=== PATIENT | male | born 1965 ===

== ENCOUNTER → 2021-03-19 08:19 | Outpatient (BNVA) | payer OTHER, SELFPAY | PROVIDERS: Visit Provider Internal Medicine | DX: T15.01XA Foreign body in cornea, right eye, initial encounter (principal); W22.8XXA Striking against or struck by other objects, initial encounter | CPT/HCPCS: 92002; 99202 ==

== ENCOUNTER 2023-01-02 10:20 | Outpatient (REF) | payer OTHER, SELFPAY ==
--- NOTE | ~2023-01-02 | XR_ITS ---
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 There is chronic loss of articular cartilage space with subarticular sclerosis, subchondral cystic change and osteophyte formation of the radioscaphoid joint. There is osteophyte formation of the mildly degenerated scaphotrapezium joint. There is chronic severe joint space loss with sclerosis and subchondral cystic change of the severely degenerated capitolunate joint. There appears to be a prominent lunate osteophyte or old ossific debris of the scapholunate joint. An old ossicle projects posterior to the radiocarpal joint. Mild osteoarthritis of the thumb metacarpophalangeal joint. LEFT WRIST: There is joint space narrowing and mild subarticular sclerosis of the radioscaphoid joint. Interval worsening osteoarthritis of the capitolunate joint with [id number]-[id number]-[id number] contact and subchondral sclerosis. Mild osteoarthritis of the scaphotrapezium joint and first carpometacarpal joint. An old subarticular cystic lucency of the ulna has increased in size since 09/12/2019. There are osteophytes of the degenerated thumb metacarpophalangeal and interphalangeal joints. 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 Also, osteoarthritic changes are seen at several other joints, as noted above.
--- NOTE | ~2023-01-02 | XR_ITS ---
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 There is chronic loss of articular cartilage space with subarticular sclerosis, subchondral cystic change and osteophyte formation of the radioscaphoid joint. There is osteophyte formation of the mildly degenerated scaphotrapezium joint. There is chronic severe joint space loss with sclerosis and subchondral cystic change of the severely degenerated capitolunate joint. There appears to be a prominent lunate osteophyte or old ossific debris of the scapholunate joint. An old ossicle projects posterior to the radiocarpal joint. Mild osteoarthritis of the thumb metacarpophalangeal joint. LEFT WRIST: There is joint space narrowing and mild subarticular sclerosis of the radioscaphoid joint. Interval worsening osteoarthritis of the capitolunate joint with ztvq-pt-[id number] contact and subchondral sclerosis. Mild osteoarthritis of the scaphotrapezium joint and first carpometacarpal joint. An old subarticular cystic lucency of the ulna has increased in size since 09/12/2019. There are osteophytes of the degenerated thumb metacarpophalangeal and interphalangeal joints. 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 Also, osteoarthritic changes are seen at several other joints, as noted above.
== END 2023-01-02 10:21 | disposition home or self-care (01) ==
LOC: HO.XRAY 10:20
PROVIDERS: PCP Physician Assistant; Visit Provider Physician Assistant
DX: M25.531 Pain in right wrist (principal); M25.532 Pain in left wrist
CPT/HCPCS: 73100

== ENCOUNTER 2023-01-03 09:42 | Outpatient (REF) | payer OTHER, SELFPAY ==
[2023-01-03 10:30] LABS: Hematocrit 48.4 % (42.0-52.0); Mean Corpuscular HGB Conc 33.1 g/dl (31.0-36.0); Mean Corpuscular Hemoglobin 30.7 pg (27.0-33.0); Mean Corpuscular Volume 92.7 fL (80.0-98.0); Mean Platelet Volume 10.7 fL (9.4-12.4); Platelet Count 204 X10*3/uL (160-400); Red Blood Count 5.22 X10*6/uL (4.60-5.80); Red Cell Distribution Width 12.1 % (11.0-16.0); White Blood Count 6.4 X10*3/uL (4.8-10.8)
[2023-01-03 11:25] LABS: Alanine Aminotransferase 22 U/L (0-40); Alkaline Phosphatase 96 U/L (39-117); Anion Gap 13 (12-20); Aspartate Amino Transferase 19 U/L (5-37); Bilirubin Total 0.8 mg/dL (0.0-1.0); Blood Urea Nitrogen 14 mg/dL (9-16); Calcium 9.4 mg/dL (8.4-10.2); Carbon Dioxide 26 mmol/L (22-29); Chloride 106 mmol/L (96-108); Cholesterol 192 mg/dL; Estimated Glomerular Filt Rate > 60; Glucose Fasting 90 mg/dL (60-99); HDL Cholesterol 31 mg/dL; LDL Cholesterol Calculated 105 mg/dl; Potassium 4.4 mmol/L (3.3-5.1); Sodium 141 mmol/L (135-145); Total Protein 6.3 g/dL (6.5-8.0); Triglycerides 284 mg/dL
[2023-01-03 11:44] LABS: Prostate Specific Antigen Scr 0.83 ng/mL (<0.05-4.0)
[2023-01-05 17:44] LABS: Transglutaminase Ab IgG <1.0 U/mL; Transglutaminase IgA <1.0 U/mL
== END 2023-01-03 09:43 | disposition home or self-care (01) ==
LOC: HO.LAB 09:42
PROVIDERS: PCP Physician Assistant; Visit Provider Physician Assistant
DX: I25.10 Atherosclerotic heart disease of native coronary artery without angina pectoris (principal); R14.0 Abdominal distension (gaseous); K52.9 Noninfective gastroenteritis and colitis, unspecified; Z13.1 Encounter for screening for diabetes mellitus; Z12.5 Encounter for screening for malignant neoplasm of prostate
CPT/HCPCS: 36415; 80053; 80061; 84153; 85027; 86364

== ENCOUNTER → 2023-01-16 10:18 | Outpatient (REF) | payer OTHER, SELFPAY ==
--- NOTE | 2023-01-16 10:22 | CA_ITS ---
Acquisition Time: 2023-01-16 10:42:09 Total Exercise Time: 00:09:19 Test Indications: CP Medications: SEE CHART Protocol: DAMIAN Max HR: 142 BPM 86% of Pred: 164 BPM Max BP: 158/058 mmHG Max Work Load: 10.5 METS Exercise stress test exercise 9 min 19 sec of Damian protocol achieving 85% MPHR, without anginal symptoms, with feeling of twinge in chest that correlated with PVCs, with isolated PVCs, with normotensive response to exercise, without EKG changes. Test reviewed with Dr. Chairez. Referred By: Chapito Jara Overread By: ELIZABETH HAQUE
== END ==
LOC: HO.CARD 10:18
PROVIDERS: PCP Physician Assistant; Visit Provider Physician Assistant
DX: I25.118 Atherosclerotic heart disease of native coronary artery with other forms of angina pectoris (principal)
CPT/HCPCS: 93017

== ENCOUNTER 2023-02-13 14:37 | Outpatient (REF) | payer OTHER, SELFPAY ==
--- NOTE | ~2023-02-13 | CT_ITS ---
EXAMINATION: CT CHEST SCREENING CLINICAL INFORMATION: Current smoker. 43 pack-year history. COMPARISON: None available. TECHNIQUE: Multidetector volumetric CT imaging of the chest is performed without contrast using low dose technique. Additional 2D coronal and sagittal reformatted images and axial 3D maximum intensity projection (MIP) images are generated on the CT workstation. This CT examination was performed using dose optimization techniques as appropriate, variously including the following: *Automated exposure control *Adjustment of mA and/or kV according to patient size (this includes techniques or standardized protocols for targeted exams where dose is matched to indication/reason for exam; i.e. extremities or head) *Use of iterative reconstruction technique DLP: 59 mGy-cm FINDINGS: LUNGS: Mild paraseptal emphysema. 8 mm mixed cystic and reticular nodule right upper lobe axial image 88 series 5.. 2 mm right upper lobe nodule axial image 118 series 5. Heterogeneous 5 mm right upper lobe nodule axial image 118 series 5. 2 mm peripheral or subpleural calcified left upper lobe nodule axial image 118 series 5. 2 mm calcified right upper lobe nodule axial image 179 series 5. 2 mm calcified right upper lobe nodule axial image 249 series 5. 2 mm peripheral or subpleural left lower lobe nodule adjacent to the fissure axial image 298 series 5. No endobronchial or endotracheal lesion. MEDIASTINUM: The mediastinum is normal. CORONARY ARTERY CALCIFICATION: Mild PLEURA: There is no pleural effusion. No pleural mass or thickening. AXILLA: No lymphadenopathy. UPPER ABDOMEN: The gallbladder is contracted. There may be a small gallstone. OSSEOUS STRUCTURES: Mild degenerative changes of the spine and left shoulder CT/CT lung screening IMPRESSION: Emphysema. Small pulmonary nodules. ASSESSMENT: Lung-RADS category 2: Benign RECOMMENDATION: Annual low-dose chest follow-up recommended.
== END 2023-02-13 14:38 | disposition home or self-care (01) ==
LOC: HO.CT 14:37
PROVIDERS: PCP Physician Assistant; Visit Provider Physician Assistant Medical
DX: Z12.2 Encounter for screening for malignant neoplasm of respiratory organs (principal); F17.210 Nicotine dependence, cigarettes, uncomplicated
CPT/HCPCS: 71271; G0296

== ENCOUNTER 2023-02-26 11:31 | Outpatient (REF) | payer OTHER, SELFPAY ==
--- NOTE | 2023-02-26 08:00 | EMG_ITS ---
Bilateral median and ulnar motor and sensory studies were performed. Bilateral radial sensory studies were performed and paraspinal muscles were tested with a needle. IMPRESSION: 1. Cjul-oy-xdxhwmrw bilateral median neuropathy across carpal tunnel. 2. Fbri-uf-ebngqikt bilateral ulnar neuropathy across cubital tunnel. MD YURI Tello/CHANTALE / [id number]
== END 2023-02-26 11:32 | disposition home or self-care (01) ==
LOC: HO.NEURO 11:31
PROVIDERS: PCP Physician Assistant; Visit Provider Physician Assistant
DX: R20.0 Anesthesia of skin (principal)
CPT/HCPCS: 95886; 95911

== ENCOUNTER 2023-03-04 15:00 | Outpatient (RCR) | payer OTHER, SELFPAY ==
--- NOTE | 2023-01-23 14:51 | MHC.OT.EP ---
[address] [phone] Occupational Therapy Plan of Care Patient Name: Blaine Benitez Date of Evaluation: 01/23/23 Diagnosis: PAIN IN B/L WRISTS Pain Location: B/L WRISTS: VOLAR, DORSAL, RADIAL WRISTS 3/10 AT REST 8/10 BUMPING Pain Score: 3-8/10 Pain Scale Used: Numeric (0 - 10) Aggravating Factors: BUMPING IT, VIBRATION, HOLDING PHONE, GRIPPING ... STATIC POSITIONS Alleviating Factors: HAS NOT TRIED ICE/HEAT, MARIJUANA HAS TRIED GLOVES TO DECREASE VIBRATION IN HANDS HAS B/L PRE-CADEN WRIST SPLINTS, DOES NOT WEAR Assessment: 57 Y/O M WITH FOUR YEAR HISTORY OF B/L WRIST PAIN. STATES HE DELAYED SEEKING MEDICAL ATTENTION DUE TO LACK OF INSURANCE. RECENT XRAY REVEALS STAGE 3 SLAC DEFORMITY IN B/L WRISTS. ADDITIONALLY, HE HAS NUMBNESS AND TINGLING IN B/L WRISTS. EMG PENDING FOR 02/26/23. OWNS PREFAB WRIST SPLINTS, BUT DOES NOT WEAR. HE ALSO STATES THAT HE HAS WORK GLOVES TO DECREASE VIBRATION, YET DIFFICULT TO WEAR DUE TO INCREASED EDEMA IN B/L WRISTS. 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 A 41% LIMITATION IS REPORTED PER THE QUICK DASH ASSESSMENT. ONGOING SKILLED OT IS WARRANTED TO ADDRESS ROM, STRENGTH, PARASTHESIA, JT PROTECTION, ACTIVITY MODIFICATION, PAIN, SAFETY, ADLs AND IADLs. Frequency and Duration: The patient will be seen 2X/WEEK FOR 5 WEEKS Short Term Goals: IND HEP IND JT PROTECTION AND ACTIVITY MODIFICATIONS IND USE OF NIGHT SPLINTS, ORTHOSIS' INCREASE R WRIST 35/25 INCREASE L WRIST 50/50 IND EDEMA MANAGEMENT STRATEGIES Intermediate Goals: REPORT <5/10 PAIN WITH IADLs REPORT MILD NUMBNESS AND TINGLING IN B/L HANDS QUICK DASH <25% IND SELF TAPING OR COMPRESSION GARMENTS Treatment Plan: Therapeutic Exercise Therapeutic Activity Home Exercise Program Splinting Neuro Re-ed Patient Education Desensitization/Sensory Re-ed Edema Control ADL Training Ultrasound NMES Iontophoresis Paraffin Fluidotherapy MHP Cold Packs Joint Mobilization Soft Tissue Mobilization Kinesiotaping Other (see comments) Electronically Signed By: BRAD KARLENE, OTR/L Please Sign and return to therapist. Thank you once again for your referral.
--- NOTE | 2023-03-04 15:50 | MHC.OT.OP ---
[address] [phone] F: [phone] Occupational Therapy Progress Note Patient Name: Blaine Benitez Diagnosis: PAIN IN B/L WRISTS Date of Surgery: Date of Evaluation: 01/23/23 Treatments to Date: 8 Cancellations to Date: 2 No Shows to Date: 0 Subjective: I WAS OFF FOR FIVE DAYS AND THEY WERE FEELING GREAT Pain Score: 4 Pain Location: B/L DORSAL WRISTS Objective Measures: CIRCUMFERENCE OF WRISTS, DISTAL TO US: R 19.0 CM, L 18.5 CM B/L GROSS GRASP 40 POUNDS Status: Not Progressing Assessment: MR DUVALL HAS REPORTED SOME PAIN RELIEF AFTER HIS OT TREATMENT SESSIONS. HE STATES THAT HIS PAIN SHARPLY INCREASES WHEN HE RETURNS TO WORK. 4/10 AT REST. 8-9/10 AT WORK. GRINDING, LIFTING 70-75 POUNDS DURING HIS WORK DAY. HE HAS BEEN PROVIDED WITH CUSTOM B/L HAND BASED ORTHOSIS' FOR USE WITH IADLs. Pt EDUCATION HAS BEEN PROVIDED ON SLEEPING POSITIONS AND ACTIVITY MODIFICATIONS. EDEMA REMAINS PRESENT AT HIS R > L DORSAL RADIAL WRISTS. HE IS IND WITH HIS HEP. Pt TO BE PLACED ON HOLD UNTIL AFTER HIS ORTHO APPOINTMENT ON 03/13/23. Short Term Goals: IND HEP IND JT PROTECTION AND ACTIVITY MODIFICATIONS IND USE OF NIGHT SPLINTS, ORTHOSIS' INCREASE R WRIST 35/25 INCREASE L WRIST 50/50 IND EDEMA MANAGEMENT STRATEGIES Gem Expert Goals: REPORT <5/10 PAIN WITH IADLs REPORT MILD NUMBNESS AND TINGLING IN B/L HANDS QUICK DASH <25% IND SELF TAPING OR COMPRESSION GARMENTS Treatment Plan: Therapeutic Exercise Therapeutic Activity Home Exercise Program Splinting Neuro Re-ed Patient Education Desensitization/Sensory Re-ed Edema Control ADL Training Ultrasound NMES Iontophoresis Paraffin Fluidotherapy MHP Cold Packs Joint Mobilization Soft Tissue Mobilization Kinesiotaping Other (see comments) TO BE ASSESSED AFTER ORTHO MD APPOINTMENT 03/13/23 Electronically Signed By: MAZIN SHELL/Fabienne Reviewed/agree with student documentation: N/A Therapist:
--- NOTE | 2023-04-03 15:07 | MHC.OT.DC ---
[address] [phone] F: [phone] Occupational Therapy Discharge Note Patient Name: Blaine Benitez Provider: Chapito Jara Diagnosis: PAIN IN B/L WRISTS Date of Evaluation: 01/23/23 Date of Discharge: 04/03/23 Treatments to Date: 8 Cancellations to Date: 2 No Shows to Date: 0 Discharge Status: Patient Elected to Stop Recommend MD Follow-up Discharge Summary: MR ROA WAS MOTIVATED AND PLEASANT DURING HIS OT RX SESSIONS. HE WAS IND WITH HIS HEP, YET CONTINUED TO EXPERIENCE PAIN AFTER WORK RELATED TASKS. HE STATED RELIEF FELT ON WEEKENDS WHEN ABLE TO REST B/L HANDS. B/L ORTHOSIS' FABRICATED FOR USE WITH IADLs WITH MILD RELIEF. MET WITH ORTHO PA, DISCUSSED POSSIBLE SURGICAL INTERVENTION. AWAITING MEETING WITH ORTHO ON 04/21/23. Pt WISHING TO DISCONTINUE OT SERVICES AT THIS TIME. Electronically Signed By: BRAD SOLER OTR/L Reviewed/agree with student documentation: N/A Therapist: Please Sign and return to therapist, thank you for your referral.
== END 2023-04-03 15:05 | disposition home or self-care (01) ==
LOC: HO.OT 15:00
PROVIDERS: PCP Physician Assistant; Visit Provider Physician Assistant
DX: M25.531 Pain in right wrist (principal); M25.532 Pain in left wrist
CPT/HCPCS: 29130; 97035; 97110; 97140; 97167; 97760

== ENCOUNTER → 2023-03-11 07:59 | Outpatient (BNVA) | payer OTHER, SELFPAY | PROVIDERS: PCP Physician Assistant; Visit Provider Physician Assistant ==

== ENCOUNTER → 2023-03-12 14:52 | Outpatient (BNVA) | payer OTHER, SELFPAY | PROVIDERS: PCP Physician Assistant; Referring Provider Physician Assistant; Visit Provider Internal Medicine | DX: I25.118 Atherosclerotic heart disease of native coronary artery with other forms of angina pectoris (principal); Z95.5 Presence of coronary angioplasty implant and graft | CPT/HCPCS: 93005 ==

== ENCOUNTER → 2023-03-13 10:52 | Outpatient (BNVA) | payer OTHER, SELFPAY | PROVIDERS: PCP Physician Assistant; Visit Provider Physician Assistant ==

== ENCOUNTER 2023-04-08 11:53 | Emergency (ER) | payer OTHER, SELFPAY ==
[2023-04-08 11:56] VITALS: BP 148/80; PULSE 86; RESP 20; TEMP 36.8; O2SAT 96; BMI 26.4
--- NOTE | 2023-04-08 12:01 | ED_ITS ---
HPI - General Adult General Chief complaint: Head Injury Stated complaint: ? Concussion Nausea Dizziness Time Seen by Provider: 04/08/23 13:16 Source: patient Mode of arrival: ambulatory Limitations: no limitations and other (poor historian ) History of Present Illness HPI narrative: Patient is a 58 year old male with a past medical history of carpal tunnel and CAD with stent presents with a traumatic head injury that occured around 10:30- 11:00 am. Patient reports he was hit with a steel frame in the back of his head while at work. Patient reports he thinks he lost consciousness for less than one minute but is unsure because he was seeing stars and had double vision which has since resolved. Patient reports throbbing diffuse headache that radiates from the back of his head around the sides towards the front. Patient reports dizziness with movement, headache, and nausea. Patient reports taking 81mg aspirin daily. Patient denies weakness, vomiting, fever, chills, numbness, tingling, incontinence, chest pain, or shortness of breath. On aspirin daily Related Data Home Medications Medication Instructions Recorded Confirmed diclofenac sodium 50 mg 50 mg PO BID PRN pain 03/12/23 03/12/23 tablet,delayed release Previous Rx's Medication Instructions Recorded aspirin 81 mg tablet,delayed 81 mg PO DAILY #90 tabs 12/31/22 release (Adult Aspirin Regimen) simvastatin 20 mg tablet 20 mg PO DAILY 90 days #90 tabs 02/11/23 bupropion HCl 150 mg tablet,12 hr 150 mg PO BID 30 days #60 tabs 02/23/23 sustained-release (Wellbutrin SR) bisacodyl 5 mg tablet,delayed 10 mg PO ONCE colonoscopy prep 1 03/11/23 release (Dulcolax (bisacodyl)) day #2 tabs methylcellulose (laxative) 500 mg 500 mg PO BID #60 tabs 03/11/23 tablet (Citrucel) polyethylene glycol 3350 17 238 g PO ONCE PRN laxative effect 03/11/23 gram/dose oral powder (Miralax) 1 day #238 grams ondansetron 4 mg disintegrating 4 mg PO Q6H PRN nausea and 04/08/23 tablet vomiting #14 tabs Allergies Allergy/AdvReac Type Severity Reaction Status Date / Time Penicillins [PENICILLINS] Allergy Severe HIVES Verified 03/12/23 15:02 amoxicillin Allergy Difficulty Verified 03/13/23 11:03 Breathing Review of Systems Review of Systems: Constitutional : No Weight loss, No Fever, No Chills, No Night Sweats, No Fatigue, No Malaise ENT/Mouth : No Hearing loss, No Ear Pain, No Nasal Congestion, No Sinus Pain, No Hoarseness, No sore throat, No Rhinorrhea, No Swallowing Difficulty Eyes: No Eye Pain, No Swelling, No Redness, No Foreign Body, No Discharge, + Vision Changes Cardiovascular : No Chest Pain, No SOB, No Dyspnea on Exertion, No Orthopnea, No Edema, No Palpitations Respiratory : No Cough, No Sputum, No Wheezing, No Smoke Exposure, No Dyspnea Gastrointestinal : + Nausea, No Vomiting, No Diarrhea, No Constipation, No abdominal Pain, No Hematochezia, No Melena Genitourinary : no irregular bleeding, No Dysuria, No Urinary Frequency, No Hematuria, No Urinary Incontinence, No Urgency, No Flank Pain, No Urinary Flow Changes, No Hesitancy Musculoskeletal : No joint pain, No Myalgias, No Joint Swelling Skin : No Skin Lesions, No rash +swelling on head Neuro : No Weakness, No Numbness, No Paresthesias, + Loss of Consciousness, +Dizziness, + Headache Psych : No Anxiety/Panic, No Depression, No SI/HI/AH/VH, No Social Issues, Heme/Lymph: No Bruising, No Bleeding,No Lymphadenopathy Endocrine : No Polyuria, No Polydipsia, No Temperature Intolerance [facility] Past Medical History Attestation statement: The following information was validated with the patient. Source: old records reviewed and nursing notes reviewed Medical History Nicotine dependence, cigarettes, uncomplicated Surgical History History of heart artery stent (~2010) History of left knee surgery (~1989) Family History Family History Mother Heart attack, Onset Age: 28 Stroke Father Renal cancer Maternal Grandfather Pancreatic cancer Social History Social History Housing: House Alcohol intake: current Alcohol intake frequency: holidays/special occasions only Patient Tobacco Use Status: Current someday Tobacco user Years Smoked: (onset 14yo, 1/2-1ppd x 43yrs, 30+pyh - quit 01/04/23) Smoked in Last 30 Days: No e-Cigarette/Vaping Use: Never Used Second Hand Smoke Exposure: No Use of substances other than those prescribed or required for medical reasons: Yes Substance Use Type: Marijuana Advance Directives: No Advance Directives Information Provided: Yes service: No Current occupational status: employed 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 Oriented X3.? No acute distress.? Head: + small tender area on the occipital aspect of head likely hematoma measuring about 2 cm x 2 cm. No lacerations. Eyes: Pupils equal, round and reactive to light.? Extraocular movements intact, pain-free. No signs of nerve entrapment. ENT: Pharynx normal.??External ears normal, TMs normal bilaterally and EAC's normal. No pain with manipulation of external ears bilaterally. No mastoid tenderness. CVS: Normal heart rate and rhythm.? Pulses normal.? Respiratory: No respiratory distress.? Breath sounds normal.? Abdomen: Soft and nontender.? Skin: Skin warm and dry.? Normal skin color.? Normal skin turgor.? Extremities: No lower extremity edema.? No calf ttp. 5/5 strength to bilateral upper and lower extremities Back: No midline tenderness, + cervical b/l paraspinous tendernes throughout, full range of motion w slight discomfort and no midline tenderness in C,T,L,S spine.. No CVA tenderness bilaterally Neuro: Oriented X 3.? No motor deficit.? No sensory deficit. CN 2-12 intact . Ambulating with steady gait normal coordination. Normal [id number], heel- to-bernal. No saddle paresthesias. NIH Stroke Scale: 0 NIH Stroke Scale Time: 14:04 Level of Consciousness: Alert Level of Consciousness Questions: Answers both questions correctly Level of Consciousness Commands: Performs both tasks correctly Best Gaze: Normal Visual: No visual loss Facial Palsy: Normal Motor Arm (Right): No drift Motor Arm (Left): No drift Motor Leg (Right): No drift Motor Leg (Left): No drift Limb Ataxia: Absent Sensory: Normal Best Language: No aphasia Dysarthia: Normal Extinction and Inattention: No abnormality Score: 0 Course Course Course Narrative: 58-year-old male presents for evaluation after head trauma. Patient reports that in 8 ft still frame swelling down and hit him in the back of the head. He did not lose consciousness. He reports posterior headache, neck pain, dizziness and nausea. He reports that he was having some trouble walking earlier as ?I felt like I was going to pass out. ? No open wounds or lacerations. Patient's cranial nerve exam is reassuring. I did not stand the patient up I see felt lightheaded the. CT scans of brain and cervical spine ordered Reevaluation(s) Reevaluation #1: CT of head with no acute intracranial hemorrhage. No acute cervical spine fracture no traumatic spinal subluxations. Degenerative spondylosis at C4 and C5 and C5-C6. Canal pain sees not well assessed due to inherent limitations without contrast, there is no signs of compressive myelopathy. Time: 15:03 Reevaluation #2: Patient reports improvement in headache however still complaining of dizziness with movement, walking, described as room spinning. I did discuss this case with my attending who reports this is likely vertigo secondary to traumatic head injury, recommends meclizine, Zofran for nausea and vomiting. And discharge home with strict return precautions. Educated patient on diagnosis and treatment plan, answered all question, patient verbalizes understanding. At this time patient will be discharged home, advised to return with new or worsening symptoms. Educated on worrisome signs and symptoms and when to return. At this time I feel comfortable discharge home. Medications Administered Discontinued Medications Generic Name Dose Route Start Last Admin Trade Name Freq PRN Reason Stop Dose Admin Acetaminophen 975 mg 04/08/23 14:39 04/08/23 14:52 Acetaminophen 325 Mg Tablet PO 04/08/23 14:40 975 mg ONCE ONE Administration Medical Decision Making Medical Decision Making MDM Narrative: 58-year-old male presents with traumatic head injury, closed prior to arrival, on aspirin. Reports he thinks he may have lost consciousness, poor historian. Physical examination with small 2 cm a 2 cm hematoma to the occipital aspect of head. Neuro nonfocal. Cerebellar intact. Normal vision on exam. Able to read without difficulty. History and physical exam concerning for possible concussion. Low suspicion for stroke, posterior stroke, intracranial hemorrhage, skull fracture, cervical spine fracture dislocation. No signs of cord compression, compressive myelopathy. I do not suspect traumatic fractures, dislocations or traumatic subluxations. No signs of traumatic injuries to chest, abdomen or pelvis. Plan head and neck imaging. Will give Tylenol for pain. Differential Diagnosis Differential Diagnoses: The differential diagnosis associated with the presentation includes History and physical exam concerning for possible concussion. Low suspicion for stroke, posterior stroke, intracranial hemorrhage, skull fracture, cervical spine fracture dislocation. No signs of cord compression, compressive myelopathy. I do not suspect traumatic fractures, dislocations or traumatic subluxations. No signs of traumatic injuries to chest, abdomen or pelvis. Admission/Observation Consideration of admission/observation: Escalation of care including admission/observation considered Not indicated Independent Interpretation I performed an independent interpretation of an: CT Scan Radiology Impression Discussion of test interpretation with radiology: I have reviewed the radiologist's reading. Core Measures AMI core measures followed: Yes Measure exclusions: not indicated Critical Care Time Critical Care Time Critical Care Time: No Discharge Plan Discharge Clinical Impression: Closed head injury, Concussion with loss of consciousness, Nausea, Dizziness Patient Disposition: Home, Self-Care Instructions: Head Injury (ED), Acute Nausea and Vomiting (ED), Post Concussion Syndrome (ED) Additional Instructions: Take your medications as prescribed. If you were prescribed antibiotics today, it is important that you take your medication to their entirety, do not skip any doses, do not finish them early. Follow-up with your primary care provider this week. Return to the emergency department with new or worsening symptoms. Such as fevers, chills, chest pain, shortness of breath, nausea, vomiting, dizziness, headache, vision changes, lethargy In case of emergency call 911 Please look out for any signs symptoms of post concussive syndrome including but not limited to headache, vision changes, dizziness, seizure-like activity, altered mental status. Please limit screen time take Tylenol as needed for pain. Do not exceed maximum daily dose is listed on packaging. ?CT/CT head/brain wo IV con IMPRESSION: Head: No acute intracranial hemorrhage. ? Cervical spine: No acute cervical spine fracture and no posttraumatic spinal subluxation. There is degenerative spondylosis at C4-C5 and C5-C6. Canal patency is not well assessed on this examination due to inherent limitations of CT without intrathecal contrast. There is at least mild canal stenosis at C4-C5 and C5-C6. If there are clinical symptoms of compressive myelopathy then a dedicated cervical spine MRI can be obtained for better anatomic characterization of the cord and canal. Prescriptions: New ondansetron 4 mg tablet,disintegrating 4 mg PO Q6H PRN (Reason: nausea and vomiting) Qty: 14 0RF No Action bupropion HCl [Wellbutrin SR] 150 mg tablet sustained-release 12 hr 150 mg PO BID 30 Days Qty: 60 3RF aspirin [Adult Aspirin Regimen] 81 mg tablet,delayed release (DR/EC) 81 mg PO DAILY Qty: 90 2RF simvastatin 20 mg tablet 20 mg PO DAILY 90 Days Qty: 90 1RF diclofenac sodium 50 mg tablet,delayed release (DR/EC) 50 mg PO BID PRN (Reason: pain) Citrucel 500 mg tablet 500 mg PO BID Qty: 60 5RF bisacodyl [Dulcolax (bisacodyl)] 5 mg tablet,delayed release (DR/EC) 10 mg PO ONCE 1 Days Qty: 2 0RF Rx Instructions: Take 2 tablets by mouth at 12:00pm the day before your procedure. polyethylene glycol 3350 [Miralax] 17 gram/dose powder 238 g PO ONCE PRN (Reason: laxative effect) 1 Days Qty: 238 0RF Rx Instructions: Take as directed by mouth the day before your procedure. Referrals: Chapito Jara PA-C [Primary Care Provider] - 2 days Stand Alone Forms: Work/School Release
[2023-04-08 15:10] VITALS: BP 128/85; PULSE 70
[2023-04-08 15:11] VITALS: BP 126/89; PULSE 76
[2023-04-08 15:13] VITALS: BP 139/91; PULSE 78
[2023-04-08 15:16] VITALS: BP 126/89; PULSE 75; RESP 18; TEMP 36.4; O2SAT 97
== END 2023-04-08 16:08 | disposition home or self-care (01) ==
PROVIDERS: Emergency Provider Emergency Medicine Emergency Medical Services; PCP Physician Assistant
DX: S06.0X1A Concussion with loss of consciousness of 30 minutes or less, initial encounter (principal); W20.8XXA Other cause of strike by thrown, projected or falling object, initial encounter; R11.0 Nausea; R19.7 Diarrhea, unspecified; Y93.89 Activity, other specified; Y92.9 Unspecified place or not applicable; Y99.0 Civilian activity done for income or pay
CPT/HCPCS: 70450; 72125; 99284

== ENCOUNTER → 2023-04-14 15:35 | Outpatient (REF) | payer OTHER, SELFPAY ==
--- NOTE | 2023-04-14 15:37 | CA_ITS ---
Transthoracic Echocardiogram Patient (Last, First, Middle): Blaine Benitez A Gender: Male Date of : 1965 Age: 58 Procedure Date: 04/14/2023 Procedure Type: Transthoracic Echocardiogram Location: OP Height: 177.8 cm Weight: 83.46 kg BSA: 2.01 m2 Heart Rate: bpm BP: 120 / 72 mmHg Food And Nutrition Supervisor: YOSELYN Referring MD: Fred Chacon MD Color Developer: Erich Chairez MD Symptoms: I25.10 - Atherosclerotic heart disease of resighini coronary artery without... Study Quality: Adequate ECG Rhythm: Sinus Conclusions: - 1. Normal LV ejection fraction with LVEF of 55-60% with impaired relaxation filling pattern with regional wall motion abnormality suggestive of underlying coronary artery disease 2. Normal cardiac valvular Dopplers 3. Normal RV systolic pressure 4. No gross pericardial effusion Findings Left Ventricle Normal left ventricular cavity size. There is normal left ventricular wall thickness. The left ventricular systolic function is normal. The visually estimated ejection fraction is between 55-60%. There is evidence of regional wall motion abnormalities. Spectral Doppler is indicative of an impaired relaxation filling pattern. E/E prime ratio is between 8 and 15 consistent with indeterminate filling pressures. Peak GLS is -13.6%, which is moderately reduced. Wall Motion Rest Echo Findings The mid inferior and mid inferoseptal segments are hypokinetic. The basal inferior and basal inferoseptal segments are akinetic. All other scored wall segments showed normal motion. Right Ventricle Normal right ventricular cavity size and systolic function. Atria Both atria are normal in size. There is lipomatous hypertrophy of the interatrial septum. There is no evidence of interatrial shunt. Aortic Valve Normal aortic valve structure and function. There is no aortic valve stenosis. There is no aortic valve regurgitation. Mitral Valve Normal mitral valve structure and function. There is trace mitral valve regurgitation. There is no mitral valve stenosis. Pulmonic Valve The pulmonic valve is likely normal. Tricuspid Valve Normal tricuspid valve structure. There is trace tricuspid valve regurgitation. The right ventricular systolic pressure is normal. The right ventricular systolic pressure is 23 mmHg. Normal right atrial pressure. There is no evidence of pulmonary hypertension. Great Vessels All visible segments of the aorta are normal in size. The pulmonary artery was not well visualized. Venous The inferior vena cava is normal in size and collapses greater than 50% with inspiration. Pericardium/Pleural There is no evidence of pericardial effusion. Measurements 2D Linear Measurements IVSd: 0.71 0.6-0.9/0.6-1.0 cm LVIDd: 5.29 3.9-5.3/4.2-5.9 cm LVIDd Index: 2.63 2.4-3.2/2.2-3.1 cm/m2 LVIDs: 3.26 2.0-3.6 cm LVPWd: 0.82 0.7-1.1 cm LA Diam: 3.00 2.7-3.8/3.0-4.0 cm LAIDs Index: 1.49 1.5-2.3 cm/m2 LV Mass: 176.38 67-162/88-224 g LV Mass Index: 87.75 43-95/49-115 g/m2 LVOT Diam: 2.20 3.0+(-)1.3 cm 2D Systolic Function EF 4C: 52.30 >55% EF 2C: 58.40 >55% EF BiP: 55.40 >55% Mitral Valve MV Pk E: 0.79 MV PK A: 0.93 MV Decel Time: 170.00 E/A: 0.90 E'Lateral: 9.79 E'Medial: 7.29 E/E' Med: 10.80 E/E' Lat: 8.00 PHT: 50.00 MVA PHT: 4.40 Decel Luna: 4.64 Aortic Valve AoV Pk Romeo: 1.44 AoV Mn Romeo: 1.00 AoV VTI: 0.30 AoV Pk Grad: 8.00 Aov Mn Grad: 4.00 FISH Cont.VTI: 2.19 LVOT LVOT Pk Romeo: 0.91 LVOT Mn Romeo: 0.56 LVOT VTI: 0.17 LVOT Pk Grad: 3.00 LVOT Mn Grad: 2.00 LVOT Diam: 2.20 LVOT Area: 3.80 Diastolic Function MV Pk E: 0.79 MV Pk A: 0.93 E/A: 0.90 E'Medial: 7.29 E/E' Med: 10.80 E' Laterial: 9.79 E/E' Lat: 8.00 Right Ventricle TAPSE (mm): 29.50 TVS' Romeo: 14.40 Tricuspid Valve TR Pk Romeo: 2.21 TR Pk Grad: 20.00 RA Press: 3.00 RVSP: 23.00 Great Vessels Aorta Sinus of Valsalva: 3.69 2.0-3.[address] Ridge: 3.11 1.7-3.4 cm Ao Asc: 3.30 2.1-3.4 cm Updated in Other Vendor System with Status of Final Erich Chairez MD electronically signed on 04/15/2023 11:45:03 AM with status of Final
== END ==
LOC: HO.CARD 15:35
PROVIDERS: PCP Physician Assistant; Visit Provider Internal Medicine
DX: I25.10 Atherosclerotic heart disease of native coronary artery without angina pectoris (principal)
CPT/HCPCS: 93306; 93356

== ENCOUNTER → 2023-04-14 15:37 | Outpatient (BNV) | payer OTHER, SELFPAY | PROVIDERS: PCP Physician Assistant; Visit Provider Internal Medicine Cardiovascular Disease | DX: I25.10 Atherosclerotic heart disease of native coronary artery without angina pectoris (principal) | CPT/HCPCS: 93306 ==

== ENCOUNTER 2023-04-21 15:29 | Outpatient (AMB) | payer OTHER, SELFPAY ==
--- NOTE | 2023-04-21 15:34 | A.OFFVIS_ITS ---
Intake Intake Visit Reasons: OV- B/L discuss sx CTR +/- wrist fusion Intake Note: Blaine 58 yr ld male presents today for to discuss possible wrist fusion and also carpal and cubital tunnel release bilaterally. Patient last seen with Jenaro oconnor. Patiemt states he has no wrist ROM and is in constant discomfort and pain. Allergies Penicillins [PENICILLINS] Allergy (Severe, Verified 04/21/23 15:57) HIVES amoxicillin Allergy (Verified 04/21/23 15:57) Difficulty Breathing HPI OV- B/L discuss sx CTR +/- wrist fusion HPI Details Blaine is a 58 year old right hand dominant man who presents to discuss his bilateral hand numbness & wrist pain. His chief complaint is of numbness primarily in the ring & small fingers of his right hand. He does have numbness in the fingers of his left hand, but this is not as frequent or severe. His symptoms are intermittent, but daily, worse at night or with activity. This is his primary complaint today. 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 . He does have some pain in his wrist but that is not what is bothering him most of the time. He also has very limited wrist range of motion particularly on the right side. He also complains of painful locking of his fingers. He says his fingers often lock when he is driving. He would like to discuss surgery. He says he used to smoke cigarettes but has recently quit. He admits to smoking Marijuana for pain control [facility] Medical History Nicotine dependence, cigarettes, uncomplicated Surgical History History of heart artery stent (~2010) History of left knee surgery (~1989) Family History Mother Heart attack, Onset Age: 28 Stroke Father Renal cancer Maternal Grandfather Pancreatic cancer Social History Housing: House Alcohol intake: current Alcohol intake frequency: holidays/special occasions only Patient Tobacco Use Status: Current someday Tobacco user Years Smoked: (onset 14yo, 1/2-1ppd x 43yrs, 30+pyh - quit 01/04/23) e-Cigarette/Vaping Use: Never Used Second Hand Smoke Exposure: No Substance Use Type: Marijuana service: No Current occupational status: employed 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, 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 Current occupational exposures/hazards: No Cognitive needs: No Hearing needs: No Vision needs: No Review of Systems Const All systems reviewed & are unremarkable except as noted in HPI and below Physical Exam Const General: cooperative, healthy appearing and no acute distress Orientation/consciousness: patient oriented x3 HEENT Head: Yes normocephalic and Yes atraumatic Eyes EOM: EOMs intact bilaterally Resp Effort & Inspection: normal respiratory effort and able to speak in complete sentences Cardio Jugular venous distension: no JVD Skin General skin exam: turgor normal Rashes: no rashes Neuro General: patient oriented x3 Extrem Other: Evaluation of Bilateral Upper Extremity: The patient is alert, oriented, and in no acute distress Neuro: Normal sensation in the median nerve distribution bilaterally. Normal sensation in the ulnar nerve distribution of the right hand. Normal sensation in the ulnar nerve distribution of the left hand No thenar or intrinsic wasting Good APB muscle belly firing and good finger cross Good ABduction & ADduction Vascular: Cap refill brisk ROM: He can make a fist and extend all his digits I did not see any locking or catching today in clinic. He is not sure whether his fingers lock in tight flexion, he thinks they may lock in only partial flexion, which would not be consistent with a trigger finger. Limited wrist ROM: Right Flexion: ~15 degrees Extension: 0 degrees Full and symmetrical pronosupination Left Flexion: ~30 degrees Extension: ~15-20 degrees He does have some tenderness to palpation over the dorsal central aspect of the radiocarpal joint of the right wrist. Interestingly not particularly tender more radially over the radiocarpal joint. Even so, he says this is not the main thing that is bothering him, even at work. No tenderness along the radial styloid Skin: No lacerations or abrasions. General: No Ecchymosis. No Erythema or evidence of infection. Radiographs: 3 views of the right wrist from 03/13/23 were reviewed by me today in clinic. 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 The radiolunate joint looks to be well-preserved 3 views of the left wrist from 03/13/23 were reviewed by me today in clinic. They show a near complete loss of radioscaphoid joint space and complete loss of the joint space between the lunate and capitate, with good preservation of the radiolunate. EMG nerve conduction study: IMPRESSION:? 1. [id number] bilateral median neuropathy across carpal tunnel. 2. Nioq-[id number] bilateral ulnar neuropathy across cubital tunnel. ??? M Estefany Gottlieb MD 02/26/2023 Psych Appearance: grossly normal Affect: normal affect Attitude: cooperative Assessment & Plan Assessment & Plan (1) Carpal tunnel syndrome on both sides: Code(s): G56.03 - Carpal tunnel syndrome, bilateral upper limbs (2) Cubital tunnel syndrome of both upper extremities: Code(s): G56.23 - Lesion of ulnar nerve, bilateral upper limbs (3) SLAC (scapholunate advanced collapse) wrist: Comment: Bilaterally, R>L Code(s): M19.139 - Post-traumatic osteoarthritis, unspecified wrist Plan Assessment & Plan: 1. Right Cubital tunnel syndrome, mild-moderate Symptoms intermittent, but daily, worse at night or with activity 2. Right Carpal tunnel syndrome, mild-moderate Symptoms intermittent, but daily, worse at night or with activity Primary complaint is of numbness in the ulnar nerve distribution This is his chief complaint, the numbness and tingling in his right hand I educated him about these conditions I discussed treatment options The patient would like to proceed with surgery The risks and benefits of operative treatment were discussed with the patient and the patient wishes to proceed with surgery. These risks include, but are not limited to risk of damage to blood vessels, nerves, tendons, infection, recurrence, incomplete relief of preoperative symptoms, persistent pain, possible need for further surgery and the risks associated with regional blocks and anesthesia. The plan is to take the patient to the operating room sometime in the next few weeks for the following procedures: 1. Right cubital tunnel release vs transposition, under general 2. Right carpal tunnel release, under general All of the preoperative paperwork including the consent was filled out today. All the patient's questions were answered. The patient understands that they will be contacted by our museum service scheduler soon to schedule this procedure He denies Diabetes, blood thinners, lung, kidney issues He says he has asthma and CAD. He is not on any blood thinners, but he is seeing a customer service analyst for a chest CAT scan. He will need cardiac clearance prior to surgery 3. Left Carpal tunnel syndrome, mild-moderate 4. Left Cubital tunnel syndrome, mild-moderate Symptoms intermittent, but daily, worse at night or with activity Not as bothersome as his right side We can discuss treatment at a later date 5. Right wrist SLAC deformity, severe Limiting motion, not terribly painful 6. Left wrist SLAC deformity, severe Limiting motion, not terribly painful I educated him about this condition I discussed treatment options I recommend activity modification at this time I discussed activity modification, he is to limit or avoid any heavy lifting or repetitive activities which cause him pain If his symptoms persist or worsen we can discuss injections vs surgery. 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 Scribed for Rossy Laws MD by Jj Ashby, medical office receptionist assistant, on 04/21/23 at 4:10 PM, EST. Coding Level of Care Code New Pt Level 5 (04994) Diagnoses Carpal tunnel syndrome on both sides G56.03 Cubital tunnel syndrome of both upper extremities G56.23 SLAC (scapholunate advanced collapse) wrist M19.139
== END 2023-04-21 16:27 | disposition home or self-care (01) ==
PROVIDERS: PCP Physician Assistant; Visit Provider Orthopaedic Surgery
DX: G56.03 Carpal tunnel syndrome, bilateral upper limbs (principal); G56.23 Lesion of ulnar nerve, bilateral upper limbs; M19.139 Post-traumatic osteoarthritis, unspecified wrist
CPT/HCPCS: 99215

== ENCOUNTER → 2023-04-21 15:29 | Outpatient (BNVA) | payer OTHER, SELFPAY | PROVIDERS: PCP Physician Assistant; Visit Provider Orthopaedic Surgery ==

== ENCOUNTER 2023-05-14 15:34 | Outpatient (AMB) | payer OTHER, SELFPAY ==
--- NOTE | 2023-05-14 15:34 | A.OFFPC_ITS ---
Vital Signs 05/14/23 15:36 Height 5 ft 10 in Weight 183 lb 4 oz BMI 26.3 BP 130/78 Blood Pressure Location Rt brachial Position Sitting Pulse 74 Pulse Source Pulse Oximeter Pulse Oximetry (%) 98 Intake Visit Reasons: f/u CAD / Intake Note: pt is here for f/u CAD Cad Developer Required: No Accompanied by: Self / Same As Patient Allergies Penicillins [PENICILLINS] Allergy (Severe, Verified 05/14/23 15:48) HIVES amoxicillin Allergy (Verified 05/14/23 15:48) Difficulty Breathing Medication List - Last Reconciled 05/14/23 by Chapito Jara PA-C aspirin (Adult Aspirin Regimen) 81 mg PO DAILY bisacodyl (Dulcolax (bisacodyl)) 10 mg (2 x 5 mg) PO ONCE 1 day bupropion HCl (Wellbutrin SR) 150 mg PO BID 30 days diclofenac sodium 50 mg PO BID PRN methylcellulose (laxative) (Citrucel) 500 mg PO BID ondansetron 4 mg PO Q6H PRN polyethylene glycol 3350 (Miralax) 238 grams PO ONCE PRN 1 day simvastatin 20 mg PO DAILY 90 days Tobacco use date assessed: 02/11/23 Dental Screening Dental Screen Date: 05/14/23 Did you have a dental visit in the last 12 months?: Yes Did you have a dental problem in the last 6 months where you did not have access to dental care?: No Was dental information given to patient?: Patient has dentist HPI f/u CAD / HPI Details Blaine is a 57-year-old male here today for follow-up visit Patient has a past medical history significant for tobacco dependency, carpal tunnel syndrome and bands arthritis in bilateral wrists Bilateral hand pain and paresthesias:? 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 ?Patient has multiple complaints today including lately having Chest pain worse on exertion similar to his previous angina , Also report bilateral hand knumbess and wrist pain , he works as a special class welder over the last 30 years and often lifts heavy equipment continually working with his hands. He has started working with occupational therapy whom has been doing hand therapy and taping.? Does severe decrease sensation to light touch in his distal fingers. Has upcoming appointment with orthopedics to evaluate for carpal tunnel syndrome.? .. Tobacco dependency:?has mostly stopped . Has been started on Wellbutrin which has worked wonderfully to reduce his smoking.? He reports he has smoked 1 cigarette since last office visit.? He does understand the cardiovascular risk of continued smoking. .. ? Coronary artery disease:? Now followed by Cardiology. Reviewed cardiac catheterization notes from February of 2020 at [facility] and did not mention any stents placed in the coronary arteries plate Recent ECHO showing wall abnormality suggestive of Coronary artery disease He has gotten a cardiac stress test which showed normotensive response without any ischemic findings.? Did have PV[facility] Medical History Nicotine dependence, cigarettes, uncomplicated Surgical History History of heart artery stent (~2010) History of left knee surgery (~1989) Family History Mother Heart attack, Onset Age: 28 Stroke Father Renal cancer Maternal Grandfather Pancreatic cancer Social History Housing: House Alcohol intake: current Alcohol intake frequency: holidays/special occasions only Patient Tobacco Use Status: Current someday Tobacco user Years Smoked: (onset 14yo, 1/2-1ppd x 43yrs, 30+pyh - quit 01/04/23) e-Cigarette/Vaping Use: Never Used Second Hand Smoke Exposure: No Substance Use Type: Marijuana service: No Current occupational status: employed 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 Jourdan Tellez, Lorri Trammell, Ricardo Hernandez and colleagues, with an educational grazyna from [employer]. Review of Systems Const Denies headache(s) Eyes Denies loss of vision ENT Denies vertigo, Denies dizziness, Denies headache(s) and Denies sore throat Card Denies chest pain, Denies leg edema and Denies lightheadedness Resp Denies cough, Denies hemoptysis and Denies wheezing GI Denies abdominal pain, Denies melena, Denies constipation, Denies diarrhea and Denies vomiting Denies dysuria, Denies urinary frequency and Denies urinary urgency Musc Denies arthralgias, Denies joint swelling, Denies numbness and Denies tingling Neuro Denies Abnormal speech present, Denies behavioral changes, Denies vertigo, Denies dizziness, Denies headache(s), Denies loss of vision, Denies memory loss, Denies numbness and Denies tingling Psych Denies anxiety, Denies behavioral changes, Denies depression, Denies memory loss and Denies panic attacks Abhilash/Lymph Denies easy bleeding and Denies easy bruising Aller/Immun Denies wheezing Physical exam (Primary Care) Vital Signs: Last Vital Signs Pulse 74 05/14/23 15:36 BP 130/78 05/14/23 15:36 Pulse Ox 98 05/14/23 15:36 BMI result Body Mass Index 26.3 Tobacco/Smoking Status: Tobacco use Status Tobacco use date assessed 02/11/23 05/14/23 15:36 Patient Tobacco Use Status Current someday Tobacco 05/14/23 15:36 Tobacco use type 03/13/23 11:25 e-Cigarette/Vaping Use Never Used 05/14/23 15:36 Thrive Assessment: Date of Thrive Assessment Date Thrive assessed 12/31/22 05/14/23 15:36 Const General: healthy appearing, no acute distress, alert and awake Nutritional Appearance: well nourished Orientation/consciousness: oriented to person, oriented to place and oriented to time HENMT Ears: TM's normal bilaterally General nose exam: Normal nasal mucous membranes and turbinates present Eyes Conjunctivae: conjunctivae normal Sclerae: sclerae normal Pupils: Equal, round and reactive pupils present Neck Neck: Yes no lymphadenopathy and Yes no JVD Thyroid: Thyroid normal Carotids: no bruits Resp Effort & Inspection: normal respiratory effort and not tachypneic Auscultation: no crackles, no rales, no rhonchi and no wheezes Cardio Rate: regular rate Rhythm: regular rhythm Heart sounds: no murmurs and normal S1 and S2 GI Palpation (GI): Soft to palpation, nontender, no hepatomegaly and no splenomegaly Auscultation: normal bowel sounds Skin General skin exam: no rashes or lesions noted and dry skin Neuro General: oriented to person, oriented to place and oriented to time Cranial nerves: Yes Equal, round and reactive pupils present Speech: No Abnormal speech present Gait exam (Neuro): Normal gait present Motor exam (neuro): no tremor noted Extrem Right upper extremity: full ROM Left upper extremity: full ROM Right lower extremity: full ROM; no edema Left lower extremity: full ROM; no edema Psych Mental Status: mental status grossly normal Speech and movement: Normal speech and movement present Affect: normal affect Attitude: cooperative Thought process: Normal thought process present Assessment and Plan Assessment & Plan (1) HLD (hyperlipidemia): Code(s): E78.5 - Hyperlipidemia, unspecified Qualifiers: Hyperlipidemia type: mixed hyperlipidemia Qualified Code(s): E78.2 - Mixed hyperlipidemia Plan: Has been started on simvastatin 20 mg without any side effect. He has found the simvastatin as much more for double. Will recheck lipid panel with goal LDL to be below 100 (2) CAD (coronary artery disease): Code(s): I25.10 - Atherosclerotic heart disease of [place] coronary artery without angina pectoris Qualifiers: Coronary Disease-Associated Artery/Lesion type: [place] artery [place] vs. transplanted heart: [place] heart Associated angina: with stable angina Qualified Code(s): I25.118 - Atherosclerotic heart disease of [place] coronary artery with other forms of angina pectoris Plan: Reviewed cardiac catheterization done at [place] in February of 2020. There is no evidence of coronary artery disease or stent placement at that time as this has been mistaken. At this time some of his symptoms are not clear. His echocardiogram did show some regional wall abnormalities concerning for coronary artery etiology. Has been sent for CT angiogram of coronary arteries and will be done in near future. 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 (3) SLAC (scapholunate advanced collapse) wrist: Comment: Bilaterally, R>L Code(s): M19.139 - Post-traumatic osteoarthritis, unspecified wrist Qualifiers: Laterality: unspecified laterality Qualified Code(s): M19.139 - Post- traumatic osteoarthritis, unspecified wrist Plan: Patient is followed by hand surgeon and has severe arthritis in bilateral wrists. Also has carpal tunnel syndrome and is anticipating surgery on both of his wrists. 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 (4) Carpal tunnel syndrome on both sides: Code(s): G56.03 - Carpal tunnel syndrome, bilateral upper limbs Plan: As above Medications: New acetaminophen ER (Tylenol Arthritis Pain) 650 mg PO Q12H 30 days 60 tabs 3RF M19.139 - Post-traumatic osteoarthritis, unspecified wrist, M19.90 - Unspecified osteoarthritis, unspecified site Changed From diclofenac sodium 50 mg PO BID PRN pain M25.532 - Pain in left wrist To diclofenac sodium 50 mg PO BID 7 days PRN 14 tabs 0RF pain M25.532 - Pain in left wrist Coding Level of Care Code Est Pt Level 4 (11580) Diagnoses HLD (hyperlipidemia) E78.2 Hyperlipidemia type: mixed hyperlipidemia CAD (coronary artery disease) I25.118 Coronary Disease-Associated Artery/Lesion type: [place] artery [place] vs. transplanted heart: [place] heart Associated angina: with stable angina SLAC (scapholunate advanced collapse) wrist M19.139 Laterality: unspecified laterality Carpal tunnel syndrome on both sides G56.03
[2023-05-14 15:36] VITALS: BP 130/78; PULSE 74; O2SAT 98; BMI 26.3
== END 2023-05-14 16:12 | disposition home or self-care (01) ==
PROVIDERS: PCP Physician Assistant; Visit Provider Physician Assistant
DX: E78.2 Mixed hyperlipidemia (principal); I25.118 Atherosclerotic heart disease of native coronary artery with other forms of angina pectoris; M19.139 Post-traumatic osteoarthritis, unspecified wrist; G56.03 Carpal tunnel syndrome, bilateral upper limbs
CPT/HCPCS: 99214

== ENCOUNTER 2023-06-17 15:04 | Outpatient (AMB) | payer OTHER, SELFPAY ==
--- NOTE | 2023-06-17 15:28 | MHC.OFFVIS ---
Intake Vital Signs 06/17/23 15:35 Height 5 ft 10 in Weight 183 lb BMI 26.3 Intake Visit Reasons: OV RT. cub. anny. release vs. transp. and CTR Intake Note: Blaine presents today for his pre op visit for his Right cubital tunnel release vs transposition & Right carpal tunnel release, under general. 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 Allergies Penicillins [PENICILLINS] Allergy (Severe, Verified 06/17/23 15:37) HIVES amoxicillin Allergy (Verified 06/17/23 15:37) Difficulty Breathing IV dye Adverse Reaction (Mild, Uncoded 06/17/23 15:37) rash HPI OV RT. cub. anny. release vs. transp. and CTR HPI Details Blaine Benitez is a 58-year-old man who presents today to the office for a pre op visit for right cubital tunnel release vs transposition and CTR. 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 He has received his clearance from the cold mill operator. He feels the numbness in his right hand has gotten worse. He now reports that he has constant numbness in his thumb, ring, and small finger. He has more normal sensation in his index and middle fingers. [facility] Medical History Nicotine dependence, cigarettes, uncomplicated Surgical History History of heart artery stent (~2010) History of left knee surgery (~1989) Family History Mother Heart attack, Onset Age: 28 Stroke Father Renal cancer Maternal Grandfather Pancreatic cancer Social History Housing: House Alcohol intake: current Alcohol intake frequency: holidays/special occasions only Patient Tobacco Use Status: Current someday Tobacco user Years Smoked: (onset 14yo, 1/2-1ppd x 43yrs, 30+pyh - quit 01/04/23) e-Cigarette/Vaping Use: Never Used Second Hand Smoke Exposure: No Substance Use Type: Marijuana service: No Current occupational status: employed 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, 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 Current occupational exposures/hazards: No Cognitive needs: No Hearing needs: No Vision needs: No Review of Systems Const All systems reviewed & are unremarkable except as noted in HPI and below Physical Exam Vital Signs: BMI result Body Mass Index 26.3 Const General: cooperative, healthy appearing and no acute distress Orientation/consciousness: patient oriented x3 HEENT Head: Yes normocephalic and Yes atraumatic Eyes EOM: EOMs intact bilaterally Resp Effort & Inspection: normal respiratory effort and able to speak in complete sentences Cardio Jugular venous distension: no JVD Skin General skin exam: turgor normal, ecchymosis (No) and erythema (No) Rashes: no rashes Trauma: no lacerations or abrasions Neuro Other: Vascular: Cap refill brisk General: patient oriented x3 Extrem Other: The patient was alert oriented and in no acute distress. Evaluation of right Upper Extremity: He has dense numbness in his right thumb, ring, and small finger. He has normal sensation in his right index and middle fingers. No thenar or intrinsic wasting. Good APB muscle belly firing and good finger cross. He can make a fist and extend all of his digits. No locking or catching. No lacerations or abrasions. No ecchymosis, no erythema or evidence of infection. Previous Radiographs: Result was reviewed by Dr. Rossy Laws. 3 views of the right wrist from 03/13/23 were reviewed by me today in clinic. 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 The radiolunate joint looks to be well-preserved 3 views of the left wrist from 03/13/23 were reviewed by me today in clinic. They show a near complete loss of radioscaphoid joint space and complete loss of the joint space between the lunate and capitate, with good preservation of the radiolunate. EMG nerve conduction study: IMPRESSION: 1. [id number] bilateral median neuropathy across carpal tunnel. 2. Zeiy-on-jrfxkilu bilateral ulnar neuropathy across cubital tunnel. Juan Gottlieb MD 02/26/2023 Psych Appearance: grossly normal Affect: normal affect Attitude: cooperative Assessment & Plan Assessment & Plan (1) Carpal tunnel syndrome on both sides: Code(s): G56.03 - Carpal tunnel syndrome, bilateral upper limbs (2) Cubital tunnel syndrome of both upper extremities: Code(s): G56.23 - Lesion of ulnar nerve, bilateral upper limbs (3) SLAC (scapholunate advanced collapse) wrist: Comment: Bilaterally, R>L Code(s): M19.139 - Post-traumatic osteoarthritis, unspecified wrist Qualifiers: Laterality: unspecified laterality Qualified Code(s): M19.139 - Post-traumatic osteoarthritis, unspecified wrist Plan Assessment & Plan: 1. Right Cubital tunnel syndrome, mild-moderate dense numbness in the small and ring fingers 2. Right Carpal tunnel syndrome, mild-moderate He has dense numbness in the thumb, more normal sensation in the index and middle fingers. This is his chief complaint, the numbness and tingling in his thumb, ring, and small finger of right hand. I educated him about these conditions I discussed treatment options. I am recommending surgery. The patient would like to proceed with surgery The risks and benefits of operative treatment were discussed with the patient and the patient wishes to proceed with surgery. These risks include, but are not limited to risk of damage to blood vessels, nerves, tendons, infection, recurrence, incomplete relief of preoperative symptoms, persistent pain, possible need for further surgery and the risks associated with regional blocks and anesthesia. The plan is to take the patient to the operating room sometime in the next few weeks for the following procedures: 1. Right cubital tunnel release vs transposition, under general 2. Right carpal tunnel release, under general All of the preoperative paperwork including the consent was filled out today. All the patient's questions were answered. The patient understands that they will be contacted by our rehab nurse soon to schedule this procedure He denies Diabetes, blood thinners, lung, kidney issues. He has a clearance from the cold mill operator prior to surgery. 3. Left Carpal tunnel syndrome, mild-moderate 4. Left Cubital tunnel syndrome, mild-moderate Symptoms intermittent, but daily, worse at night or with activity Not as bothersome as his right side We can discuss treatment at a later date 5. Right wrist SLAC deformity, severe Limiting motion, not terribly painful 6. Left wrist SLAC deformity, severe Limiting motion, not terribly painful I recommend activity modification at this time If his symptoms persist or worsen we can discuss injections vs surgery. 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 Scribed for Dr. Rossy Laws by Miles Godoy, medical coding manager, on 06/17/2023. I, Dr. Rossy Laws, have personally reviewed and agree with the information entered by the scribe. Coding Level of Care Code Est Pt Level 4 (83551) Diagnoses Carpal tunnel syndrome on both sides G56.03 Cubital tunnel syndrome of both upper extremities G56.23 Scapholunate advanced collapse of wrist, unspecified laterality M19.139 Laterality: unspecified laterality
[2023-06-17 15:35] VITALS: BMI 26.3
== END 2023-06-17 16:13 | disposition home or self-care (01) ==
PROVIDERS: PCP Physician Assistant; Visit Provider Orthopaedic Surgery
DX: G56.03 Carpal tunnel syndrome, bilateral upper limbs (principal); G56.23 Lesion of ulnar nerve, bilateral upper limbs
CPT/HCPCS: 99214

== ENCOUNTER → 2023-06-17 15:04 | Outpatient (BNVA) | payer OTHER, SELFPAY | PROVIDERS: PCP Physician Assistant; Visit Provider Orthopaedic Surgery ==

== ENCOUNTER 2023-06-22 06:01 | Day surgery (SDC) | payer OTHER, SELFPAY ==
[2023-06-22] VITALS (12 sets, daily range): BP systolic 106–135; BP diastolic 61–87; PULSE 70–89; RESP 12–20; TEMP 36.1–36.5; O2SAT 92–97; BMI 26.4
--- NOTE | 2023-06-22 06:18 | PC.NURSE ---
no meds taken today
[2023-06-22] MEDS: Albuterol Sulfate (0.083%) 2.5 MG/3 ML VIAL.NEB INHALE (06:56)
--- NOTE | 2023-06-22 08:11 | MHC.SHP ---
Pre-Procedural Eval Section A Date of Service: 06/22/23 The patient is an INPATIENT: No Changes since office visit: No Cold of Flu in the past 2 weeks, No New Medical Problems, No Changes in Medication and No Patient answered all questions The History & Physical has been completed within 30 days and I have reviewed it.: Yes Section B Chief Complaint: Lesion of ulnar nerve, bilateral upper limbs,carpa Allergies: Allergies Allergy/AdvReac Type Severity Reaction Status Date / Time Penicillins [PENICILLINS] Allergy Severe HIVES Verified 06/17/23 15:37 amoxicillin Allergy Difficulty Verified 06/17/23 15:37 Breathing IV dye AdvReac Mild rash Uncoded 06/17/23 15:37 Plan I have reviewed the history and physical and performed a pertinent physical examination on my patient. No changes have occurred unless specified. Time Spent With Patient Time: Total time managing care of this patient today ____ minutes.
--- NOTE | 2023-06-22 08:11 | W.PM.OPN ---
Operative Note Operative Note Date of Service: 06/22/23 Narrative: Operative Note Narrative: Preop diagnosis: 1. right Cubital tunnel syndrome 2. Right carpal tunnel syndrome Postop diagnosis: Same Procedure: 1. right Cubital Tunnel Release 2. Right carpal tunnel release Surgeon: Rossy Laws MD Anesthesia: General Anesthesia Findings: Thickening and fibrosis about the ulnar nerve at the cubital tunnel Implants: none Tourniquet time: 31 minutes EBL: 5.0 ml Specimen: none Drains: None Complications: None Disposition: Brought to the recovery room in stable condition Plan: Follow-up in 10-14 days for wound check, and suture removal Indications: The patient is 58 years old with right carpal tunnel syndrome and right cubital tunnel syndrome . The risks and benefits of operative treatment, including but not limited to risk of damage to blood vessels, nerves, tendons, infection, recurrence, persistent pain or numbness, incomplete resolution of preoperative symptoms, or need for further surgery were discussed with the patient and they wished to proceed with surgery. Procedure: Once consent was obtained patient was brought back to the operating suite and placed in the operating table in a supine position. Perioperative antibiotics and anesthesia was administered by the anesthesia team. The limb was prepped and draped in a standard surgical fashion, and a sterile tourniquet applied to the proximal aspect of the right upper extremity. The limb was elevated exsanguinated with Esmarch bandage and the tourniquet inflated to 250 mm of mercury for a total tourniquet time of 31 minutes. Once assured that we had a good block, a 2.0 cm longitudinal incision was made centered over the right carpal tunnel. The incision was made through the skin to the subcutaneous tissues using a #15 blade. Dissection was made down to the level of the transverse carpal ligament with care being taken to protect the palmar cutaneous nerve. Once the transverse carpal ligament was clearly visualized, a longitudinal incision was made in the transverse carpal ligament 1st using a #15 blade, then using tenotomy scissors under direct visualization. Care was taken to look for and protect the motor branch of the median nerve when seen in this area. Once satisfied with our carpal tunnel release the wound was irrigated with normal saline. A 6 cm gently curved but longitudinally oriented incision was made centered over the cubital tunnel of the right upper extremity. Incision was made through the skin to the subcutaneous tissues using a # 15 Blade. I then dissected down to the level of the medial epicondyle and the cubital tunnel using tenotomy scissors. Care was taken to protect the lateral antebrachial cutaneous nerve. The ulnar nerve was identified just posterior to the medial intermuscular septum. The ulnar nerve was released in a proximal to distal direction using tenotomy in iris scissors while directly visualizing and protecting the ulnar nerve. Thickening and fibrosis was appreciated about the ulnar nerve as it passed through the cubital tunnel. The ulnar nerve was assessed as I passed the elbow through full flexion and extension and was found to remain stable within its groove. At this point the tourniquet was deflated and hemostasis obtained with a brief period of local pressure and bipolar electrocautery. The wound was copiously irrigated with normal saline. The subcutaneous layer was closed with 4-0 Vicryl suture, and the skin edges were reapproximated with 5-0 nylon suture. The wound was infiltrated with some 1% lidocaine with epinephrine for postop pain control and sterile dressings and a posterior splint was applied. The patient appears to have tolerated the procedure well and with no complications. All digits were well vascularized conclusion of the case.
--- NOTE | 2023-06-22 09:27 | P.CONAN_ITS ---
HPI - Anesthesia Eval Consult details Narrative: for righrcubital and carpal release PMFSH Active Problems Active Problems: All Active Problems (Updated 05/14/23 @ 16:04 by Chapito Jara PA-C) HLD (hyperlipidemia) (Acute) SLAC (scapholunate advanced collapse) wrist (Acute) Carpal tunnel syndrome on both sides (Acute) Cubital tunnel syndrome of both upper extremities (Acute) Osteoarthritis of wrists, bilateral (Acute) History of adenomatous polyp of colon (Acute) CAD (coronary artery disease) (Acute) Nicotine dependence, cigarettes, uncomplicated (Acute) Right wrist pain (Acute) Left wrist pain (Acute) Chronic diarrhea (Acute) Bilateral hand numbness (Acute) Bilateral wrist pain (Acute) Past Medical History Medical History Nicotine dependence, cigarettes, uncomplicated Family History Family History Mother Heart attack, Onset Age: 28 Stroke Father Renal cancer Maternal Grandfather Pancreatic cancer Family history of problems with anesthesia: No Surgical History Surgical History History of heart artery stent (~2010) History of left knee surgery (~1989) History of Problems with Anesthesia: No Social History Social History Housing: House Alcohol intake: current Alcohol intake frequency: a few times a month Patient Tobacco Use Status: Current everyday Tobacco user Years Smoked: (onset 14yo, 1/2-1ppd x 44yrs, 30+pyh - quit 01/04/23) e-Cigarette/Vaping Use: Never Used Second Hand Smoke Exposure: No Substance Use Type: Marijuana Advance Directives: No Advance Directives Information Provided: Yes Nutrition Risks: No Nutritional Risk service: No Current occupational status: employed 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, 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 Current occupational exposures/hazards: No Cognitive needs: No Hearing needs: No Vision needs: No Meds Allergies Allergy/AdvReac Type Severity Reaction Status Date / Time Penicillins [PENICILLINS] Allergy Severe HIVES Verified 06/17/23 15:37 amoxicillin Allergy Difficulty Verified 06/17/23 15:37 Breathing IV dye AdvReac Mild rash Uncoded 06/17/23 15:37 Active Medications: Current Medications Albuterol Sulfate (Albuterol Sulfate (0.083%) 2.5 Mg/3 Ml Vial.Neb) 2.5 mg INHALE ONCE PRN PRN Reason: Shortness of Breath/Wheezing Last Admin: 06/22/23 06:56 Dose: 2.5 mg Cefazolin Sodium/Dextrose (Ancef) 2 gm in 50 mls @ 100 mls/hr IV PREOP ONE Stop: 06/22/23 06:32 Clindamycin Phosphate (Cleocin) 600 mg in 50 mls @ 100 mls/hr IV POSTOP ONE Stop: 06/22/23 08:28 Exam Exam Date and Time: June 22, [id number] Height,Weight and Vital Signs: Height 5 ft 10 in Weight 83.461 kg Last Vital Signs Temp 97 F 06/22/23 06:13 Pulse 73 06/22/23 06:56 Resp 17 06/22/23 06:56 BP 135/87 06/22/23 06:13 Pulse Ox 97 06/22/23 06:13 O2 Del Method Nasal Cannula 06/22/23 06:13 Airway Mallampati Class: I TM Dist: >3cm Neck ROM: Full Denture: Upper and Lower Heart: rrr Lungs: cta Assessment and Plan Assessment Anesthesia Assessment: Anesthesia Plan Discussed, Smoking Cess. Discussed and Chart Reviewed Final Anesthetic Review Family History of Problems with Anesthesia: No History of Problems with Anesthesia: No ASA Class: III Final Preanesthetic Review: No Changes in Pt Med Stat, Meds/Allgs Chart Reviewed, Consent Obtained/Reviewed and Anes Risks/Benef Reviewed Patient Risk: Intermediate Procedure Risk: Low Anesthetic Plan Anesthetic Plan: GA Disposition: Standard PACU
== END 2023-06-22 12:53 | disposition home or self-care (01) ==
PROVIDERS: PCP Physician Assistant; Visit Provider Orthopaedic Surgery
PROC: (CPT 64718; principal; 2023-06-22 07:30)
PROC: (CPT 64721; 2023-06-22 07:30)
DX: G56.01 Carpal tunnel syndrome, right upper limb (principal); G56.21 Lesion of ulnar nerve, right upper limb; R20.0 Anesthesia of skin; M19.139 Post-traumatic osteoarthritis, unspecified wrist; Z95.5 Presence of coronary angioplasty implant and graft; Z79.899 Other long term (current) drug therapy; Z88.0 Allergy status to penicillin; Z88.1 Allergy status to other antibiotic agents; Z91.041 Radiographic dye allergy status; F17.210 Nicotine dependence, cigarettes, uncomplicated; F12.90 Cannabis use, unspecified, uncomplicated
CPT/HCPCS: 64721; 64718; 94640; A4649; J0690; J1100; J1885; J2405; J3010

== ENCOUNTER → 2023-06-22 06:01 | Outpatient (BNV) | payer OTHER, SELFPAY | PROVIDERS: PCP Physician Assistant; Visit Provider Orthopaedic Surgery | DX: G56.01 Carpal tunnel syndrome, right upper limb (principal); G56.21 Lesion of ulnar nerve, right upper limb | CPT/HCPCS: 64718; 64721 ==

== ENCOUNTER 2023-07-03 10:06 | Outpatient (AMB) | payer OTHER, SELFPAY ==
--- NOTE | 2023-07-03 10:38 | MHC.OFFVIS ---
Intake Intake Visit Reasons: PO-Rt CTR, Rt Cubital Tunnel Release 06/22 Intake Note: This is a 58 year old male who presents for his post op appointment for Rt CTR and Rt cubital tunnel release on 06/22/23. The patient reports a popping sensation. Allergies Penicillins [PENICILLINS] Allergy (Severe, Verified 07/03/23 10:39) HIVES amoxicillin Allergy (Verified 07/03/23 10:39) Difficulty Breathing IV dye Adverse Reaction (Mild, Uncoded 07/03/23 10:39) rash Medication List - Last Reconciled 07/03/23 by Maia Vargas RN acetaminophen ER (Tylenol Arthritis Pain) 650 mg PO Q12H 30 days aspirin (Adult Aspirin Regimen) 81 mg PO DAILY bisacodyl (Dulcolax (bisacodyl)) 10 mg (2 x 5 mg) PO ONCE 1 day bupropion HCl (Wellbutrin SR) 150 mg PO BID 30 days diclofenac sodium 50 mg PO BID PRN 7 days diphenhydramine HCl (Allergy (diphenhydramine)) 25 mg orally Take the morning and evening of the day before procedure and then the morning of procedure.; famotidine 20 mg orally Take the morning and evening of the day before procedure and then the morning of procedure.; methylcellulose (laxative) (Citrucel) 500 mg PO BID ondansetron 4 mg PO Q6H PRN oxycodone-acetaminophen 5-325 mg 1 tab PO Q6H PRN polyethylene glycol 3350 (Miralax) 238 grams PO ONCE PRN 1 day prednisone 20 mg orally Take the morning and evening of the day before procedure and then the morning of procedure. simvastatin 20 mg PO DAILY 90 days HPI PO-Rt CTR, Rt Cubital Tunnel Release 06/22 HPI Details The patient is a 58-year-old man who is status post a right carpal tunnel release and a right cubital tunnel release with fl on 06/22/2023. He says that he is doing very well and has had some improvement in the sensation in his right hand. His nighttime symptoms have also improved. He is feeling a clicking or catching in the mid palm of his hand when he flexes and extends his digits. [facility] Medical History Nicotine dependence, cigarettes, uncomplicated Surgical History History of heart artery stent (~2010) History of left knee surgery (~1989) Family History Mother Heart attack, Onset Age: 28 Stroke Father Renal cancer Maternal Grandfather Pancreatic cancer Social History Housing: House Alcohol intake: current Alcohol intake frequency: a few times a month Patient Tobacco Use Status: Current everyday Tobacco user Years Smoked: (onset 14yo, 1/2-1ppd x 44yrs, 30+pyh - quit 01/04/23) e-Cigarette/Vaping Use: Never Used Second Hand Smoke Exposure: No Substance Use Type: Marijuana service: No Current occupational status: employed 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 His incisions are all healing well with no erythema drainage or evidence of infection. Sutures removed and Steri-Strips applied. He can make a fist and extend all of his digits with ease. I did not see any locking or catching in the fingers though he pointed to the mid palm just proximal to the ring and middle fingers for where he feels the clicking sometimes. A1 pulleys were not particularly tender. Good elbow range of motion today without pain. Assessment & Plan Assessment & Plan (1) Carpal tunnel syndrome on both sides: Code(s): G56.03 - Carpal tunnel syndrome, bilateral upper limbs (2) Cubital tunnel syndrome of both upper extremities: Code(s): G56.23 - Lesion of ulnar nerve, bilateral upper limbs Plan Assessment & Plan: 1. Right Cubital tunnel syndrome status post release Date of surgery 06/22/2023 Preoperatively with dense numbness in the small and ring fingers Still with numbness today, but feels some improvement. 2. Right Carpal tunnel syndrome status post release Date of surgery 06/22/2023 Preoperatively with dense numbness in the thumb, more normal sensation in the index and middle fingers. Today with normal sensation to the thumb index and middle fingers. I educated about the postoperative course He is happy with the results of his surgery thus far. We talked about the importance of activity modification, and his was corrected in having him not grabbed the gout of milk with his right hand. He will follow-up with me in September to talk about treatment for his left carpal tunnel and cubital tunnel syndrome. Said the symptoms in his left hand are more intermittent. 3. Left Carpal tunnel syndrome, mild-moderate 4. Left Cubital tunnel syndrome, mild-moderate Symptoms intermittent, but daily, worse at night or with activity Not as bothersome as his right side We can discuss treatment at a later date 5. Right wrist SLAC deformity, severe Limiting motion, not terribly painful 6. Left wrist SLAC deformity, severe Limiting motion, not terribly painful I recommend activity modification at this time If his symptoms persist or worsen we can discuss injections vs surgery. 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 Coding Level of Care Code Global (67642) Diagnoses Carpal tunnel syndrome on both sides G56.03 Cubital tunnel syndrome of both upper extremities G56.23
== END 2023-07-03 10:58 | disposition home or self-care (01) ==
PROVIDERS: PCP Physician Assistant; Visit Provider Orthopaedic Surgery
DX: G56.03 Carpal tunnel syndrome, bilateral upper limbs (principal); G56.23 Lesion of ulnar nerve, bilateral upper limbs
CPT/HCPCS: 99024

== ENCOUNTER → 2023-07-03 10:06 | Outpatient (BNVA) | payer OTHER, SELFPAY | PROVIDERS: PCP Physician Assistant; Visit Provider Orthopaedic Surgery ==

== ENCOUNTER 2023-07-13 13:22 | Outpatient (AMB) | payer OTHER, SELFPAY ==
[2023-07-13 13:27] VITALS: BP 120/82; PULSE 94; RESP 17; O2SAT 98; BMI 26.5
--- NOTE | 2023-07-13 13:27 | MHC.PC.OV ---
Vital Signs 07/13/23 13:27 Height 5 ft 10 in Weight 185 lb BMI 26.5 BP 120/82 Blood Pressure Location Lt brachial Position Sitting Respiration 17 Pulse 94 Pulse Source Pulse Oximeter Pulse Oximetry (%) 98 Oxygen Delivery Method Room Air Intake Visit Reasons: RT Cubital Tunnel Intake Note: Pt is here for right cubital tunnel mild pain incident happen 07/05/23. Nitroglycerin Distributor Required: No Accompanied by: Self / Same As Patient Allergies Penicillins [PENICILLINS] Allergy (Severe, Verified 07/13/23 13:41) HIVES amoxicillin Allergy (Verified 07/13/23 13:41) Difficulty Breathing IV dye Adverse Reaction (Mild, Uncoded 07/13/23 13:34) rash Medication List - Last Reconciled 07/13/23 by Chapito Jara PA-C acetaminophen ER (Tylenol Arthritis Pain) 650 mg PO Q12H 30 days aspirin (Adult Aspirin Regimen) 81 mg PO DAILY bupropion HCl (Wellbutrin SR) 150 mg PO BID 30 days diclofenac sodium 50 mg PO BID PRN 7 days simvastatin 20 mg PO DAILY 90 days Tobacco use date assessed: 02/11/23 HPI RT Cubital Tunnel HPI Details Blaine is a 58-year-old male here today for follow-up visit Patient has a past medical history significant for tobacco dependency, carpal tunnel syndrome . Carpal tunnel syndrome bilaterally: REport he recently moving a piece of furnature anf felt a pop in his right forearm. He does understand he was not supposed to be lifting any heavy objects status post carpal and cubital tunnel release surgery. .. Tobacco dependency:?has mostly stopped ( has once cigarette every other day) Has been started on Wellbutrin which has worked wonderfully to reduce his smoking.?.? He does understand the cardiovascular risk of continued smoking. [facility] Medical History Nicotine dependence, cigarettes, uncomplicated Surgical History History of heart artery stent (~2010) History of left knee surgery (~1989) Family History Mother Heart attack, Onset Age: 28 Stroke Father Renal cancer Maternal Grandfather Pancreatic cancer Social History Housing: House Alcohol intake: current Alcohol intake frequency: a few times a month Patient Tobacco Use Status: Current everyday Tobacco user Years Smoked: (onset 14yo, 1/2-1ppd x 43yrs, 30+pyh - quit 01/04/23) e-Cigarette/Vaping Use: Never Used Second Hand Smoke Exposure: No Substance Use Type: Marijuana service: No Current occupational status: employed 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 Jourdan Tellez, Lorri Trammell, Ricardo Hernandez and colleagues, with an educational grazyna from [employer]. Review of Systems Const Denies headache(s) Eyes Denies loss of vision ENT Denies vertigo, Denies dizziness, Denies headache(s) and Denies sore throat Card Denies chest pain, Denies leg edema and Denies lightheadedness Resp Denies cough, Denies hemoptysis and Denies wheezing GI Denies abdominal pain, Denies melena, Denies constipation, Denies diarrhea and Denies vomiting Denies dysuria, Denies urinary frequency and Denies urinary urgency Musc Denies arthralgias, Denies joint swelling, Denies numbness and Denies tingling Neuro Denies Abnormal speech present, Denies behavioral changes, Denies vertigo, Denies dizziness, Denies headache(s), Denies loss of vision, Denies memory loss, Denies numbness and Denies tingling Psych Denies anxiety, Denies behavioral changes, Denies depression, Denies memory loss and Denies panic attacks Abhilash/Lymph Denies easy bleeding and Denies easy bruising Aller/Immun Denies wheezing Physical exam (Primary Care) Vital Signs: Last Vital Signs Pulse 94 07/13/23 13:27 Resp 17 07/13/23 13:27 BP 120/82 07/13/23 13:27 Pulse Ox 98 07/13/23 13:27 Oxygen Delivery Method Room Air 07/13/23 13:27 BMI result Body Mass Index 26.5 Tobacco/Smoking Status: Tobacco use Status Tobacco use date assessed 02/11/23 07/13/23 13:27 Patient Tobacco Use Status Current everyday Tobacco 07/13/23 13:27 Tobacco use type 03/13/23 11:25 e-Cigarette/Vaping Use Never Used 07/13/23 13:27 Are you ready to quit: No Tobacco cessation counseling provided: Yes Relapse Prevention: discussed the importance of a supportive environment, discussed negative mood or depression after quitting, weight gain after smoking is common and discussed dietary, exercise and/or lifestyle changes Number of minutes spent counselin CPT code: 21455 - 4-10 Minutes Thrive Assessment: Date of Thrive Assessment Date Thrive assessed 12/31/22 07/13/23 13:27 Const General: healthy appearing, no acute distress, alert and awake Nutritional Appearance: well nourished Orientation/consciousness: oriented to person, oriented to place and oriented to time HENMT Ears: TM's normal bilaterally General nose exam: Normal nasal mucous membranes and turbinates present Eyes Conjunctivae: conjunctivae normal Sclerae: sclerae normal Pupils: Equal, round and reactive pupils present Neck Neck: Yes no lymphadenopathy and Yes no JVD Thyroid: Thyroid normal Carotids: no bruits Resp Effort & Inspection: normal respiratory effort and not tachypneic Auscultation: no crackles, no rales, no rhonchi and no wheezes Cardio Rate: regular rate Rhythm: regular rhythm Heart sounds: no murmurs and normal S1 and S2 GI Palpation (GI): Soft to palpation, nontender, no hepatomegaly and no splenomegaly Auscultation: normal bowel sounds Skin General skin exam: no rashes or lesions noted and dry skin Neuro General: oriented to person, oriented to place and oriented to time Cranial nerves: Yes Equal, round and reactive pupils present Speech: No Abnormal speech present Gait exam (Neuro): Normal gait present Motor exam (neuro): no tremor noted Extrem Other: EQUAL LEGAL CONSULTANT STRENGTH BILATERAL HANDS. GOOD SENSATION TO LIGHT TOUCH OVER DISTAL FINGERS OF RIGHT HAND. Right upper extremity: full ROM Left upper extremity: full ROM Elbow/forearm/wrist images: 1. WELL-HEALED SURGICAL SCAR OVER VOLAR REGION RIGHT WRIST Right lower extremity: full ROM; no edema Left lower extremity: full ROM; no edema Psych Mental Status: mental status grossly normal Speech and movement: Normal speech and movement present Affect: normal affect Attitude: cooperative Thought process: Normal thought process present Assessment and Plan Assessment & Plan (1) Carpal tunnel syndrome on both sides: Code(s): G56.03 - Carpal tunnel syndrome, bilateral upper limbs Plan: As per HPI patient recently underwent right carpal and cubital tunnel release surgery. Has been doing somewhat better though unfortunately recently tried to move some furniture and felt a pop in his right forearm. He is concerned he may have tore something. Physical exam benign without any notable muscle tear, strength and sensation and hand are maintained. Again advised to not bear any weight be on 5 lb on the right upper extremity. Gave right wrist flexible splint today in office to wear at night. Will follow-up with orthopedic in the next 2 months. (2) Strain of flexor muscle, fascia and tendon of right ring finger at forearm level, sequela: Code(s): S56.115S - Strain of flexor muscle, fascia and tendon of right ring finger at forearm level, sequela Plan: As per HPI likely sprained right wrist and forearm muscle due to lifting heavy objects status post surgery. Coding Level of Care Code Est Pt Level 3 (26870) Diagnoses Carpal tunnel syndrome on both sides G56.03 Strain of flexor muscle, fascia and tendon of right ring finger at forearm level, sequela S56.115S Additional Codes Vital Signs *Quality* - CPT code: 34785 - 4-10 Minutes ([id number])
== END 2023-07-13 14:23 | disposition home or self-care (01) ==
PROVIDERS: PCP Physician Assistant; Visit Provider Physician Assistant
DX: G56.03 Carpal tunnel syndrome, bilateral upper limbs (principal); S56.11 Strain of flexor muscle, fascia and tendon of other and unspecified finger at forearm level
CPT/HCPCS: 99213

== ENCOUNTER 2023-08-19 15:48 | Outpatient (AMB) | payer OTHER, SELFPAY ==
[2023-08-19 15:55] VITALS: BP 128/80; PULSE 84; O2SAT 96; BMI 27.3
--- NOTE | 2023-08-19 15:55 | A.OFFPC_ITS ---
Vital Signs 08/19/23 15:55 Height 5 ft 10 in Weight 190 lb BMI 27.3 BP 128/80 Blood Pressure Location Lt brachial Position Sitting Pulse 84 Pulse Source Pulse Oximeter Pulse Oximetry (%) 96 Oxygen Delivery Method Room Air Intake Visit Reasons: f/u HLD/ mayers issues Crozer Required: No Accompanied by: Self / Same As Patient Allergies Penicillins [PENICILLINS] Allergy (Severe, Verified 08/19/23 16:12) HIVES amoxicillin Allergy (Verified 08/19/23 16:12) Difficulty Breathing IV dye Adverse Reaction (Mild, Uncoded 07/13/23 13:34) rash Medication List - Last Reconciled 08/19/23 by Chapito Jara PA-C acetaminophen ER (Tylenol Arthritis Pain) 650 mg PO Q12H 30 days aspirin (Adult Aspirin Regimen) 81 mg PO DAILY bupropion HCl (Wellbutrin SR) 150 mg PO BID 30 days diclofenac sodium 50 mg PO BID PRN 7 days simvastatin 20 mg PO DAILY 90 days Tobacco use date assessed: 02/11/23 Dental Screening Dental Screen Date: 08/19/23 Did you have a dental visit in the last 12 months?: No Did you have a dental problem in the last 6 months where you did not have access to dental care?: No Was dental information given to patient?: No (NO TEETH) HPI f/u HLD/ mayers issues HPI Details Blaine is a 58-year-old male here today for follow-up visit Patient has a past medical history significant for tobacco dependency, carpal tunnel syndrome . Carpal tunnel syndrome bilaterally: Continues to have bilateral hand/wrsit pain that he attributes to his arthritis. His numbness and tingling is much improved since having carpal tunnel release surgery. Has been placed on diclofenac which helps some. Has return back to work in a limited capacity and needs a note to return back to work without medical limitations. .. Tobacco dependency:?has mostly stopped ( has once cigarette every other day) Has been started on Wellbutrin which has worked wonderfully to reduce his smoking.?.? He does understand the cardiovascular risk of continued smoking. [facility] Medical History Nicotine dependence, cigarettes, uncomplicated Surgical History History of heart artery stent (~2010) History of left knee surgery (~1989) Family History Mother Heart attack, Onset Age: 28 Stroke Father Renal cancer Maternal Grandfather Pancreatic cancer Social History Housing: House Alcohol intake: current Alcohol intake frequency: a few times a month Patient Tobacco Use Status: Current everyday Tobacco user Years Smoked: (onset 14yo, 1/2-1ppd x 44yrs, 30+pyh - quit 01/04/23) e-Cigarette/Vaping Use: Never Used Second Hand Smoke Exposure: No Substance Use Type: Marijuana service: No Current occupational status: employed 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 Jourdan Tellez, Lorri Trammell, Ricardo Hernandez and colleagues, with an educational grazyna from [employer]. Review of Systems Const Denies headache(s) Eyes Denies loss of vision ENT Denies vertigo, Denies dizziness, Denies headache(s) and Denies sore throat Card Denies chest pain, Denies leg edema and Denies lightheadedness Resp Denies cough, Denies hemoptysis and Denies wheezing GI Denies abdominal pain, Denies melena, Denies constipation, Denies diarrhea and Denies vomiting Denies dysuria, Denies urinary frequency and Denies urinary urgency Musc Denies arthralgias, Denies joint swelling, Denies numbness and Denies tingling Neuro Denies Abnormal speech present, Denies behavioral changes, Denies vertigo, Denies dizziness, Denies headache(s), Denies loss of vision, Denies memory loss, Denies numbness and Denies tingling Psych Denies anxiety, Denies behavioral changes, Denies depression, Denies memory loss and Denies panic attacks Abhilash/Lymph Denies easy bleeding and Denies easy bruising Aller/Immun Denies wheezing Physical exam (Primary Care) Vital Signs: Last Vital Signs Pulse 84 08/19/23 15:55 BP 128/80 08/19/23 15:55 Pulse Ox 96 08/19/23 15:55 Oxygen Delivery Method Room Air 08/19/23 15:55 BMI result Body Mass Index 27.3 Tobacco/Smoking Status: Tobacco use Status Tobacco use date assessed 02/11/23 08/19/23 16:03 Patient Tobacco Use Status Current everyday Tobacco 08/19/23 16:03 Tobacco use type 03/13/23 11:25 e-Cigarette/Vaping Use Never Used 08/19/23 16:03 Thrive Assessment: Date of Thrive Assessment Date Thrive assessed 12/31/22 08/19/23 16:03 Const General: healthy appearing, no acute distress, alert and awake Nutritional Appearance: well nourished Orientation/consciousness: oriented to person, oriented to place and oriented to time HENMT Ears: TM's normal bilaterally General nose exam: Normal nasal mucous membranes and turbinates present Eyes Conjunctivae: conjunctivae normal Sclerae: sclerae normal Pupils: Equal, round and reactive pupils present Neck Neck: Yes no lymphadenopathy and Yes no JVD Thyroid: Thyroid normal Carotids: no bruits Resp Effort & Inspection: normal respiratory effort and not tachypneic Auscultation: no crackles, no rales, no rhonchi and no wheezes Cardio Rate: regular rate Rhythm: regular rhythm Heart sounds: no murmurs and normal S1 and S2 GI Palpation (GI): Soft to palpation, nontender, no hepatomegaly and no splenomegaly Auscultation: normal bowel sounds Skin General skin exam: no rashes or lesions noted and dry skin Neuro General: oriented to person, oriented to place and oriented to time Cranial nerves: Yes Equal, round and reactive pupils present Speech: No Abnormal speech present Gait exam (Neuro): Normal gait present Motor exam (neuro): no tremor noted Extrem Right upper extremity: full ROM Left upper extremity: full ROM Right lower extremity: full ROM; no edema Left lower extremity: full ROM; no edema Psych Mental Status: mental status grossly normal Speech and movement: Normal speech and movement present Affect: normal affect Attitude: cooperative Thought process: Normal thought process present Office Procedures Flu Questionnaire Does the patient have a severe egg allergy?: No Does the patient have severe life threatening allergies?: No Does the patient have a fever or illness today?: No Has the patient ever had Guillain-[place] Syndrome?: No Has the patient ever had any past reaction to a flu shot?: No Immunizations flu vacc [id number] 6mos up(PF) 60 mcg(15 mcgx4)/0.5 mL IM syringe Performing Provider: Chapito Jara PA-C Per[facility] Administered by: KATERYNA Em on 08/19/23 16:45 Dose Route Admin Location Dispensed Lot Number Expiration Date [place] [employer] Equipment Operator 0.5 mL IM Right Deltoid 0.5 mL [id number] 04/03/24 82733-852-68 [employer] VIS Given Date VIS Provided VIS Publication Date 08/19/23 Single Vaccine 21 Eligibility Eligibility Date Funding Source Not VFC Eligible 08/19/23 Private pneumoc 20-bryce conj-dip cr(PF) 0.5 mL IM syringe Performing Provider: Chapito Jara PA-C Per[facility] Administered by: KATERYNA Em on 08/19/23 16:45 Dose Route Admin Location Dispensed Lot Number Expiration Date ND [employer] Pump Equipment Operator 0.5 mL IM Left Deltoid 0.5 mL [id number] 07/04/24 0691-4108-04 [facility] VIS Given Date VIS Provided VIS Publication Date 08/19/23 Single Vaccine 21 Eligibility Eligibility Date Funding Source Not VF Eligible 08/19/23 Private Assessment and Plan Assessment & Plan (1) HLD (hyperlipidemia): Code(s): E78.5 - Hyperlipidemia, unspecified Qualifiers: Hyperlipidemia type: mixed hyperlipidemia Qualified Code(s): E78.2 - Mixed hyperlipidemia Plan: Patient continues on statin therapy without side effect. Will continue to follow fasting lipids with goal LDL to remain below 130. (2) Nicotine dependence, cigarettes, uncomplicated: Comment: (onset 14yo, 1/2-1ppd x 44yrs, 30+PYH - quit 01/04/23) Code(s): F17.210 - Nicotine dependence, cigarettes, uncomplicated Plan: Patient continues to struggle with complete upstaging from cigarette smoking. He is willing to restart Chantix to help him completely quit smoking. (3) Osteoarthritis, hand: Code(s): M19.049 - Primary osteoarthritis, unspecified hand Qualifiers: Laterality: bilateral Osteoarthritis type: primary Qualified Code(s): M19.041 - Primary osteoarthritis, right hand; M19.042 - Primary osteoarthritis, left hand Plan: Will continue on diclofenac and Tylenol arthritis for his bilateral hand and wrist pain. He has done occupational therapy prior to his carpal tunnel release surgery. Orders: Orders Influenza [id number] Immunization 08/19/23 Z23 - Encounter for immunization Pneumococcal 20 Immunization 08/19/23 Z23 - Encounter for immunization Medications: New varenicline 1 mg PO BID 28 days 56 tabs 3RF F17.200 - Nicotine dependence, unspecified, uncomplicated, F17.210 - Nicotine dependence, cigarettes, uncomplicated varenicline 0.5 mg PO; Take 0.5 mg qd x 3 days, then 0.5 mg b.i.d. x4 days 7 days 11 tabs 0RF F17.200 - Nicotine dependence, unspecified, uncomplicated, F17.210 - Nicotine dependence, cigarettes, uncomplicated Changed From diclofenac sodium 50 mg PO BID 7 days PRN 14 tabs 0RF pain M25.532 - Pain in left wrist To diclofenac sodium 50 mg PO BID 30 days 60 tabs 1RF pain M25.532 - Pain in left wrist Refilled diclofenac sodium 50 mg PO BID 7 days PRN 14 tabs 0RF pain M25.532 - Pain in left wrist Coding Level of Care Code Est Pt Level 4 (68614) Diagnoses Mixed hyperlipidemia E78.2 Hyperlipidemia type: mixed hyperlipidemia Nicotine dependence, cigarettes, uncomplicated F17.210 Primary osteoarthritis of both hands M19.041; M19.042 Laterality: bilateral Osteoarthritis type: primary
== END 2023-08-19 16:45 | disposition home or self-care (01) ==
PROVIDERS: PCP Physician Assistant; Visit Provider Physician Assistant
DX: Z23 Encounter for immunization (principal)
CPT/HCPCS: 90471; 90472; 90677; 90686; 99214

== ENCOUNTER 2023-09-16 14:50 | Outpatient (AMB) | payer OTHER, SELFPAY ==
--- NOTE | 2023-09-16 15:07 | MHC.OFFVIS ---
Intake Vital Signs 09/16/23 15:08 Height 5 ft 10 in Weight 188 lb 11.451 oz BMI 27.1 BP 108/64 Blood Pressure Location Lt brachial Position Sitting Pulse 104 H Pulse Source Pulse Oximeter Intake Visit Reasons: 6mth f/up Intake Note: 6 month follow up Shooting Gallery Operator Required: No Accompanied by: Self / Same As Patient Allergies Penicillins [PENICILLINS] Allergy (Severe, Verified 09/16/23 15:08) HIVES amoxicillin Allergy (Verified 09/16/23 15:08) Difficulty Breathing IV dye Adverse Reaction (Mild, Uncoded 09/16/23 15:08) rash Medication List - Last Reconciled 09/16/23 by Fred Chacon MD acetaminophen ER (Tylenol Arthritis Pain) 650 mg PO Q12H 30 days aspirin (Adult Aspirin Regimen) 81 mg PO DAILY diclofenac sodium 50 mg PO BID 30 days simvastatin 20 mg PO DAILY 90 days varenicline 1 mg PO BID 28 days varenicline 0.5 mg PO; Take 0.5 mg qd x 3 days, then 0.5 mg b.i.d. x4 days 7 days HPI HPI Comments History of Present Illness Details Blaine returns for follow-up. There is a vague history of possible coronary disease in the past but nothing definitive. He underwent cardiac catheterization X years ago or so. Otherwise, he gets some random chest pains but nonexertional. Chronic smoker and still smoking. No other major cardiac concerns otherwise. He underwent recent echocardiogram as well as coronary CT. [facility] Medical History Nicotine dependence, cigarettes, uncomplicated Surgical History History of heart artery stent (~2010) History of left knee surgery (~1989) Family History Mother Heart attack, Onset Age: 28 Stroke Father Renal cancer Maternal Grandfather Pancreatic cancer Social History Housing: House Alcohol intake: current Alcohol intake frequency: a few times a month Patient Tobacco Use Status: Current everyday Tobacco user Years Smoked: (onset 14yo, 1/2-1ppd x 43yrs, 30+pyh - quit 01/04/23) e-Cigarette/Vaping Use: Never Used Second Hand Smoke Exposure: No Substance Use Type: Marijuana service: No Current occupational status: employed 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, 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 Current occupational exposures/hazards: No Cognitive needs: No Hearing needs: No Vision needs: No Review of Systems Const Denies weakness ENT Denies dizziness Card Reports chest pain, Denies chest pain with activity, Denies syncope, Denies rapid heart rate, Denies pedal edema, Denies edema, Denies leg edema, Denies lightheadedness, Denies palpitations, Denies dyspnea, Denies dyspnea on exertion and Denies orthopnea Resp Denies cough, Denies dyspnea and Denies dyspnea on exertion GI Denies hematochezia and Denies change in stool character Musc Denies abnormal gait, Denies muscle cramps, Denies muscle weakness, Denies numbness, Denies radiating pain into limb and Denies tingling Neuro Denies abnormal gait, Denies dizziness, Denies syncope, Denies numbness, Denies tingling and Denies weakness Endo Denies palpitations Physical Exam Vital Signs: Last Vital Signs Pulse 104 H 09/16/23 15:08 BP 108/64 09/16/23 15:08 BMI result Body Mass Index 27.1 Const General: comfortable and no acute distress Orientation/consciousness: patient oriented x3 HEENT Other: Unremarkable Head: Yes normal to inspection Neck Neck: Yes normal visual inspection Chest Chest palpation & inspection: normal inspection of the chest Resp Auscultation: clear to auscultation bilaterally Cardio Palpation: normal PMI Heart sounds: S1 normal heart sound present, S2 normal heart sound present, no gallops, no murmurs and no rubs GI Palpation (GI): Soft to palpation Back/Spine/Pelvis Other: unremarkable Skin General skin exam: no rashes or lesions noted Neuro General: patient oriented x3 Extrem General: Yes normal to inspection Psych Mental Status: mental status grossly normal Assessment & Plan Assessment & Plan (1) CAD (coronary artery disease): Code(s): I25.10 - Atherosclerotic heart disease of [place] coronary artery without angina pectoris Qualifiers: Associated angina: with stable angina Coronary Disease-Associated Artery/Lesion type: [place] artery [place] vs. transplanted heart: [place] heart Qualified Code(s): I25.118 - Atherosclerotic heart disease of [place] coronary artery with other forms of angina pectoris Plan Cardiac studies reviewed. Cardiac catheterization from 2009 shows normal coronary arteries and no obstructive lesions. Normal LV systolic function/normal filling pressures. Thought to be false positive stress test. In the recent exercise stress test, he was able to exercise for 9 minutes and 19 seconds on Sandeep protocol; reached 10.5 Mets; 85% of max predicted heart rate; no angina; normal blood pressure response; no EKG evidence of ischemia. Overall appears that he did quite well. In the echocardiogram, LVEF 55-60%. Wall motion abnormalities described including basal inferior/inferoseptal akinesis. Mid inferior/inferoseptal hypokinesis. Peak global longitudinal strain was reduced at 13.6%. I did review the images as well. The basal inferolateral wall does have some hypokinetic appearance. Mid inferior wall possibly hypokinetic. Could also be just from the way it is visualized. However, in the coronary CTA, there is no overt CAD. Proximal LAD with minimal stenosis at less than 15% and otherwise unremarkable. Overall, chest pains or highly unlikely cardiac in nature. Could be just from smoking. Hence suggest to stop that. He also has wheezing on lung magdaleno. With regard to the echocardiogram findings, no specific management. We can repeat an echo next year to ensure there is no interval changes. Otherwise, no need for aspirin from cardiac standpoint. Due to chronic smoking history, consider getting a carotid ultrasound as well as ultrasound abdomen for AAA. Orders: Orders US carotid duplex BI Today I65.23 - Occlusion and stenosis of bilateral carotid arteries US abdominal aortic aneurysm Today I71.40 - Abdominal aortic aneurysm, without rupture, unspecified Medications: Discontinued aspirin (Adult Aspirin Regimen) Discontinued Reason: Doctor's Order 81 mg PO DAILY 90 tabs 2RF I25.118 - Atherosclerotic heart disease of [place] coronary artery with other forms of angina pectoris Coding Level of Care Code Est Pt Level 4 (41285) Diagnoses Coronary artery disease of [place] artery of [place] heart with stable angina pectoris I25.118 Associated angina: with stable angina Coronary Disease-Associated Artery/Lesion type: [place] artery [place] vs. transplanted heart: [place] heart
[2023-09-16 15:08] VITALS: BP 108/64; PULSE 104; BMI 27.1
== END 2023-09-16 15:32 | disposition home or self-care (01) ==
PROVIDERS: PCP Physician Assistant; Visit Provider Internal Medicine
DX: I25.118 Atherosclerotic heart disease of native coronary artery with other forms of angina pectoris (principal)
CPT/HCPCS: 99214

== ENCOUNTER → 2023-09-16 14:50 | Outpatient (BNVA) | payer OTHER, SELFPAY | PROVIDERS: PCP Physician Assistant; Visit Provider Internal Medicine ==

== ENCOUNTER 2023-10-29 09:29 | Outpatient (REF) | payer OTHER, SELFPAY ==
--- NOTE | ~2023-10-29 | US_ITS ---
EXAMINATION: US RETROPERITONEAL LIMITED (AORTA) CLINICAL INFORMATION: Abdominal aortic aneurysm without rupture, unspecified. COMPARISON: None available. TECHNIQUE: Hernandez-scale, color Doppler and spectral Doppler evaluation of the abdominal aorta. FINDINGS: Mild atherosclerosis. The measurements of the aorta in maximum AP and transverse dimensions respectively are as follows: Proximal: 2.8 x 2.4 cm. Mid: 2.3 x 2.4 cm. Distal: 2.6 x 2.3 cm. PSV: 45 cm/s. The measurements of the common iliac arteries in maximum AP and TRV dimensions are as follows: Right Common Iliac Artery: 1.3 x 1.4 cm. Left Common Iliac Artery: 1.4 x 1.6 cm. US/US abdominal aortic aneurysm IMPRESSION: Negative abdominal aortic aneurysm.
--- NOTE | ~2023-10-29 | US_ITS ---
EXAMINATION: US EXTRACRANIAL CAROTID DUPLEX, BILATERAL CLINICAL INFORMATION: Carotid stenosis. History of coronary artery disease, hyperlipidemia, smoking. COMPARISON: None available. TECHNIQUE: Real-time ultrasound and Doppler techniques (integrating B-mode 2-D vascular images, Doppler spectral analysis and color-flow Doppler imaging) were utilized to interrogate the extracranial carotid arteries, the vertebral arteries and proximal subclavian arteries bilaterally. The degree of stenosis is determined by criteria similar to NASCET. FINDINGS: Right Side: 1. There is mild atherosclerotic plaque seen in the bifurcation/proximal ICA region. 2. The common carotid artery PSV proximally is 130 cm/s and distally 100 cm/s. 3. The proximal internal carotid artery velocities are 68 cm/s systolic and 18 cm/s diastolic. 4. The proximal external carotid artery PSV is 111 cm/s. 5. The vertebral artery shows antegrade flow. 6. The subclavian artery waveforms are normal. Left Side: 1. There is mild atherosclerotic plaque seen in the bifurcation/proximal ICA region. 2. The common carotid artery PSV proximally is 149 cm/s and distally 93 cm/s. 3. The proximal internal carotid artery velocities are 53 cm/s systolic and 21 cm/s diastolic. 4. The proximal external carotid artery PSV is 80 cm/s. 5. The vertebral artery shows antegrade flow. 6. The subclavian artery waveforms are normal. US/US carotid duplex BI IMPRESSION: 1. RIGHT: Minimal, non-hemodynamically significant stenosis of the proximal right internal carotid artery corresponding to a 0-49% stenosis by velocity criteria. 2. LEFT: Minimal, non-hemodynamically significant stenosis of the proximal left internal carotid artery corresponding to a 0-49% stenosis by velocity criteria.
== END 2023-10-29 09:30 | disposition home or self-care (01) ==
LOC: HO.US 09:29
PROVIDERS: PCP Physician Assistant; Visit Provider Internal Medicine
DX: I65.23 Occlusion and stenosis of bilateral carotid arteries (principal); I71.40 Abdominal aortic aneurysm, without rupture, unspecified
CPT/HCPCS: 76706; 93880

== ENCOUNTER 2023-11-04 13:12 | Outpatient (AMB) | payer OTHER, SELFPAY ==
[2023-11-04 13:35] VITALS: BMI 27.0
--- NOTE | 2023-11-04 13:35 | A.OFFVIS_ITS ---
Intake Vital Signs 11/04/23 13:35 Height 5 ft 10 in Weight 188 lb BMI 27.0 Intake Visit Reasons: OV-LT CTR & cubital tunnel Intake Note: Blaine 58 yr old male presents today to discuss surgical intervention for his left hand CTR & cubital tunnel. Hx Right CTR and Rt cubital tunnel release on 06/22/23, states he is still having numbness and tingling in his right hand. Allergies Penicillins [PENICILLINS] Allergy (Severe, Verified 11/04/23 13:37) HIVES amoxicillin Allergy (Verified 11/04/23 13:37) Difficulty Breathing IV dye Adverse Reaction (Mild, Uncoded 11/04/23 13:37) rash HPI OV-LT CTR & cubital tunnel HPI Details Blaine is a 58 year old right hand dominant man who returns to discuss his left carpal & cubital tunnel syndrome. He complains of numbness in all fingers of his left hand, symptoms intermittent, but daily and worse at night or with activity. He also notices persistent numbness in the middle ring and small fingers, and would like to discuss surge ry. He has a hx of right carpal & cubital tunnel release on 06/22/23. He says his numbness has improved but is still not normal He complains of pain in his wrists, and finds some relief from using a heating bad on his wrists for short periods of time. He has known bilateral SLAC wrist deformities & OA. [facility] Medical History Nicotine dependence, cigarettes, uncomplicated Surgical History History of heart artery stent (~2010) History of left knee surgery (~1989) Family History Mother Heart attack, Onset Age: 28 Stroke Father Renal cancer Maternal Grandfather Pancreatic cancer Social History Housing: House Alcohol intake: current Alcohol intake frequency: a few times a month Patient Tobacco Use Status: Current everyday Tobacco user Years Smoked: (onset 14yo, 1/2-1ppd x 43yrs, 30+pyh - quit 01/04/23) e-Cigarette/Vaping Use: Never Used Second Hand Smoke Exposure: No Substance Use Type: Marijuana service: No Current occupational status: employed 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, 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 Current occupational exposures/hazards: No Cognitive needs: No Hearing needs: No Vision needs: No Review of Systems Const All systems reviewed & are unremarkable except as noted in HPI and below Physical Exam Vital Signs: BMI result Body Mass Index 27.0 Const General: no acute distress and alert Orientation/consciousness: patient oriented x3 Neuro General: patient oriented x3 Extrem Other: Evaluation of Left Upper Extremity: The patient is alert, oriented, and in no acute distress Neuro: Numbness in the middle & ring fingers, not normal sensation to the small finger, and more normal sensation to the thumb & index fingers No thenar or intrinsic wasting Good APB muscle belly firing and good finger cross In regards to the right hand, his sensation has improved but is still not normal to the tips of all digits Vascular: Cap refill brisk ROM: He can make a fist and extend all his digits No locking or catching Nerve Conduction Study: IMPRESSION: 1. [id number] bilateral median neuropathy across carpal tunnel. 2. [id number] bilateral ulnar neuropathy across cubital tunnel. Juan Gottlieb MD 02/26/2023 Psych Appearance: grossly normal Affect: normal affect Attitude: cooperative Assessment & Plan Assessment & Plan (1) Carpal tunnel syndrome on both sides: Code(s): G56.03 - Carpal tunnel syndrome, bilateral upper limbs (2) Cubital tunnel syndrome of both upper extremities: Code(s): G56.23 - Lesion of ulnar nerve, bilateral upper limbs Plan Assessment & Plan: 1. Left Carpal tunnel syndrome, mild-moderate He has some dense numbness in the middle and ring fingers. 2. Left Cubital tunnel syndrome, mild-moderate He has decreased sensation in the ulnar nerve distribution I educated him about this condition I discussed operative and non-operative treatment options The patient would like to proceed with surgery The risks and benefits of operative treatment were discussed with the patient and the patient wishes to proceed with surgery. These risks include, but are not limited to risk of damage to blood vessels, nerves, tendons, infection, recurrence, incomplete relief of preoperative symptoms, persistent pain, possible need for further surgery and the risks associated with regional blocks and anesthesia. The plan is to take the patient to the operating room sometime in the next few weeks for the following procedures: 1. Left carpal tunnel release, under general 2. Left cubital tunnel release vs transposition, under general All of the preoperative paperwork including the consent was reviewed today. All the patient's questions were answered. The patient understands that they will be contacted by our fish hatchery inspector soon to schedule this procedure He denies Diabetes, blood thinners, asthma, heart, lung, kidney issues 3. Right Cubital tunnel syndrome status post release Date of surgery 06/22/2023 Preoperatively with dense numbness in the small and ring fingers Now with improved but still not normal sensation 4. Right Carpal tunnel syndrome status post release Date of surgery 06/22/2023 Preoperatively with dense numbness in the thumb, more normal sensation in the in dex and middle fingers. Now with improved but still not normal sensation 5. Right wrist SLAC deformity, severe Limiting motion, not terribly painful 6. Left wrist SLAC deformity, severe Limiting motion, not terribly painful I recommend activity modification at this time If his symptoms persist or worsen we can discuss injections vs surgery. I would need to order a CT scan of his wrists prior to considering surgery, especially as he may have an autoarthrodesis of his lunocapitate joint, as see on radiographs I explained he needs to stop smoking for several months before we can consider s urgery. He finds some temporary relief from using a heating pad on his wrists for short periods of time Scribed for Rossy Laws MD by Jj Ashby, medical records field technician, on 11/04/23 at 2:15 PM, EST. Coding Level of Care Code Est Pt Level 4 (33967) Diagnoses Carpal tunnel syndrome on both sides G56.03 Cubital tunnel syndrome of both upper extremities G56.23
== END 2023-11-04 14:25 | disposition home or self-care (01) ==
PROVIDERS: PCP Physician Assistant; Visit Provider Orthopaedic Surgery
DX: G56.03 Carpal tunnel syndrome, bilateral upper limbs (principal); G56.23 Lesion of ulnar nerve, bilateral upper limbs
CPT/HCPCS: 99214

== ENCOUNTER → 2023-11-04 13:12 | Outpatient (BNVA) | payer OTHER, SELFPAY | PROVIDERS: PCP Physician Assistant; Visit Provider Orthopaedic Surgery ==

== ENCOUNTER 2023-11-19 15:17 | Outpatient (AMB) | payer OTHER, SELFPAY ==
[2023-11-19 15:23] VITALS: BP 120/72; PULSE 106; O2SAT 95; BMI 28.0
--- NOTE | 2023-11-19 15:23 | MHC.PC.OV ---
Vital Signs 11/19/23 15:23 Height 5 ft 10 in Weight 195 lb BMI 28.0 BP 120/72 Blood Pressure Location Lt brachial Position Sitting Pulse 106 H Pulse Source Pulse Oximeter Pulse Oximetry (%) 95 Oxygen Delivery Method Room Air Intake Visit Reasons: f/u HLD/ smoking cessation Environmental Health Physician Required: No Allergies Penicillins [PENICILLINS] Allergy (Severe, Verified 11/19/23 15:41) HIVES amoxicillin Allergy (Verified 11/19/23 15:41) Difficulty Breathing IV dye Adverse Reaction (Mild, Uncoded 11/19/23 15:27) rash Medication List - Last Reconciled 11/19/23 by Chapito Jara PA-C acetaminophen ER (Tylenol Arthritis Pain) 650 mg PO Q12H 30 days diclofenac sodium 50 mg PO BID 30 days simvastatin 20 mg PO DAILY 90 days Tobacco use date assessed: 11/19/23 Dental Screening Dental Screen Date: 11/19/23 HPI f/u HLD/ smoking cessation HPI Details Blaine is a 58-year-old male here today for follow-up visit Patient has a past medical history significant for tobacco dependency, carpal tunnel syndrome . Has followed up with his orthopedic physical therapist and reports he does need surgery his left wrist. Continues to advanced age arthritis and neuropathy in his left hand and wrist. 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 .. Chest pain: Still gets chest pain though relates this to his stress and anxiety. Did follow-up with cardiology whom did CT coronary angiogram and patient did not have any coronary artery disease. He will try to quit smoking. .. Tobacco dependency:?has mostly stopped ( has once cigarette every other day) previously was using Wellbutrin.? He does understand the cardiovascular risk of continued smoking. Has followed up with dry cure worker whom reviewed his CT angiogram which did not show any coronary artery disease. Ultrasound carotid arteries [facility] Medical History Nicotine dependence, cigarettes, uncomplicated Surgical History History of heart artery stent (~2010) History of left knee surgery (~1989) Family History Mother Heart attack, Onset Age: 28 Stroke Father Renal cancer Maternal Grandfather Pancreatic cancer Social History Housing: House Alcohol intake: current Alcohol intake frequency: a few times a month Patient Tobacco Use Status: Current everyday Tobacco user Years Smoked: (onset 14yo, 1/2-1ppd x 43yrs, 30+pyh - quit 01/04/23) e-Cigarette/Vaping Use: Never Used Second Hand Smoke Exposure: No Substance Use Type: Marijuana service: No Current occupational status: employed 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, 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 Current occupational exposures/hazards: No Cognitive needs: No Hearing needs: No Vision needs: No Questionnaire Thrive Questionnaire Date Thrive assessed: 11/19/23 I am a: Patient What is your living situation today?: I have a steady place to live Within the past 12 months, did the food you bought not last and you didn't have the money to get more?: Never true Within the past 12 months, did you worry whether your food would run out before you got money to buy more?: Never true Do you have trouble paying for medicines?: No Do you have trouble getting transportation to medical appointments?: No Do you have trouble paying your heating and electricity bill?: No Do you have trouble taking care of your child, family member or friend?: No Do you have trouble with day-to-day activities such as bathing, preparing meals, shopping, managing finances, etc.?: No Are you currently unemployed and looking for a job?: No Are you interested in more education?: No Please select the resources that you would like help with: None THRIVE Score: 0 AUDIT C Alcohol Use Questionnaire (AUDIT-C) 1. How often do you have a drink containing alcohol?: Monthly or less 2. How many drinks containing alcohol do you have on a typical day when you are drinking?: 1 or 2 3. How often do you have six or more drinks on one occasion?: Never Total Score: 1 KRISTIN-7 AMB Questionnaire KRISTIN-7 Date KRISTIN - 7 assessed: 11/19/23 Source: Developed by Drs. Jourdan Tellez, Lorri Trammell, Ricardo Hernandez and colleagues, with an educational grazyna from [employer]. ACT Questionnaire In the past 4 weeks, how much of the time did your asthma keep you from getting as much done at work, school or at home?: None of the time During the past 4 weeks, how often have you had shortness of breath?: 3-6 times a week During the past 4 weeks, how often did your asthma symptoms wake you up at night or earlier than usual in the morning?: Not at all During the past 4 weeks, how often have you had to use your rescue inhaler or nebulizer medication?: Not at all How would you rate your asthma control during the past 4 weeks?: Well controlled ACT Interpretation: Negative Score: 22 Review of Systems Const Denies headache(s) Eyes Denies loss of vision ENT Denies vertigo, Denies dizziness, Denies headache(s) and Denies sore throat Card Denies chest pain, Denies leg edema and Denies lightheadedness Resp Denies cough, Denies hemoptysis and Denies wheezing GI Denies abdominal pain, Denies melena, Denies constipation, Denies diarrhea and Denies vomiting Denies dysuria, Denies urinary frequency and Denies urinary urgency Musc Denies arthralgias, Denies joint swelling, Denies numbness and Denies tingling Neuro Denies Abnormal speech present, Denies behavioral changes, Denies vertigo, Denies dizziness, Denies headache(s), Denies loss of vision, Denies memory loss, Denies numbness and Denies tingling Psych Denies anxiety, Denies behavioral changes, Denies depression, Denies memory loss and Denies panic attacks Abhilash/Lymph Denies easy bleeding and Denies easy bruising Aller/Immun Denies wheezing Physical exam (Primary Care) Vital Signs: Last Vital Signs Pulse 106 H 11/19/23 15:23 BP 120/72 11/19/23 15:23 Pulse Ox 95 11/19/23 15:23 Oxygen Delivery Method Room Air 11/19/23 15:23 BMI result Body Mass Index 28.0 Tobacco/Smoking Status: Tobacco use Status Tobacco use date assessed 11/19/23 11/19/23 15:28 Patient Tobacco Use Status Current everyday Tobacco 11/19/23 15:23 Tobacco use type 03/13/23 11:25 e-Cigarette/Vaping Use Never Used 11/19/23 15:23 Are you ready to quit: Yes Tobacco cessation counseling provided: Yes Items discussed: Nicotine replacement and QuitWorks Relapse Prevention: discussed the importance of a supportive environment, discussed negative mood or depression after quitting, weight gain after smoking is common and discussed dietary, exercise and/or lifestyle changes Number of minutes spent counselin CPT code: 67699 - 4-10 Minutes Thrive Assessment: Date of Thrive Assessment Date Thrive assessed 11/19/23 11/19/23 15:28 Const General: healthy appearing, no acute distress, alert and awake Nutritional Appearance: well nourished Orientation/consciousness: oriented to person, oriented to place and oriented to time HENMT Ears: TM's normal bilaterally General nose exam: Normal nasal mucous membranes and turbinates present Eyes Conjunctivae: conjunctivae normal Sclerae: sclerae normal Pupils: Equal, round and reactive pupils present Neck Neck: Yes no lymphadenopathy and Yes no JVD Thyroid: Thyroid normal Carotids: no bruits Resp Effort & Inspection: normal respiratory effort and not tachypneic Auscultation: no crackles, no rales, no rhonchi and no wheezes Cardio Rate: regular rate Rhythm: regular rhythm Heart sounds: no murmurs and normal S1 and S2 GI Palpation (GI): Soft to palpation, nontender, no hepatomegaly and no splenomegaly Auscultation: normal bowel sounds Skin General skin exam: no rashes or lesions noted and dry skin Neuro General: oriented to person, oriented to place and oriented to time Cranial nerves: Yes Equal, round and reactive pupils present Speech: No Abnormal speech present Gait exam (Neuro): Normal gait present Motor exam (neuro): no tremor noted Extrem Right upper extremity: full ROM Left upper extremity: full ROM Right lower extremity: full ROM; no edema Left lower extremity: full ROM; no edema Psych Mental Status: mental status grossly normal Speech and movement: Normal speech and movement present Affect: normal affect Attitude: cooperative Thought process: Normal thought process present Assessment and Plan Assessment & Plan (1) Nicotine dependence, cigarettes, uncomplicated: Comment: (onset 14yo, 1/2-1ppd x 43yrs, 30+PYH - quit 01/04/23) Code(s): F17.210 - Nicotine dependence, cigarettes, uncomplicated Plan: Patient does understand he needs to quit smoking. He seems very motivated to quit. He reports only smoking a few cigarettes per day. He was using Wellbutrin which was effective though not anymore. (2) HLD (hyperlipidemia): Code(s): E78.5 - Hyperlipidemia, unspecified Qualifiers: Hyperlipidemia type: mixed hyperlipidemia Qualified Code(s): E78.2 - Mixed hyperlipidemia Plan: Patient continues low-dose statin therapy which has been helpful to reduce his total cholesterol and LDL. Goal LDL to be below 130. (3) Strain of flexor muscle, fascia and tendon of right ring finger at forearm level, sequela: Code(s): S56.115S - Strain of flexor muscle, fascia and tendon of right ring finger at forearm level, sequela Plan: He is due for another surgery on his left hand as he continues to hand weakness, swelling, pain and numbness tingling in the distal fingers. (4) Asthma: Code(s): J45.909 - Unspecified asthma, uncomplicated Qualifiers: Asthma complication type: uncomplicated Asthma persistence: intermittent Asthma severity: mild Qualified Code(s): J45.20 - Mild intermittent asthma, uncomplicated Plan: Does report having some shortness of breath on exertion and junky on a daily basis likely related to his smoking. Does have a bit of a wheeze on physical exam today. Will supply him with an albuterol inhaler to use on a p.r.n. basis for coughing fits and wheeze.. Again He is going to try very hard to quit smoking (5) Skin lesion of face: Code(s): L98.9 - Disorder of the skin and subcutaneous tissue, unspecified Plan: Has noted a skin lesion on his left facial cheek. He would like to see a sleep lab technician for removal Orders: Referrals Dermatology Referral L98.9 - Disorder of the skin and subcutaneous tissue, unspecified Medications: New albuterol sulfate 90 mcg/actuation (Ventolin HFA) 1 inh inhalation QID 30 days 8.5 grams 1RF J45.20 - Mild intermittent asthma, uncomplicated Coding Level of Care Code Est Pt Level 4 (58549) Diagnoses Nicotine dependence, cigarettes, uncomplicated F17.210 Mixed hyperlipidemia E78.2 Hyperlipidemia type: mixed hyperlipidemia Strain of flexor muscle, fascia and tendon of right ring finger at forearm level, sequela S56.115S Mild intermittent asthma without complication J45.20 Asthma complication type: uncomplicated Asthma persistence: intermittent Asthma severity: mild Skin lesion of face L98.9 Additional Codes Vital Signs *Quality* - CPT code: 38772 - 4-10 Minutes ([id number])
== END 2023-11-19 16:01 | disposition home or self-care (01) ==
PROVIDERS: PCP Physician Assistant; Visit Provider Physician Assistant
DX: E78.2 Mixed hyperlipidemia (principal); F17.210 Nicotine dependence, cigarettes, uncomplicated; S56.11 Strain of flexor muscle, fascia and tendon of other and unspecified finger at forearm level; J45.20 Mild intermittent asthma, uncomplicated; L98.9 Disorder of the skin and subcutaneous tissue, unspecified
CPT/HCPCS: 99214; 99406

== ENCOUNTER 2023-11-30 05:44 | Day surgery (SDC) | payer OTHER, SELFPAY ==
--- NOTE | 2023-11-27 09:03 | P.CONAN_ITS ---
HPI - Anesthesia Eval Consult details Narrative: 58yo M for Left Cubital Tunnel Release verses transposition, Left Carpal Tunnel Release s/p right side 06/2023 with GA-LMA 4 Follows [facility] [place] cardiology. Last office visit 09/2023. Pt reports intermi CP, but unlikely cardiac in nature based on testing (see results below). Could be r/t smoking and advised to quit. [facility] Active Problems Active Problems: All Active Problems (Updated 11/19/23 @ 15:51 by Chapito Jara PA-C) Skin lesion of face (Acute) Asthma (Acute) Osteoarthritis, hand (Acute) Strain of flexor muscle, fascia and tendon of right ring finger at forearm level, sequela (Acute) HLD (hyperlipidemia) (Acute) SLAC (scapholunate advanced collapse) wrist (Acute) Carpal tunnel syndrome on both sides (Acute) Cubital tunnel syndrome of both upper extremities (Acute) Osteoarthritis of wrists, bilateral (Acute) History of adenomatous polyp of colon (Acute) Nicotine dependence, cigarettes, uncomplicated (Acute) Right wrist pain (Acute) Left wrist pain (Acute) Chronic diarrhea (Acute) Bilateral hand numbness (Acute) Bilateral wrist pain (Acute) Past Medical History Medical History Nicotine dependence, cigarettes, uncomplicated Family History Family History Mother Heart attack, Onset Age: 28 Stroke Father Renal cancer Maternal Grandfather Pancreatic cancer Family history of problems with anesthesia: No Surgical History Surgical History History of heart artery stent (~2010) History of left knee surgery (~1989) History of Problems with Anesthesia: No Social History Social History Housing: House Alcohol intake: current Alcohol intake frequency: holidays/special occasions only Patient Tobacco Use Status: Current everyday Tobacco user Tobacco use type: Cigarette Cigarette Packs Per Day: 1 Cigarettes Per Day: 20.0 Years Smoked: (onset 14yo, 1/2-1ppd x 44yrs, 30+pyh - quit 01/04/23) e-Cigarette/Vaping Use: Never Used Second Hand Smoke Exposure: No Substance Use Type: Marijuana service: No Current occupational status: employed 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 Normal LV systolic function/normal filling pressures. Thought to be false positive stress test. In the recent exercise stress test, he was able to exercise for 9 minutes and 19 seconds on Sandeep protocol; reached 10.5 Mets; 85% of max predicted heart rate; no angina; normal blood pressure response; no EKG evidence of ischemia. Overall appears that he did quite well. In the echocardiogram, LVEF 55-60%. Wall motion abnormalities described inclu ding basal inferior/inferoseptal akinesis. Mid inferior/inferoseptal hypokinesis. Peak global longitudinal strain was reduced at 13.6%. I did review the images as well. The basal inferolateral wall does have some hypokinetic appearance. Mid inferior wall possibly hypokinetic. Could also be just from the way it is visualized. However, in the coronary CTA, there is no overt CAD. Proximal LAD with minimal stenosis at less than 15% and otherwise unremarkable. Assessment and Plan Assessment Anesthesia Assessment: Chart Reviewed Final Anesthetic Review Family History of Problems with Anesthesia: No History of Problems with Anesthesia: No
[2023-11-30] VITALS (10 sets, daily range): BP systolic 114–137; BP diastolic 70–93; PULSE 84–101; RESP 16–18; TEMP 36.2–36.7; O2SAT 92–97; BMI 27.0
[2023-11-30] MEDS: Lactated Ringers 1,000 ML 100 ML IVCONT (06:24)
--- NOTE | 2023-11-30 07:33 | HO.ANESPROP2 ---
[facility] Active Problems Active Problems: All Active Problems (Updated 11/19/23 @ 15:51 by Chapito Jara PA-C) Skin lesion of face (Acute) Asthma (Acute) Osteoarthritis, hand (Acute) Strain of flexor muscle, fascia and tendon of right ring finger at forearm level, sequela (Acute) HLD (hyperlipidemia) (Acute) SLAC (scapholunate advanced collapse) wrist (Acute) Carpal tunnel syndrome on both sides (Acute) Cubital tunnel syndrome of both upper extremities (Acute) Osteoarthritis of wrists, bilateral (Acute) History of adenomatous polyp of colon (Acute) Nicotine dependence, cigarettes, uncomplicated (Acute) Right wrist pain (Acute) Left wrist pain (Acute) Chronic diarrhea (Acute) Bilateral hand numbness (Acute) Bilateral wrist pain (Acute) Past Medical History Medical History Nicotine dependence, cigarettes, uncomplicated Family History Family History Mother Heart attack, Onset Age: 28 Stroke Father Renal cancer Maternal Grandfather Pancreatic cancer Family history of problems with anesthesia: No Surgical History Surgical History History of heart artery stent (~2010) History of left knee surgery (~1989) History of Problems with Anesthesia: No Social History Social History Housing: House Alcohol intake: current Alcohol intake frequency: holidays/special occasions only Patient Tobacco Use Status: Current everyday Tobacco user Tobacco use type: Cigarette Cigarette Packs Per Day: 1 Cigarettes Per Day: 20.0 Years Smoked: (onset 14yo, 1/2-1ppd x 44yrs, 30+pyh - quit 01/04/23) e-Cigarette/Vaping Use: Never Used Second Hand Smoke Exposure: No Use of substances other than those prescribed or required for medical reasons: Yes Substance Use Type: Marijuana Are you DNR?: No Advance Directives: No Advance Directives Information Provided: Yes Advance Directives on File: No service: No Current occupational status: employed 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, 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 Current occupational exposures/hazards: No Cognitive needs: No Hearing needs: No Vision needs: No Meds Allergies Allergy/AdvReac Type Severity Reaction Status Date / Time Penicillins [PENICILLINS] Allergy Severe HIVES Verified 11/19/23 15:41 amoxicillin Allergy Difficulty Verified 11/19/23 15:41 Breathing IV dye AdvReac Mild rash Uncoded 11/19/23 15:27 Active Medications: Current Medications Albuterol Sulfate (Albuterol Sulfate (0.083%) 2.5 Mg/3 Ml Vial.Neb) 2.5 mg INHALE ONCE PRN PRN Reason: Shortness of Breath/Wheezing Lactated Ringer's (Lr) 1,000 mls @ 100 mls/hr IVCONT .Q10H SARAH Last Admin: 11/30/23 06:24 Dose: 100 mls/hr Exam Height,Weight and Vital Signs: Height 5 ft 10 in Weight 85.275 kg Last Vital Signs Temp 98.1 F 11/30/23 06:22 Pulse 85 11/30/23 06:22 Resp 16 11/30/23 06:22 BP 128/83 11/30/23 06:22 Pulse Ox 97 11/30/23 06:22 O2 Del Method Room Air 11/30/23 06:22 Airway Mallampati Class: III TM Dist: >3cm Neck ROM: Full Partial: Upper and Lower Heart: RRR Lungs: CTA Assessment and Plan Assessment Anesthesia Assessment: Anesthesia Plan Discussed and Smoking Cess. Discussed Final Anesthetic Review Family History of Problems with Anesthesia: No History of Problems with Anesthesia: No NPO: Yes ASA Class: III Patient Risk: Intermediate Procedure Risk: Low Anesthetic Plan Anesthetic Plan: GA Disposition: Standard PACU
--- NOTE | 2023-11-30 07:43 | MHC.SHP ---
Pre-Procedural Eval Section A - 24 Hr Update-Section A only Date of Service: 11/30/23 The patient is an INPATIENT: No Changes since office visit: No Cold of Flu in the past 2 weeks, No New Medical Problems, No Changes in Medication and No Patient answered all questions The patient has been examined within 24 hours of the surgical procedure. The History & Physical has been completed within 30 days and I have reviewed it.: Yes Section B - Complete if H&P > 30 days Chief Complaint: Carpal tunnel syndrome, left upper limb Allergies: Allergies Allergy/AdvReac Type Severity Reaction Status Date / Time Penicillins [PENICILLINS] Allergy Severe HIVES Verified 11/19/23 15:41 amoxicillin Allergy Difficulty Verified 11/19/23 15:41 Breathing IV dye AdvReac Mild rash Uncoded 11/19/23 15:27 Plan I have reviewed the history and physical and performed a pertinent physical examination on my patient. No changes have occurred unless specified. Time Spent With Patient Time: Total time managing care of this patient today ____ minutes.
--- NOTE | 2023-11-30 07:44 | W.PM.OPN ---
Operative Note Operative Note Date of Service: 11/30/23 Narrative: Operative Note Narrative: Preop diagnosis: 1. Left Cubital tunnel syndrome 2. Left carpal tunnel syndrome Postop diagnosis: Same Procedure: 1. Left Cubital Tunnel Release 2. Left carpal tunnel release Surgeon: Rossy Laws MD Anesthesia: General Anesthesia Findings: Thickening and fibrosis about the ulnar nerve at the cubital tunnel Implants: none Tourniquet time: 40 minutes EBL: 5.0 ml Specimen: none Drains: None Complications: None Disposition: Brought to the recovery room in stable condition Plan: Follow-up in 10-14 days for wound check, and suture removal Indications: The patient is 58 years old with left cubital tunnel syndrome and left carpal tunnel syndrome with dense numbness . The risks and benefits of operative treatment, including but not limited to risk of damage to blood vessels, nerves, tendons, infection, recurrence, persistent pain or numbness, incomplete resolution of preoperative symptoms, or need for further surgery were discussed with the patient and they wished to proceed with surgery. Procedure: Once consent was obtained patient was brought back to the operating suite and placed in the operating table in a supine position. Perioperative antibiotics and anesthesia was administered by the anesthesia team. The limb was prepped and draped in a standard surgical fashion, and a sterile tourniquet applied to the proximal aspect of the left upper extremity. The limb was elevated exsanguinated with Esmarch bandage and the tourniquet inflated to 250 mm of mercury for a total tourniquet time of 40 minutes. Once assured that we had a good block, a 2.0 cm longitudinal incision was made centered over the left carpal tunnel. The incision was made through the skin to the subcutaneous tissues using a #15 blade. Dissection was made down to the level of the transverse carpal ligament with care being taken to protect the palmar cutaneous nerve. Once the transverse carpal ligament was clearly visualized, a longitudinal incision was made in the transverse carpal ligament 1st using a #15 blade, then using tenotomy scissors under direct visualization. Care was taken to look for and protect the motor branch of the median nerve when seen in this area. Once satisfied with our carpal tunnel release the wound was irrigated with normal saline. A 6 cm gently curved but longitudinally oriented incision was made centered over the cubital tunnel of the left upper extremity. Incision was made through the skin to the subcutaneous tissues using a # 15 Blade. I then dissected down to the level of the medial epicondyle and the cubital tunnel using tenotomy scissors. Care was taken to protect the medial antebrachial cutaneous nerve which was found crossing just superficial to the medial epicondyle. The ulnar nerve was identified just posterior to the medial intermuscular septum. The ulnar nerve was released in a proximal to distal direction using tenotomy in iris scissors while directly visualizing and protecting the ulnar nerve. Thickening and fibrosis was appreciated about the ulnar nerve as it passed through the cubital tunnel. The ulnar nerve was assessed as I passed the elbow through full flexion and extension and was found to remain stable within its groove. At this point the tourniquet was deflated and hemostasis obtained with a brief period of local pressure and bipolar electrocautery. The wound was copiously irrigated with normal saline. The subcutaneous layer was closed with 4-0 Vicryl suture, and the skin edges were reapproximated with a running 4-0 Monocryl subcuticular closure. Steri-Strips and Mastisol were applied.. The wounds were infiltrated with some 1% lidocaine with epinephrine for postop pain control and sterile dressings were applied. The patient appears to have tolerated the procedure well and with no complications. All digits were well vascularized conclusion of the case.
--- NOTE | 2023-11-30 10:12 | HO.POSTANES ---
Post Anesthesia Evaluation Post Anesthesia Evaluation Date of Service: 11/30/23 Vital Signs: Vital Signs Temp Pulse Resp BP Pulse Ox O2 Del Method O2 Flow Rate 11/30/23 09:51 94 16 125/93 H 96 Nasal Cannula 2 11/30/23 09:46 101 H 16 127/88 96 Nasal Cannula 2 11/30/23 09:41 95 16 125/77 96 Nasal Cannula 2 11/30/23 09:36 97.3 F 98 16 137/81 92 Room Air 11/30/23 06:22 98.1 F 85 16 128/83 97 Room Air Anesthesia: General Endotracheal-GETA Mental Status: Awake Pain Control: Satisfactory Nausea/Vomiting: None Hydration: Adequate Anesthesia-Related Issues: No Anes. Related Issues
[2023-11-30] MEDS: ondansetron HCL 4 MG/2 ML VIAL IVPUSH (10:19)
== END 2023-11-30 11:45 | disposition home or self-care (01) ==
PROVIDERS: PCP Physician Assistant; Visit Provider Orthopaedic Surgery
PROC: (CPT 64718; principal; 2023-11-30 07:30)
PROC: (CPT 64721; 2023-11-30 07:30)
DX: G56.02 Carpal tunnel syndrome, left upper limb (principal); G56.22 Lesion of ulnar nerve, left upper limb; R20.0 Anesthesia of skin; M19.032 Primary osteoarthritis, left wrist; M19.031 Primary osteoarthritis, right wrist; Z88.0 Allergy status to penicillin; Z88.1 Allergy status to other antibiotic agents; Z91.041 Radiographic dye allergy status; Z98.890 Other specified postprocedural states; F17.210 Nicotine dependence, cigarettes, uncomplicated
CPT/HCPCS: 64721; 64718; J0736; J1100; J1596; J2250; J2405; J2704; J2795; J3010

== ENCOUNTER → 2023-11-30 05:44 | Outpatient (BNV) | payer OTHER, SELFPAY | PROVIDERS: PCP Physician Assistant; Visit Provider Orthopaedic Surgery | DX: G56.02 Carpal tunnel syndrome, left upper limb (principal); G56.22 Lesion of ulnar nerve, left upper limb | CPT/HCPCS: 64718; 64721 ==

== ENCOUNTER 2023-12-09 13:38 | Outpatient (AMB) | payer OTHER, SELFPAY ==
--- NOTE | 2023-12-09 13:49 | A.OFFVIS_ITS ---
Intake Intake Visit Reasons: PO LT CTR cubital anny vs trans 11/30/23 AR Intake Note: Blaine 58 yr old male presents today for his P/O visit for his left CTR and cubital release from11/30/[address] Laws. States his numbness has improved. Sutures removed and sterile srips applied. Allergies Penicillins [PENICILLINS] Allergy (Severe, Verified 12/09/23 13:56) HIVES amoxicillin Allergy (Verified 12/09/23 13:56) Difficulty Breathing IV dye Adverse Reaction (Mild, Uncoded 12/09/23 13:56) rash HPI PO LT CTR cubital anny vs trans 11/30/23 AR HPI0 Details Blaine is a 58 year old right hand dominant man who returns S/P left carpal & cubital tunnel release, DOS: 11/30/23. He says he is doing well and his sensation has improved, though he still has numbness in his small finger. He says his nighttime symptoms have improved, which he is happy about. 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 He has a hx of right carpal & cubital tunnel release on 06/22/23. He is pleased and says his numbness has improved but is still not normal He notes that he has less pain in his wrist since he has been off work.. He has known bilateral SLAC wrist deformities & OA. [facility] Medical History Nicotine dependence, cigarettes, uncomplicated Surgical History History of heart artery stent (~2010) History of left knee surgery (~1989) Family History Mother Heart attack, Onset Age: 28 Stroke Father Renal cancer Maternal Grandfather Pancreatic cancer Social History Housing: House Alcohol intake: current Alcohol intake frequency: holidays/special occasions only Patient Tobacco Use Status: Current everyday Tobacco user Tobacco use type: Cigarette Cigarette Packs Per Day: 1 Cigarettes Per Day: 20.0 Years Smoked: (onset 14yo, 1/2-1ppd x 43yrs, 30+pyh - quit 01/04/23) e-Cigarette/Vaping Use: Never Used Second Hand Smoke Exposure: No Substance Use Type: Marijuana service: No Current occupational status: employed 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 Sutures removed and Steri-Strips applied He can make a fist and extend all his digits No locking or catching Sensation is improved but not yet normal to the tips of all digits. Cap refill is brisk Nerve Conduction Study: IMPRESSION: 1. [id number] bilateral median neuropathy across carpal tunnel. 2. [id number]-[id number] bilateral ulnar neuropathy across cubital tunnel. Juan Gottlieb MD 02/26/2023 Psych Appearance: grossly normal Affect: normal affect Attitude: cooperative Assessment & Plan Assessment & Plan (1) Carpal tunnel syndrome on both sides: Code(s): G56.03 - Carpal tunnel syndrome, bilateral upper limbs (2) Cubital tunnel syndrome of both upper extremities: Code(s): G56.23 - Lesion of ulnar nerve, bilateral upper limbs Plan Assessment & Plan: 1. Left Carpal tunnel syndrome, S/P release DOS: 11/30/23 Pre-operatively with dense numbness in the middle and ring fingers. Now with improving sensation and good relief of his nighttime symptoms 2. 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 He was given a note to return to work on light duty, with a 2lb weight limit on 12/14/23. He can return to full duty on effective 01/11/24. He can follow up prn 3. Right Cubital tunnel syndrome status post release Date of surgery 06/22/23 Preoperatively with dense numbness in the small and ring fingers Now with improved but still not normal sensation 4. Right Carpal tunnel syndrome status post release Date of surgery 06/22/23 Preoperatively with dense numbness in the thumb, more normal sensation in the index and middle fingers. Now with improved but still not normal sensation 5. Right wrist SLAC deformity, severe Limiting motion, not terribly painful 6. Left wrist SLAC deformity, severe Limiting motion, not terribly painful I recommend activity modification at this time If his symptoms persist or worsen we can discuss injections vs surgery. 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 He finds some temporary relief from using a heating pad on his wrists for short periods of time Scribed for Rossy Laws MD by Jj Ashby, medical secretary receptionist, on 12/09/23 at 2:15 PM, EST. Coding Level of Care Code Global (08149) Diagnoses Carpal tunnel syndrome on both sides G56.03 Cubital tunnel syndrome of both upper extremities G56.23
== END 2023-12-09 14:17 | disposition home or self-care (01) ==
PROVIDERS: PCP Physician Assistant; Visit Provider Orthopaedic Surgery
DX: G56.03 Carpal tunnel syndrome, bilateral upper limbs (principal); G56.23 Lesion of ulnar nerve, bilateral upper limbs
CPT/HCPCS: 99024

== ENCOUNTER → 2023-12-09 13:38 | Outpatient (BNVA) | payer OTHER, SELFPAY | PROVIDERS: PCP Physician Assistant; Visit Provider Orthopaedic Surgery ==

== ENCOUNTER 2024-01-05 14:41 | Outpatient (AMB) | payer OTHER, SELFPAY ==
[2024-01-05 14:42] VITALS: BP 120/78; PULSE 89; O2SAT 98; BMI 27.5
--- NOTE | 2024-01-05 14:42 | A.OFFPC_ITS ---
Vital Signs 01/05/24 14:42 Height 5 ft 10 in Weight 191 lb 8 oz BMI 27.5 BP 120/78 Blood Pressure Location Lt brachial Position Sitting Pulse 89 Pulse Source Pulse Oximeter Pulse Oximetry (%) 98 Oxygen Delivery Method Room Air Intake Visit Reasons: Annual Exam Intake Note: Patient is here today for a physical. Proposition Player Required: No Accompanied by: Self / Same As Patient Allergies Penicillins [PENICILLINS] Allergy (Severe, Verified 01/05/24 14:53) HIVES amoxicillin Allergy (Verified 01/05/24 14:53) Difficulty Breathing IV dye Adverse Reaction (Mild, Uncoded 01/05/24 14:48) rash Medication List - Last Reconciled 01/05/24 by Chapito Jara PA-C acetaminophen ER (Tylenol Arthritis Pain) 650 mg PO Q12H 30 days albuterol sulfate 90 mcg/actuation (Ventolin HFA) 1 inh inhalation QID 30 days diclofenac sodium 50 mg PO BID 30 days simvastatin 20 mg PO DAILY 90 days Tobacco use date assessed: 11/19/23 Dental Screening Dental Screen Date: 11/19/23 HPI Annual Exam HPI Details Blaine is a 58-year-old male here today for routine annual physical Patient has a past medical history significant for tobacco dependency, bilateral wrist and hand arthritis, carpal tunnel syndrome. .. Concern--> reports he has been dealing with more stress and depression and anxiety as of late. He has not interested in mental health therapy or med ication. Does use marijuana from time to time which is helpful in reducing his anxiety. Also reports having issues with hearing and comprehension also having tinnitus. 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 Recently underwent carpal and cubital tunnel decompression surgery which has helpful. He plans on returning back to work in the next few weeks. .. Hyperlipidemia: Patient continues on low-dose statin therapy with good effect on reducing total cholesterol and LDL. . .. Tobacco dependency: He unfortunately started smoking again. Has used W ellbutrin and nicotine replacement in the past though has not been to effective. He reports he will try to wean cigarette smoking on his own.? He does understand the cardiovascular risk of continued smoking. Colon cancer screening: did have a colonoscopy 11 years. interested in new screening- does have family history of GI malignancy Vaccines: Declines covid, UTD with tdap , Declines COVID and Shingles vaccine Laboratory Tests 01/03/23 09:49 RBC 5.22 Triglycerides 284 Cholesterol 192 LDL Cholesterol, C alc 105 PSA Screen 0.83 [facility] Medical History Nicotine dependence, cigarettes, uncomplicated Surgical History History of heart artery stent (~2010) History of left knee surgery (~1989) Family History Mother Heart attack, Onset Age: 28 Stroke Father Renal cancer Maternal Grandfather Pancreatic cancer Social History Housing: House Alcohol intake: current Alcohol intake frequency: holidays/special occasions only Patient Tobacco Use Status: Current everyday Tobacco user Tobacco use type: Cigarette Cigarette Packs Per Day: 1 Cigarettes Per Day: 20.0 Years Smoked: (onset 14yo, 1/2-1ppd x 44yrs, 30+pyh - quit 01/04/23) e-Cigarette/Vaping Use: Never Used Second Hand Smoke Exposure: No Substance Use Type: Marijuana service: No Current occupational status: employed 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 1. Little interest or pleasure in doing things: nearly every day 2. Feeling down, depressed, or hopeless: several days 3. Trouble falling or staying asleep, or sleeping too much: several days 4. Feeling tired or having little energy: more than half the days 5. Poor appetite or overeating: not at all 6. Feeling bad about yourself - or that you are a failure or have let yourself or your family down: more than half the days 7. Trouble concentrating on things, such as reading the newspaper or watching television: nearly every day 8. Moving or speaking so slowly that other people could have noticed. Or the opposite - being so fidgety or restless that you have been moving around a lot more than usual: more than half the days 9. Thoughts that you would be better off or of hurting yourself in some way: more than half the days Total score: 16 Depression Screening Interpretation: Positive Depression Screening Follow-up: Existing condition Depression Screening Done: Yes 61341 - PHQ-9 Billing: Yes Source: Developed by Drs. Jourdan Tellez, Lorri Trammell, Ricardo Hernandez and colleagues, with an educational grazyna from [employer] Thrive Questionnaire Date Thrive assessed: 11/19/23 KRISTIN-7 AMB Questionnaire KRISTIN-7 Date KRISTIN - 7 assessed: 11/19/23 Source: Developed by Drs. Jourdan Tellez, Lorri Trammell, Ricardo Hernandez and colleagues, with an educational grazyna from [employer] ACT Questionnaire In the past 4 weeks, how much of the time did your asthma keep you from getting as much done at work, school or at home?: None of the time During the past 4 weeks, how often have you had shortness of breath?: 1-2 times a week During the past 4 weeks, how often did your asthma symptoms wake you up at night or earlier than usual in the morning?: Not at all During the past 4 weeks, how often have you had to use your rescue inhaler or nebulizer medication?: Once a week or less How would you rate your asthma control during the past 4 weeks?: Well controlled ACT Interpretation: Negative Score: 22 Review of Systems Const Denies body aches, Denies chills, Denies excessive sweating, Denies fatigue, Denies fever(s) and Denies headache(s) Eyes Denies blurry vision ENT Denies dysphagia, Denies vertigo, Denies dizziness, Denies headache(s), Denies hearing loss and Denies tinnitus Card Denies chest pain, Denies chest pain with activity, Denies syncope, Denies irregular heart rhythm and Denies dyspnea Resp Denies chest congestion, Denies cough, Denies hemoptysis, Denies dyspnea and Denies wheezing GI Denies abdominal pain, Denies melena, Denies hematochezia, Denies coffee ground emesis, Denies dysphagia, Denies diarrhea, Denies nausea and Denies vomiting Denies difficulty urinating, Denies dysuria, Denies urinary frequency, Denies urinary hesitancy and Denies urinary urgency Musc Denies arthralgias, Denies limited range of motion, Denies muscle cramps and Denies muscle weakness Skin/Breast Denies rash and Denies skin ulcer Neuro Denies Abnormal speech present, Denies confusion, Denies vertigo, Denies dizziness, Denies syncope, Denies headache(s), Denies memory loss and Denies seizure-like activity Psych Denies anxiety, Denies confusion, Denies depression, Denies memory loss, Denies panic attacks and Denies paranoia Endo Denies excessive sweating, Denies fatigue, Denies flushing, Denies polydipsia and Denies polyuria Aller/Immun Denies wheezing Physical exam (Primary Care) Vital Signs: Last Vital Signs Pulse 89 01/05/24 14:42 BP 120/78 01/05/24 14:42 Pulse Ox 98 01/05/24 14:42 Oxygen Delivery Method Room Air 01/05/24 14:42 BMI result Body Mass Index 27.5 Tobacco/Smoking Status: Tobacco use Status Tobacco use date assessed 11/19/23 01/05/24 14:42 Patient Tobacco Use Status Current everyday Tobacco 01/05/24 14:42 Tobacco use type Cigarette 01/05/24 14:42 e-Cigarette/Vaping Use Never Used 01/05/24 14:42 Are you ready to quit: Yes Tobacco cessation counseling provided: Yes Items discussed: Nicotine replacement and QuitWorks Relapse Prevention: discussed the importance of a supportive environment, discussed negative mood or depression after quitting, weight gain after smoking is common and discussed dietary, exercise and/or lifestyle changes Number of minutes spent counselin CPT code: 76794 - 4-10 Minutes PHQ-9: PHQ-9 Score PHQ-9: Total score 16 01/05/24 15:00 Depression Screening Interpretation: Positive Depression Screening Follow-up: Existing condition Thrive Assessment: Date of Thrive Assessment Date Thrive assessed 11/19/23 01/05/24 14:42 Const General: cooperative, comfortable, no acute distress, alert and awake; No confusion Orientation/consciousness: oriented to person, oriented to place, patient oriented x3 and No confusion HENMT Head: Yes normocephalic Ears: external ears normal and TM's normal bilaterally Face and sinus: No sinus tenderness Mouth: Normal oral and palatal mucosa present and tongue normal Teeth and gingiva: dentition normal and gingiva normal Throat: Yes posterior oropharynx normal, Yes tonsils normal and Yes uvula midline Eyes Conjunctivae: conjunctivae normal Sclerae: sclerae normal Pupils: Equal, round and reactive pupils present EOM: EOMs intact bilaterally Direct Ophthalmoscopy: No no photophobia Neck Neck: Yes no lymphadenopathy, No tender and Yes no JVD Thyroid: Thyroid normal Carotids: no bruits Chest Chest palpation & inspection: no tenderness Resp Effort & Inspection: normal respiratory effort, no audible wheezes, not labored and no stridor Auscultation: no crackles, no rales, no rhonchi and no wheezes Cardio Jugular venous distension: no JVD Rate: regular rate, not bradycardic and not tachycardic Rhythm: regular rhythm Bruits: no carotid bruits Peripheral pulses: Peripheral pulses 2+ throughout GI Inspection: Yes normal to inspection, No abdominal wall ecchymosis and No visible herniation Palpation (GI): Soft to palpation, nontender, no guarding, not rigid and No hepatosplenomegaly present Auscultation: normoactive bowel sounds General: Yes no CVA tenderness Back/Spine/Pelvis Back: no CVA tenderness and No back tenderness Cervical Spine: cervical ROM normal Thoracic/Lumbar Spine: thoracic and lumbar spine normal to inspection, straight leg raise negative bilaterally, No thoraco-lumbar ROM limited and No lumbar spinal tenderness Skin Lesions: no lesions Rashes: no rashes Wounds: no wounds Neuro General: oriented to person, oriented to place, patient oriented x3, CN's II-XI intact bilaterally and No confusion Cranial nerves: Yes Equal, round and reactive pupils present and Yes Normal accommodation reflex present Cognition (Neuro): normal cognition Speech: No Abnormal speech present Gait exam (Neuro): Normal gait present Motor exam (neuro): 5/5 motor strength present throughout Extrem Right upper extremity: full ROM; no cyanosis Left upper extremity: full ROM; no cyanosis Right lower extremity: no edema Left lower extremity: no edema Psych Appearance: grossly normal Mental Status: mental status grossly normal Affect: normal affect Attitude: cooperative Thought process: Normal thought process present Assessment and Plan Assessment & Plan (1) Annual physical exam: Code(s): Z00.00 - Encounter for general adult medical examination without abnormal findings (2) Nicotine dependence, cigarettes, uncomplicated: Comment: (onset 14yo, 1/2-1ppd x 44yrs, 30+PYH - quit 01/04/23) Code(s): F17.210 - Nicotine dependence, cigarettes, uncomplicated Plan: Patient does understand he needs to quit smoking. He seems very motivated to quit. He reports only smoking a few cigarettes per day. He was using Wellbutrin which was effective though not anymore. He will try to wean his cigarette smoking on his own (3) HLD (hyperlipidemia): Code(s): E78.5 - Hyperlipidemia, unspecified Qualifiers: Hyperlipidemia type: mixed hyperlipidemia Qualified Code(s): E78.2 - Mixed hyperlipidemia Plan: Patient continues low-dose statin therapy which has been helpful to reduce his total cholesterol and LDL. Goal LDL to be below 130. (4) Asthma: Code(s): J45.909 - Unspecified asthma, uncomplicated Qualifiers: Asthma complication type: uncomplicated Asthma persistence: intermittent Asthma severity: mild Qualified Code(s): J45.20 - Mild intermittent asthma, uncomplicated Plan: Does report having some shortness of breath on exertion and junky on a daily basis likely related to his smoking. Does have a bit of a wheeze on physical e xam today. He does use an albuterol inhaler which is helpful for him. Again He is going to try very hard to quit smoking (5) MDD (major depressive disorder), recurrent episode, moderate: Code(s): F33.1 - Major depressive disorder, recurrent, moderate Plan: PHQ9 score positive (6) Basal cell carcinoma, face: Code(s): C44.310 - Basal cell carcinoma of skin of unspecified parts of face Plan: Recently got biopsy of his skin lesion on left facial cheek. Reports it was basal cell , will be seeing a plastic surgeon for further excision. (7) SNHL (sensorineural hearing loss): Code(s): H90.5 - Unspecified sensorineural hearing loss Qualifiers: Laterality: bilateral Qualified Code(s): H90.3 - Sensorineural hearing loss, bilateral Plan: Patient reports he has been having decreased hearing and tinnitus. 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 Will send for hearing exam to evaluate for sensorineural hearing loss per Orders: Orders Lipid Panel 01/05/24 E78.2 - Mixed hyperlipidemia Complete Blood Count no Diff 01/05/24 E78.2 - Mixed hyperlipidemia Comprehensive [place]. Panel Fast 04/02/24 E78.2 - Mixed hyperlipidemia Prostate Specific Antigen Scr 01/05/24 E78.2 - Mixed hyperlipidemia, Z12.5 - Encounter for screening for malignant neoplasm of prostate Referrals Speech and Hearing Referral H90.5 - Unspecified sensorineural hearing loss Coding Level of Care Code Est Pt Prev Care 40-64y(80147) Diagnoses Annual physical exam Z00.00 Nicotine dependence, cigarettes, uncomplicated F17.210 Mixed hyperlipidemia E78.2 Hyperlipidemia type: mixed hyperlipidemia Mild intermittent asthma without complication J45.20 Asthma complication type: uncomplicated Asthma persistence: intermittent Asthma severity: mild MDD (major depressive disorder), recurrent episode, moderate F33.1 Basal cell carcinoma, face C44.310 Sensorineural hearing loss (SNHL) of both ears H90.3 Laterality: bilateral Additional Codes Vital Signs *Quality* - CPT code: 71084 - 4-10 Minutes ([id number])
== END 2024-01-05 15:49 | disposition home or self-care (01) ==
PROVIDERS: PCP Physician Assistant; Visit Provider Physician Assistant
DX: Z00.00 Encounter for general adult medical examination without abnormal findings (principal); F33.1 Major depressive disorder, recurrent, moderate; F17.210 Nicotine dependence, cigarettes, uncomplicated; E78.2 Mixed hyperlipidemia; J45.20 Mild intermittent asthma, uncomplicated; C44.310 Basal cell carcinoma of skin of unspecified parts of face; H90.3 Sensorineural hearing loss, bilateral
CPT/HCPCS: 99396; 99406

== ENCOUNTER 2024-03-18 12:17 | Outpatient (REF) | payer OTHER, SELFPAY | END 2024-03-18 12:18 | disposition home or self-care (01) | LOC: HO.SH 12:17 | PROVIDERS: Visit Provider Physician Assistant | DX: Z01.118 Encounter for examination of ears and hearing with other abnormal findings (principal); H90.3 Sensorineural hearing loss, bilateral | CPT/HCPCS: 92557; 92567 ==

== ENCOUNTER 2024-07-12 15:36 | Outpatient (AMB) | payer OTHER, SELFPAY ==
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
[2024-07-12 15:56] VITALS: BP 132/82; PULSE 86; O2SAT 95; BMI 25.7
== END 2024-07-12 16:25 | disposition home or self-care (01) ==
PROVIDERS: PCP Physician Assistant; Visit Provider Physician Assistant
DX: E78.2 Mixed hyperlipidemia (principal); B35.1 Tinea unguium; F17.210 Nicotine dependence, cigarettes, uncomplicated; J45.20 Mild intermittent asthma, uncomplicated

== ENCOUNTER → 2024-07-12 15:36 | Outpatient (BNVA) | payer OTHER, SELFPAY | PROVIDERS: PCP Physician Assistant; Visit Provider Physician Assistant | DX: E78.2 Mixed hyperlipidemia (principal); B35.1 Tinea unguium; J45.20 Mild intermittent asthma, uncomplicated; F17.210 Nicotine dependence, cigarettes, uncomplicated | CPT/HCPCS: 96160 ==

== ENCOUNTER 2024-08-12 14:04 | Outpatient (REF) | payer OTHER, SELFPAY | END 2024-08-12 14:05 | disposition home or self-care (01) | LOC: HO.CT 14:04 | PROVIDERS: PCP Physician Assistant; Visit Provider Physician Assistant Medical | DX: Z12.2 Encounter for screening for malignant neoplasm of respiratory organs (principal); F17.210 Nicotine dependence, cigarettes, uncomplicated | CPT/HCPCS: 71271 ==

== ENCOUNTER → 2024-09-09 14:46 | Outpatient (REF) | payer OTHER, SELFPAY ==
--- NOTE | 2024-09-09 14:49 | CA_ITS ---
Transthoracic Echocardiogram Patient (Last, First, Middle): Blaine Benitez A Gender: Male Date of : 1965 Age: 59 Procedure Date: 09/09/2024 Procedure Type: Transthoracic Echocardiogram Location: OP Height: 177.8 cm Weight: 81.11 kg BSA: 1.99 m2 Heart Rate: 82 bpm BP: 130 / 75 mmHg Farrowing Worker: MARITZA Referring MD: Fred Chacon MD Symptoms: R93.1 - Abnormal findings on diagnostic imaging of heart and coronary ci... Study Quality: Adequate ECG Rhythm: Sinus Conclusions: - Normal left ventricular size, thickness, and systolic function. The visually estimated ejection fraction is between 55-60%. There is no evidence of regional wall motion abnormalities. - Normal right ventricular cavity size and systolic function. - There is moderate thickening of the aortic valve. - There is no aortic valve stenosis. Findings Left Ventricle Normal left ventricular size, thickness, and systolic function. The visually estimated ejection fraction is between 55-60%. There is no evidence of regional wall motion abnormalities. Abnormal diastolic function is noted. Spectral Doppler is indicative of an impaired relaxation filling pattern. E/E prime ratio is between 8 and 15 consistent with indeterminate filling pressures. Right Ventricle Normal right ventricular cavity size and systolic function. Atria The left atrium is normal in size. The right atrium is normal in size. Aortic Valve There is a normal trileaflet aortic valve. There is mild calcification of the aortic valve. There is moderate thickening of the aortic valve. There is no aortic valve stenosis. There is no aortic valve regurgitation. Mitral Valve The mitral valve appears normal. There is no mitral valve regurgitation. There is no mitral valve stenosis. Pulmonic Valve The pulmonic valve is likely normal. Tricuspid Valve Normal tricuspid valve structure. There is no tricuspid valve regurgitation. Tricuspid regurgitation envelope is inadequate for calculation of right ventricular systolic pressure. Normal right atrial pressure. Great Vessels The visualized portions of the pulmonary artery and branches are normal. Venous The inferior vena cava is normal in size and collapses greater than 50% with inspiration. Pericardium/Pleural There is no evidence of pericardial effusion. Prior Study Comparison Changes noted compared to prior study dated: 04/14/2023. No RWMA noted. Measurements 2D Linear Measurements IVSd: 0.88 0.6-0.9/0.6-1.0 cm LVIDd: 4.81 3.9-5.3/4.2-5.9 cm LVIDd Index: 2.42 2.4-3.2/2.2-3.1 cm/m2 LVIDs: 3.27 2.0-3.6 cm LVPWd: 0.92 0.7-1.1 cm LA Diam: 3.40 2.7-3.8/3.0-4.0 cm LAIDs Index: 1.71 1.5-2.3 cm/m2 LV Mass: 184.89 67-162/88-224 g LV Mass Index: 92.91 43-95/49-115 g/m2 LVOT Diam: 2.40 3.0+(-)1.3 cm 2D Systolic Function EF 4C: 59.10 >55% EF 2C: 63.30 >55% EF BiP: 61.50 >55% Mitral Valve MV Pk E: 0.73 MV PK A: 0.89 MV Decel Time: 227.00 E/A: 0.80 E'Lateral: 8.16 E'Medial: 7.94 E/E' Med: 9.20 E/E' Lat: 8.90 PHT: 67.00 MVA PHT: 3.28 Decel [place]: 3.21 Aortic Valve AoV Pk Romeo: 1.33 AoV Mn Romeo: 0.96 AoV VTI: 0.25 AoV Pk Grad: 7.00 Aov Mn Grad: 4.00 FISH Cont.VTI: 3.35 LVOT LVOT Pk Romeo: 1.01 LVOT Mn Romeo: 0.65 LVOT VTI: 0.18 LVOT Pk Grad: 4.00 LVOT Mn Grad: 2.00 LVOT Diam: 2.40 LVOT Area: 4.52 Diastolic Function MV Pk E: 0.73 MV Pk A: 0.89 E/A: 0.80 E'Medial: 7.94 E/E' Med: 9.20 E' Laterial: 8.16 E/E' Lat: 8.90 Right Ventricle TAPSE (mm): 25.20 TVS' Romeo: 15.10 Tricuspid Valve RA Press: 3.00 Great Vessels Aorta Sinus of Valsalva: 3.90 2.0-3.5 cm Ao Asc: 3.30 2.1-3.4 cm Ao Arch: 3.00 Pulmonary Valve PV Pk Romeo: 0.92 Peak PV Grad: 3.00 Updated in Other Vendor System with Status of Final Sam Julien MD electronically signed on 09/11/2024 5:47:06 PM with status of Final
== END ==
LOC: HO.CARD 14:46
PROVIDERS: PCP Physician Assistant; Visit Provider Internal Medicine
DX: R93.1 Abnormal findings on diagnostic imaging of heart and coronary circulation (principal)
CPT/HCPCS: 93306

== ENCOUNTER → 2024-09-09 14:49 | Outpatient (BNV) | payer OTHER, SELFPAY | PROVIDERS: PCP Physician Assistant; Visit Provider Internal Medicine Cardiovascular Disease | DX: I35.8 Other nonrheumatic aortic valve disorders (principal); R93.1 Abnormal findings on diagnostic imaging of heart and coronary circulation | CPT/HCPCS: 93306 ==

== ENCOUNTER 2024-09-29 15:08 | Outpatient (AMB) | payer OTHER, SELFPAY ==
[2024-09-29 15:09] VITALS: BP 110/62; PULSE 83; BMI 26.6
--- NOTE | 2024-09-29 15:09 | A.OFFVIS_ITS ---
Vital Signs 09/29/24 15:09 Height 5 ft 10 in Weight 185 lb 3.013 oz BMI 26.6 BP 110/62 Blood Pressure Location Lt brachial Position Sitting Pulse 83 Pulse Source Monitor Intake Visit Reasons: 1 yr s/p echo Charge Attendant Required: No Accompanied by: Self / Same As Patient Allergies Penicillins [PENICILLINS] Allergy (Severe, Verified 07/12/24 16:05) HIVES amoxicillin Allergy (Verified 07/12/24 16:05) Difficulty Breathing IV dye Adverse Reaction (Mild, Uncoded 07/12/24 16:05) rash Medication List - Last Reconciled 09/29/24 by Fred Chacon MD No Known Home Meds HPI Comments Details: Blaine returns for follow-up. He has had chest pains at different times. However, nonexertional and not thought to be angina. He underwent a comprehensive workup including echocardiogram, coronary CTA. Overall, he states he feels good. He is not on any medications at this time. Previously, was taking aspirin/statins. With regard to smoking, he states last time he smoked was about 2 weeks ago. PENDING SALE TO [facility] Medical History (Updated 07/13/24 @ 07:35 by Chapito Jara PA-C) History of adenomatous polyp of colon SLAC (scapholunate advanced collapse) wrist Nicotine dependence, cigarettes, uncomplicated Surgical History History of heart artery stent (~2010) History of left knee surgery (~1989) Family History Mother Heart attack, Onset Age: 28 Stroke Father Renal cancer Maternal Grandfather Pancreatic cancer Social History Housing: House Alcohol intake: current Alcohol intake frequency: holidays/special occasions only Patient Tobacco Use Status: Current everyday Tobacco user Tobacco use type: Cigarette Cigarette Packs Per Day: 1 Cigarettes Per Day: 20.0 Years Smoked: (onset 14yo, 1/2-1ppd x 44yrs, 30+pyh - quit 01/04/23) e-Cigarette/Vaping Use: Never Used Second Hand Smoke Exposure: No Substance Use Type: Marijuana service: No Current occupational status: employed 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, 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 Current occupational exposures/hazards: No Cognitive needs: No Hearing needs: No Vision needs: No Review of Systems Const Denies chills, Denies fatigue, Denies fever(s), Denies frequent falls, Denies weakness, Denies weight gain and Denies weight loss ENT Denies dizziness Card Denies chest pain, Denies leg edema, Denies lightheadedness, Denies palpitations, Denies dyspnea and Denies dyspnea on exertion Resp Denies cough, Denies dyspnea and Denies dyspnea on exertion GI Denies hematochezia Musc Denies abnormal gait, Denies muscle weakness, Denies numbness, Denies radiating pain into limb and Denies tingling Neuro Denies abnormal gait, Denies dizziness, Denies frequent falls, Denies numbness, Denies tingling and Denies weakness Endo Denies fatigue and Denies palpitations Physical Exam Vital Signs: Last Vital Signs Pulse 83 09/29/24 15:09 BP 110/62 09/29/24 15:09 BMI result Body Mass Index 26.6 Const General: comfortable and no acute distress Orientation/consciousness: patient oriented x3 HEENT Other: Unremarkable Head: Yes normal to inspection Neck Neck: Yes normal visual inspection Chest Chest palpation & inspection: normal inspection of the chest Resp Auscultation: rhonchi and wheezes Cardio Palpation: normal PMI Heart sounds: S1 normal heart sound present, S2 normal heart sound present, no gallops, no murmurs and no rubs GI Palpation (GI): Soft to palpation Back/Spine/Pelvis Other: unremarkable Skin General skin exam: no rashes or lesions noted Neuro General: patient oriented x3 Extrem General: Yes normal to inspection Psych Mental Status: mental status grossly normal Office Procedures EKG Details: EKG with underlying sinus rhythm at 83/Min; cannot exclude old septal infarct but could be from body habitus; [place] [id number], Complete Assessment & Plan Assessment & Plan (1) CAD (coronary artery disease): Code(s): I25.10 - Atherosclerotic heart disease of [place] coronary artery without angina pectoris Category: Medical Qualifiers: Associated angina: with stable angina Coronary Disease-Associated Artery/Lesion type: [place] artery [place] vs. transplanted heart: [place] heart Qualified Code(s): I25.118 - Atherosclerotic heart disease of [place] coronary artery with other forms of angina pectoris Plan Cardiac studies reviewed. Cardiac catheterization from 2009 shows normal coronary arteries and no obstructive lesions. Normal LV systolic function/normal filling pressures. Thought to be false positive stress test. In the exercise stress test from 2022, he was able to exercise for 9 minutes and 19 seconds on Sandeep protocol; reached 10.5 Mets; 85% of max predicted heart rate; no angina; normal blood pressure response; no EKG evidence of ischemia. Overall appears that he did quite well. In the recent echocardiogram, LVEF 55-60% without any wall motion abnormalities. In the previous study, there were some wall motion abnormalities described but could be possibly artifactual. However, in the coronary CTA, there is no overt CAD. Proximal LAD with minimal stenosis at less than 15% and otherwise unremarkable. In the carotid Dopplers, minimal stenosis bilateral. Abdominal ultrasound negative for aortic aneurysm. Overall, minimal coronary disease, noncardiac chest pains that could be related to smoking. Main recommendation is to stop smoking completely. With regard to medications, he used to be on statins and can consider going back on it but not sure if he will. Discussed. No clear need for aspirin. Coding Level of Care Code Est Pt Level 3 (64768) Diagnoses Coronary artery disease of [place] artery of [place] heart with stable angina pectoris I25.118 Associated angina: with stable angina Coronary Disease-Associated Artery/Lesion type: [place] artery [place] vs. transplanted heart: [place] heart CPT Codes EKG - CPT: 57622-[id number], Complete ([id number])
== END 2024-09-29 15:43 | disposition home or self-care (01) ==
PROVIDERS: PCP Physician Assistant; Visit Provider Internal Medicine
DX: I25.118 Atherosclerotic heart disease of native coronary artery with other forms of angina pectoris (principal)
CPT/HCPCS: 93010; 99213

== ENCOUNTER → 2024-09-29 15:08 | Outpatient (BNVA) | payer OTHER, SELFPAY | PROVIDERS: PCP Physician Assistant; Visit Provider Internal Medicine | DX: I25.118 Atherosclerotic heart disease of native coronary artery with other forms of angina pectoris (principal) | CPT/HCPCS: 93005 ==

== ENCOUNTER 2024-10-11 12:53 | Outpatient (AMB) | payer OTHER, SELFPAY ==
--- NOTE | 2024-10-11 12:57 | A.OFFVIS_ITS ---
Vital Signs 10/11/24 13:12 Height 5 ft 10 in Weight 185 lb BMI 26.5 BP 136/85 Blood Pressure Location Rt brachial Position Sitting Pulse 94 Intake Visit Reasons: solitary pulmonary nodule Intake Note: Patient referred by Christa Uribe PA-C for solitary pulmonology nodule on right upper lung. Patient c/o: difficulty breathing, SOB, headaches. Lung CT: 08-12-2024 Clay Burner Required: No Accompanied by: Self / Same As Patient Allergies Penicillins [PENICILLINS] Allergy (Severe, Verified 10/11/24 13:01) HIVES amoxicillin Allergy (Verified 10/11/24 13:01) Difficulty Breathing IV dye Adverse Reaction (Mild, Uncoded 10/11/24 13:01) rash HPI Comments Details: Patient was referred here from multidisciplinary thoracic conference. He has been in lung cancer screening program. Recent CT scan demonstrates enlarging of the right upper lobe lung lesion and findings very suspicious. Patient has a very longstanding smoking history. He started at age 14 and at 1 point was smoking 2 packs per day. The last few years he has been smoking 26 cigars every 2 days. Aside from a smoker's cough he denies any chronic cough, chest pain, hemoptysis, or wheezing. His weight, energy, and appetite are stable. 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 Family history noteworthy for several family members who have from a variety of cancers including several from lung cancer. Chart was reviewed and patient evaluate [facility] Medical History History of adenomatous polyp of colon SLAC (scapholunate advanced collapse) wrist Nicotine dependence, cigarettes, uncomplicated Surgical History History of heart artery stent (~2010) History of left knee surgery (~1989) Family History Mother Heart attack, Onset Age: 28 Stroke Father Renal cancer Maternal Grandfather Pancreatic cancer Social History Housing: House Alcohol intake: current Alcohol intake frequency: holidays/special occasions only Patient Tobacco Use Status: Current everyday Tobacco user Tobacco use type: Cigarette Cigarette Packs Per Day: 1 Cigarettes Per Day: 20.0 Years Smoked: (onset 14yo, 1/2-1ppd x 44yrs, 30+pyh - quit 01/04/23) e-Cigarette/Vaping Use: Never Used Second Hand Smoke Exposure: No Substance Use Type: Marijuana service: No Current occupational status: employed 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 Chest Other: Chest breath sounds bilaterally consistent with moderate COPD. GI Other: Abdomen moderately corpulent, soft, benign Extrem Other: Grossly within normal limits. No obvious clubbing. Assessment & Plan Assessment & Plan (1) Right upper lobe pulmonary nodule: Comment: (RUL ggo with increasing solid component now 7mm - 08/2024) Code(s): R91.1 - Solitary pulmonary nodule Category: Surgical Plan: I reviewed CT scan findings with the patient. He has 1 right upper lung zone lesion which has increased in size and become more suspicious. Radiologic recommendation is for IR biopsy. Patient understands this and arrangements were made with the procedure. He will see me after this to review the results indirect further therapy and interventions. All questions answered. Orders: Orders CT biopsy lung RT Today R91.1 - Solitary pulmonary nodule Coding Level of Care Code New Pt Level 4 (40095) Diagnoses Right upper lobe pulmonary nodule R91.1
[2024-10-11 13:12] VITALS: BP 136/85; PULSE 94; BMI 26.5
== END 2024-10-11 13:13 | disposition home or self-care (01) ==
PROVIDERS: PCP Physician Assistant; Visit Provider Surgery
DX: R91.1 Solitary pulmonary nodule (principal)
CPT/HCPCS: 99204

== ENCOUNTER → 2024-11-14 11:32 | Outpatient (BNV) | payer OTHER, SELFPAY | PROVIDERS: PCP Physician Assistant; Visit Provider Radiology Diagnostic Radiology | DX: R91.1 Solitary pulmonary nodule (principal); Z46.82 Encounter for fitting and adjustment of non-vascular catheter | CPT/HCPCS: 32408; 32551; 71045 ==

== ENCOUNTER 2024-11-14 15:50 | Inpatient (IN) | payer OTHER, SELFPAY ==
[2024-11-14] VITALS (38 sets, daily range): BP systolic 108–163; BP diastolic 64–108; PULSE 67–80; RESP 12–22; TEMP 36.1–37; O2SAT 93–97; BMI 26.5; BMI 26.1
--- NOTE | ~2024-11-14 | XR_ITS ---
EXAMINATION: XR CHEST 1 VIEW HISTORY: s/p RUL lung nodule biopsy COMPARISON: Correlation is made with the CT biopsy images from earlier in the day. FINDINGS: Two AP portable views of the chest performed at 10:31 AM are submitted. No pneumothorax is seen. The right lung nodule biopsy under CT guidance is not well visualized. The heart is normal in size. The bones are intact. XR/XR chest 1V IMPRESSION: No pneumothorax. Electronically signed by: Jourdan Curran MD 11/14/2024 01:41 PM [facility]
--- NOTE | ~2024-11-14 | US_ITS ---
CLINICAL HISTORY: ?acute cholecystitis US GALLBLADDER Comparison: None Findings: The common bile duct measures 2.2 mm. No gallbladder stones or sludge. Gallbladder wall measures 3.1 mm. No pericholecystic fluid. There is a positive sonographic Bain sign. IMPRESSION: 1. Positive sonographic Bain sign with borderline thickened gallbladder wall. No evidence for cholelithiasis. The possibility of acalculous cholecystitis is included in the differential. 2. No common bile ductal dilatation. This document has been electronically signed by: Justine Hernández DO on 11/15/2024 18:17:36
--- NOTE | ~2024-11-14 | CT_ITS ---
59-year-old man with significant smoking history and a right upper lobe lung nodule. Thoracic surgery requests biopsy of the nodule. PROCEDURES: 1. Limited preprocedure CT of the chest. Permanent images saved in PACS. 2. CT-guided biopsy of the right lung nodule. 3. Limited postprocedure CT of the chest. Permanent images saved in PACS. 4. CT-guided placement of a right chest tube. CLINICIANS: Stone Miranda PA-C MEDICATIONS: -Versed 1.5 mg, Fentanyl 75 mcg, and lidocaine 1% 10 mL SQ -Antibiotics: None -For additional details, please see nursing flowsheet. COMPLICATIONS: None ESTIMATED BLOOD LOSS: < 5 ml CONTRAST: None SPECIMENS: 3 x 20 g cores were sent for pathology. 22-gauge fine needle aspiration was sent for cytology. MODERATE SEDATION TIME: 30 min PROCEDURE NOTE: The procedure, risks, benefits, and alternatives were carefully explained to the patient and written informed consent was obtained. The patient was placed in the left lateral decubitus position on the CT table. A timeout was performed. A limited CT of the chest was performed to localize the right lung nodule and choose appropriate needle entry and trajectory. The patient was prepped and draped in usual sterile fashion. The skin and deeper soft tissues were anesthetized with lidocaine. Under CT guidance, a 19-gauge trocar needle was advanced to the right lung nodule. A 20 gauge biopsy device was inserted through the trocar needle and advanced into the nodule. A total of 3 cores were performed. The specimens were placed in formalin and sent to pathology. Next, a 22-gauge Chiba needle was inserted through the trocar needle and advanced into the lesion. An aspiration was performed and sent for cytology. The specimens were placed in formalin and sent to pathology. A total of 10 mL of nonclotted blood was obtained from the patient's IV by the nursing staff. A blood patch was then administered through the trocar needle. The needle was removed. A dry dressing was applied and secured with Tegaderm. A limited postprocedure CT of the chest was performed, which did not demonstrate any pneumothorax or hemothorax. There were no immediate complications. The patient was stable after the procedure and was transferred to the post anesthesia care unit. The procedure was done under moderate sedation with a dedicated nurse for monitoring of vital signs. A post two-hour chest x-ray demonstrated a small but increasing right pneumothorax. It was decided to place a chest tube. The patient was placed in the left lateral decubitus position on the CT table. A timeout was performed. A limited CT of the chest was performed to localize the right basilar pneumothorax and choose appropriate needle entry and trajectory. The patient was prepped and draped in usual sterile fashion. The skin and subcutaneous tissues were anesthetized with lidocaine. Under CT guidance, a trocar was advanced into the right pleural space. Air was immediately aspirated. A 0.0035 J wire was inserted through the the trocar needle and coiled in the right pleural space. The trocar needle was then removed over the wire. The tract was then serially dilated. Over the wire, a 10 fr all-purpose drainage catheter was advanced and coiled into the right pleural space under CT guidance. The wire was then removed. The catheter was secured to the skin with a 3-0 nylon suture. The catheter was then attached to a closed drainage system. A limited postprocedure CT was then obtained, which demonstrated near resolution of the pneumothorax. The patient was stable after the procedure and was transferred to the post anesthesia care unit. CT/CT chest tube placement Impression: 1) CT-guided right lung nodule biopsy and fine-needle aspiration. 2. CT-guided right chest tube placement for post procedure pneumothorax. This procedure was performed by Stone Miranda PA-C and supervised by Dr. Earl. Electronically signed by: Roman Earl MD 11/15/2024 04:51 PM [facility] [place]
--- NOTE | ~2024-11-14 | XR_ITS ---
EXAMINATION: XR CHEST 1 VIEW HISTORY: R chest tube removal COMPARISON: Comparison is made with the prior examination dated 11/15/2024. FINDINGS: A single AP portable view of the chest performed at 11:43 AM is submitted. The previously seen right-sided chest tube is been removed. There is linear subsegmental atelectasis at the left lung base. The right lung is clear. There is no pleural effusion, pneumothorax, or pulmonary vascular congestion. The heart is normal in size. There is degenerative disc disease of the spine. XR/XR chest 1V IMPRESSION: 1.Interval removal of the right chest tube. No pneumothorax. 2. Left basilar subsegmental atelectasis. Electronically signed by: Jourdan Curran MD 11/17/2024 01:21 PM [facility]
--- NOTE | ~2024-11-14 | XR_ITS ---
EXAMINATION: XR CHEST CLINICAL INFORMATION: s/p right lung biopsy 2h COMPARISON: November 14, 2024 at 10:30 AM.] TECHNIQUE: Frontal view of the chest was obtained. FINDINGS: Questionable small tiny right apical pneumothorax. No other change. XR/XR chest 1V IMPRESSION: Questionable small tiny right apical pneumothorax. Recommend deep inspiration/ expiration x-ray. Electronically signed by: Aristides Cronin MD 11/14/2024 12:25 PM [facility]
--- NOTE | ~2024-11-14 | XR_ITS ---
CLINICAL HISTORY: f u right pneumothorax, water seal 1 view chest x-ray Comparison: CR - XR CHEST 1V - 11/15/24 07:04 EST Findings: Developing mild left lower lobe atelectasis. Similar position of the right basilar thoracotomy tube. No obvious pneumothorax identified. No significant pleural effusion. Prominent cardiac silhouette. No acute fracture. IMPRESSION: Developing mild left lower lobe atelectasis. No obvious pneumothorax identified. This document has been electronically signed by: Jimmy Morris MD on 11/16/2024 04:11:16
--- NOTE | ~2024-11-14 | XR_ITS ---
CLINICAL HISTORY: pneumothorax 1 view chest x-ray Comparison: CR/KY/SR - XR CHEST 1V - 11/14/24 12:25 EST Findings: Interval placement of a pigtail catheter along the right costophrenic angle. Right apical pneumothorax seen on prior study is decreased in size now measuring 6 mm in size from the chest wall. No pleural effusion. Minor atelectasis within the lung bases. Cardiac silhouette is within normal limits. IMPRESSION: Interval decrease in size of right apical pneumothorax after chest tube placement. This document has been electronically signed by: Wes Wheatley MD on 11/15/2024 07:41:51
--- NOTE | ~2024-11-14 | NM_ITS ---
EXAMINATION: NM BILIARY TRACT CLINICAL INFORMATION: Right upper quadrant pain. COMPARISON: Ultrasound abdomen limited to 08/24/2025 TECHNIQUE: Following intravenous administration of 5 mCi of technetium 99m mebrofenin, imaging over the right upper quadrant was obtained up to 60 minutes. At 60 minutes 1.6 mcg of CCK was injected and further imaging was obtained for another 30 minutes. FINDINGS: There is normal hepatic uptake without focal defect. Gallbladder is visualized by 7-8 minutes. CBD is visualized also at 78 minutes. Small bowel is visualized by 41 minutes. Post-CCK the gallbladder ejection fraction, At 10 minutes is 49%, At 20 minutes is 70% and At 30 minutes is 83%. NM/NM hepatobiliary w pharm IMPRESSION: Normal gallbladder ejection fraction of 83% at 30 minutes . Patent CBD and patent cystic duct. Normal hepatic uptake. Electronically signed by: Randy Medina MD 11/16/2024 02:27 PM [facility]
--- NOTE | ~2024-11-14 | XR_ITS ---
EXAMINATION: XR CHEST CLINICAL INFORMATION: s/p right lung biopsy, evaluate tiny right pneumot COMPARISON: Earlier same day at 11:25 AM. TECHNIQUE: Frontal view of the chest was obtained. FINDINGS: There is an enlarging right apical pneumothorax, now measuring approximately 16 mm pleural separation (previously 5 mm). Nodular opacity right upper lung. Lungs otherwise clear. No effusions or left pneumothorax. XR/XR chest 1V IMPRESSION: Mildly enlarging small right apical pneumothorax. Electronically signed by: Rubin Slaughter MD 11/14/2024 01:58 PM EST
[2024-11-14 08:16] LABS: MANUAL DIFF FLAG NO
--- NOTE | 2024-11-14 08:18 | MHC.SHP ---
Pre-Procedural Eval Section A - 24 Hr Update-Section A only Date of Service: 11/14/24 Section B - Complete if H&P > 30 days Chief Complaint: RIGHT UPPER LOBE PULMONARY NODULE Details of Present Illness: 59 y/o man with a RUL 8mm lung nodule and significant smoking history. Thoracic surgery requests a biopsy. Relevant Family History (Specify if Yes): Yes Relevant Social History: Tobacco Use Present Medications: see Short Stay Collaborative assessment Medical History: Significant History History of Previous Operations: Relevant previous surgery/procedure and date(s) Allergies: Allergies Allergy/AdvReac Type Severity Reaction Status Date / Time Penicillins [PENICILLINS] Allergy Severe HIVES Verified 10/11/24 13:01 amoxicillin Allergy Difficulty Verified 10/11/24 13:01 Breathing IV dye AdvReac Mild rash Uncoded 10/11/24 13:01 Review of Systems Sugical H&P ROS: Negative: Constitution, Cardiovascular and Respiratory Exam Surgical H&P Exam: Normal: Heart, Normal: Lungs, Normal: Skin and Normal: Neurological Plan 59 y/o man with RUL 8mm nodule -Discussed risks of procedure. He wishes to proceed with biopsy rather than continued surveillance. Time Spent With Patient Time: Total time managing care of this patient today ____ minutes.
[2024-11-14 08:19] LABS: Basophils Absolute Auto 0.1 X10*3/uL (0.0-0.2); Basophils Percent Auto 1.1 % (0-2); Eosinophils Absolute Auto 0.2 X10*3/uL (0.0-0.4); Hemoglobin 15.1 g/dl (14.0-18.0); Imm Gran Abs Auto 0.02 X10*3/uL (0.00-0.03); Imm Gran Pct Auto 0.4 % (0.0-0.4); Lymphocytes Absolute Auto 1.2 X10*3/uL (1.2-4.9); Lymphocytes Percent Auto 21.9 % (20-40); Mean Corpuscular HGB Conc 33.6 g/dl (31.0-36.0); Mean Corpuscular Hemoglobin 30.3 pg (27.0-33.0); Mean Corpuscular Volume 90.2 fL (80.0-98.0); Monocytes Absolute Auto 0.4 X10*3/uL (0.1-1.2); Monocytes Percent Auto 7.9 % (2-11); Neutrophils Absolute Auto 3.6 x10*3/uL (2.0-8.3); Neutrophils Percent Auto 64.7 % (45-73); Platelet Count 184 X10*3/uL (160-400); Red Blood Count 4.99 X10*6/uL (4.60-5.80); Red Cell Distribution Width 12.4 % (11.0-16.0); White Blood Count 5.6 X10*3/uL (4.8-10.8)
[2024-11-14 08:27] LABS: INTERNATIONAL NORM RATIO 0.9 (0.9-1.1); Prothrombin Time 10.6 SEC (10.9-12.4)
[2024-11-14 08:29] LABS: Partial Thromboplastin Time 30.3 SEC (26.0-36.8)
[2024-11-14] MEDS: Midazolam HCl 5 MG/ML VIAL 1 MG IVPUSH (08:55)
[2024-11-14] MEDS: fentaNYL citrate/PF 100 MCG/2 ML VIAL 50 MCG IVPUSH ×2 (08:56→13:24)
--- NOTE | 2024-11-14 13:51 | PM.PROC ---
Brief Operative Note Date of procedure: 11/14/24 Pre-op diagnosis: Right pneumothorax after lung biopsy Post-op diagnosis: same Procedure: CXR demonstrates small but increasing right pneumothorax. A 10 fr drain was placed under CT guidance. Post imaging demonstrated resolution of the pneumothorax. Will discussed admission with hospitalist service.
[2024-11-14] MEDS: HYDROmorphone HCl 0.5 MG/0.5 ML SYRINGE IVPUSH ×3 (14:12→21:33)
--- NOTE | 2024-11-14 15:53 | P.HPHOSP_ITS ---
History of Present Illness Date of Service: 11/14/24 Attending physician on admission: Maggy Lovett Chief Complaint: pneumothorax after lung biopsy HPI : 59 y/o with asthma mild intermittent , hlp , He has been in lung cancer screening program. Recent CT scan demonstrates enlarging of the right upper lobe lung lesion and findings very suspicious.Patient has a very longstanding smoking history. He started at age 14 and at 1 point was smoking 2 packs per day ,also uses marijuana qd. patient went for lung biopsy today-subsequently developed a pneumothorax and status post catheter: Denies any shortness of breath or palpitations or new complaints. Has some soreness /pain ,otherwise vitals stable Family history noteworthy for several family members who have from a variety of cancers including several from lung cancer. Review of Systems 2 Review of Systems: as above. Yes all other systems are reviewed and are negative [facility] Medical History History of adenomatous polyp of colon SLAC (scapholunate advanced collapse) wrist Nicotine dependence, cigarettes, uncomplicated Family History Mother Heart attack, Onset Age: 28 Stroke Father Renal cancer Maternal Grandfather Pancreatic cancer Surgical History History of heart artery stent (~2010) History of left knee surgery (~1989) Social History Household Members: Spouse Housing: House Do you presently have visiting nurse or other home services: No Alcohol intake: current Alcohol intake frequency: does not drink Patient Tobacco Use Status: Former Tobacco user Tobacco use type: Cigarette Cigarette Packs Per Day: 1 Cigarettes Per Day: 20.0 Years Smoked: (onset 14yo, 1/2-1ppd x 43yrs, 30+pyh - quit 01/04/23) e-Cigarette/Vaping Use: Never Used Second Hand Smoke Exposure: No Use of substances other than those prescribed or required for medical reasons: Yes Substance Use Type: Marijuana Substance Use Frequency: Daily Last Used Substance: Just Prior to Admission Currently Displaying Signs/Symptoms of Drug Intoxication Withdrawal: No Any prior treatment program specific to substance use: No Have you been hit, kicked, punched, or otherwise hurt by someone within the past year? If so, by whom?: No Do you feel safe in your current relationship?: Yes Is there a partner from a previous relationship who is making you feel unsafe now?: No Are you made to feel afraid or neglected: No Are you DNR?: No Advance Directives: No Advance Directives Information Provided: Yes Advance Directives on File: No Do you have a plan to hurt others: No Plan Recently lost weight without trying: Yes How much weight loss: 2-13 pounds Eating poorly because of decreased appetite: Yes Nutrition screen score: 4 Nutrition Risks: No Nutritional Risk Poor oral hygiene: No service: No Current occupational status: employed 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, 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 Current occupational exposures/hazards: No Cognitive needs: No Hearing needs: No Vision needs: No Meds Allergies Allergy/AdvReac Type Severity Reaction Status Date / Time Penicillins [PENICILLINS] Allergy Severe HIVES Verified 10/11/24 13:01 amoxicillin Allergy Difficulty Verified 10/11/24 13:01 Breathing IV dye AdvReac Mild rash Uncoded 10/11/24 13:01 Active Medications: Current Medications Acetaminophen (Acetaminophen 325 Mg Tablet) 650 mg PO Q6H PRN PRN Reason: Pain, Mild 1-3,fever,headache Calcium Carbonate (Calcium Carbonate 750 Mg Tab.Chew) 750 mg PO Q4H PRN PRN Reason: Heartburn Dextrose/Sodium Chloride (D5ns) 1,000 mls @ 80 mls/hr IVCONT .[id number] SARAH Magnesium Hydroxide (Milk Of Magnesia 30 Ml Oral.Susp) 30 ml PO DAILY PRN PRN Reason: Constipation Melatonin (Melatonin 3 Mg Tablet) 6 mg PO BEDTIME PRN PRN Reason: Insomnia Sodium Chloride (0.9 % Sodium Chloride Flush 3 Ml Syringe) 3 ml IVFLUSH QSHIFT SARAH Home Medications ?Medication ?Instructions ?Recorded ?Confirmed ?Last Taken ?Type No Known Home Meds 09/29/24 11/14/24 Unknown History Physical Exam 2 Vital Signs and Narrative: Vital Signs: Last Vital Signs Temp 97.9 F 11/14/24 14:00 Pulse 73 11/14/24 15:30 Resp 20 11/14/24 15:30 BP 146/98 H 11/14/24 15:30 Pulse Ox 96 11/14/24 15:30 O2 Del Method Room Air 11/14/24 15:30 O2 Flow Rate 2 11/14/24 09:20 FiO2 38 11/14/24 08:38 BMI result Body Mass Index 26.5 Appearance: Alert.? Oriented X3.? Eyes: Pupils equal, round and reactive to light.? Sclera nonicteric.? ENT: Pharynx normal.? Moist mucous membranes. cvs: rrr, [id number]. res: air entry minimum dimnshed at right side ,few rhonchii abd: no rebound or guarding ,nt, bs present. ext pulses present , no cyanosis . neuro: axo3 , nonfocal. Results Labs 11/14/24 08:11 Labs: Laboratory Results - last 24 hr 11/14/24 11/14/24 08:11 08:12 MCV 90.2 MCH 30.3 MCHC 33.6 RDW 12.4 Plt Count 184 MPV 10.0 Immature Gran % (Auto) 0.4 Neut % (Auto) 64.7 Lymph % (Auto) 21.9 [place] % (Auto) 7.9 Eos % (Auto) 4.0 Baso % (Auto) 1.1 Lymph # (Auto) 1.2 [place] # (Auto) 0.4 Eos # (Auto) 0.2 Baso # (Auto) 0.1 Abs Immat Gran (auto) 0.02 Absolute Neuts (auto) 3.6 Absolute Nucleated RBC 0.000 Nucleated RBC % (auto) 0.0 PT 10.6 L INR 0.9 APTT 30.3 Imaging Radiologist's Impressions: Impressions Chest X-Ray 11/14/24 10:30 IMPRESSION: No pneumothorax. Electronically signed by: Jourdan Curran MD 11/14/2024 01:41 PM EST RP Chest X-Ray 11/14/24 11:32 IMPRESSION: Questionable small tiny right apical pneumothorax. Recommend deep inspiration/ expiration x-ray. Electronically signed by: Aristides Cronin MD 11/14/2024 12:25 PM EST RP Chest X-Ray 11/14/24 12:30 IMPRESSION: Mildly enlarging small right apical pneumothorax. Electronically signed by: Rubin Slaughter MD 11/14/2024 01:58 PM EST RP Assessment and Plan (1) Right upper lobe pulmonary nodule: Status: Acute 59 y/o with asthma mild intermittent , hlp , He has been in lung cancer screening program Plan 59 y/o with asthma mild intermittent , hlp , came for lung nodule biopsy- developed enlarging pneumothorax now has -CXR demonstrates small but increasing right pneumothorax. A 10 fr drain was placed under CT guidance. Right-sided pneumothorax-status postdrain was placed under CT guidance Continue telemetry, pulse oximetry, Monitor for symptom-worsening shortness of breaths or hypoxia Currently patient is not having any shortness of breath or hypoxia. Plan: Continue drain, IV Dilaudid for pain, monitor pulse oximetry and telemetry. Consult for CT surgery added If any new symptoms repeat chest x-ray Mild intermittent asthma: Stable P.r.n. nebs Smoking current: Nicotine patch DVT prophylaxis: SCD Above management discussed with the patient in detail length he understand and in agreement with the above plan, time spent 70 minute. Considering pneumothorax status post lung nodule biopsy: May need 2 midnight stay considering Needs to monitor for respiratory status, pulse oximetry and telemetry, and CT surgery evaluation in morning for further management. Patient is full code. Quality Stroke Does the patient have a stroke diagnosis?: No VTE Prior VTE?: No VTE Risk Level:: Medical - moderate - high VTE Device Contraindication: N/A - Device Ordered VTE Drug Contraindication: N/A - Med Ordered
[2024-11-14] MEDS: 0.9 % Sodium Chloride Flush 3 ML SYRINGE IVFLUSH ×2 (17:33→23:23)
--- NOTE | 2024-11-14 17:43 | PHA.MEDREC ---
Pharmacy Consult ? Medication Reconciliation RN has completed the medication reconciliation, pharmacy reviewed.
[2024-11-14 18:16] LABS: Anion Gap 10 (12-20); Blood Urea Nitrogen 10 mg/dL (9-16); Calcium 9.2 mg/dL (8.4-10.2); Carbon Dioxide 25 mmol/L (22-29); Chloride 106 mmol/L (96-108); Creatinine Clr Calc Pharmacy 102.6; Estimated Glomerular Filt Rate > 60; Glucose Random 97 mg/dL (60-115); Potassium 4.2 mmol/L (3.3-5.1); Sodium 137 mmol/L (135-145)
[2024-11-15] MEDS: HYDROmorphone HCl 0.5 MG/0.5 ML SYRINGE IVPUSH (01:49)
[2024-11-15 03:22] VITALS: BP 123/77; PULSE 75; RESP 17; TEMP 36.1; O2SAT 93
[2024-11-15 07:51] VITALS: BP 133/85; PULSE 73; RESP 17; TEMP 37.1; O2SAT 92
[2024-11-15] MEDS: Lidocaine 4 % Patch ADH..PATCH 1 PATCH TRANSDERMA (08:22)
[2024-11-15] MEDS: guaiFENesin 200 MG/10 ML 10 ML LIQUID PO (08:22)
[2024-11-15] MEDS: 0.9 % Sodium Chloride Flush 3 ML SYRINGE IVFLUSH ×3 (08:25→19:16)
--- NOTE | 2024-11-15 09:19 | MHC.CM.PN ---
Patient lives in a home w/ , daughters and granddaughters. Functionally independent. Denies use of DME or services. PCP Chapito MENON Reports he has an HCP naming his , Annelise, as HCA. Copy requested. DP: Home w/ family, would be open to VNA services if recommended, no agency preference. Referral to [facility] contracted agency sent via [employer]. to transport. CM will continue to follow.
--- NOTE | 2024-11-15 10:49 | P.PNIM_ITS ---
Subjective Subjective Date of Service: 11/15/24 Interval History: pneumothorax post lung biopsy Review of Systems denies any sob has some soarness sats seems fine has some dry cough Physical Exam 2 Vital Signs: Vital Signs: Last Vital Signs Temp 98.8 F 11/15/24 07:51 Pulse 73 11/15/24 07:51 Resp 17 11/15/24 07:51 BP 133/85 11/15/24 07:51 Pulse Ox 92 11/15/24 07:51 O2 Del Method Room Air 11/15/24 07:51 O2 Flow Rate 2 11/14/24 09:20 FiO2 38 11/14/24 08:38 BMI result Body Mass Index 26.1 Appearance: Alert.? Oriented X3.? cvs: rrr, [id number]. res: air entry minimum dimnshed at right side . abd: no rebound or guarding ,nt, bs present. ext pulses present , no cyanosis . neuro: axo3 , nonfocal. Objective Data Active Medications Acetaminophen (Acetaminophen 325 Mg Tablet) 650 mg PO Q6H PRN PRN Reason: Pain, Mild 1-3,fever,headache Calcium Carbonate (Calcium Carbonate 750 Mg Tab.Chew) 750 mg PO Q4H PRN PRN Reason: Heartburn Docusate Sodium (Docusate Sodium 100 Mg Capsule) 100 mg PO BID [facility] Last Admin: 11/15/24 08:15 Dose: Not Given Documented By: JAMES Non-Admin Reason: Patient Refused Guaifenesin (Guaifenesin 200 Mg/10 Ml 10 Ml Liquid) 10 ml PO Q4H PRN PRN Reason: Cough Last Admin: 11/15/24 08:22 Dose: 10 ml Documented By: JAMES Hydromorphone HCl (Hydromorphone Hcl 0.5 Mg/0.5 Ml Syringe) 0.5 mg IVPUSH Q4H PRN; Protocol PRN Reason: Pain, Severe (Pain Scale 7-10) Last Admin: 11/15/24 01:49 Dose: 0.5 mg Documented By: FLASH Lidocaine (Lidocaine 4 % Patch Adh..Patch) 1 patch TRANSDERMA DAILY [facility]; Protocol Last Admin: 11/15/24 08:22 Dose: 1 patch Documented By: JAMES Magnesium Hydroxide (Milk Of Magnesia 30 Ml Oral.Susp) 30 ml PO DAILY PRN PRN Reason: Constipation Melatonin (Melatonin 3 Mg Tablet) 6 mg PO BEDTIME PRN PRN Reason: Insomnia Oxycodone HCl (Oxycodone Hcl Immed Release 5 Mg Tablet) 5 mg PO Q4H PRN PRN Reason: Pain, Moderate(Pain Scale 4-6) Sodium Chloride (0.9 % Sodium Chloride Flush 3 Ml Syringe) 3 ml IVFLUSH QSHIFT SARAH Last Admin: 11/15/24 08:25 Dose: 3 ml Documented By: JAMES Labs 11/14/24 08:11 11/14/24 17:55 Labs: Laboratory Results - last 24 hr 11/14/24 17:55 Anion Gap 10 L Estim Creat Clear Calc 102.6 Estimated GFR > 60 Random Glucose 97 Calcium 9.2 Assessment and Plan (1) Right upper lobe pulmonary nodule: Status: Acute (2) Pneumothorax: Status: Acute Assessment and Plan: 59 y/o with asthma mild intermittent , hlp , came for lung nodule biopsy- developed enlarging pneumothorax now has -CXR demonstrates small but increasing right pneumothorax. A 10 fr drain was placed under CT guidance. Right-sided pneumothorax-status postdrain was placed under CT guidance Continue telemetry, pulse oximetry, Currently patient is not having any shortness of breath or hypoxia. cxr this morning-Interval decrease in size of right apical pneumothorax after chest tube placement has some right upper pain Plan: added cmp , added us Continue drain, IV Dilaudid for pain, monitor pulse oximetry and telemetry. Consult for CT surgery added If any new symptoms repeat chest x-ray Mild intermittent asthma: Stable P.r.n. nebs Smoking current: Nicotine patch DVT prophylaxis: SCD ongoing need to stay :Right-sided pneumothorax-status postdrain was placed under CT guidance, ruq pain Quality Stroke Does the patient have a stroke diagnosis?: No VTE Prior VTE?: No VTE Risk Level:: Medical - moderate - high VTE Device Contraindication: N/A - Device Ordered VTE Drug Contraindication: N/A - Med Ordered
[2024-11-15] MEDS: Acetaminophen 325 MG TABLET 650 MG PO ×3 (12:02→22:02)
--- NOTE | 2024-11-15 13:04 | HO.THORCONS ---
Documented by User: Muriel Quintana PA-C 11/15/24 13:13 History of Present Illness Consult details Consult date: 11/15/24 Requesting physician: Maggy Lovett Narrative: 59 year old male with asthma mild intermittent , hyperlipidemia with suspicious recent CT scan demonstrating enlarging of the right upper lobe lung lesion. He has a very longstanding smoking history. He started at age 14 and was smoking 2 packs per day. He underwent right lung biopsy yesterday and subsequently developed a pneumothorax and chest tube was placed by IR. Thoracic surgery was consulted for management of the chest tube. This morning he denies shortness of breath or chest pain. He does endorse RUQ abd pain. He denies previous similar episodes of this. This has been present for the past few days. Denies fever, chills, nausea or vomiting. Review of Systems Review of Systems: Yes all other systems are reviewed and are negative PMFSH Past Medical History Medical History History of adenomatous polyp of colon SLAC (scapholunate advanced collapse) wrist Nicotine dependence, cigarettes, uncomplicated Family History Family History Mother Heart attack, Onset Age: 28 Stroke Father Renal cancer Maternal Grandfather Pancreatic cancer Surgical History Surgical History History of heart artery stent (~2010) History of left knee surgery (~1989) Social History Social History Household Members: Spouse Housing: House Do you presently have visiting nurse or other home services: No Alcohol intake: current Alcohol intake frequency: does not drink Patient Tobacco Use Status: Former Tobacco user Tobacco use type: Cigarette Cigarette Packs Per Day: 1 Cigarettes Per Day: 20.0 Years Smoked: (onset 14yo, 1/2-1ppd x 43yrs, 30+pyh - quit 01/04/23) e-Cigarette/Vaping Use: Never Used Second Hand Smoke Exposure: No Use of substances other than those prescribed or required for medical reasons: Yes Substance Use Type: Marijuana Substance Use Frequency: Daily Last Used Substance: Just Prior to Admission Currently Displaying Signs/Symptoms of Drug Intoxication Withdrawal: No Any prior treatment program specific to substance use: No Have you been hit, kicked, punched, or otherwise hurt by someone within the past year? If so, by whom?: No Do you feel safe in your current relationship?: Yes Is there a partner from a previous relationship who is making you feel unsafe now?: No Are you made to feel afraid or neglected: No Are you DNR?: No Advance Directives: No Advance Directives Information Provided: Yes Advance Directives on File: No Do you have a plan to hurt others: No Plan Recently lost weight without trying: Yes How much weight loss: 2-13 pounds Eating poorly because of decreased appetite: Yes Nutrition screen score: 4 Nutrition Risks: No Nutritional Risk Poor oral hygiene: No service: No Current occupational status: employed 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, 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 Current occupational exposures/hazards: No Cognitive needs: No Hearing needs: No Vision needs: No Meds Allergies Allergy/AdvReac Type Severity Reaction Status Date / Time Penicillins [PENICILLINS] Allergy Severe HIVES Verified 10/11/24 13:01 amoxicillin Allergy Difficulty Verified 10/11/24 13:01 Breathing IV dye AdvReac Mild rash Uncoded 10/11/24 13:01 Active Medications: Current Medications Acetaminophen (Acetaminophen 325 Mg Tablet) 650 mg PO Q6H PRN PRN Reason: Pain, Mild 1-3,fever,headache Last Admin: 11/15/24 12:02 Dose: 650 mg Calcium Carbonate (Calcium Carbonate 750 Mg Tab.Chew) 750 mg PO Q4H PRN PRN Reason: Heartburn Docusate Sodium (Docusate Sodium 100 Mg Capsule) 100 mg PO BID [facility] Last Admin: 11/15/24 08:15 Dose: Not Given Guaifenesin (Guaifenesin 200 Mg/10 Ml 10 Ml Liquid) 10 ml PO Q4H PRN PRN Reason: Cough Last Admin: 11/15/24 08:22 Dose: 10 ml Hydromorphone HCl (Hydromorphone Hcl 0.5 Mg/0.5 Ml Syringe) 0.5 mg IVPUSH Q4H PRN; Protocol PRN Reason: Pain, Severe (Pain Scale 7-10) Last Admin: 11/15/24 01:49 Dose: 0.5 mg Lidocaine (Lidocaine 4 % Patch Adh..Patch) 1 patch TRANSDERMA DAILY [facility]; Protocol Last Admin: 11/15/24 08:22 Dose: 1 patch Magnesium Hydroxide (Milk Of Magnesia 30 Ml Oral.Susp) 30 ml PO DAILY PRN PRN Reason: Constipation Melatonin (Melatonin 3 Mg Tablet) 6 mg PO BEDTIME PRN PRN Reason: Insomnia Oxycodone HCl (Oxycodone Hcl Immed Release 5 Mg Tablet) 5 mg PO Q4H PRN PRN Reason: Pain, Moderate(Pain Scale 4-6) Sodium Chloride (0.9 % Sodium Chloride Flush 3 Ml Syringe) 3 ml IVFLUSH QSHIFT [facility] Last Admin: 11/15/24 08:25 Dose: 3 ml Home Medications ?Medication ?Instructions ?Recorded ?Confirmed ?Last Taken ?Type No Known Home Meds 09/29/24 11/14/24 Unknown History Physical Exam Vital Signs: Vital Signs: Last Vital Signs Temp 98.8 F 11/15/24 07:51 Pulse 73 11/15/24 07:51 Resp 17 11/15/24 07:51 BP 133/85 11/15/24 07:51 Pulse Ox 92 11/15/24 07:51 O2 Del Method Room Air 11/15/24 07:51 O2 Flow Rate 2 11/14/24 09:20 FiO2 38 11/14/24 08:38 BMI result Body Mass Index 26.1 Const: General: comfortable, no acute distress and alert Chest: Other: right posterior chest tube in place, scant serosanguineous drainage, no air leak Resp: Effort & Inspection: normal respiratory effort, not tachypneic, no tracheal deviation and no use of accessory muscles GI: Inspection: Yes normal to inspection and No distended Palpation (GI): Soft to palpation and Tenderness to palpation present (GI) in the RUQ and Bain's sign positive Skin: General skin exam: no rashes or lesions noted and no jaundice Results Labs 11/14/24 08:11 11/14/24 17:55 Labs: Abnormal lab results 11/14/24 Range/Units 17:55 Anion Gap 10 L (12-20) BMP 11/14/24 17:55 Sodium 137 Potassium 4.2 Chloride 106 Carbon Dioxide 25 BUN 10 Creatinine 0.81 Calcium 9.2 All other labs normal. Imaging Chest x-ray: report reviewed and image reviewed Assessment and Plan (1) Pneumothorax: Status: Acute (2) Right upper lobe pulmonary nodule: Status: Acute Plan 59 year old male with asthma mild intermittent, hyperlipidemia, long standing hx of smoking who developed right pneumothorax following right upper lobe nodule biopsy. Chest tube is in place with no air leak. AM CXR shows question of a small residual pneumothorax but overall improved. Will place to water seal and repeat film later this afternoon. ABD US has been ordered to r/o acute cholecystitis. If lung remains up and ABD US negative, will remove chest tube. Patient comfortable with plan. Procedures Date of Service Date of Service: 11/15/24 Documented by User: Cruzito Golden MD 11/15/24 13:21 PMFSH Past Medical History Medical History History of adenomatous polyp of colon SLAC (scapholunate advanced collapse) wrist Nicotine dependence, cigarettes, uncomplicated Family History Family History Mother Heart attack, Onset Age: 28 Stroke Father Renal cancer Maternal Grandfather Pancreatic cancer Surgical History Surgical History History of heart artery stent (~2010) History of left knee surgery (~1989) Social History Social History Household Members: Spouse Housing: House Do you presently have visiting nurse or other home services: No Alcohol intake: current Alcohol intake frequency: does not drink Patient Tobacco Use Status: Former Tobacco user Tobacco use type: Cigarette Cigarette Packs Per Day: 1 Cigarettes Per Day: 20.0 Years Smoked: (onset 14yo, 1/2-1ppd x 43yrs, 30+pyh - quit 01/04/23) e-Cigarette/Vaping Use: Never Used Second Hand Smoke Exposure: No Use of substances other than those prescribed or required for medical reasons: Yes Substance Use Type: Marijuana Substance Use Frequency: Daily Last Used Substance: Just Prior to Admission Currently Displaying Signs/Symptoms of Drug Intoxication Withdrawal: No Any prior treatment program specific to substance use: No Have you been hit, kicked, punched, or otherwise hurt by someone within the past year? If so, by whom?: No Do you feel safe in your current relationship?: Yes Is there a partner from a previous relationship who is making you feel unsafe now?: No Are you made to feel afraid or neglected: No Are you DNR?: No Advance Directives: No Advance Directives Information Provided: Yes Advance Directives on File: No Do you have a plan to hurt others: No Plan Recently lost weight without trying: Yes How much weight loss: 2-13 pounds Eating poorly because of decreased appetite: Yes Nutrition screen score: 4 Nutrition Risks: No Nutritional Risk Poor oral hygiene: No service: No Current occupational status: employed 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, 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 Current occupational exposures/hazards: No Cognitive needs: No Hearing needs: No Vision needs: No Meds Allergies Allergy/AdvReac Type Severity Reaction Status Date / Time Penicillins [PENICILLINS] Allergy Severe HIVES Verified 10/11/24 13:01 amoxicillin Allergy Difficulty Verified 10/11/24 13:01 Breathing IV dye AdvReac Mild rash Uncoded 10/11/24 13:01 Home Medications ?Medication ?Instructions ?Recorded ?Confirmed ?Last Taken ?Type No Known Home Meds 09/29/24 11/14/24 Unknown History Results Labs 11/14/24 08:11 11/14/24 17:55 Assessment and Plan (1) Pneumothorax: Status: Acute (2) Right upper lobe pulmonary nodule: Status: Acute Procedures Date of Service Date of Service: 11/15/24
[2024-11-15 15:36] VITALS: BP 139/74; PULSE 80; RESP 17; TEMP 37; O2SAT 92
[2024-11-15 17:27] LABS: Alanine Aminotransferase 21 U/L (0-40); Albumin Level 3.9 g/dL (3.5-5.0); Alkaline Phosphatase 89 U/L (39-117); Anion Gap 11 (12-20); Aspartate Amino Transferase 23 U/L (5-37); Bilirubin Total 0.5 mg/dL (0.0-1.0); Blood Urea Nitrogen 15 mg/dL (9-16); Calcium 8.8 mg/dL (8.4-10.2); Carbon Dioxide 26 mmol/L (22-29); Chloride 104 mmol/L (96-108); Creatinine Clr Calc Pharmacy 94.4; Estimated Glomerular Filt Rate > 60; Glucose Random 128 mg/dL (60-115); Potassium 4.2 mmol/L (3.3-5.1); Sodium 137 mmol/L (135-145)
[2024-11-15 19:28] VITALS: BP 128/84; PULSE 96; RESP 16; TEMP 36.6; O2SAT 92
--- NOTE | 2024-11-15 21:10 | PM.EVENT ---
Event Note Date of Service: 11/15/24 Event Note: GB ultrasound with ?acalculous cholecystitis. Will obtain HIDA scan and consulting General surgery. Also initiating Zosyn. Time Spent With Patient Time: Total time managing care of this patient today ____ minutes.
[2024-11-15] MEDS: Piperacillin Sodium/Tazobactam 4.5 GM in 0.9 % Sodium Chloride 100 ML IV (21:42)
[2024-11-16] VITALS (7 sets, daily range): BP systolic 101–141; BP diastolic 63–91; PULSE 78–96; RESP 16–18; TEMP 36.4–36.7; O2SAT 93–94
[2024-11-16] MEDS: Piperacillin Sodium/Tazobactam 4.5 GM in 0.9 % Sodium Chloride 100 ML IV ×4 (03:36→21:30)
[2024-11-16] MEDS: Lidocaine 4 % Patch ADH..PATCH 1 PATCH TRANSDERMA ×2 (08:53→08:55)
[2024-11-16] MEDS: 0.9 % Sodium Chloride Flush 3 ML SYRINGE IVFLUSH ×2 (08:58→16:12)
--- NOTE | 2024-11-16 09:01 | PM.PNTS ---
Subjective Subjective Date of Service: 11/16/24 Interval history: Denies SOB. Using incentive spirometer. Ambulating to bathroom without difficulty. Started on IV abx yesterday and reports RUQ is less severe. Physical Exam Vital Signs: Vital Signs: Last Vital Signs Temp 98.0 F 11/16/24 07:39 Pulse 89 11/16/24 07:39 Resp 17 11/16/24 07:39 BP 141/74 H 11/16/24 07:39 Pulse Ox 93 11/16/24 07:39 O2 Del Method Room Air 11/16/24 07:39 O2 Flow Rate 2 11/14/24 09:20 FiO2 38 11/14/24 08:38 BMI result Body Mass Index 26.1 Const: General: comfortable, no acute distress and alert Orientation/consciousness: patient oriented x3 Resp: Effort & Inspection: normal respiratory effort, not tachypneic and no use of accessory muscles GI: Inspection: No distended Palpation (GI): Soft to palpation and Tenderness to palpation present (GI) in the RUQ Skin: General skin exam: no rashes or lesions noted Neuro: General: patient oriented x3 Procedures Date of Service Date of Service: 11/16/24 Progress Note: A&P Assessment and plan (1) Right upper lobe pulmonary nodule: Status: Acute (2) Pneumothorax: Status: Acute Plan Lung remains up this morning CXR with chest tube to water seal, some atelectasis. IS use and OOB encouraged. RUQ pain, r/o acute cholecystitis- ABD US yesterday equivocal. Feels improved with IV abx. Await HIDA today. Given recent PTX, could attempt nonoperative measures if HIDA positive. If tolerating solid diet without worsening pain, dc on oral abx with f/u in office. If HIDA positive and unable to advance diet may have to proceed with cholecystectomy and therefore would leave chest tube in place. Further plan dependent on scan. Time Spent With Patient Time: Total time managing care of this patient today ____ minutes. Quality Stroke Does the patient have a stroke diagnosis?: No VTE Prior VTE?: No VTE Risk Level:: Medical - moderate - high VTE Device Contraindication: N/A - Device Ordered VTE Drug Contraindication: N/A - Med Ordered
--- NOTE | 2024-11-16 09:02 | P.PNGS_ITS ---
Subjective Subjective Date of Service: 11/16/24 Interval history: Patient has no respiratory issues or complaints. He is having persistent right upper quadrant pain but says there is some improvement to this. Sonogram demonstrated positive sonographic Bain's sign. Patient was scheduled per hospitalist for HIDA scan for today. He is currently NPO. Pleur-evac demonstrates no air leak and minimal output.. A.m. chest x-ray demonstrates no pneumothorax. Physical Exam 2 Vital Signs: Vital Signs: Last Vital Signs Temp 98.0 F 11/16/24 07:39 Pulse 89 11/16/24 07:39 Resp 17 11/16/24 07:39 BP 141/74 H 11/16/24 07:39 Pulse Ox 93 11/16/24 07:39 O2 Del Method Room Air 11/16/24 07:39 O2 Flow Rate 2 11/14/24 09:20 FiO2 38 11/14/24 08:38 BMI result Body Mass Index 26.1 Chest: Other: Chest tube site clean dry and intact. Pleur-evac as noted above GI: Other: Abdomen moderately corpulent, soft. Patient was/right upper quadrant tenderness roughly the same as yesterday. Objective Data Active Medications Acetaminophen (Acetaminophen 325 Mg Tablet) 650 mg PO Q6H PRN PRN Reason: Pain, Mild 1-3,fever,headache Last Admin: 11/15/24 22:02 Dose: 650 mg Documented By: FLASH Calcium Carbonate (Calcium Carbonate 750 Mg Tab.Chew) 750 mg PO Q4H PRN PRN Reason: Heartburn Docusate Sodium (Docusate Sodium 100 Mg Capsule) 100 mg PO BID [facility] Last Admin: 11/16/24 08:58 Dose: Not Given Documented By: JAMES Non-Admin Reason: NPO Guaifenesin (Guaifenesin 200 Mg/10 Ml 10 Ml Liquid) 10 ml PO Q4H PRN PRN Reason: Cough Last Admin: 11/15/24 08:22 Dose: 10 ml Documented By: JAMES Hydromorphone HCl (Hydromorphone Hcl 0.5 Mg/0.5 Ml Syringe) 0.5 mg IVPUSH Q4H PRN; Protocol PRN Reason: Pain, Severe (Pain Scale 7-10) Last Admin: 11/15/24 01:49 Dose: 0.5 mg Documented By: FLASH Piperacillin Sod/Tazobactam (Sod 4.5 gm/ Sodium Chloride) 100 mls @ 200 mls/hr IV Q6H [facility] Last Infusion: 11/16/24 04:10 Dose: Infused Documented By: FLASH Lidocaine (Lidocaine 4 % Patch Adh..Patch) 1 patch TRANSDERMA DAILY [facility]; Protocol Last Admin: 11/16/24 08:53 Dose: 1 patch Documented By: JAMES Lidocaine (Lidocaine 4 % Patch Adh..Patch) 1 patch TRANSDERMA DAILY [facility]; Protocol Last Admin: 11/16/24 08:55 Dose: 1 patch Documented By: JAMES Magnesium Hydroxide (Milk Of Magnesia 30 Ml Oral.Susp) 30 ml PO DAILY PRN PRN Reason: Constipation Melatonin (Melatonin 3 Mg Tablet) 6 mg PO BEDTIME PRN PRN Reason: Insomnia Oxycodone HCl (Oxycodone Hcl Immed Release 5 Mg Tablet) 5 mg PO Q4H PRN PRN Reason: Pain, Moderate(Pain Scale 4-6) Sodium Chloride (0.9 % Sodium Chloride Flush 3 Ml Syringe) 3 ml IVFLUSH QSHIFT [facility] Last Admin: 11/16/24 08:58 Dose: 3 ml Documented By: JAMES Labs 11/14/24 08:11 11/15/24 14:10 Labs: Laboratory Results - last 24 hr 11/15/24 14:10 Anion Gap 11 L Estim Creat Clear Calc 94.4 Estimated GFR > 60 Random Glucose 128 H Calcium 8.8 Total Bilirubin 0.5 AST 23 ALT 21 Alkaline Phosphatase 89 Total Protein 7.0 Albumin 3.9 Procedures Date of Service Date of Service: 11/16/24 Progress Note: A&P Assessment and plan (1) Pneumothorax: Status: Acute (2) Right upper lobe pulmonary nodule: Status: Acute Plan HIDA scan pending. Consideration for further interventional will be directed by the results of this. In the meantime, chest tube will be maintained should the patient require laparoscopic possible open cholecystectomy. All questions answered.. Pathology results were just obtained but have not been told with the patient yet. Time Spent With Patient Time: Total time managing care of this patient today ____ minutes. Quality Stroke Does the patient have a stroke diagnosis?: No VTE Prior VTE?: No VTE Risk Level:: Medical - moderate - high VTE Device Contraindication: N/A - Device Ordered VTE Drug Contraindication: N/A - Med Ordered
--- NOTE | 2024-11-16 09:03 | HO.PM.IMPN ---
Subjective Subjective Date of Service: 11/16/24 Interval History: seen and examined denies resp symptoms reports RUQ abd pain - states hes had it intermittently for a while but ignored it Physical Exam Vital Signs: Vital Signs: Last Vital Signs Temp 98.0 F 11/16/24 07:39 Pulse 89 11/16/24 07:39 Resp 17 11/16/24 07:39 BP 141/74 H 11/16/24 07:39 Pulse Ox 93 11/16/24 07:39 O2 Del Method Room Air 11/16/24 07:39 O2 Flow Rate 2 11/14/24 09:20 FiO2 38 11/14/24 08:38 BMI result Body Mass Index 26.1 Const: Other: General - no acute distress, appears comfortable Cardiovascular - regular rate and rhythm, S1-S2 Lungs - normal respiratory effort, clear to auscultation bilaterally, no wheezing; chest tube in place Abdomen - RUQ TTP without rebound Extremities - no edema bilaterally Neuro - awake and alert, no focal deficits Objective Data Active Medications Acetaminophen (Acetaminophen 325 Mg Tablet) 650 mg PO Q6H PRN PRN Reason: Pain, Mild 1-3,fever,headache Last Admin: 11/15/24 22:02 Dose: 650 mg Documented By: FLASH Calcium Carbonate (Calcium Carbonate 750 Mg Tab.Chew) 750 mg PO Q4H PRN PRN Reason: Heartburn Docusate Sodium (Docusate Sodium 100 Mg Capsule) 100 mg PO BID [facility] Last Admin: 11/16/24 08:58 Dose: Not Given Documented By: JAMES Non-Admin Reason: NPO Guaifenesin (Guaifenesin 200 Mg/10 Ml 10 Ml Liquid) 10 ml PO Q4H PRN PRN Reason: Cough Last Admin: 11/15/24 08:22 Dose: 10 ml Documented By: JAMES Hydromorphone HCl (Hydromorphone Hcl 0.5 Mg/0.5 Ml Syringe) 0.5 mg IVPUSH Q4H PRN; Protocol PRN Reason: Pain, Severe (Pain Scale 7-10) Last Admin: 11/15/24 01:49 Dose: 0.5 mg Documented By: FLASH Piperacillin Sod/Tazobactam (Sod 4.5 gm/ Sodium Chloride) 100 mls @ 200 mls/hr IV Q6H [facility] Last Infusion: 11/16/24 04:10 Dose: Infused Documented By: FLASH Lidocaine (Lidocaine 4 % Patch Adh..Patch) 1 patch TRANSDERMA DAILY [facility]; Protocol Last Admin: 11/16/24 08:53 Dose: 1 patch Documented By: JAMES Lidocaine (Lidocaine 4 % Patch Adh..Patch) 1 patch TRANSDERMA DAILY [facility]; Protocol Last Admin: 11/16/24 08:55 Dose: 1 patch Documented By: JAMES Magnesium Hydroxide (Milk Of Magnesia 30 Ml Oral.Susp) 30 ml PO DAILY PRN PRN Reason: Constipation Melatonin (Melatonin 3 Mg Tablet) 6 mg PO BEDTIME PRN PRN Reason: Insomnia Oxycodone HCl (Oxycodone Hcl Immed Release 5 Mg Tablet) 5 mg PO Q4H PRN PRN Reason: Pain, Moderate(Pain Scale 4-6) Sodium Chloride (0.9 % Sodium Chloride Flush 3 Ml Syringe) 3 ml IVFLUSH QSHIFT [facility] Last Admin: 11/16/24 08:58 Dose: 3 ml Documented By: JAMES Labs 11/14/24 08:11 11/15/24 14:10 Labs: Laboratory Results - last 24 hr 11/15/24 14:10 Anion Gap 11 L Estim Creat Clear Calc 94.4 Estimated GFR > 60 Random Glucose 128 H Calcium 8.8 Total Bilirubin 0.5 AST 23 ALT 21 Alkaline Phosphatase 89 Total Protein 7.0 Albumin 3.9 Assessment and Plan (1) Pneumothorax: Status: Acute Plan 59 yo M with long standing history of smoking, mild intermittent asthma, HLD who underwent biopsy of lung nodule and developed pneumonthorax requiring 10 fr cath placement. Hospital course complicated by acute on chronic RUQ pain concerning for acute jean 1. Pneumothorax s/p lung nodule biopsy chest tube in place -- thoracic helping with mgmt, will follow their recs CXR from this AM showing no pneumothorax 2. RUQ abd pain - r/o acute jean ultrasound+ but no stones; HIDA ordered and pending Gen Surg consulted NPO, IVF, empiric IVF 3. Mild intermittent asthma, chronic prn nebs 4. Tobacco use patch Full Code DVT pptx - mechanical for now as may require surgery Quality Stroke Does the patient have a stroke diagnosis?: No VTE Prior VTE?: No VTE Risk Level:: Medical - moderate - high VTE Device Contraindication: N/A - Device Ordered VTE Drug Contraindication: N/A - Med Ordered
[2024-11-16] MEDS: Dextrose 5 % and Lactated Ring 1,000 ML 100 ML IVCONT (09:23)
--- NOTE | 2024-11-16 10:36 | MHC.CM.PN ---
Patient not medically cleared for d/c. CM will continue to follow.
[2024-11-16] MEDS: HYDROmorphone HCl 0.5 MG/0.5 ML SYRINGE IVPUSH (21:41)
[2024-11-17] MEDS: 0.9 % Sodium Chloride Flush 3 ML SYRINGE IVFLUSH ×2 (01:00→09:47)
[2024-11-17 02:40] VITALS: BP 108/60; PULSE 84; RESP 17; TEMP 36.3; O2SAT 94
[2024-11-17] MEDS: Piperacillin Sodium/Tazobactam 4.5 GM in 0.9 % Sodium Chloride 100 ML IV (03:02)
[2024-11-17 03:08] VITALS: RESP 18
[2024-11-17] MEDS: HYDROmorphone HCl 0.5 MG/0.5 ML SYRINGE IVPUSH (03:08)
--- NOTE | 2024-11-17 07:12 | PC.NURSE ---
Late entry: Dr Wilcox notified that chest tube has no bubbling in chamber when patient is coughing. No crepitus present, not demonstrating respiratory distress, O2 sats are WNL, breath sounds present. No new orders per MD
[2024-11-17 07:51] VITALS: BP 120/65; PULSE 83; RESP 16; TEMP 36.2
--- NOTE | 2024-11-17 09:04 | PM.PNTS ---
Subjective Subjective Date of Service: 11/17/24 Interval history: Overall feel improved this morning. Denies shortness of breath. Tolerating solid diet. RUQ significantly improved. Physical Exam Vital Signs: Vital Signs: Last Vital Signs Temp 97.2 F 11/17/24 07:51 Pulse 83 11/17/24 07:51 Resp 16 11/17/24 07:51 BP 120/65 11/17/24 07:51 Pulse Ox 94 11/17/24 02:40 O2 Del Method Room Air 11/17/24 02:40 O2 Flow Rate 2 11/14/24 09:20 FiO2 38 11/14/24 08:38 BMI result Body Mass Index 26.1 Const: General: comfortable, no acute distress and alert Orientation/consciousness: patient oriented x3 Chest: Other: right posterior chest tube in place, no air leak Resp: Effort & Inspection: normal respiratory effort GI: Inspection: No distended Palpation (GI): Soft to palpation and Tenderness to palpation present (GI) in the RUQ (very mild, improved ); Bain's sign negative Skin: General skin exam: no rashes or lesions noted Neuro: General: patient oriented x3 Procedures Date of Service Date of Service: 11/17/24 Progress Note: A&P Assessment and plan (1) Pneumothorax: Status: Acute (2) Right upper lobe pulmonary nodule: Status: Acute Plan No air leak on exam this morning, CXR yesterday showed lung up. Chest tube removed uneventfully at bedside. Post procedure film in 1 hr. If lung remains up, ok for discharge from surgical standpoint with VNA services for chest tube site dressing changes. Can f/u in office in 1 week. Biopsy did reveal adenoCA. Further discussion regarding treatment options, work up in office. RUQ pain, HIDA negative, likely with biliary colic. Feels improved and tolerating diet. Abd benign, very mild RUQ tenderness no bain sign. Time Spent With Patient Time: Total time managing care of this patient today ____ minutes. Quality Stroke Does the patient have a stroke diagnosis?: No VTE Prior VTE?: No VTE Risk Level:: Medical - moderate - high VTE Device Contraindication: N/A - Device Ordered VTE Drug Contraindication: N/A - Med Ordered
[2024-11-17] MEDS: Lidocaine 4 % Patch ADH..PATCH 1 PATCH TRANSDERMA (09:51)
[2024-11-17 12:00] VITALS: BP 106/76; PULSE 110; RESP 20; O2SAT 95
--- NOTE | 2024-11-17 13:16 | P.DS_ITS ---
DS: Providers Provider Date of Service: 11/17/24 Date of admission: 11/14/24 15:50 Date of discharge: 11/17/24 Primary care physician: Chapito Jara PA-C Consults: 11/14/24 14:44 Consult to Thoracic Surgery Routine Consulting Provider: Cruzito Golden Reason for consultation: right pneuothorax after lung biopsy, 8mm nodule referred by Dr. Golden 11/15/24 21:11 Consult to General Surgery Routine Consulting Provider: [facility] General Surgeons Reason for consultation: ?Acalculous cholecystitis DS: Diagnosis Discharge Diagnosis (1) Pneumothorax: Status: Acute (2) Right upper lobe pulmonary nodule: Status: Acute DS: Summary Hospital Course Hospital Course: HPI From admission H&P: HPI : 59 y/o with asthma mild intermittent , hlp , He has been in lung cancer screening program. Recent CT scan demonstrates enlarging of the right upper lobe lung lesion and findings very suspicious.Patient has a very longstanding smoking history. He started at age 14 and at 1 point was smoking 2 packs per day ,also uses marijuana qd. patient went for lung biopsy today-subsequently developed a pneumothorax and status post catheter: Denies any shortness of breath or palpitations or new complaints. Has some soreness /pain ,otherwise vitals stable Family history noteworthy for several family members who have from a variety of cancers including several from lung cancer. Hospital Course: Patient was admitted after a patient was admitted after a pneumothorax following scheduled outpatient lung biopsy. A 10 Ukrainian chest tube was placed by IR subsequently the patient was admitted. Thoracic surgery was consulted to manage the chest tube. Over the course of his hospitalization, the patient's pneumothorax resolved. His chest tube was removed and a post removal chest x- ray did not show any pneumothorax. Patient's hospital course was complicated by right upper quadrant abdominal pain. An ultrasound was completed which showed possible acute cholecystitis, however this was ruled out with a negative HIDA scan. Likely cause was biliary colic. The patient was empirically treated with IV antibiotics which have now been discontinued. The patient is tolerating solids and is largely pain-free. Of note, the patient's biopsy did returned positive for adenocarcinoma of the lung. This news was relayed to him and instructions were given to follow up with thoracic surgery and a referral to [facility] oncology has been given. Patient is seen and examined on day of discharge. He is stable for discharge. Thoracic surgery requested VNA for dressing changes as follows: Ok to shower. Chest tube site dressing changes every other day and as needed with xeroform, 4x4 and tape. Time Attestation Discharge Coordination Time (in mins): 40 Quality: Safe Use of Opioids Does Pt have an Active Cancer Diagnosis on the Problem List?: No Quality: Stroke Does the patient have a stroke diagnosis?: No Physical Exam Vital Signs: Vital Signs: Last Vital Signs Temp 97.2 F 11/17/24 07:51 Pulse 110 H 11/17/24 12:00 Resp 20 11/17/24 12:00 BP 106/76 11/17/24 12:00 Pulse Ox 95 11/17/24 12:00 O2 Del Method Room Air 11/17/24 12:00 O2 Flow Rate 2 11/14/24 09:20 FiO2 38 11/14/24 08:38 BMI result Body Mass Index 26.1 Const: Other: General - no acute distress, appears comfortable Cardiovascular - regular rate and rhythm, S1-S2 Lungs - normal respiratory effort, clear to auscultation bilaterally, no wheezing Abdomen - soft, nontender, no rebound or guarding Extremities - no edema bilaterally Neuro - awake and alert, no focal deficits DS: Data Data Completed and Pending Completed studies during hospitalization [Text1]: Pending at discharge 11/14/24 09:27 Surgical Path [Surgical] [PTH] Routine Cytology [PTH] Routine Discharge Plan Discharge Anticipated Discharge Date/Time: 11/17/24 14:00 Patient Disposition: Home Health Service Discharge Diagnosis: Pneumothorax, Biliary Colic, AdenoCa lung Referrals: Rekha Perez MD [Physician] - 1 Week (call office for appt) Chapito Jara PA-C [Primary Care Provider] - 1 Week Cruzito Golden MD [Physician] - 1 Week Discharge Medications: New lidocaine [Lidocaine Pain Relief] 4 % Adhesive Patch,Medicated 1 patch transdermal DAILY Qty: 30 0RF Protocol: Apply to: Apply to: affceted area oxycodone 5 mg capsule 5 mg PO Q8H PRN (Reason: pain (scale score 7-10)) Qty: 30 0RF Rx Instructions: Partial Fill upon patient request. Discharge Orders: Discharge Order (Routine); Ordered 11/17/24 Ordered By: Donte Webb Diet: Advance to usual diet Activity on Discharge: No heavy lifting Stand Alone Forms: Patient Portal Discharge page Print Language: Hungarian Activity Restrictions/Additional Instructions: Ok to shower. Chest tube site dressing changes every other day and as needed with xeroform, 4x4 and tape. Care Plan Goals: To follow up with Dr. Golden and [facility] Oncology Health Concerns: Lung Ca Plan of Treatment: outpt follow up with thoracic surgery and oncology Assessment: see discharge summary
--- NOTE | 2024-11-17 13:29 | P.F2F_ITS ---
Service Date Service Date: 11/17/24 Encounter Date of encounter: 11/17/24 Reasons for Services Signs and symptoms assessed: Dressing changes Reason for chcf: postoperative assessment and/or care (Chest tube site dressing changes every other day and as needed with xeroform, 4x4 and tape. ) MD Overseeing Care: Chapito Jara Homebound: Leaving the home is medically contraindicated at this time without the asist of a device and/or another person due th the listed conditions above and below. Reason homebound: other (recent hospitalization with pain and weakness; needs dressing changes as above) Certification: Based on the above findings, I certify that this patient is confined to the home and needs intermittent chcf care, physical therapy and/or speech therapy, or continues to need occupational therapy. The patient is under my care, and I have initiated the establishment of the plan of care. The patient will be followed by a physician who will periodically review the plan of care. Time Spent With Patient Time: Total time managing care of this patient today ____ minutes.
--- NOTE | 2024-11-17 13:53 | MHC.CM.PN ---
Per MD patient medically cleared for dc. Declines VNA for dressing changes, states daughter is a credit union teller and will assist. to transport.
[2024-11-17 13:59] VITALS: BP 126/78; PULSE 110; RESP 18; TEMP 36.4; O2SAT 94
== END 2024-11-17 14:30 | disposition home health service (06) | DRG 143 ==
LOC: HO.S3 16:02
PROVIDERS: Physician Assistant Surgical; Admitting Provider Internal Medicine; PCP Physician Assistant; Visit Provider Family Medicine
DX: J95.811 Postprocedural pneumothorax (principal); C34.11 Malignant neoplasm of upper lobe, right bronchus or lung; K80.50 Calculus of bile duct without cholangitis or cholecystitis without obstruction; E78.5 Hyperlipidemia, unspecified; J45.20 Mild intermittent asthma, uncomplicated; Z87.891 Personal history of nicotine dependence
CPT/HCPCS: 32408; 32551; 36415; 71045; 76705; 78227; 80048; 80053; 85025; 85610; 85730; 88173; 88305; 88341; 88342; 99152; 99153; A7041; A9537; C1729; C1769; J1171; J2003; J2250; J2310; J2543; J2805; J3010

== ENCOUNTER 2024-11-14 15:50 | Outpatient (BNV) | payer OTHER, SELFPAY | END 2024-11-15 07:00 | PROVIDERS: Admitting Provider Internal Medicine; PCP Physician Assistant; Visit Provider Radiology Diagnostic Radiology | DX: J98.11 Atelectasis (principal); R10.11 Right upper quadrant pain | CPT/HCPCS: 71045; 76705; 78227 ==

== ENCOUNTER 2024-11-14 15:50 | Outpatient (BNV) | payer OTHER, SELFPAY | END 2024-11-17 09:30 | PROVIDERS: Admitting Provider Internal Medicine; PCP Physician Assistant; Visit Provider Radiology Diagnostic Radiology | DX: J98.11 Atelectasis (principal) | CPT/HCPCS: 71045 ==

== ENCOUNTER → 2024-11-14 15:50 | Outpatient (BNV) | payer OTHER, SELFPAY | PROVIDERS: Admitting Provider Internal Medicine; PCP Physician Assistant; Visit Provider Internal Medicine | DX: J93.9 Pneumothorax, unspecified (principal); R91.1 Solitary pulmonary nodule | CPT/HCPCS: 99222; 99231; 99232; 99239; 99499; G0180 ==

== ENCOUNTER → 2024-11-14 15:50 | Outpatient (BNV) | payer OTHER, SELFPAY | PROVIDERS: Admitting Provider Internal Medicine; PCP Physician Assistant; Visit Provider Physician Assistant Surgical | DX: J93.9 Pneumothorax, unspecified (principal); R91.1 Solitary pulmonary nodule | CPT/HCPCS: 99024; 99222; 99232 ==

== ENCOUNTER 2024-11-22 09:10 | Outpatient (AMB) | payer OTHER, SELFPAY ==
--- NOTE | 2024-11-22 09:25 | MHC.OFFVIS ---
Vital Signs 11/22/24 09:29 Height 5 ft 10 in Weight 184 lb BMI 26.4 BP 146/85 H Blood Pressure Location Rt brachial Position Sitting Pulse 85 Intake Visit Reasons: per Dr Golden: pt with lung collapse/neoplasm Intake Note: Patient seen by ED and referred for pneumothorax. Patient c/o: wheezing. SOB at times. 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 He required hospitalization because of an iatrogenic post biopsy pneumothorax. Patient presents here for follow up with his . Results were reviewed in the hospital they were re-reviewed today. Patient has discontinued smoking for 9 days now which I strongly encouraged him to continue. [facility] Medical History History of adenomatous polyp of colon SLAC (scapholunate advanced collapse) wrist Nicotine dependence, cigarettes, uncomplicated Surgical History History of heart artery stent (~2010) History of left knee surgery (~1989) Family History Mother Heart attack, Onset Age: 28 Stroke Father Renal cancer Maternal Grandfather Pancreatic cancer Social History Household Members: Spouse Housing: House Do you presently have visiting nurse or other home services: No Alcohol intake: current Alcohol intake frequency: does not drink Comment: low fall risk Patient Tobacco Use Status: Former Tobacco user Tobacco use type: Cigarette Cigarette Packs Per Day: 1 Cigarettes Per Day: 20.0 Years Smoked: (onset 14yo, 1/2-1ppd x 43yrs, 30+pyh - quit 01/04/23) e-Cigarette/Vaping Use: Never Used Second Hand Smoke Exposure: No Substance Use Type: Marijuana service: No Current occupational status: employed 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 Breath sounds bilaterally. Consistent with early COPD Assessment & Plan Assessment & Plan (1) Malignant neoplasm of right upper lobe of lung: Code(s): C34.11 - Malignant neoplasm of upper lobe, right bronchus or lung Category: Surgical Plan: Current plan is to arrange for complete pulmonary function tests and PET scan for staging and patient was see me after these studies and further interventions studies will be directed by the results of the above-mentioned procedures. All questions answered. Orders: Orders PET CT fusion skull to thigh Today C34.11 - Malignant neoplasm of upper lobe, right bronchus or lung PFT pulmonary function test Today C34.11 - Malignant neoplasm of upper lobe, right bronchus or lung Coding Level of Care Code Est Pt Level 4 (69418) Diagnoses Malignant neoplasm of right upper lobe of lung C34.11
[2024-11-22 09:29] VITALS: BP 146/85; PULSE 85; BMI 26.4
== END 2024-11-22 09:43 | disposition home or self-care (01) ==
LOC: HO.HGS 09:10
PROVIDERS: PCP Physician Assistant; Visit Provider Surgery
DX: C34.11 Malignant neoplasm of upper lobe, right bronchus or lung (principal)
CPT/HCPCS: 99214

== ENCOUNTER → 2024-11-22 09:10 | Outpatient (BNVA) | payer OTHER, SELFPAY | PROVIDERS: PCP Physician Assistant; Visit Provider Surgery ==

== ENCOUNTER 2024-12-02 11:18 | Outpatient (REF) | payer OTHER, SELFPAY ==
--- NOTE | 2024-12-02 11:21 | PFT_ITS ---
Flows: FEV1: 98 % of predicted at 3.22 L FVC: 112 % of predicted at 4.71 L FEV1/FVC: 68 % Bronchodilator response: Absent Volumes: Total lung capacity: 106 % of predicted at 6.91 L Residual volume: 112 % of predicted at 2.19 L Slow vital capacity: 102 % of predicted at 4.71 L Expiratory reserve volume: 114 % of predicted at 1.32 L Diffusion capacity: Normal Impression: Mild obstructive ventilatory defect with no bronchodilator response. MTDD
== END 2024-12-02 11:19 | disposition home or self-care (01) ==
LOC: HO.RESP 11:18
PROVIDERS: PCP Physician Assistant; Visit Provider Surgery
DX: C34.11 Malignant neoplasm of upper lobe, right bronchus or lung (principal)
CPT/HCPCS: 94010; 94640; 94727; 94729

== ENCOUNTER → 2024-12-02 11:21 | Outpatient (BNV) | payer OTHER, SELFPAY | PROVIDERS: PCP Physician Assistant; Visit Provider Internal Medicine Pulmonary Disease | DX: C34.11 Malignant neoplasm of upper lobe, right bronchus or lung (principal) | CPT/HCPCS: 94060; 94727; 94729 ==

== ENCOUNTER 2024-12-07 08:53 | Outpatient (AMB) | payer OTHER, SELFPAY ==
--- NOTE | 2024-12-07 08:55 | MHC.OFFVIS ---
Intake Visit Reasons: F/u PFT's Intake Note: Patient here to discuss Rt lung lumpectomy surgery. PFT's: 12-02-2024 Accompanied by: Self / Same As Patient Allergies Penicillins [PENICILLINS] Allergy (Severe, Verified 12/07/24 08:55) HIVES amoxicillin Allergy (Verified 12/07/24 08:55) Difficulty Breathing IV dye Adverse Reaction (Mild, Uncoded 12/07/24 08:55) rash HPI Comments Details: Patient presents for follow-up. Status post recent hospitalization for lung biopsy for which he had a iatrogenic pneumothorax. Patient was a early stage non-small cell lung cancer. He went on to have a PET scan which demonstrates localized disease and iron upper lobe only. S PFT's were excellent. We are here to discuss therapeutic options. In the meantime, patient has discontinued smoking since his hospitalization. [facility] Medical History History of adenomatous polyp of colon SLAC (scapholunate advanced collapse) wrist Nicotine dependence, cigarettes, uncomplicated Surgical History History of heart artery stent (~2010) History of left knee surgery (~1989) Family History Mother Heart attack, Onset Age: 28 Stroke Father Renal cancer Maternal Grandfather Pancreatic cancer Social History Household Members: Spouse Housing: House Do you presently have visiting nurse or other home services: No Alcohol intake: current Alcohol intake frequency: does not drink Comment: low fall risk Patient Tobacco Use Status: Former Tobacco user Tobacco use type: Cigarette Cigarette Packs Per Day: 1 Cigarettes Per Day: 20.0 Years Smoked: (onset 14yo, 1/2-1ppd x 43yrs, 30+pyh - quit 01/04/23) e-Cigarette/Vaping Use: Never Used Second Hand Smoke Exposure: No Substance Use Type: Marijuana service: No Current occupational status: employed 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 Chest Other: Chest breath sounds bilaterally, HS 1 in 2 GI Other: Abdomen corpulent, soft, benign. Right groin demonstrates a single small femoral triangle lymph node but patient was says he has had this for many years time. This is what led up on the PET scan . Assessment & Plan Assessment & Plan (1) Malignant neoplasm of right upper lobe of lung: Code(s): C34.11 - Malignant neoplasm of upper lobe, right bronchus or lung Category: Surgical Plan We discussed at length the risks, benefits, alternatives of vats possible open right upper lobectomy which included but not limited to bleeding, infection, recurrence of tumor, numbness, pain, scarring and the patient wishes to proceed. All questions answered. Arrangements were made for this on a day which is convenient for him. Coding Level of Care Code Est Pt Level 5 (30195) Diagnoses Malignant neoplasm of right upper lobe of lung C34.11
== END 2024-12-07 09:03 | disposition home or self-care (01) ==
PROVIDERS: PCP Physician Assistant; Visit Provider Surgery
DX: C34.11 Malignant neoplasm of upper lobe, right bronchus or lung (principal)
CPT/HCPCS: 99214

== ENCOUNTER 2024-12-19 07:37 | Outpatient (BNV) | payer OTHER, SELFPAY | END 2024-12-21 07:00 | PROVIDERS: Admitting Provider Surgery; PCP Physician Assistant; Visit Provider Radiology Diagnostic Radiology | DX: Z90.2 Acquired absence of lung [part of] (principal) | CPT/HCPCS: 71045 ==

== ENCOUNTER 2024-12-19 07:37 | Outpatient (BNV) | payer OTHER, SELFPAY | END 2024-12-26 07:00 | PROVIDERS: Admitting Provider Surgery; PCP Physician Assistant; Visit Provider Radiology Diagnostic Radiology | DX: Z48.03 Encounter for change or removal of drains (principal); J93.9 Pneumothorax, unspecified | CPT/HCPCS: 71045 ==

== ENCOUNTER 2024-12-19 07:37 | Outpatient (BNV) | payer OTHER, SELFPAY | END 2024-12-20 07:00 | PROVIDERS: Admitting Provider Surgery; PCP Physician Assistant; Visit Provider Radiology Diagnostic Radiology | DX: Z90.2 Acquired absence of lung [part of] (principal) | CPT/HCPCS: 71045 ==

== ENCOUNTER 2024-12-19 07:37 | Outpatient (BNV) | payer OTHER, SELFPAY | END 2024-12-22 07:00 | PROVIDERS: Admitting Provider Surgery; PCP Physician Assistant; Visit Provider Radiology Diagnostic Radiology | DX: Z46.82 Encounter for fitting and adjustment of non-vascular catheter (principal); J93.9 Pneumothorax, unspecified | CPT/HCPCS: 71045 ==

== ENCOUNTER 2024-12-19 07:37 | Outpatient (BNV) | payer OTHER, SELFPAY | END 2024-12-24 07:00 | PROVIDERS: Admitting Provider Surgery; PCP Physician Assistant; Visit Provider Specialist | DX: Z48.03 Encounter for change or removal of drains (principal); J93.83 Other pneumothorax | CPT/HCPCS: 71045 ==

== ENCOUNTER 2024-12-19 07:37 | Inpatient (IN) | payer OTHER, SELFPAY ==
[2024-12-14 12:08] VITALS: BP 157/92; PULSE 88; RESP 16; O2SAT 97; BMI 26.5
--- NOTE | 2024-12-18 06:02 | MHC.SHP ---
Pre-Procedural Eval Section A - 24 Hr Update-Section A only Date of Service: 12/19/24 The patient is an INPATIENT: Yes Changes since office visit: No Cold of Flu in the past 2 weeks, No New Medical Problems, No Changes in Medication and No Patient answered all questions Section B - Complete if H&P > 30 days Chief Complaint: Malignant neoplasm of upper lobe, right bronchus Allergies: Allergies Allergy/AdvReac Type Severity Reaction Status Date / Time amoxicillin Allergy Severe Anaphylaxis Verified 12/14/24 12:05 Penicillins [PENICILLINS] Allergy Severe Anaphylaxis Verified 12/14/24 12:05 IV dye AdvReac Severe Anaphylaxis Uncoded 12/14/24 12:05 Review of Systems Sugical H&P ROS: Negative: Constitution, Cardiovascular, Respiratory, Neurological, Psychiatric, Hem-Onc, Allergic/Immunologic, Gastrointestinal, Genitourinary, Musculoskeletal, Integumentary, Endocrine and Eyes/Ears/Nose/Throat Exam Surgical H&P Exam: Normal: HEENT, Normal: Heart, Normal: Lungs, Normal: Extremities, Normal: Abdomen, Normal: Skin and Normal: Neurological Plan I have reviewed the history and physical and performed a pertinent physical examination on my patient. No changes have occurred unless specified. Time Spent With Patient Time: Total time managing care of this patient today ____ minutes.
[2024-12-19] VITALS (18 sets, daily range): BP systolic 117–176; BP diastolic 74–97; PULSE 72–93; RESP 16–18; TEMP 36.1–36.7; O2SAT 93–99; BMI 26.2
--- NOTE | ~2024-12-19 | XR_ITS ---
CLINICAL HISTORY: Follow-up chest tube, pneumothorax 1 view chest x-ray Comparison: 12/24/2024 07:12 AM EDT: CR: XR CHEST 1V (06:12 AM CDT) Findings: Right chest tube in place. Tiny right pneumothorax measuring between 2 and 3 mm. No consolidation or effusion. Expected volume loss post lobectomy. Heart size is stable. No acute osseous findings. IMPRESSION: 1. Right chest tube in unchanged position with tiny right apical pneumothorax This document has been electronically signed by: Taty Rivera MD on 12/25/2024 07:38:45
--- NOTE | ~2024-12-19 | XR_ITS ---
EXAMINATION: XR CHEST CLINICAL INFORMATION: chest tube follow up COMPARISON: December 22, 2024 at 3:12 PM. TECHNIQUE: Frontal view of the chest was obtained. FINDINGS: Small volume right apical pneumothorax. Right-sided chest tube remains in unchanged position tip ends in the right upper hemithorax. Pulmonary reticular pattern, stable. Cardiomediastinal silhouette size is normal. XR/XR chest 1V IMPRESSION: Small volume right-sided pneumothorax. Similar since prior exam. Electronically signed by: Aristides Cronin MD 12/23/2024 08:17 AM EDT
--- NOTE | ~2024-12-19 | XR_ITS ---
EXAMINATION: XR CHEST 1 VIEW HISTORY: f/u right upper lobectomy COMPARISON: Comparison is made with the prior examination performed earlier in the day at 7:30 AM. FINDINGS: A single AP portable view of the chest performed at 3:12 PM is submitted. A right chest tube is unchanged in position. There is a small right apical pneumothorax. Post surgical changes are again noted in the right suprahilar region. There is minimal subsegmental atelectasis at the left lung base. There is no pleural effusion or pulmonary vascular congestion. The heart is normal in size. The bones are intact. XR/XR chest 1V IMPRESSION: Right chest tube in place. Small right apical pneumothorax. Electronically signed by: Jourdan Curran MD 12/22/2024 03:31 PM EDT
--- NOTE | ~2024-12-19 | XR_ITS ---
EXAMINATION: XR CHEST 1 VIEW HISTORY: s/p VATS right upper lobectomy COMPARISON: Comparison is made with the prior examination dated 12/19/2024. FINDINGS: A single AP portable view of the chest performed at 7:00 AM is submitted. A right-sided chest tube is unchanged in position. Postsurgical changes are noted in the right hilar region. There are low lung volumes. There are no focal airspace opacities. There is no pneumothorax, pleural effusion, or pulmonary vascular congestion. The heart is normal in size. The bones are intact. XR/XR chest 1V IMPRESSION: Right-sided chest tube in place. No pneumothorax. Electronically signed by: Jourdan Curran MD 12/20/2024 07:36 AM EDT
--- NOTE | ~2024-12-19 | XR_ITS ---
EXAMINATION: XR CHEST 1 VIEW HISTORY: f/u right upper lobectomy COMPARISON: Comparison is made with the prior examination dated 12/20/2024. FINDINGS: A single AP portable view of the chest performed at 6:55 AM is submitted. A right chest tube is unchanged in position. There is a small right apical pneumothorax. There are sutures in the right medial upper lung. The lungs are clear. There is no pleural effusion or pulmonary vascular congestion. The heart is normal in size. There is degenerative disc disease of the spine. XR/XR chest 1V IMPRESSION: Right chest tube in place. Small right apical pneumothorax. Electronically signed by: Jourdan Curran MD 12/21/2024 07:19 AM EDT
--- NOTE | ~2024-12-19 | XR_ITS ---
EXAMINATION: XR CHEST CLINICAL INFORMATION: Follow-up pneumothorax, chest tube COMPARISON: December 25, 2024. TECHNIQUE: Frontal view of the chest was obtained. FINDINGS: Small right apical pneumothorax. Right-sided chest tube remains in unchanged position. Sutures along the medial aspect of the right hemithorax with volume loss. Left lung is aerated. Cardiomediastinal silhouette is unchanged with mild prominent right pulmonary hilum. XR/XR chest 1V IMPRESSION: Small right-sided apical pneumothorax. Stable. Electronically signed by: Aristides Cronin MD 12/26/2024 08:16 AM EDT
--- NOTE | ~2024-12-19 | XR_ITS ---
CLINICAL HISTORY: f u right upper lobectomy 1 view chest x-ray Comparison: 12/23/2024 Findings: Overall appearance of the chest including positioning of right chest tube and right pneumothorax volume, are not significantly changed. IMPRESSION: 1. No significant change from yesterday. This document has been electronically signed by: Donnell Mendez MD on 12/24/2024 07:41:30
--- NOTE | ~2024-12-19 | XR_ITS ---
EXAMINATION: XR CHEST CLINICAL INFORMATION: f/u right right upper lobectomy COMPARISON: December 21, 2024. TECHNIQUE: Frontal view of the chest was obtained. FINDINGS: Right-sided chest tube remains in the right upper hemithorax. Small residual tiny right apical thorax. The left lung is aerated. There is a pulmonary reticular pattern. Asymmetric fullness right pulmonary hilum. Volume loss, right lung. XR/XR chest 1V IMPRESSION: Small residual right apical pneumothorax. Status post right-sided chest tube placement. No other change. Electronically signed by: Aristides Cronin MD 12/22/2024 08:10 AM EDT
--- NOTE | ~2024-12-19 | XR_ITS ---
EXAMINATION: XR CHEST CLINICAL INFORMATION: f/u chest tube removal COMPARISON: December 26, 2024 at 7:18 AM. TECHNIQUE: Frontal view of the chest was obtained. FINDINGS: Right-sided chest tube has been removed. No gross pneumothorax. Volume loss right lung. Sutures and medial right upper hemithorax. Left lung is aerated. Cardiomediastinal silhouette is unchanged. XR/XR chest 1V IMPRESSION: Status post right-sided chest tube removal without gross pneumothorax. Electronically signed by: Aristides Cronin MD 12/26/2024 01:36 PM EDT
--- NOTE | ~2024-12-19 | XR_ITS ---
EXAMINATION: XR CHEST 1 VIEW HISTORY: s/p VATS right upper lobectomy COMPARISON: Comparison is made with the prior examination dated 11/17/2024. FINDINGS: A single AP portable view of the chest performed at 12:09 PM is submitted. A right-sided chest tube is seen in place. There are sutures in the medial right upper lung zone. The lungs are grossly clear. There is no pleural effusion, pneumothorax, or pulmonary vascular congestion. The heart is normal in size. The bones are intact. XR/XR chest 1V IMPRESSION: Right-sided chest tube in place. No pneumothorax. Electronically signed by: Jourdan Curran MD 12/19/2024 12:40 PM EDT
[2024-12-19] MEDS: Lactated Ringers 1,000 ML 100 ML IVCONT ×2 (06:29→15:16)
--- NOTE | 2024-12-19 07:40 | P.CONAN_ITS ---
Documented by User: Nicolle Chisholm NP 12/14/24 14:25 HPI - Anesthesia Eval Consult details Narrative: 59yo M for Thoracoscopy w/Video Assist,possible open,RIGHT upper Lobectomy,Bronchoscopy, 12/19/24 Cardiac optimized. Follows [facility] [place] Cardiology, last office visit 09/2024, stable minimal CAD Admitted post lung bx for pneumothorax. Resolved with chest tube No recent illness No CP. Mild PORRAS with playing with Desigual CAD with nml cath 2009 Quit smoking (cigs and THC) ~ 1 month. Cont with THC gummies Asthma: Very rare albuter, instructed daily use preop Receptive to estrada trim. Reviewed case with Dr Carolee RODRIGUEZ Active Problems Active Problems: All Active Problems Malignant neoplasm of right upper lobe of lung (Acute) Tinea unguium (Acute) SNHL (sensorineural hearing loss) (Acute) Basal cell carcinoma, face (Acute) MDD (major depressive disorder), recurrent episode, moderate (Acute) Asthma (Acute) Osteoarthritis, hand (Acute) Strain of flexor muscle, fascia and tendon of right ring finger at forearm level, sequela (Acute) HLD (hyperlipidemia) (Acute) Carpal tunnel syndrome on both sides (Acute) Osteoarthritis of wrists, bilateral (Acute) Right wrist pain (Acute) Left wrist pain (Acute) Chronic diarrhea (Acute) Nicotine dependence, cigarettes, uncomplicated (Acute) Past Medical History Medical History (Updated 12/15/24 @ 09:09 by Chapito Jara PA-C) Stress at home No natural teeth Lung cancer Arthritis ELIM IRA (hard of hearing) Hx of syncope (2011) Asthma Pneumothorax SLAC (scapholunate advanced collapse) wrist History of adenomatous polyp of colon Nicotine dependence, cigarettes, uncomplicated Family History Family History Mother Heart attack, Onset Age: 28 Stroke Father Renal cancer Maternal Grandfather Pancreatic cancer Family history of problems with anesthesia: No Surgical History Surgical History Hx of colonoscopy History of carpal tunnel release of both wrists Hx of chest tube placement (11/14/24) History of lung biopsy (11/14/24) Right upper lobe pulmonary nodule History of left knee surgery (~1989) History of Problems with Anesthesia: No Social History Social History (Updated 12/14/24 @ 13:39 by Coby Meyer RN) Household Members: Spouse Household Members Other:: daughter, 4 granddaughters Housing: House Are you a primary patient care provider to a significant other at home: No Do you presently have visiting nurse or other home services: No Alcohol intake: current Alcohol intake frequency: holidays/special occasions only Comment: low fall risk Patient Tobacco Use Status: Former Tobacco user Tobacco use type: Cigarette Cigarette Packs Per Day: 1 Cigarettes Per Day: 20.0 Years Smoked: (onset 14yo, 1/2-1ppd x 43yrs, 30+pyh - quit 11/13/24) e-Cigarette/Vaping Use: Never Used Patient Interested in Nicotine Replacement: Yes Second Hand Smoke Exposure: No Substance Use Type: Marijuana Substance Use Type Other:: gummies at bedtime Substance Use Frequency: Daily Have you been hit, kicked, punched, or otherwise hurt by someone within the past year? 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 Current occupational exposures/hazards: No Cognitive needs: No Hearing needs: No Vision needs: No Meds Allergies Allergy/AdvReac Type Severity Reaction Status Date / Time amoxicillin Allergy Severe Anaphylaxis Verified 12/19/24 06:17 Penicillins [PENICILLINS] Allergy Severe Anaphylaxis Verified 12/19/24 06:17 IV dye AdvReac Severe Anaphylaxis Uncoded 12/19/24 06:17 Home Medications ?Medication ?Instructions ?Recorded ?Confirmed ?Last Taken ?Type ibuprofen PRN Pain 12/19/24 12/18/24 History Exam Height,Weight and Vital Signs: Height 5 ft 10 in Weight 83.915 kg Last Vital Signs Pulse 88 12/14/24 12:08 Resp 16 12/14/24 12:08 BP 157/92 H 12/14/24 12:08 Pulse Ox 97 12/14/24 12:08 O2 Del Method Room Air 12/14/24 12:08 Pertinent Lab Results Pertinent Lab Results: Laboratory Tests 11/14/24 11/15/24 08:11 14:10 WBC 5.6 Hgb 15.1 Hct 45.0 Plt Count 184 Sodium 137 Potassium 4.2 Chloride 104 Carbon Dioxide 26 BUN 15 Creatinine 0.88 Narrative Narrative: EKG 09/2024 EKG Details: EKG with underlying sinus rhythm at 83/Min; cannot exclude old septal infarct but could be from body habitus; normal [place] and corrected QT. Per 09/2024 cardiology office visit: Cardiac catheterization from 2009 shows normal coronary arteries and no obstructive lesions. Normal LV systolic function/normal filling pressures. Thought to be false positive stress test. In the exercise stress test from 2022, he was able to exercise for 9 minutes and 19 seconds on Sandeep protocol; reached 10.5 Mets; 85% of max predicted heart rate; no angina; normal blood pressure response; no EKG evidence of ischemia. Overall appears that he did quite well. In the recent echocardiogram, LVEF 55-60% without any wall motion abnormalities. In the previous study, there were some wall motion abnormalities described but could be possibly artifactual. However, in the coronary CTA, there is no overt CAD. Proximal LAD with minimal stenosis at less than 15% and otherwise unremarkable. In the carotid Dopplers, minimal stenosis bilateral. Abdominal ultrasound negative for aortic aneurysm. Airway TM Dist: >3cm Neck ROM: Full Loose/Missing/Broken Teeth: Yes (Edentulous) and No Heart: tachy, RR Lungs: Coarse throughout, clears with cough Faint wheeze R side Assessment and Plan Assessment Anesthesia Assessment: Anesthesia Plan Discussed, Smoking Cess. Discussed and PAT Visit Final Anesthetic Review Family History of Problems with Anesthesia: No History of Problems with Anesthesia: No Documented by User: Maia Zarco DO 12/19/24 08:26 [facility] Past Medical History Medical History (Updated 12/15/24 @ 09:09 by Chapito Jara PA-C) Stress at home No natural teeth Lung cancer Arthritis ELIM IRA (hard of hearing) Hx of syncope (2011) Asthma Pneumothorax SLAC (scapholunate advanced collapse) wrist History of adenomatous polyp of colon Nicotine dependence, cigarettes, uncomplicated Family History Family History Mother Heart attack, Onset Age: 28 Stroke Father Renal cancer Maternal Grandfather Pancreatic cancer Family history of problems with anesthesia: No Surgical History Surgical History Hx of colonoscopy History of carpal tunnel release of both wrists Hx of chest tube placement (11/14/24) History of lung biopsy (11/14/24) Right upper lobe pulmonary nodule History of left knee surgery (~1989) History of Problems with Anesthesia: No Social History Social History (Updated 12/14/24 @ 13:39 by Coby Meyer RN) Household Members: Spouse Household Members Other:: daughter, 4 granddaughters Housing: House Are you a primary patient care provider to a significant other at home: No Do you presently have visiting nurse or other home services: No Alcohol intake: current Alcohol intake frequency: holidays/special occasions only Comment: low fall risk Patient Tobacco Use Status: Former Tobacco user Tobacco use type: Cigarette Cigarette Packs Per Day: 1 Cigarettes Per Day: 20.0 Years Smoked: (onset 14yo, 1/2-1ppd x 43yrs, 30+pyh - quit 11/13/24) e-Cigarette/Vaping Use: Never Used Patient Interested in Nicotine Replacement: Yes Second Hand Smoke Exposure: No Substance Use Type: Marijuana Substance Use Type Other:: gummies at bedtime Substance Use Frequency: Daily Have you been hit, kicked, punched, or otherwise hurt by someone within the past year? 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 Current occupational exposures/hazards: No Cognitive needs: No Hearing needs: No Vision needs: No Meds Allergies Allergy/AdvReac Type Severity Reaction Status Date / Time amoxicillin Allergy Severe Anaphylaxis Verified 12/19/24 06:17 Penicillins [PENICILLINS] Allergy Severe Anaphylaxis Verified 12/19/24 06:17 IV dye AdvReac Severe Anaphylaxis Uncoded 12/19/24 06:17 Home Medications ?Medication ?Instructions ?Recorded ?Confirmed ?Last Taken ?Type ibuprofen PRN Pain 12/19/24 12/18/24 History Exam Exam Date and Time: 12/19/24 0720 Height,Weight and Vital Signs: Height 5 ft 10 in Weight 83.915 kg Last Vital Signs Pulse 88 12/14/24 12:08 Resp 16 12/14/24 12:08 BP 157/92 H 12/14/24 12:08 Pulse Ox 97 12/14/24 12:08 O2 Del Method Room Air 12/14/24 12:08 Vital Signs Pulse Rate 88 12/14/24 12:08 Respiratory Rate 16 12/14/24 12:08 Blood Pressure 157/92 H 12/14/24 12:08 Pulse Oximetry 97 12/14/24 12:08 Oxygen Delivery Method Room Air 12/14/24 12:08 Temperature 98.0 F 12/19/24 06:17 Pulse Rate 78 12/19/24 06:17 Respiratory Rate 16 12/19/24 06:17 Blood Pressure 136/80 12/19/24 06:17 Pulse Oximetry 96 12/19/24 06:17 Oxygen Delivery Method Room Air 12/19/24 06:17 Airway Mallampati Class: II TM Dist: >3cm Neck ROM: Full Loose/Missing/Broken Teeth: Yes (Edentulous) Heart: S1S2 Lungs: Coarse breath sounds bilaterally Assessment and Plan Assessment Anesthesia Assessment: Anesthesia Plan Discussed and Chart Reviewed Final Anesthetic Review Family History of Problems with Anesthesia: No History of Problems with Anesthesia: No NPO: Yes ASA Class: III Final Preanesthetic Review: No Changes in Pt Med Stat, Meds/Allgs Chart Reviewed, Consent Obtained/Reviewed and Anes Risks/Benef Reviewed Patient Risk: Intermediate Procedure Risk: High Anesthetic Plan Anesthetic Plan: GA and Agree w/ Assess. and Plan Disposition: Standard PACU
[2024-12-19] MEDS: Clindamycin Phosphate/D5W 900 MG/50 ML PIGGYBACK 50 MG IV (07:45)
[2024-12-19] MEDS: Acetaminophen 1,000 MG/100 ML PIGGYBACK 400 MG IV ×3 (09:30→20:00)
--- NOTE | 2024-12-19 10:19 | P.OP_ITS ---
Operative Note Operative Note Date of Service: 12/19/24 Narrative: Preoperative diagnosis: [] Right upper lobe [id number] lung cancer Postop diagnosis: [] The same Procedure [] bronchoscopy, vats right upper lobectomy, mediastinal lymph node sampling, intercostal nerve block Surgeon: [] [place] Supervisor Lathing: [] Lilian Garcia Type of Anesthesia: [] Double-lumen gentle Indication for surgery: [] Right upper lobe lyp-cumnj-[id number] lung cancer. Bronchoscopy demonstrated no gross endoluminal pathology. He was also used to assist anesthesia and placement of double-lumen tube. Intrathoracic findings demonstrated isolated mid right upper lobe lung lesion. Patient had lymph node stations 10R, 11 R, and 9R sampled. DISSECTION FOR OTHER lymph node STATIONS DEMONSTRATED NO lymph nodes which could be sampled (7, 2R,4R) despite assiduous exploration. No other gross intrathoracic pathology demonstrated. Procedure; patient brought to the operating room, placed on operative table supine position, and after an adequate level of double-lumen general anesthesia was induced, patient underwent bronchoscopy with findings noted above. Patient was then placed in left lateral decubitus position. Right chest were prepped and draped in usual sterile fashion. Using anterior and posterior working ports in the anterior and posterior axillary line 6th intercostal spaces, and an access incision in the 4th interspace with wound protector placed, findings were as noted above. Lung was grasped and brought onto the field. Anterior hilum was approached with the superior pulmonary vein proximal to the middle lobe tributary was isolated, encircled, and transected using vascular stapler. Next the arterial supply to the right upper lobe including anterior, apical, and posterior ascending artery were identified, skeletonized, and sequentially transected using vascular staplers . Right upper lobe bronchus was identified, skeletonized and heavy wire stapler placed across this. Right lung was insufflated and no compromise to middle lobe or lower lobe de monstrated with full insufflation of these. Stapler was uneventfully fired and bronchus transected. Fissures were completed using ARIELA staplers and specimen placed in an Endo-Catch bag, a retrieved through the access incision. Throughout dissection, lymph node stations sampled as noted above. Dissection of the 7 and 2R and 4R Areas demonstrated no obvious lymph nodes to be sampled despite extensive dissection performed. Inferior pulmonary ligament was taken down using ligature device. Chest cavity was filled with saline. Remaining lung reinflated with full expansion of the middle and the lower lobes. No air leak from the bronchial stump. Through the anterior access port, 24 Burkinan chest tube was placed and secured using 0 silk sutures under direct vision. Wounds were closed in the following manner; port sites were closed using deep followed by dermal interrupted 2-0 and 3-0 sutures respectively. Access incision had its muscular layer closed using running 0 Vicryl suture followed by running subcuticular 2-0 Vicryl suture followed by running subcuticular 4-0 Vicryl suture. Steri-Strips and sterile dressings were applied. Chest tube connected to Pleur-evac and no air leak the appreciated. Intercostal nerve block using Exparel was performed at all incision sites at completion of the procedure. Sponge, needle, and instrument counts reported correct. Patient tolerated the procedure well and emerged from anesthesia stable condition. EBL a proximally 150 cc.
[2024-12-19] MEDS: HYDROmorphone HCl 0.5 MG/0.5 ML SYRINGE IVPUSH ×3 (12:16→19:45)
--- NOTE | 2024-12-19 12:22 | W.PM.OPN ---
Operative Note Operative Note Date of Service: 12/19/24 Pulmonary Resection Hilar Station: 10R Mediastinal Station #1: Eleven R Mediastinal Station #2: 9R Mediastinal Station #3: No other lymph nodes could be identified at allison stations. Refer to opera Procedure performed with curative intent?: Yes General Surg. - Synoptic Notes Pulmonary Resection Hilar Station: 10R Mediastinal Station #1: Eleven R Mediastinal Station #2: 9R Mediastinal Station #3: No other lymph nodes could be identified at allison stations. Refer to opera Procedure performed with curative intent?: Yes
--- NOTE | 2024-12-19 15:53 | PC.NURSE ---
Patient has no diet orders since admission form surgery. NPO still active. Patient requested coffee several times. Dr. Golden was contacted regarding patient having a coffee, he approved patient drinking coffee
[2024-12-19] MEDS: 0.9 % Sodium Chloride Flush 3 ML SYRINGE IVFLUSH (16:13)
--- NOTE | 2024-12-19 16:43 | PHA.MEDREC ---
Addendum entered by Hillary Gan RPh 12/19/24 17:40: Reviewed by [facility] Original Note: Pharmacy Consult ? Medication Reconciliation Pharmacy has reviewed the medication reconciliation done by nursing. Spoke to patient to confirm med list.
[2024-12-19] MEDS: ondansetron HCL 4 MG/2 ML VIAL IVPUSH (19:58)
[2024-12-20] VITALS (10 sets, daily range): BP systolic 123–171; BP diastolic 72–91; PULSE 81–119; RESP 16–22; TEMP 36.6–37.1; O2SAT 94–96
[2024-12-20] MEDS: HYDROmorphone HCl 0.5 MG/0.5 ML SYRINGE IVPUSH ×3 (00:13→15:36)
[2024-12-20] MEDS: Lactated Ringers 1,000 ML 100 ML IVCONT (01:09)
[2024-12-20] MEDS: Acetaminophen 1,000 MG/100 ML PIGGYBACK 400 MG IV ×4 (03:00→20:41)
[2024-12-20 05:50] LABS: MANUAL DIFF FLAG NO
[2024-12-20 06:00] LABS: Basophils Percent Auto 0.1 % (0-2); Eosinophils Percent Auto 0.3 % (0-4); Hematocrit 39.8 % (42.0-52.0); Hemoglobin 13.6 g/dl (14.0-18.0); Imm Gran Abs Auto 0.04 X10*3/uL (0.00-0.03); Imm Gran Pct Auto 0.4 % (0.0-0.4); Lymphocytes Absolute Auto 0.9 X10*3/uL (1.2-4.9); Lymphocytes Percent Auto 8.6 % (20-40); Mean Corpuscular HGB Conc 34.2 g/dl (31.0-36.0); Mean Corpuscular Hemoglobin 30.2 pg (27.0-33.0); Mean Corpuscular Volume 88.4 fL (80.0-98.0); Mean Platelet Volume 10.4 fL (9.4-12.4); Monocytes Percent Auto 10.1 % (2-11); Neutrophils Absolute Auto 8.2 x10*3/uL (2.0-8.3); Neutrophils Percent Auto 80.5 % (45-73); Platelet Count 185 X10*3/uL (160-400); Red Cell Distribution Width 12.4 % (11.0-16.0); White Blood Count 10.1 X10*3/uL (4.8-10.8)
[2024-12-20 06:19] LABS: Anion Gap 12 (12-20); Blood Urea Nitrogen 11 mg/dL (9-16); Calcium 8.8 mg/dL (8.4-10.2); Carbon Dioxide 27 mmol/L (22-29); Chloride 103 mmol/L (96-108); Creatinine Clr Calc Pharmacy 105.2; Estimated Glomerular Filt Rate > 60; Glucose Fasting 131 mg/dL (60-99); Potassium 4.1 mmol/L (3.3-5.1); Sodium 138 mmol/L (135-145)
[2024-12-20] MEDS: 0.9 % Sodium Chloride Flush 3 ML SYRINGE IVFLUSH ×3 (07:30→20:42)
[2024-12-20] MEDS: Docusate Sodium 100 MG CAPSULE PO ×2 (07:34→20:41)
--- NOTE | 2024-12-20 08:09 | P.PNTS_ITS ---
Subjective Subjective Date of Service: 12/20/24 Interval history: Feels well this morning, some soreness at right lateral chest and incision sites, chest tube site. Comfortable with analgesics. Denies shortness of breath. Tolerating solid diet, voiding on own. Physical Exam Vital Signs: Vital Signs: Last Vital Signs Temp 97.9 F 12/20/24 07:48 Pulse 85 12/20/24 07:48 Resp 18 12/20/24 07:48 BP 170/91 H 12/20/24 07:48 Pulse Ox 95 12/20/24 07:48 O2 Del Method Room Air 12/20/24 07:48 O2 Flow Rate 2 12/19/24 12:30 BMI result Body Mass Index 26.2 Const: General: comfortable, no acute distress and alert Orientation/consciousness: patient oriented x3 Chest: Other: right VATs dressings clean and intact, tender at incision site and right pectoral chest tube in place right lateral chest, some serosanguineous drainage, no air leak on exam Resp: Effort & Inspection: normal respiratory effort Skin: General skin exam: no rashes or lesions noted Neuro: General: patient oriented x3 and moves all extremities Procedures Date of Service Date of Service: 12/20/24 Progress Note: A&P Assessment and plan (1) Malignant neoplasm of right upper lobe of lung: Status: Acute (2) S/P lobectomy of lung: Status: Acute Plan POD #1 s/p bronchoscopy, vats right upper lobectomy, mediastinal lymph node sampling, intercostal nerve block. He is doing well post op, pain at incision an d chest tube site. Hemodynamically stable. VATs dressings clean and intact, chest tube in place with small amount of serosanguineous drainage, no air leak. CXR this am shows lung up. Will place chest tube to water seal, repeat CXR in am. If lung remains up without air leak, possibly remove tube tomorrow morning. Pain control. OOB/ambulation and increasing activity. AM labs reviewed. Dc IVF. Time Spent With Patient Time: Total time managing care of this patient today ____ minutes. Quality Stroke Does the patient have a stroke diagnosis?: No VTE Prior VTE?: No VTE Risk Level:: Surgical - low VTE Device Contraindication: N/A - Device Ordered VTE Drug Contraindication: Treatment Not Indicated
[2024-12-20] MEDS: oxyCODONE HCl Immed Release 5 MG TABLET PO (09:29)
--- NOTE | 2024-12-20 10:11 | HO.POSTANES ---
Post Anesthesia Evaluation Post Anesthesia Evaluation Date of Service: 12/20/24 Vital Signs: Vital Signs Temp Pulse Resp BP Pulse Ox O2 Del Method 12/20/24 09:03 99 155/86 H 12/20/24 07:48 97.9 F 85 18 170/91 H 95 Room Air 12/20/24 03:40 97.9 F 88 18 171/80 H 94 Room Air 12/20/24 00:00 98.7 F 81 18 163/82 H 96 Room Air Anesthesia: General Endotracheal-GETA Mental Status: Awake Pain Control: Satisfactory Nausea/Vomiting: None Hydration: Adequate Anesthesia-Related Issues: No Anes. Related Issues
--- NOTE | 2024-12-20 12:37 | MHC.CM.PN ---
Patient lives with + family He is independent with all functional mobility. No DME or home services. A copy of is HCP has been requested. DP home with or with out VNA services. Patient's will provide transport home.
[2024-12-20] MEDS: Melatonin 3 MG TABLET 6 MG PO (20:41)
[2024-12-21] MEDS: Acetaminophen 1,000 MG/100 ML PIGGYBACK 400 MG IV ×3 (02:50→20:48)
[2024-12-21] MEDS: oxyCODONE HCl Immed Release 5 MG TABLET PO ×3 (02:50→15:00)
[2024-12-21 03:36] VITALS: BP 130/85; PULSE 98; RESP 18; TEMP 37.1; O2SAT 95
[2024-12-21 07:44] VITALS: BP 134/87; PULSE 99; RESP 14; TEMP 36; O2SAT 98
[2024-12-21] MEDS: 0.9 % Sodium Chloride Flush 3 ML SYRINGE IVFLUSH ×3 (08:07→22:00)
[2024-12-21] MEDS: Enoxaparin Sodium 40 MG/0.4 ML SYRINGE SUBCUT (08:13)
[2024-12-21] MEDS: Acetaminophen 1,000 MG/100 ML PIGGYBACK 100 MG IV (08:17)
--- NOTE | 2024-12-21 09:26 | MHC.CM.PN ---
Patient is not medically cleared for discharge today. He continues with chest tube. CXR + air leak. CT reconnected to [facility] from [facility] seal. DP Home with or with out VNA. Patient's will provide transportation home.
--- NOTE | 2024-12-21 09:43 | P.PNTS_ITS ---
Subjective Subjective Date of Service: 12/21/24 Interval history: Uneventful evening. No respiratory issues or complaints. Complaining of incisional discomfort. Pleur-evac minimal output. No air leak. A.m. chest x- ray shows question of the small pneumothorax. Chest tube returned to wall suction Physical Exam Vital Signs: Vital Signs: Last Vital Signs Temp 96.8 F 12/21/24 07:44 Pulse 99 12/21/24 07:44 Resp 14 12/21/24 07:44 BP 134/87 12/21/24 07:44 Pulse Ox 98 12/21/24 07:44 O2 Del Method Room Air 12/21/24 07:44 O2 Flow Rate 2 12/19/24 12:30 BMI result Body Mass Index 26.2 Chest: Other: Chest breath sounds bilaterally, incisions all clean dry and intact healing w ell. Procedures Date of Service Date of Service: 12/21/24 Progress Note: A&P Assessment and plan (1) S/P lobectomy of lung: Status: Acute Plan Continue current plan; out of bed, incentive spirometry, diet as tolerated Time Spent With Patient Time: Total time managing care of this patient today ____ minutes. Quality Stroke Does the patient have a stroke diagnosis?: No VTE Prior VTE?: No VTE Risk Level:: Surgical - low VTE Device Contraindication: N/A - Device Ordered VTE Drug Contraindication: Treatment Not Indicated
[2024-12-21 11:48] VITALS: BP 121/84; PULSE 119; RESP 18; TEMP 36.4; O2SAT 95
[2024-12-21] MEDS: HYDROmorphone HCl 0.5 MG/0.5 ML SYRINGE IVPUSH ×2 (14:13→19:50)
[2024-12-21 15:13] VITALS: BP 131/82; PULSE 107; RESP 15; TEMP 37.1; O2SAT 93
[2024-12-21 19:10] VITALS: BP 125/68; PULSE 119; RESP 16; TEMP 37.1; O2SAT 95
[2024-12-21] MEDS: Docusate Sodium 100 MG CAPSULE PO (20:48)
[2024-12-21] MEDS: Melatonin 3 MG TABLET 6 MG PO (21:59)
[2024-12-21 22:00] VITALS: BP 127/78; PULSE 115; RESP 18; TEMP 37.4; O2SAT 94
[2024-12-22] VITALS (7 sets, daily range): BP systolic 123–140; BP diastolic 71–79; PULSE 108–113; RESP 16–20; TEMP 37.2–38.2; O2SAT 93–97
[2024-12-22] MEDS: Acetaminophen 1,000 MG/100 ML PIGGYBACK 400 MG IV ×4 (03:05→20:32)
[2024-12-22] MEDS: HYDROmorphone HCl 0.5 MG/0.5 ML SYRINGE IVPUSH ×2 (03:24→23:00)
--- NOTE | 2024-12-22 08:01 | PM.PNTS ---
Subjective Subjective Date of Service: 12/22/24 Interval history: Productive cough with yellow sputum. Difficulty with pain during coughing spells. Using incentive spirometry 2h. Physical Exam Vital Signs: Vital Signs: Last Vital Signs Temp 100.0 F 12/22/24 07:49 Pulse 108 H 12/22/24 07:49 Resp 16 12/22/24 07:49 BP 140/72 H 12/22/24 07:49 Pulse Ox 97 12/22/24 07:49 O2 Del Method Room Air 12/22/24 07:49 O2 Flow Rate 2 12/19/24 12:30 BMI result Body Mass Index 26.2 Const: General: comfortable, no acute distress and alert Orientation/consciousness: patient oriented x3 Resp: Other: incisions clean chest tube in place, no air leak Effort & Inspection: normal respiratory effort, Actively coughing, not labored, no respiratory distress, no tracheal deviation and no use of accessory muscles Skin: General skin exam: no rashes or lesions noted Neuro: General: patient oriented x3 Procedures Date of Service Date of Service: 12/22/24 Progress Note: A&P Assessment and plan (1) S/P lobectomy of lung: Status: Acute (2) Malignant neoplasm of right upper lobe of lung: Status: Acute Plan POD #3 s/p bronchoscopy, vats right upper lobectomy, mediastinal lymph node sampling, intercostal nerve block. Low grade temp overnight. CXR this am shows lung up, no consolidation. Hemodynamically stable. VATs dressings clean and intact, chest tube in place with small amount of serosanguineous drainage, no air leak. Will place chest tube to water seal, repeat CXR in am. If lung remains up without air leak, possibly remove tube tomorrow morning. Encouraged adequate pain control to assist with incentive spirometry, OOB/ambulation and increasing activity. Mucinex for cough. Time Spent With Patient Time: Total time managing care of this patient today ____ minutes. Quality Stroke Does the patient have a stroke diagnosis?: No VTE Prior VTE?: No VTE Risk Level:: Surgical - low VTE Device Contraindication: N/A - Device Ordered VTE Drug Contraindication: Treatment Not Indicated
[2024-12-22] MEDS: guaiFENesin DM 600/30 1 TAB TAB.ER.12H 2 TAB PO ×2 (08:14→20:33)
[2024-12-22] MEDS: Docusate Sodium 100 MG CAPSULE PO ×2 (08:14→20:34)
[2024-12-22] MEDS: Enoxaparin Sodium 40 MG/0.4 ML SYRINGE SUBCUT (08:14)
[2024-12-22] MEDS: 0.9 % Sodium Chloride Flush 3 ML SYRINGE IVFLUSH ×3 (08:15→20:34)
[2024-12-22 10:13] LABS: MANUAL DIFF FLAG NO
[2024-12-22 10:20] LABS: Basophils Percent Auto 0.5 % (0-2); Eosinophils Absolute Auto 0.1 X10*3/uL (0.0-0.4); Hematocrit 41.8 % (42.0-52.0); Hemoglobin 14.3 g/dl (14.0-18.0); Imm Gran Abs Auto 0.03 X10*3/uL (0.00-0.03); Imm Gran Pct Auto 0.3 % (0.0-0.4); Lymphocytes Absolute Auto 0.6 X10*3/uL (1.2-4.9); Lymphocytes Percent Auto 6.7 % (20-40); Mean Corpuscular HGB Conc 34.2 g/dl (31.0-36.0); Mean Corpuscular Hemoglobin 30.4 pg (27.0-33.0); Mean Corpuscular Volume 88.9 fL (80.0-98.0); Mean Platelet Volume 9.8 fL (9.4-12.4); Monocytes Absolute Auto 0.4 X10*3/uL (0.1-1.2); Monocytes Percent Auto 4.2 % (2-11); Neutrophils Absolute Auto 7.5 x10*3/uL (2.0-8.3); Neutrophils Percent Auto 87.3 % (45-73); Platelet Count 197 X10*3/uL (160-400); Red Cell Distribution Width 12.7 % (11.0-16.0); White Blood Count 8.6 X10*3/uL (4.8-10.8)
[2024-12-22] MEDS: guaiFENesin 200 MG/10 ML 10 ML LIQUID PO (15:21)
[2024-12-23] MEDS: Acetaminophen 1,000 MG/100 ML PIGGYBACK 400 MG IV ×4 (02:56→20:24)
[2024-12-23 04:01] VITALS: BP 137/84; PULSE 85; RESP 18; TEMP 37.1; O2SAT 94
[2024-12-23 07:55] VITALS: BP 140/85; PULSE 88; RESP 14; TEMP 36.7; O2SAT 96
--- NOTE | 2024-12-23 08:16 | PM.PNTS ---
Subjective Subjective Date of Service: 12/23/24 Interval history: Feels better this morning, cough improved. Denies shortness of breath. Physical Exam Vital Signs: Vital Signs: Last Vital Signs Temp 98.1 F 12/23/24 07:55 Pulse 88 12/23/24 07:55 Resp 14 12/23/24 07:55 BP 140/85 H 12/23/24 07:55 Pulse Ox 96 12/23/24 07:55 O2 Del Method Room Air 12/23/24 07:55 O2 Flow Rate 2 12/19/24 12:30 BMI result Body Mass Index 26.2 Const: General: comfortable, no acute distress and alert Orientation/consciousness: patient oriented x3 Chest: Other: right VATS incisions clean chest tube in place, serosanguineous output, small air leak Resp: Effort & Inspection: normal respiratory effort, Actively coughing, not labored, not tachypneic and no use of accessory muscles Skin: General skin exam: no rashes or lesions noted Neuro: General: patient oriented x3 and moves all extremities Procedures Date of Service Date of Service: 12/23/24 Progress Note: A&P Assessment and plan (1) S/P lobectomy of lung: Status: Acute (2) Malignant neoplasm of right upper lobe of lung: Status: Acute Plan POD #4 s/p bronchoscopy, vats right upper lobectomy, mediastinal lymph node sampling, intercostal nerve block. Overall doing well post op. Hemodynamically stable. VATs incisions clean, chest tube in place with small air leak. F/u CXR shows improvement in right apical air space. Cont chest tube to now to water seal. F/u CXR in AM, if leak resolved can remove chest tube. Encouraged adequate pain control to assist with incentive spirometry, OOB/ambulation and increasing activity. Mucinex for cough. Time Spent With Patient Time: Total time managing care of this patient today ____ minutes. Quality Stroke Does the patient have a stroke diagnosis?: No VTE Prior VTE?: No VTE Risk Level:: Surgical - low VTE Device Contraindication: N/A - Device Ordered VTE Drug Contraindication: Treatment Not Indicated
[2024-12-23] MEDS: Enoxaparin Sodium 40 MG/0.4 ML SYRINGE SUBCUT (08:46)
[2024-12-23] MEDS: Docusate Sodium 100 MG CAPSULE PO ×2 (08:46→20:23)
[2024-12-23] MEDS: guaiFENesin DM 600/30 1 TAB TAB.ER.12H 2 TAB PO ×2 (08:46→20:23)
[2024-12-23] MEDS: 0.9 % Sodium Chloride Flush 3 ML SYRINGE IVFLUSH ×3 (08:50→20:24)
[2024-12-23] MEDS: HYDROmorphone HCl 0.5 MG/0.5 ML SYRINGE IVPUSH ×2 (09:16→22:33)
[2024-12-23 13:53] VITALS: BP 139/75; PULSE 117; RESP 17; TEMP 36.9; O2SAT 94
[2024-12-23] MEDS: guaiFENesin 200 MG/10 ML 10 ML LIQUID PO (15:36)
[2024-12-23 19:18] VITALS: BP 128/81; PULSE 109; RESP 18; TEMP 36.9; O2SAT 94
[2024-12-24] MEDS: Acetaminophen 1,000 MG/100 ML PIGGYBACK 400 MG IV ×4 (03:24→21:15)
[2024-12-24 05:54] VITALS: BP 129/81; PULSE 81; RESP 18; TEMP 36.1; O2SAT 95
[2024-12-24 07:18] VITALS: BP 122/81; PULSE 86; RESP 16; TEMP 36.3; O2SAT 94
--- NOTE | 2024-12-24 08:43 | P.PNGS_ITS ---
Subjective Subjective Date of Service: 12/24/24 Interval history: Patient reasonably comfortable this morning but does have pain from the chest tube site. Chest tube continues to have a slow air leak. Physical Exam 2 Vital Signs: Vital Signs: Last Vital Signs Temp 97.3 F 12/24/24 07:18 Pulse 86 12/24/24 07:18 Resp 16 12/24/24 07:18 BP 122/81 12/24/24 07:18 Pulse Ox 94 12/24/24 07:18 O2 Del Method Room Air 12/24/24 07:18 O2 Flow Rate 2 12/19/24 12:30 BMI result Body Mass Index 26.2 Const: General: comfortable Nutritional Appearance: well nourished O rientation/consciousness: patient oriented x3 Chest: Other: Chest wounds clean, dry, intact chest tube Resp: Other: Respirations clear, no respiratory distress, chest tube intact with small air leak. Neuro: General: patient oriented x3 Extrem: Other: No edema Objective Data Active Medications Albuterol Sulfate (Albuterol Sulfate 90 Mcg 8 Gm Inhaler) 2 puff INHALE Q4H PRN PRN Reason: Shortness of Breath/Wheezing Calcium Carbonate (Calcium Carbonate 750 Mg Tab.Chew) 750 mg PO Q4H PRN PRN Reason: Heartburn Docusate Sodium (Docusate Sodium 100 Mg Capsule) 100 mg PO BID [facility] Last Admin: 12/23/24 20:23 Dose: 100 mg Documented By: HARRISON Enoxaparin Sodium (Enoxaparin Sodium 40 Mg/0.4 Ml Syringe) 40 mg SUBCUT DAILY [facility] Last Admin: 12/23/24 08:46 Dose: 40 mg Documented By: SHARMIN Guaifenesin (Guaifenesin 200 Mg/10 Ml 10 Ml Liquid) 10 ml PO Q6H PRN PRN Reason: Cough Last Admin: 12/23/24 15:36 Dose: 10 ml Documented By: SHARMIN Guaifenesin/Dextromethorphan (Guaifenesin Dm 600/30 1 Tab Tab.Er.12h) 2 tab PO BID [facility] Last Admin: 12/23/24 20:23 Dose: 2 tab Documented By: HARRISON Hydromorphone HCl (Hydromorphone Hcl 0.5 Mg/0.5 Ml Syringe) 0.5 mg IVPUSH Q4H PRN; Protocol PRN Reason: Pain, Severe (Pain Scale 7-10) Last Admin: 12/23/24 22:33 Dose: 0.5 mg Documented By: HARRISON Acetaminophen (Ofirmev) 1,000 mg in 100 mls @ 400 mls/hr IV Q6H [facility] Last Infusion: 12/24/24 03:39 Dose: Infused Documented By: HARRISON Magnesium Hydroxide (Milk Of Magnesia 30 Ml Oral.Susp) 30 ml PO DAILY PRN PRN Reason: Constipation Melatonin (Melatonin 3 Mg Tablet) 6 mg PO BEDTIME PRN PRN Reason: Insomnia Last Admin: 12/21/24 21:59 Dose: 6 mg Documented By: FLASH Nicotine (Nicotine 21 Mg Patch.Td24) 21 mg TRANSDERMA DAILY [facility] Last Admin: 12/23/24 08:51 Dose: Not Given Documented By: SHARMIN Non-Admin Reason: Patient Refused Ondansetron HCl (Ondansetron Hcl 4 Mg/2 Ml Vial) 4 mg IVPUSH Q6H PRN PRN Reason: Nausea and Vomiting Last Admin: 12/19/24 19:58 Dose: 4 mg Documented By: COLLETTE Oxycodone HCl (Oxycodone Hcl Immed Release 5 Mg Tablet) 5 mg PO Q4H PRN PRN Reason: Pain, Moderate(Pain Scale 4-6) Last Admin: 12/21/24 15:00 Dose: 5 mg Documented By: GRAZDALLAS Polyethylene Glycol (Polyethylene Glycol 3350 17 Gm Powd.Pack) 17 gm PO DAILY PRN PRN Reason: Constipation Sodium Chloride (0.9 % Sodium Chloride Flush 3 Ml Syringe) 3 ml IVFLUSH QSHIFT [facility] Last Admin: 12/23/24 20:24 Dose: 3 ml Documented By: HARRISON Labs 12/22/24 10:02 12/20/24 05:10 Imaging Chest x-ray: My impression: Small residual pneumothorax at apex Radiologist's impression: Overall appearance of the chest including positioning of right chest tube and right pneumothorax volume, are not significantly changed. Procedures Date of Service Date of Service: 12/24/24 Progress Note: A&P Assessment and plan (1) S/P lobectomy of lung: Status: Acute (2) Malignant neoplasm of right upper lobe of lung: Status: Acute Plan POD #5 s/p bronchoscopy, vats right upper lobectomy, mediastinal lymph node sampling, intercostal nerve block. Overall doing well post op. Hemodynamically stable. VATs incisions clean, chest tube in place with small air leak. F/u CXR the essentially unchanged from yesterday. We will continue with chest tube to water seal and repeat x-ray in a.m.. Time Spent With Patient Time: Total time managing care of this patient today ____ minutes. Quality Stroke Does the patient have a stroke diagnosis?: No VTE Prior VTE?: No VTE Risk Level:: Surgical - low VTE Device Contraindication: N/A - Device Ordered VTE Drug Contraindication: Treatment Not Indicated
[2024-12-24] MEDS: Docusate Sodium 100 MG CAPSULE PO ×2 (08:59→21:16)
[2024-12-24] MEDS: guaiFENesin DM 600/30 1 TAB TAB.ER.12H 2 TAB PO ×2 (09:00→21:16)
[2024-12-24] MEDS: 0.9 % Sodium Chloride Flush 3 ML SYRINGE IVFLUSH ×3 (09:00→21:17)
[2024-12-24] MEDS: Enoxaparin Sodium 40 MG/0.4 ML SYRINGE SUBCUT (09:00)
[2024-12-24] MEDS: HYDROmorphone HCl 0.5 MG/0.5 ML SYRINGE IVPUSH ×2 (09:44→18:29)
[2024-12-24 14:35] VITALS: BP 122/78; PULSE 106; RESP 18; TEMP 36.7; O2SAT 96
[2024-12-24 15:14] VITALS: BP 116/72; PULSE 108; RESP 17; TEMP 37; O2SAT 93
[2024-12-24 19:36] VITALS: BP 135/91; PULSE 108; RESP 17; TEMP 37.1; O2SAT 95
[2024-12-24] MEDS: oxyCODONE HCl Immed Release 5 MG TABLET PO (20:09)
[2024-12-25] MEDS: Acetaminophen 1,000 MG/100 ML PIGGYBACK 400 MG IV ×4 (03:16→22:12)
[2024-12-25 04:48] VITALS: BP 123/78; PULSE 97; RESP 18; TEMP 36.4; O2SAT 95
[2024-12-25 07:30] VITALS: BP 134/90; PULSE 99; RESP 18; TEMP 36.2; O2SAT 94
[2024-12-25] MEDS: HYDROmorphone HCl 0.5 MG/0.5 ML SYRINGE IVPUSH ×3 (08:04→22:34)
[2024-12-25] MEDS: 0.9 % Sodium Chloride Flush 3 ML SYRINGE IVFLUSH ×2 (08:05→16:47)
[2024-12-25] MEDS: Docusate Sodium 100 MG CAPSULE PO ×2 (08:05→22:07)
[2024-12-25] MEDS: guaiFENesin DM 600/30 1 TAB TAB.ER.12H 2 TAB PO ×2 (08:05→21:58)
--- NOTE | 2024-12-25 10:14 | PM.PNGS ---
Subjective Subjective Date of Service: 12/25/24 Interval history: Patient has no complaints other than chest tube pain. Continues to have small air leak. Physical Exam Vital Signs: Vital Signs: Last Vital Signs Temp 97.1 F 12/25/24 07:30 Pulse 99 12/25/24 07:30 Resp 18 12/25/24 07:30 BP 134/90 H 12/25/24 07:30 Pulse Ox 9 L 12/25/24 07:30 O2 Del Method Room Air 12/25/24 07:30 O2 Flow Rate 2 12/19/24 12:30 BMI result Body Mass Index 26.2 Const: General: comfortable Nutritional Appearance: well nourished Orientation/consciousness: patient oriented x3 Chest: Other: Chest wounds clean, dry, intact chest tube Resp: Other: Respirations clear, no respiratory distress, chest tube intact with small air leak. Neuro: General: patient oriented x3 Extrem: Other: No edema Objective Data Active Medications Albuterol Sulfate (Albuterol Sulfate 90 Mcg 8 Gm Inhaler) 2 puff INHALE Q4H PRN PRN Reason: Shortness of Breath/Wheezing Calcium Carbonate (Calcium Carbonate 750 Mg Tab.Chew) 750 mg PO Q4H PRN PRN Reason: Heartburn Docusate Sodium (Docusate Sodium 100 Mg Capsule) 100 mg PO BID [facility] Last Admin: 12/25/24 08:05 Dose: 100 mg Documented By: ELEN Enoxaparin Sodium (Enoxaparin Sodium 40 Mg/0.4 Ml Syringe) 40 mg SUBCUT DAILY [facility] Last Admin: 12/25/24 08:07 Dose: Not Given Documented By: ELEN Non-Admin Reason: Patient Refused Guaifenesin (Guaifenesin 200 Mg/10 Ml 10 Ml Liquid) 10 ml PO Q6H PRN PRN Reason: Cough Last Admin: 12/23/24 15:36 Dose: 10 ml Documented By: SHARMIN Guaifenesin/Dextromethorphan (Guaifenesin Dm 600/30 1 Tab Tab.Er.12h) 2 tab PO BID [facility] Last Admin: 12/25/24 08:05 Dose: 2 tab Documented By: ELEN Hydromorphone HCl (Hydromorphone Hcl 0.5 Mg/0.5 Ml Syringe) 0.5 mg IVPUSH Q4H PRN; Protocol PRN Reason: Pain, Severe (Pain Scale 7-10) Last Admin: 12/25/24 08:04 Dose: 0.5 mg Documented By: ELEN Acetaminophen (Ofirmev) 1,000 mg in 100 mls @ 400 mls/hr IV Q6H [facility] Last Infusion: 12/25/24 08:29 Dose: Infused Documented By: ELEN Magnesium Hydroxide (Milk Of Magnesia 30 Ml Oral.Susp) 30 ml PO DAILY PRN PRN Reason: Constipation Melatonin (Melatonin 3 Mg Tablet) 6 mg PO BEDTIME PRN PRN Reason: Insomnia Last Admin: 12/21/24 21:59 Dose: 6 mg Documented By: FLASH Nicotine (Nicotine 21 Mg Patch.Td24) 21 mg TRANSDERMA DAILY [facility] Last Admin: 12/25/24 08:06 Dose: Not Given Documented By: ELEN Non-Admin Reason: Patient Refused Ondansetron HCl (Ondansetron Hcl 4 Mg/2 Ml Vial) 4 mg IVPUSH Q6H PRN PRN Reason: Nausea and Vomiting Last Admin: 12/19/24 19:58 Dose: 4 mg Documented By: COLLETTE Oxycodone HCl (Oxycodone Hcl Immed Release 5 Mg Tablet) 5 mg PO Q4H PRN PRN Reason: Pain, Moderate(Pain Scale 4-6) Last Admin: 12/24/24 20:09 Dose: 5 mg Documented By: HARRISON Polyethylene Glycol (Polyethylene Glycol 3350 17 Gm Powd.Pack) 17 gm PO DAILY PRN PRN Reason: Constipation Sodium Chloride (0.9 % Sodium Chloride Flush 3 Ml Syringe) 3 ml IVFLUSH QSHIFT [facility] Last Admin: 12/25/24 08:05 Dose: 3 ml Documented By: ELEN Labs 12/22/24 10:02 12/20/24 05:10 Procedures Date of Service Date of Service: 12/25/24 Progress Note: A&P Assessment and plan (1) S/P lobectomy of lung: Status: Acute (2) Malignant neoplasm of right upper lobe of lung: Status: Acute Plan POD #6 s/p bronchoscopy, vats right upper lobectomy, mediastinal lymph node sampling, intercostal nerve block. Overall doing well post op. Hemodynamically stable. VATs incisions clean, chest tube in place with small air leak. F/u CXR the essentially unchanged from yesterday. Continue water seal. Further chest tube management per Dr. Golden. We will request chest x-ray for tomorrow. Time Spent With Patient Time: Total time managing care of this patient today ____ minutes. Quality Stroke Does the patient have a stroke diagnosis?: No VTE Prior VTE?: No VTE Risk Level:: Surgical - low VTE Device Contraindication: N/A - Device Ordered VTE Drug Contraindication: Treatment Not Indicated
[2024-12-25 15:27] VITALS: BP 122/79; PULSE 106; RESP 18; TEMP 37.2; O2SAT 95
[2024-12-25] MEDS: guaiFENesin 200 MG/10 ML 10 ML LIQUID PO (15:59)
[2024-12-26] VITALS: BP 132/77; PULSE 88; RESP 16; TEMP 36.7; O2SAT 95
[2024-12-26] MEDS: Acetaminophen 1,000 MG/100 ML PIGGYBACK 400 MG IV ×2 (03:46→08:07)
[2024-12-26 03:51] VITALS: BP 126/77; PULSE 88; RESP 16; TEMP 36.4; O2SAT 95
[2024-12-26 07:32] VITALS: BP 129/85; PULSE 99; RESP 18; TEMP 36.3; O2SAT 96
[2024-12-26] MEDS: guaiFENesin DM 600/30 1 TAB TAB.ER.12H 2 TAB PO (08:04)
[2024-12-26] MEDS: Docusate Sodium 100 MG CAPSULE PO (08:04)
[2024-12-26] MEDS: 0.9 % Sodium Chloride Flush 3 ML SYRINGE IVFLUSH (08:08)
[2024-12-26] MEDS: HYDROmorphone HCl 0.5 MG/0.5 ML SYRINGE IVPUSH (08:12)
[2024-12-26 11:37] VITALS: BP 124/73; PULSE 101; RESP 12; TEMP 36.6; O2SAT 94
--- NOTE | 2024-12-26 12:35 | PM.PNTS ---
Subjective Subjective Date of Service: 12/26/24 Interval history: Feels very sore at incisions, increased pain with coughing. OOB and ambulating. Denies shortness of breath. Tolerating solid diet, moving bowels. Physical Exam Vital Signs: Vital Signs: Last Vital Signs Temp 97.8 F 12/26/24 11:37 Pulse 101 H 12/26/24 11:37 Resp 12 12/26/24 11:37 BP 124/73 12/26/24 11:37 Pulse Ox 94 12/26/24 11:37 O2 Del Method Room Air 12/26/24 11:37 O2 Flow Rate 2 12/19/24 12:30 BMI result Body Mass Index 26.2 Const: General: comfortable, no acute distress and alert Orientation/consciousness: patient oriented x3 Chest: Other: small air leak on exam incisions clean, mildly tender Resp: Effort & Inspection: normal respiratory effort, not labored, not tachypneic and no use of accessory muscles Skin: General skin exam: no rashes or lesions noted Neuro: General: patient oriented x3 and moves all extremities Procedures Date of Service Date of Service: 12/26/24 Progress Note: A&P Assessment and plan (1) S/P lobectomy of lung: Status: Acute (2) Malignant neoplasm of right upper lobe of lung: Status: Acute Plan POD #4 s/p bronchoscopy, vats right upper lobectomy, mediastinal lymph node sampling, intercostal nerve block. Has had small persistent air leak with unchanged small air space on CXR, has been placed on water seal for a few days now. Lung likely scarred to pleura and therefore chest tube removed uneventfully at bedside. Post procedure CXR ordered. If remains status quo, stable for dc to home later today. Reports daugther can do chest tube site dressing changes. Time Spent With Patient Time: Total time managing care of this patient today ____ minutes. Quality Stroke Does the patient have a stroke diagnosis?: No VTE Prior VTE?: No VTE Risk Level:: Surgical - low VTE Device Contraindication: N/A - Device Ordered VTE Drug Contraindication: Treatment Not Indicated
--- NOTE | 2024-12-26 14:42 | MHC.CM.PN ---
PT WILL DC HOME TODAY WITH [facility] TO TRANSPORT
--- NOTE | 2024-12-26 15:08 | PM.DS ---
DS: Providers Provider Date of Service: 12/26/24 Date of admission: 12/19/24 07:37 Date of discharge: 12/26/24 Primary care physician: Chapito Jara PA-C Attending physician on admission: Cruzito Golden Consults: 12/26/24 08:04 Consult to Case Management Routine Comment: Q.o.d. chest tube site dressing by [facility] please Attending physician on discharge: Cruzito Golden DS: Diagnosis Discharge Diagnosis (1) S/P lobectomy of lung: Status: Acute (2) Malignant neoplasm of right upper lobe of lung: Status: Acute DS: Summary Hospital Course Hospital Course: HPI AT ADMISSION: Patient presents for follow-up. Status post recent hospitalization for lung biopsy for which he had a iatrogenic pneumothorax. Patient was a early stage non-small cell lung cancer. He went on to have a PET scan which demonstrates localized disease and iron upper lobe only. PFT's were excellent. We are here to discuss therapeutic options. In the meantime, patient has discontinued smoking since his hospitalization and is on nicotene patch. We discussed at length the risks, benefits, alternatives of vats possible open right upper lobectomy which included but not limited to bleeding, infection, recurrence of tumor, numbness, pain, scarring and the patient wishes to proceed. All questions answered. Arrangements were made for this on a day which is convenient for him and he now presents for the planned procedure. HOSPITAL COURSE: On 12/19/24, bronchoscopy, vats right upper lobectomy, mediastinal lymph node sampling, intercostal nerve block was performed by Dr. Golden without immediate complication. The patient tolerated the procedure well and was admitted post operatively for observation. He had an uncomplicated recovery course. He was ambulated and activity was increased, incentive spirometry 10x/hr encouraged. He did have small pneumothorax on f/u CXRs post operatively and a small air leak and chest tube was kept in place. He was placed to water seal after a couple of days and f/u CXRs were unchanged for several days despite the persistent small air leak. It was therefore decided to remove the chest tube and this was performed on 12/26/24 uneventfully, f/u CXR showed no gross pneumothorax. On the day of discharge, he was tolerating a solid diet, had good GI function, had good pain control on oral analgesics and was comfortable. He was ambulating without difficulty. He was hemodynamically stable and incisions were clean. Pathology was reviewed with the patient. He was discharged to home on 12/26/24 with [facility] services for chest tube site dressing changes every other day with xeroform, 4x4 and tape. He is to follow up in the office in 1 week and with his PCP. Status at Discharge Functional status at discharge: independent ambulation Overall status at discharge: patient is progressing back to baseline Time Attestation Discharge Coordination Time (in mins): 45 Quality: Safe Use of Opioids Does Pt have an Active Cancer Diagnosis on the Problem List?: Yes Opioid Measure Date for [facility] Report: 11/27/24 Opioid Measure Time for [facility] Report: 10:36 Quality: Stroke Does the patient have a stroke diagnosis?: No Physical Exam Vital Signs: Vital Signs: Last Vital Signs Temp 97.8 F 12/26/24 11:37 Pulse 101 H 12/26/24 11:37 Resp 12 12/26/24 11:37 BP 124/73 12/26/24 11:37 Pulse Ox 94 12/26/24 11:37 O2 Del Method Room Air 12/26/24 11:37 O2 Flow Rate 2 12/19/24 12:30 BMI result Body Mass Index 26.2 Const: General: comfortable, no acute distress and alert Orientation/consciousness: patient oriented x3 Chest: Other: right VATS incisions clean, steris intact chest tube with very small air leak, removed on 12/26/24 and occlusive dressing placed Chest palpation & inspection: tenderness (mild, incisional) Resp: Effort & Inspection: normal respiratory effort, not labored, no respiratory distress, not tachypneic and no use of accessory muscles Skin: General skin exam: no rashes or lesions noted Neuro: General: patient oriented x3 and moves all extremities DS: Data Data Completed and Pending Completed studies during hospitalization [Text1]: 12/19/24 09:54 Surgical [PTH] Routine A. Lymph node, 10R, biopsy: -One anthracotic lymph node; negative for metastatic carcinoma. B. Lymph node, 11R #2, biopsy: -One anthracotic lymph node; negative for metastatic carcinoma. C. Lymph node, 11R #2, biopsy: -One anthracotic lymph node; negative for metastatic carcinoma. D. 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 -Bronchial and vascular margins free of tumor. -No pleural invasion. -Emphysematous changes with intra-alveolar pigmented macrophages, and fibrosis. E. Lymph node, 9R, biopsy: -One anthracotic lymph node; negative for metastatic carcinoma. Procedures Drainage of Right Lung, Open Approach, Diagnostic (11/14/24) Drainage of Right Pleural Cavity with Drainage Device, Percutaneous Approach (11/14/24) Excision of Right Upper Lung Lobe, Percutaneous Approach, Diagnostic (11/14/24) Discharge Plan Discharge Anticipated Discharge Date/Time: 12/26/24 13:05 Patient Disposition: Home Health Service Discharge Diagnosis: s/p right upper lobectomy Referrals: [facility] [Outside] - 3-5 Days Chapito Jara PA-C [Primary Care Provider] - 1 Week Cruzito Golden MD [Physician] - 1 Week Discharge Medications: New hydrocodone-acetaminophen 5-325 mg tablet 1 tab PO Q4-6H PRN (Reason: pain) Qty: 30 0RF Rx Instructions: Partial Fill upon patient request. Continued albuterol sulfate [Ventolin HFA] 90 mcg/actuation HFA aerosol inhaler 2 puff INHALATION Q4-6H 30 Days Qty: 8.5 3RF nicotine [Nicoderm CQ] 21 mg/24 hr patch 24 hour 1 patch transdermal DAILY Qty: 28 0RF Discharge Orders: Discharge Order (Routine); Ordered 12/26/24 Ordered By: Muriel Quintana Diet: Advance to usual diet Activity on Discharge: No heavy lifting Stand Alone Forms: Patient Portal Discharge page Print Language: Tajik Activity Restrictions/Additional Instructions: Ice to wound 20 minutes several times today and tomorrow. May shower in 2 days. Remove outside dressing only. Leave Steri-Strips intact. No strenuous activities. Chest tube site dressing changes every other day with xeroform, 4x4, tape Care Plan Goals: Return to baseline health and resume normal activities following recovery period. Health Concerns: lung CA, right upper lobe Plan of Treatment: s/p right upper lobectomy f/u in office in 1 week home with VNA services Assessment: Doing well post op. Discharge Date/Time: 12/26/24 15:39
--- NOTE | 2024-12-27 09:06 | W.MHC.F2F ---
Service Date Service Date: 12/27/24 Encounter Date of encounter: 12/26/24 Reasons for Services Signs and symptoms assessed: incisional pain, incision appearance, chest tube removed 12/26/24 and occlusive dressing placed Reason for longterm: wound care Homebound: Leaving the home is medically contraindicated at this time without the asist of a device and/or another person due th the listed conditions above and below. Reason homebound: weakness related to hospital stay and unable to drive Homebound supporting statement: Mr. Benitez is s/p VATS right upper lobectomy for right upper lobe malignant neoplasm. Chest tube was removed on 12/26/24. He will need VNA services for every other day chest tube site dressing changes with xeroform, 4x4 and tape. Certification: Based on the above findings, I certify that this patient is confined to the home and needs intermittent longterm care, physical therapy and/or speech therapy, or continues to need occupational therapy. The patient is under my care, and I have initiated the establishment of the plan of care. The patient will be followed by a physician who will periodically review the plan of care. Time Spent With Patient Time: Total time managing care of this patient today ____ minutes.
== END 2024-12-26 15:39 | disposition home health service (06) | DRG 120 ==
LOC: HO.SSSA 07:37 → HO.S3 12:10
PROVIDERS: Physician Assistant Surgical; Admitting Provider Surgery; PCP Physician Assistant; Visit Provider Surgery
PROC: 0BTC4ZZ Resection of Right Upper Lung Lobe, Percutaneous Endoscopic Approach (ICD-10-PCS; principal; 2024-12-19 07:30)
DX: C34.11 Malignant neoplasm of upper lobe, right bronchus or lung (principal); Z87.891 Personal history of nicotine dependence; Z79.899 Other long term (current) drug therapy
CPT/HCPCS: 36415; 71045; 80048; 85025; 86850; 86900; 86901; 88305; 88309; A4649; A7041; J0131; J0665; J0666; J0736; J1100; J1171; J1650; J2003; J2250; J2405; J2704; J3010; J7120

== ENCOUNTER 2024-12-19 07:37 | Outpatient (BNV) | payer OTHER, SELFPAY | END 2024-12-23 07:48 | PROVIDERS: Admitting Provider Surgery; PCP Physician Assistant; Visit Provider Radiology Diagnostic Radiology | DX: J93.9 Pneumothorax, unspecified (principal) | CPT/HCPCS: 71045 ==

== ENCOUNTER 2024-12-19 07:37 | Outpatient (BNV) | payer OTHER, SELFPAY | END 2024-12-19 10:27 | PROVIDERS: Admitting Provider Surgery; PCP Physician Assistant; Visit Provider Radiology Diagnostic Radiology | DX: Z90.2 Acquired absence of lung [part of] (principal) | CPT/HCPCS: 71045 ==

== ENCOUNTER 2024-12-19 07:37 | Outpatient (BNV) | payer OTHER, SELFPAY | END 2024-12-25 07:10 | PROVIDERS: Admitting Provider Surgery; PCP Physician Assistant; Visit Provider Radiology Diagnostic Radiology | DX: J93.9 Pneumothorax, unspecified (principal) | CPT/HCPCS: 71045 ==

== ENCOUNTER → 2024-12-19 07:37 | Outpatient (BNV) | payer OTHER, SELFPAY | PROVIDERS: Admitting Provider Surgery; PCP Physician Assistant; Visit Provider Surgery | DX: Z90.2 Acquired absence of lung [part of] (principal); C34.11 Malignant neoplasm of upper lobe, right bronchus or lung | CPT/HCPCS: 32663; 32674; 99024 ==

== ENCOUNTER 2024-12-30 13:28 | Outpatient (AMB) | payer OTHER, SELFPAY ==
--- NOTE | 2024-12-30 13:41 | MHC.PC.OV ---
Vital Signs 12/30/24 13:44 Height 5 ft 10 in Weight 189 lb BMI 27.1 BP 120/70 Blood Pressure Location Lt brachial Position Sitting Pulse 115 H Pulse Source Pulse Oximeter Temp 97.1 F Temp Source Temporal Artery Scan Pulse Oximetry (%) 94 Oxygen Delivery Method Room Air Intake Visit Reasons: TCM 12/26 post op lung surgery Intake Note: Patient is here for hospital discharge and TCM follow up. Patient was discharged from [facility] on 12/26/24. 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 Sales Mgr: Not Required per policy Accompanied by: Self / Same As Patient Allergies amoxicillin Allergy (Severe, Verified 12/30/24 13:43) Anaphylaxis Penicillins [PENICILLINS] Allergy (Severe, Verified 12/30/24 13:43) Anaphylaxis IV dye Adverse Reaction (Severe, Uncoded 12/30/24 13:43) Anaphylaxis Tobacco use date assessed: 12/30/24 Dental Screening Dental Screen Date: 12/30/24 Did you have a dental visit in the last 12 months?: No Did you have a dental problem in the last 6 months where you did not have access to dental care?: No Was dental information given to patient?: No (No teeth) HPI TCM TCM Information Date of Discharge 12/26/24 Discharged From [facility] Interactive Contact Date (Reference documentation from this date) 12/27/24 HPI Comments History of Present Illness Details 59 y/o male patient who presents to the clinic for TCM. Patient was admitted at [facility] on 11/14 - 11/17 after a pneumothorax following scheduled outpatient lung biopsy. A 10 [place] chest tube was placed by IR. Thoracic surgery was consulted to manage the chest tube. His Lung Bx showed early stage non-small cell lung cancer. He was re-admitted 12/19 - 12/26 at [facility] for Surgical procedure; On 12/19/24, Bronchoscopy, vats right upper lobectomy, mediastinal lymph node sampling, and intercostal nerve block. He was discharged to home on 12/26/24 with VNA services for chest tube site dressing changes every other day with xeroform, 4x4 and tape. He will follow up in the office in 1 week with Thoracic surgery office. [facility] Medical History (Updated 12/15/24 @ 09:09 by Chapito Jara PA-C) Stress at home No natural teeth Lung cancer Arthritis [place] (hard of hearing) Hx of syncope (2011) Asthma Pneumothorax SLAC (scapholunate advanced collapse) wrist History of adenomatous polyp of colon Nicotine dependence, cigarettes, uncomplicated Surgical History (Updated 12/30/24 @ 13:50 by PRACHI Mullins) History of lobectomy of lung Hx of colonoscopy History of carpal tunnel release of both wrists Hx of chest tube placement (11/14/24) History of lung biopsy (11/14/24) Right upper lobe pulmonary nodule History of left knee surgery (~1989) Family History Mother Heart attack, Onset Age: 28 Stroke Father Renal cancer Maternal Grandfather Pancreatic cancer Social History Household Members: Spouse Household Members Other:: daughter, 4 granddaughters Housing: House Are you a primary medicare biller to a significant other at home: No Do you presently have visiting nurse or other home services: No Alcohol intake: current Alcohol intake frequency: holidays/special occasions only Comment: COUNTS CORRECT Patient Tobacco Use Status: Former Tobacco user Tobacco use type: Cigarette Cigarette Packs Per Day: 1 Cigarettes Per Day: 20.0 Years Smoked: (onset 14yo, 1/2-1ppd x 43yrs, 30+pyh - quit 11/13/24) Packs Per Year: 0 Packs per year/per ci.00 e-Cigarette/Vaping Use: Never Used Second Hand Smoke Exposure: Yes Substance Use Type: Marijuana and Caffiene service: No Current occupational status: employed 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 1. Little interest or pleasure in doing things: not at all 2. Feeling down, depressed, or hopeless: not at all 3. Trouble falling or staying asleep, or sleeping too much: not at all 4. Feeling tired or having little energy: not at all 5. Poor appetite or overeating: not at all 6. Feeling bad about yourself - or that you are a failure or have let yourself or your family down: not at all 7. Trouble concentrating on things, such as reading the newspaper or watching television: not at all 8. Moving or speaking so slowly that other people could have noticed. Or the opposite - being so fidgety or restless that you have been moving around a lot more than usual: not at all 9. Thoughts that you would be better off or of hurting yourself in some way: not at all Total score: 0 Depression Screening Interpretation: Negative Depression Screening Done: Yes Source: Developed by Drs. Jourdan Tellez, oLrri Trammell, Ricardo Hernandez and colleagues, with an educational grazyna from [employer]. Thrive Questionnaire Date Thrive assessed: 12/20/24 AUDIT C Alcohol Use Questionnaire (AUDIT-C) 1. How often do you have a drink containing alcohol?: Monthly or less 2. How many drinks containing alcohol do you have on a typical day when you are drinking?: 1 or 2 Total Score: 1 KRISTIN-7 AMB Questionnaire KRISTIN-7 Date KRISTIN - 7 assessed: 12/30/24 Feeling nervous, anxious, or on edge: 0 = Not at all Not being able to stop or control worryin = Not at all Worrying too much about different things: 0 = Not at all Trouble relaxin = Not at all Being so restless that it is hard to sit still: 0 = Not at all Becoming easily annoyed or irritable: 0 = Not at all Feeling afraid as if something awful might happen: 0 = Not at all Total KRISTIN-7 score (0-4 normal; 5-9 mild; 10-14 moderate; 15-21 severe): 0 Source: Developed by Drs. Jourdan Tellez, Lorri Trammell, Ricardo Hernandez and colleagues, with an educational grazyna from [employer]. Review of Systems Const All systems reviewed & are unremarkable except as noted in HPI and below Physical exam (Primary Care) Vital Signs: Last Vital Signs Temp 97.1 F 12/30/24 13:44 Pulse 115 H 12/30/24 13:44 BP 120/70 12/30/24 13:44 Pulse Ox 94 12/30/24 13:44 Oxygen Delivery Method Room Air 12/30/24 13:44 BMI result Body Mass Index 27.1 Tobacco/Smoking Status: Tobacco use Status Tobacco use date assessed 12/30/24 12/30/24 13:52 Patient Tobacco Use Status Former Tobacco user 12/30/24 13:42 Tobacco use type Cigarette 12/30/24 13:42 e-Cigarette/Vaping Use Never Used 12/30/24 13:42 PHQ-9: PHQ-9 Score PHQ-9: Total score 0 12/30/24 13:42 Depression Screening Interpretation: Negative Thrive Assessment: Date of Thrive Assessment Date Thrive assessed 12/20/24 12/30/24 13:42 Const General: cooperative and no acute distress Orientation/consciousness: patient oriented x3 Resp Effort & Inspection: normal respiratory effort and able to speak in complete sentences Auscultation: clear to auscultation bilaterally Cardio Rate: regular rate Heart sounds: S1 normal heart sound present and S2 normal heart sound present Neuro General: patient oriented x3, gait normal and moves all extremities Psych Speech and movement: Normal speech and movement present Coding Level of Care Code TCM Mod MDM <= 7 Days Diagnoses S/P lobectomy of lung Z90.2 Malignant neoplasm of right upper lobe of lung C34.11 Time Spent (min) 20 Assessment & Plan Assessment & Plan (1) S/P lobectomy of lung: Comment: bronchoscopy, vats right upper lobectomy, mediastinal lymph node sampling, intercostal nerve block Code(s): Z90.2 - Acquired absence of lung [part of] Category: Medical Plan: Managed by Thoracic surgery. (2) Malignant neoplasm of right upper lobe of lung: Code(s): C34.11 - Malignant neoplasm of upper lobe, right bronchus or lung Category: Surgical Plan: Managed by Thoracic surgery. Medications: Refilled nicotine (Nicoderm CQ) 1 patch transdermal DAILY 28 ea 0RF
[2024-12-30 13:44] VITALS: BP 120/70; PULSE 115; TEMP 36.2; O2SAT 94; BMI 27.1
== END 2024-12-30 14:15 | disposition home or self-care (01) ==
LOC: HO.HMCH 13:28
PROVIDERS: PCP Physician Assistant; Visit Provider Nurse Practitioner Family
DX: C34.11 Malignant neoplasm of upper lobe, right bronchus or lung (principal); Z90.2 Acquired absence of lung [part of]

== ENCOUNTER → 2024-12-30 13:28 | Outpatient (BNVA) | payer OTHER, SELFPAY | PROVIDERS: PCP Physician Assistant; Visit Provider Nurse Practitioner Family ==

== ENCOUNTER 2025-01-02 09:19 | Outpatient (AMB) | payer OTHER, SELFPAY ==
--- NOTE | 2025-01-02 09:21 | MHC.OFFVIS ---
Intake Visit Reasons: S/P VATS, poss. Rt upper lobectomy, bronchoscopy Intake Note: Patient here s/p bronchoscopy, vats right upper lobectomy, mediastinal lymph node sampling, intercostal nerve block. Reports incisions healing well. Chest tube removed on 12-26-2024. Patient c/o: pain when coughing. Itchy rash noticed 5d ago. PCP started on medication that is ready for pick at pharmacy. Surgery: 12-19-2024. Management Sme Required: No Accompanied by: Self / Same As Patient Allergies amoxicillin Allergy (Severe, Verified 01/02/25 09:21) Anaphylaxis Penicillins [PENICILLINS] Allergy (Severe, Verified 01/02/25 09:21) Anaphylaxis IV dye Adverse Reaction (Severe, Uncoded 01/02/25 09:21) Anaphylaxis HPI Comments Details: Patient presents for follow-up status post lobectomy. He is doing quite well. He is tolerating a diet. He is having regular bowel habits. He has no acute respiratory issues or complaints. O2 saturation was 97%. Pathology was reviewed while he was in the hospital. It was re reviewed again today. [facility] Medical History (Updated 12/30/24 @ 15:47 by Mariah Dawkins NP) Rash and nonspecific skin eruption Stress at home No natural teeth Lung cancer Arthritis [place] (hard of hearing) Hx of syncope (2011) Asthma Pneumothorax SLAC (scapholunate advanced collapse) wrist History of adenomatous polyp of colon Nicotine dependence, cigarettes, uncomplicated Surgical History (Updated 01/02/25 @ 10:07 by Cruzito Golden MD) History of lobectomy of lung Hx of colonoscopy History of carpal tunnel release of both wrists Hx of chest tube placement (11/14/24) History of lung biopsy (11/14/24) Right upper lobe pulmonary nodule History of left knee surgery (~1989) Family History Mother Heart attack, Onset Age: 28 Stroke Father Renal cancer Maternal Grandfather Pancreatic cancer Social History Household Members: Spouse Household Members Other:: daughter, 4 granddaughters Housing: House Are you a primary animal care technician to a significant other at home: No Do you presently have visiting nurse or other home services: No Alcohol intake: current Alcohol intake frequency: holidays/special occasions only Comment: COUNTS CORRECT Patient Tobacco Use Status: Former Tobacco user Tobacco use type: Cigarette Cigarette Packs Per Day: 1 Cigarettes Per Day: 20.0 Years Smoked: (onset 14yo, 1/2-1ppd x 44yrs, 30+pyh - quit 11/13/24) e-Cigarette/Vaping Use: Never Used Second Hand Smoke Exposure: Yes Substance Use Type: Marijuana and Caffiene service: No Current occupational status: employed 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 All incisions clean dry and intact healing well Assessment & Plan Assessment & Plan (1) Status post lobectomy of lung: Code(s): Z90.2 - Acquired absence of lung [part of] Category: Medical Plan Patient was been given local instructions including avoiding strenuous activities but to ambulate as much as possible, encourage continues who presents benefit spirometry, and we will see me as directed or p.r.n.. All questions answered Coding Level of Care Code Global (17327) Diagnoses Status post lobectomy of lung Z90.2
== END 2025-01-02 09:36 | disposition home or self-care (01) ==
LOC: HO.HGS 09:19
PROVIDERS: PCP Physician Assistant; Visit Provider Surgery
DX: Z90.2 Acquired absence of lung [part of] (principal)
CPT/HCPCS: 99024

== ENCOUNTER 2025-01-11 13:05 | Outpatient (AMB) | payer OTHER, SELFPAY ==
[2025-01-11 13:25] VITALS: BP 128/84; PULSE 100; TEMP 36.2; O2SAT 97; BMI 26.4
--- NOTE | 2025-01-11 13:25 | MHC.PC.OV ---
Vital Signs 01/11/25 13:25 Height 5 ft 10 in Weight 184 lb 4 oz BMI 26.4 BP 128/84 Blood Pressure Location Lt brachial Position Sitting Pulse 100 Pulse Source Pulse Oximeter Temp 97.1 F Temp Source Temporal Artery Scan Pulse Oximetry (%) 97 Oxygen Delivery Method Room Air Intake Visit Reasons: pain on right side, no sx related per lung surgeon Internet Marketing Consultant Required: No Accompanied by: Spouse Allergies amoxicillin Allergy (Severe, Verified 01/11/25 13:33) Anaphylaxis Penicillins [PENICILLINS] Allergy (Severe, Verified 01/11/25 13:33) Anaphylaxis IV dye Adverse Reaction (Severe, Uncoded 01/11/25 13:33) Anaphylaxis Medication List - Last Reconciled 01/11/25 by Chapito Jara PA-C albuterol sulfate 90 mcg/actuation (Ventolin HFA) 2 puffs inhalation Q4-6H 30 days hydrocodone-acetaminophen 5-325 mg 1 tab PO Q4-6H PRN hydrocodone-acetaminophen 5-325 mg 1 tab PO Q4-6H PRN nicotine (Nicoderm CQ) 1 patch transdermal DAILY triamcinolone acetonide 0.025% 1 appl topical BID Tobacco use date assessed: 12/30/24 Dental Screening Dental Screen Date: 12/30/24 HPI pain on right side, no sx related per lung surgeon HPI Details Patient is a 59-year-old male here today for problem visit. Patient's past medical history significant former smoker, asthma, recent diagnosis of lung cancer. Recently underwent lung biopsy procedure. Patient reports having right upper quadrant abdominal pain over the last few weeks. The pain is located in the right upper quadrant and has been persistent despite prior temporary resolution. The abdominal discomfort began before a lung biopsy for a nodule, with an associated history of nausea, vomiting, and persistent diarrhea. Preceding imaging reported an inflamed gallbladder with a later finding of a borderline thickened gallbladder wall, suggesting a possibility of acalculous cholecystitis. The patient denies recent fever but notes temperature fluctuations. Past surgical history includes umbilical hernia repair. [facility] Medical History Rash and nonspecific skin eruption Stress at home No natural teeth Lung cancer Arthritis [place] (hard of hearing) Hx of syncope (2011) Asthma Pneumothorax SLAC (scapholunate advanced collapse) wrist History of adenomatous polyp of colon Nicotine dependence, cigarettes, uncomplicated Surgical History History of lobectomy of lung Hx of colonoscopy History of carpal tunnel release of both wrists Hx of chest tube placement (11/14/24) History of lung biopsy (11/14/24) Right upper lobe pulmonary nodule History of left knee surgery (~1989) Family History Mother Heart attack, Onset Age: 28 Stroke Father Renal cancer Maternal Grandfather Pancreatic cancer Social History Household Members: Spouse Household Members Other:: daughter, 4 granddaughters Housing: House Are you a primary medicare specialist to a significant other at home: No Do you presently have visiting nurse or other home services: No Alcohol intake: current Alcohol intake frequency: holidays/special occasions only Comment: COUNTS CORRECT Patient Tobacco Use Status: Former Tobacco user Tobacco use type: Cigarette Cigarette Packs Per Day: 1 Cigarettes Per Day: 20.0 Years Smoked: (onset 14yo, 1/2-1ppd x 44yrs, 30+pyh - quit 11/13/24) e-Cigarette/Vaping Use: Never Used Second Hand Smoke Exposure: Yes Substance Use Type: Marijuana and Caffiene service: No Current occupational status: employed 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 Jourdan Tellez, Lorri Trammell, Ricardo Hernandez and colleagues, with an educational grazyna from [employer]. Review of Systems Const Denies headache(s) Eyes Denies loss of vision ENT Denies vertigo, Denies dizziness, Denies headache(s) and Denies sore throat Card Denies chest pain, Denies leg edema and Denies lightheadedness Resp Denies cough, Denies hemoptysis and Denies wheezing GI Denies abdominal pain, Denies melena, Denies constipation, Denies diarrhea and Denies vomiting Denies dysuria, Denies urinary frequency and Denies urinary urgency Musc Denies arthralgias, Denies joint swelling, Denies numbness and Denies tingling Neuro Denies Abnormal speech present, Denies behavioral changes, Denies vertigo, Denies dizziness, Denies headache(s), Denies loss of vision, Denies memory loss, Denies numbness and Denies tingling Psych Denies anxiety, Denies behavioral changes, Denies depression, Denies memory loss and Denies panic attacks Abhilash/Lymph Denies easy bleeding and Denies easy bruising Aller/Immun Denies wheezing Physical exam (Primary Care) Vital Signs: Last Vital Signs Temp 97.1 F 01/11/25 13:25 Pulse 100 01/11/25 13:25 BP 128/84 01/11/25 13:25 Pulse Ox 97 01/11/25 13:25 Oxygen Delivery Method Room Air 01/11/25 13:25 BMI result Body Mass Index 26.4 Tobacco/Smoking Status: Tobacco use Status Tobacco use date assessed 12/30/24 01/11/25 13:31 Patient Tobacco Use Status Former Tobacco user 01/11/25 13:31 Tobacco use type Cigarette 01/11/25 13:31 e-Cigarette/Vaping Use Never Used 01/11/25 13:31 Thrive Assessment: Date of Thrive Assessment Date Thrive assessed 12/20/24 01/11/25 13:31 Const General: healthy appearing, no acute distress, alert and awake Nutritional Appearance: well nourished Orientation/consciousness: oriented to person, oriented to place and oriented to time HENMT Ears: TM's normal bilaterally General nose exam: Normal nasal mucous membranes and turbinates present Eyes Conjunctivae: conjunctivae normal Sclerae: sclerae normal Pupils: Equal, round and reactive pupils present Neck Neck: Yes no lymphadenopathy and Yes no JVD Thyroid: Thyroid normal Carotids: no bruits Resp Effort & Inspection: normal respiratory effort and not tachypneic Auscultation: no crackles, no rales, no rhonchi and no wheezes Cardio Rate: regular rate Rhythm: regular rhythm Heart sounds: no murmurs and normal S1 and S2 GI Other: TENDERNESS TO PALPATION TO HAVE RIGHT UPPER QUADRANT OF THE ABDOMEN Palpation (GI): Tenderness to palpation present (GI) in the RUQ Auscultation: normal bowel sounds Skin General skin exam: no rashes or lesions noted and dry skin Neuro General: oriented to person, oriented to place and oriented to time Cranial nerves: Yes Equal, round and reactive pupils present Speech: No Abnormal speech present Gait exam (Neuro): Normal gait present Motor exam (neuro): no tremor noted Extrem Right upper extremity: full ROM Left upper extremity: full ROM Right lower extremity: full ROM; no edema Left lower extremity: full ROM; no edema Psych Mental Status: mental status grossly normal Speech and movement: Normal speech and movement present Affect: normal affect Attitude: cooperative Thought process: Normal thought process present Results AMB Hemoglobin A1c AMB Hemoglobin A1c 5.1 % Last Edit by KATERYNA Em on 01/11/25 13:35 Coding Level of Care Code Est Pt Level 4 (29420) Diagnoses Right upper quadrant abdominal pain R10.11 Acalculous cholecystitis K81.9 Assessment & Plan Assessment & Plan (1) Right upper quadrant abdominal pain: Code(s): R10.11 - Right upper quadrant pain Category: Medical Plan: A CT scan of the abdomen will be ordered to explore the suspected gallbladder pathology underlying the patient's right upper quadrant pain. Referral to a general surgeon for potential cholecystectomy will be facilitated based on prior gallbladder findings. (2) Acalculous cholecystitis: Code(s): K81.9 - Cholecystitis, unspecified Category: Medical Plan: Presumed diagnosis. Will refer to general surgeon for evaluation and possible elective cholecystectomy Orders: Orders AMB Hemoglobin A1c Today Z13.1 - Encounter for screening for diabetes mellitus Lipid Panel Today E78.2 - Mixed hyperlipidemia Comprehensive [place]. Panel Fast Today E78.2 - Mixed hyperlipidemia Prostate Specific Antigen Scr Today E78.2 - Mixed hyperlipidemia, Z12.5 - Encounter for screening for malignant neoplasm of prostate CT abdomen wo IV con Today K81.9 - Cholecystitis, unspecified Complete Blood Count no Diff Today E78.2 - Mixed hyperlipidemia Referrals General Surgery Referral K81.9 - Cholecystitis, unspecified Medications: New acetaminophen 500 mg PO Q6H 30 days PRN 120 caps 0RF fever K81.9 - Cholecystitis, unspecified tizanidine 2 mg PO Q8H 7 days 21 tabs 0RF muscle spasticity R10.11 - Right upper quadrant pain Refilled nicotine (Nicoderm CQ) 1 patch transdermal DAILY 28 ea 0RF Discontinued hydrocodone-acetaminophen 5-325 mg Partial Fill upon patient request. Discontinued Reason: Doctor's Order 1 tab PO Q4-6H PRN 30 tabs 0RF pain
== END 2025-01-11 13:51 | disposition home or self-care (01) ==
LOC: HO.HMCH 13:10
PROVIDERS: PCP Physician Assistant; Visit Provider Physician Assistant
DX: R10.11 Right upper quadrant pain (principal); K81.9 Cholecystitis, unspecified; Z13.1 Encounter for screening for diabetes mellitus

== ENCOUNTER → 2025-01-11 13:05 | Outpatient (BNVA) | payer OTHER, SELFPAY | PROVIDERS: PCP Physician Assistant; Visit Provider Physician Assistant | DX: R10.11 Right upper quadrant pain (principal); K81.9 Cholecystitis, unspecified; Z13.1 Encounter for screening for diabetes mellitus | CPT/HCPCS: 83036 ==

== ENCOUNTER 2025-01-17 12:49 | Outpatient (AMB) | payer OTHER, SELFPAY ==
--- NOTE | 2025-01-17 12:52 | A.OFFVIS_ITS ---
Vital Signs 01/17/25 12:57 Height 5 ft 10 in Weight 181 lb 7.047 oz BMI 26.0 BP 120/70 Blood Pressure Location Lt brachial Position Sitting Intake Visit Reasons: cholecystitis Intake Note: Patient is seen in office for evaluation of cholecystitis. Pt c/o: admits to RUQ pain since end of December, pain radiates to the back, admits to nausea and vomit worse after meals specially lactose Physics Department Chair Required: No Accompanied by: Self / Same As Patient Allergies amoxicillin Allergy (Severe, Verified 01/17/25 12:57) Anaphylaxis Penicillins [PENICILLINS] Allergy (Severe, Verified 01/17/25 12:57) Anaphylaxis IV dye Adverse Reaction (Severe, Uncoded 01/17/25 12:57) Anaphylaxis HPI Comments Details: Patient presents here 1. Follow-up lobectomy 2. Right upper quadrant abdominal symptoms Patient has convalesced very well status post his lobectomy. No respiratory issues or complaints. Patient was been having right upper quadrant abdominal symptoms. He is unclear whether this is related to his gallbladder or perhaps status post chest surgery intercostal nerve radiculopathy. He is tolerating his diet. Sending regular bowel habits. Never been jaundiced before. His states that his symptoms are similar to the 1 he had in the hospital when he had biliary issues. [facility] Medical History Rash and nonspecific skin eruption Stress at home No natural teeth Lung cancer Arthritis [place] (hard of hearing) Hx of syncope (2011) Asthma Pneumothorax SLAC (scapholunate advanced collapse) wrist History of adenomatous polyp of colon Nicotine dependence, cigarettes, uncomplicated Surgical History History of lobectomy of lung Hx of colonoscopy History of carpal tunnel release of both wrists Hx of chest tube placement (11/14/24) History of lung biopsy (11/14/24) Right upper lobe pulmonary nodule History of left knee surgery (~1989) Family History Mother Heart attack, Onset Age: 28 Stroke Father Renal cancer Maternal Grandfather Pancreatic cancer Social History Household Members: Spouse Household Members Other:: daughter, 4 granddaughters Housing: House Are you a primary home care companion to a significant other at home: No Do you presently have visiting nurse or other home services: No Alcohol intake: current Alcohol intake frequency: holidays/special occasions only Comment: COUNTS CORRECT Patient Tobacco Use Status: Former Tobacco user Tobacco use type: Cigarette Cigarette Packs Per Day: 1 Cigarettes Per Day: 20.0 Years Smoked: (onset 14yo, 1/2-1ppd x 43yrs, 30+pyh - quit 11/13/24) e-Cigarette/Vaping Use: Never Used Second Hand Smoke Exposure: Yes Substance Use Type: Marijuana and Caffiene service: No Current occupational status: employed 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 Chest incisions all clean dry and intact well healed GI Other: Abdomen moderately corpulent, soft. Mild right upper quadrant tenderness. Assessment & Plan Assessment & Plan (1) Right upper quadrant abdominal pain: Code(s): R10.11 - Right upper quadrant pain Category: Surgical Plan: Because of the unclear nature of the patient's symptoms, and history of biliary issues, current plan is to obtain a repeat ultrasound of the right upper quadrant and indirect further therapy based on these results all questions ans wered. Patient was see me after the above-mentioned skin. (2) Status post lobectomy of lung: Code(s): Z90.2 - Acquired absence of lung [part of] Category: Surgical (3) Biliary colic symptom: Code(s): K80.50 - Calculus of bile duct without cholangitis or cholecystitis without obstruction Category: Surgical Plan: See above Plan See above Orders: Orders US abdomen limited Today R10.11 - Right upper quadrant pain Coding Level of Care Code Est Pt Level 4 (35205) Global (53647) Diagnoses Right upper quadrant abdominal pain R10.11 Status post lobectomy of lung Z90.2 Biliary colic symptom K80.50
[2025-01-17 12:57] VITALS: BP 120/70; BMI 26.0
== END 2025-01-17 13:03 | disposition home or self-care (01) ==
LOC: HO.HGS 12:49
PROVIDERS: PCP Physician Assistant; Visit Provider Surgery
DX: K80.50 Calculus of bile duct without cholangitis or cholecystitis without obstruction (principal); R10.11 Right upper quadrant pain
CPT/HCPCS: 99213

== ENCOUNTER → 2025-01-17 12:49 | Outpatient (BNVA) | payer OTHER, SELFPAY | PROVIDERS: PCP Physician Assistant; Visit Provider Surgery ==

== ENCOUNTER 2025-01-31 11:57 | Outpatient (REF) | payer OTHER, SELFPAY ==
--- NOTE | ~2025-01-31 | CT_ITS ---
EXAMINATION: CT ABDOMEN AND PELVIS WITH CONTRAST CLINICAL INFORMATION: Right upper quadrant abdominal pain. COMPARISON: No prior. Abdomen US 11/15/2024. HIDA scan 11/16/2024. TECHNIQUE: Multidetector volumetric images were obtained from the superior aspect of the liver through the pubic symphysis following administration 85 mL of Omnipaque 350 intravenous contrast. Sagittal and coronal reformatted images were obtained on the technologist's workstation. Oral contrast: No This CT examination was performed using dose optimization techniques as appropriate, variously including the following: *Automated exposure control *Adjustment of mA and/or kV according to patient size (this includes techniques or standardized protocols for targeted exams where dose is matched to indication/reason for exam; i.e. extremities or head) *Use of iterative reconstruction technique FINDINGS: LUNG BASES: Mild scarring in the medial right middle lobe. Lung bases otherwise demonstrate minimal dependent atelectasis and linear scarring bilaterally. Thickening of the distal esophagus with a small type I hiatus hernia suspected. Findings could relate to esophagitis. LIVER, GALLBLADDER, AND BILIARY TREE: The liver is normal in size, shape, and attenuation. No focal hepatic lesion or biliary ductal dilatation is present. Gallbladder demonstrates tiny calcified gallstone within the fundus. Gallbladder is otherwise normal without wall thickening or pericholecystic fluid or inflammation. PANCREAS: Unremarkable. SPLEEN: Unremarkable. ADRENAL GLANDS: Unremarkable. KIDNEYS AND URETERS: The kidneys are normal in size, shape, and attenuation. No hydronephrosis, hydroureter, or calculi seen. No perinephric stranding. BLADDER: Unremarkable. GASTROINTESTINAL TRACT: Thickening of the distal esophagus with type I hiatus hernia. Stomach is somewhat decompressed but otherwise image normally. Duodenal sweep is normal. Small bowel is normal in course and caliber without wall thickening or inflammation. Normal appendix. Colon is normal in course and caliber without wall thickening or inflammation. Mild muscularis hypertrophy within the sigmoid. ABDOMINAL WALL: No significant hernia is appreciated. LYMPH NODES: Normal. VASCULAR: Moderate atheromatous calcification of the aorta and iliac vessels without aneurysm present. PELVIC VISCERA: The prostate and seminal vesicles are unremarkable. OSSEOUS STRUCTURES: No suspicious lytic or blastic bone lesion. Mild degenerative changes of the spine most significant at L5-S1. CT/CT abdomen pelvis w IV con IMPRESSION: 1. No acute findings in the abdomen or pelvis. No evidence of gallbladder wall thickening or inflammation. There is a tiny calcified gallstone in the fundus. 2. There is wall thickening of the distal esophagus with a small type I hiatus hernia. Reflux/esophagitis is a consideration. 3. Additional ancillary findings as discussed in the body of the report. Electronically signed by: Rubin Slaughter MD 01/31/2025 04:11 PM EDT RP
[2025-01-31 12:55] LABS: Hematocrit 45.4 % (42.0-52.0); Hemoglobin 15.4 g/dl (14.0-18.0); Mean Corpuscular HGB Conc 33.9 g/dl (31.0-36.0); Mean Corpuscular Hemoglobin 29.5 pg (27.0-33.0); Mean Platelet Volume 9.8 fL (9.4-12.4); Platelet Count 262 X10*3/uL (160-400); Red Blood Count 5.22 X10*6/uL (4.60-5.80); Red Cell Distribution Width 12.2 % (11.0-16.0); White Blood Count 11.3 X10*3/uL (4.8-10.8)
[2025-01-31 13:20] LABS: Alanine Aminotransferase 44 U/L (0-40); Albumin Level 4.5 g/dL (3.5-5.0); Alkaline Phosphatase 99 U/L (39-117); Anion Gap 12 (12-20); Aspartate Amino Transferase 26 U/L (5-37); Bilirubin Total 0.5 mg/dL (0.0-1.0); Blood Urea Nitrogen 13 mg/dL (9-16); Calcium 9.8 mg/dL (8.4-10.2); Carbon Dioxide 24 mmol/L (22-29); Chloride 106 mmol/L (96-108); Cholesterol 213 mg/dL (<200); Estimated Glomerular Filt Rate > 60; Glucose Fasting 140 mg/dL (60-99); HDL Cholesterol 40 mg/dL (>40); LDL Cholesterol Calculated 143 mg/dL (<100); Potassium 4.4 mmol/L (3.3-5.1); Sodium 138 mmol/L (135-145); Total Protein 7.8 g/dL (6.5-8.0); Triglycerides 153 mg/dL (<150)
[2025-01-31 13:40] LABS: Prostate Specific Antigen Scr 1.11 ng/mL (<0.05-4.0)
[2025-01-31] MEDS: iohexoL 350 MG/ML 100 ML INFUS..BTL IV (14:47)
[2025-01-31] MEDS: Barium Sulfate Oral (Berry) 450 ML ORAL.SUSP 900 ML PO (14:49)
== END 2025-01-31 11:58 | disposition home or self-care (01) ==
LOC: HO.CT 11:57
PROVIDERS: PCP Physician Assistant; Visit Provider Physician Assistant
DX: R10.11 Right upper quadrant pain (principal); K80.50 Calculus of bile duct without cholangitis or cholecystitis without obstruction; E78.2 Mixed hyperlipidemia; Z12.5 Encounter for screening for malignant neoplasm of prostate
CPT/HCPCS: 36415; 74177; 80053; 80061; 84153; 85027; Q9967

== ENCOUNTER → 2025-01-31 11:59 | Outpatient (BNV) | payer OTHER, SELFPAY | PROVIDERS: PCP Physician Assistant; Visit Provider Radiology Diagnostic Radiology | DX: K80.20 Calculus of gallbladder without cholecystitis without obstruction (principal) | CPT/HCPCS: 74177 ==

== ENCOUNTER 2025-02-01 10:27 | Outpatient (AMB) | payer OTHER, SELFPAY ==
[2025-02-01 10:55] VITALS: BP 128/68; PULSE 99; BMI 26.3
--- NOTE | 2025-02-01 10:55 | A.OFFVIS_ITS ---
Vital Signs 02/01/25 10:55 Height 5 ft 10 in Weight 183 lb BMI 26.3 BP 128/68 Blood Pressure Location Rt brachial Position Sitting Pulse 99 Intake Visit Reasons: Pain/gallbladder Intake Note: Patient being seen today c/o abdominal pain. Taking Tylenol w/codeine as needed. Will need refill. Cytology Technologist Required: No Accompanied by: Self / Same As Patient Allergies amoxicillin Allergy (Severe, Verified 02/01/25 10:56) Anaphylaxis Penicillins [PENICILLINS] Allergy (Severe, Verified 02/01/25 10:56) Anaphylaxis IV dye Adverse Reaction (Severe, Uncoded 02/01/25 10:56) Anaphylaxis HPI Comments Details: Mr. Benitez presents for follow up todat. He underwent VATs right upper lobectomy for right upper lobe [id number] lung cancer on 12/19/24. He is supposed to return to work this week however he reports he feels he is unable to do so. He feels he is unable to do heavy lifting without becoming fatigued and develops some shortness of breath. He has stopped smoking both cigarettes and marijuana. He reports continued RUQ abd pain. He reports these episodes have happened previously but now the pain has become more constant in nature. He reports he is unable to eat anything without exacerbation of this pain. He reports this pain is also very limiting to his daily activities. He had an episode of the RUQ pain in the hospital after he had his initial lung biopsy which showed very mild gallbladder wall thickening. HIDA was subsequently performed which was negative for acute cholecystitis, biliary dyskinesia. He had a CT scan with IV/oral contrast yesterday ordered by his PCP which showed a gallstone, no wall thickening or pericholecystic fluid. There was wall thickening of the distal esophagus with a small type I hiatus hernia. He reports a colonoscopy 15 years ago. He has never had an endoscopy before. Labs showed very mildly elevated ALT but bilirubin, AST, alk phos normal. PFSH Medical History Rash and nonspecific skin eruption Stress at home No natural teeth Lung cancer Arthritis [place] (hard of hearing) Hx of syncope (2011) Asthma Pneumothorax SLAC (scapholunate advanced collapse) wrist History of adenomatous polyp of colon Nicotine dependence, cigarettes, uncomplicated Surgical History History of lobectomy of lung Hx of colonoscopy History of carpal tunnel release of both wrists Hx of chest tube placement (11/14/24) History of lung biopsy (11/14/24) Right upper lobe pulmonary nodule History of left knee surgery (~1989) Family History Mother Heart attack, Onset Age: 28 Stroke Father Renal cancer Maternal Grandfather Pancreatic cancer Social History Household Members: Spouse Household Members Other:: daughter, 4 granddaughters Housing: House Are you a primary animal care provider to a significant other at home: No Do you presently have visiting nurse or other home services: No Alcohol intake: current Alcohol intake frequency: holidays/special occasions only Comment: COUNTS CORRECT Patient Tobacco Use Status: Former Tobacco user Tobacco use type: Cigarette Cigarette Packs Per Day: 1 Cigarettes Per Day: 20.0 Years Smoked: (onset 14yo, 1/2-1ppd x 44yrs, 30+pyh - quit 11/13/24) e-Cigarette/Vaping Use: Never Used Second Hand Smoke Exposure: Yes Substance Use Type: Marijuana and Caffiene service: No Current occupational status: employed 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, 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 Current occupational exposures/hazards: No Cognitive needs: No Hearing needs: No Vision needs: No Review of Systems Const Denies chills and Denies fever(s) ENT Denies dizziness Card Denies chest pain and Reports dyspnea on exertion Resp Reports cough and Reports dyspnea on exertion GI Reports as per HPI, Reports diarrhea, Denies nausea and Denies vomiting Skin/Breast Denies jaundice Neuro Denies dizziness Physical Exam Vital Signs: Last Vital Signs Pulse 99 02/01/25 10:55 BP 128/68 02/01/25 10:55 BMI result Body Mass Index 26.3 Const General: comfortable, no acute distress and alert Nutritional Appearance: well nourished Orientation/consciousness: patient oriented x3 Chest Other: right VATs incisions well healing, no erythema Resp Effort & Inspection: normal respiratory effort GI Inspection: Yes normal to inspection and No distended Palpation (GI): Soft to palpation, Tenderness to palpation present (GI) in the epigastrum and in the RUQ; with no rebound tenderness and no guarding Percussion: Yes normal to percussion Skin General skin exam: no rashes or lesions noted and no jaundice Neuro General: patient oriented x3 and moves all extremities Assessment & Plan Assessment & Plan (1) Right upper quadrant abdominal pain: Code(s): R10.11 - Right upper quadrant pain Category: Surgical Plan He is convalescing well from his VATs right upper lobectomy. He still reports difficulty lifting and does not feel as if he can return to work. Will write work note for 1 month. His other concern is the RUQ pain, no significant findings on imaging. Will trial PPI for possible esophagitis/gastritis to see if this helps with him symptoms. Referral to GI for colonoscopy as he is due, possible upper endoscopy to further evaluate this pain. He is to return in 1 month time or sooner if needed. Patient comfortable with plan. All questions answered. Orders: Referrals Gastroenterology Referral R10.11 - Right upper quadrant pain Medications: New omeprazole 40 mg PO BID 90 caps 0RF Coding Level of Care Code Est Pt Level 3 (86306) Diagnoses Right upper quadrant abdominal pain R10.11
== END 2025-02-01 11:19 | disposition home or self-care (01) ==
LOC: HO.HGS 10:28
PROVIDERS: PCP Physician Assistant; Visit Provider Physician Assistant Surgical
DX: R10.11 Right upper quadrant pain (principal)
CPT/HCPCS: 99213

== ENCOUNTER → 2025-02-01 10:27 | Outpatient (BNVA) | payer OTHER, SELFPAY | PROVIDERS: PCP Physician Assistant; Visit Provider Physician Assistant Surgical ==

== ENCOUNTER 2025-02-23 13:02 | Outpatient (AMB) | payer OTHER, SELFPAY ==
[2025-02-23 13:22] VITALS: BP 112/69; PULSE 114; O2SAT 96; BMI 26.3
--- NOTE | 2025-02-23 13:22 | A.OFFVIS_ITS ---
Vital Signs 02/23/25 13:22 02/23/25 14:06 Height 5 ft 10 in Weight 183 lb 8 oz BMI 26.3 BP 112/69 Blood Pressure Location Lt brachial Position Sitting Pulse 114 H 103 H Pulse Source Palpation Pulse Oximetry (%) 96 Oxygen Delivery Method Room Air Intake Visit Reasons: RUQ pain/[place] zohra 03/11/2023 Intake Note: Patient complex follow up for RUQ pain/[place] zohra was 03/11/2023 . Radiology results. Patient cc: nauseas, poor appetite, abdominal pain, acid reflux, hard stool but more diarrhea, and swallowing problems on his esophagus. 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 Accompanied by: Self / Same As Patient Allergies amoxicillin Allergy (Severe, Verified 02/23/25 13:21) Anaphylaxis Penicillins [PENICILLINS] Allergy (Severe, Verified 02/23/25 13:21) Anaphylaxis IV dye Adverse Reaction (Severe, Uncoded 02/01/25 10:56) Anaphylaxis Medication List - Last Reconciled 02/23/25 by Yessi Rachel CNP acetaminophen 500 mg PO Q6H PRN 30 days albuterol sulfate 90 mcg/actuation (Ventolin HFA) 2 puffs inhalation Q4-6H 30 days diphenhydramine HCl 50 mg PO ONCE 1 day hydrocodone-acetaminophen 5-325 mg 1 tab PO Q4-6H PRN nicotine (Nicoderm CQ) 1 patch transdermal DAILY omeprazole 40 mg PO BID tizanidine 2 mg PO Q8H 7 days HPI HPI RUQ pain/[place] zohra 03/11/2023: Details: Patient is a 59-year-old male with PMH of asthma, nicotine dependence dependence, arthritis, hyperlipidemia and hx of lung cancer s/p lobectomy 12/19/2024 . Last visit with LYNSEY Abarca 03/11/2023 for pre colonoscopy screening. The patient presents for a futher evaluation of abdominal pain that has been persistent for approximately 20 years. he recenlty underwent imaging U/S and CT ab/pelvis most recently ordered by General Surgery. He reports the pain is located in the right upper quadrant, radiates to the back and is described as intermittent and stabbing in nature. There has been no recent change in the pain's characteristics. The patient mentions that certain activities such as laying on the right side aggravate the nausea associated with the pain but does not increase the pain itself. The nausea began after lobectomy in December 2024 and is aggravated by lying on the right side. Since then, the patient has vomited approximately five times, most recently after consuming tacos. The vomiting is not related to specific foods, and the patient has stopped consuming ice cream, suspecting lactose intolerance, but without notable improvement. The patient uses muscle relaxers, hydrocodone, and THC tincture to manage the pain, which makes it tolerable but not completely relieved. The patient has a reduced appetite when experiencing pain and constipation, passing stools that are a mix of hard and soft, noting type 3 or 6 on [place] stool chart. Also with occasional small amounts of bright red blood. He reports experiencing heartburn three to four times a week, which is sometimes accompanied by regurgitation of solids and liquid, and occasional difficulty swallowing certain foods. he gets some relief from rolaids/TUMs. States he did not start the omeprazole prescribed last month. Patient denies: fever or unintentional wt loss SOCIAL HISTORY: - Diet: Mixed diet including chicken, pasta, rice, occasional red meat, salads, bananas, oranges, grapes, peas, potatoes, green beans; avoids corn. - Alcohol/Tobacco/Drug Use: Quit smoking Nov 13, 2024; occasional THC use; previously used alcohol socially, quit last year. - Occupation: plans to return to work post-lobectomy by next week. - family hx as below -tolerated anesthesia in the past without difficulty PFSH Medical History (Updated 02/23/25 @ 15:32 by Yessi Rachel CNP) Acid reflux Rash and nonspecific skin eruption Stress at home No natural teeth Lung cancer Arthritis [place] (hard of hearing) Hx of syncope (2011) Asthma Pneumothorax SLAC (scapholunate advanced collapse) wrist History of adenomatous polyp of colon Nicotine dependence, cigarettes, uncomplicated Surgical History History of lobectomy of lung Hx of colonoscopy History of carpal tunnel release of both wrists Hx of chest tube placement (11/14/24) History of lung biopsy (11/14/24) Right upper lobe pulmonary nodule History of left knee surgery (~1989) Family History (Updated 02/23/25 @ 13:58 by Yessi Rachel CNP) Mother Heart attack, Onset Age: 28 Stroke Father Renal cancer Maternal Grandfather Pancreatic cancer Social History Household Members: Spouse Household Members Other:: daughter, 4 granddaughters Housing: House Are you a primary rn intensive care unit to a significant other at home: No Do you presently have visiting nurse or other home services: No Alcohol intake: current Alcohol intake frequency: holidays/special occasions only Comment: COUNTS CORRECT Patient Tobacco Use Status: Former Tobacco user Tobacco use type: Cigarette Cigarette Packs Per Day: 1 Cigarettes Per Day: 20.0 Years Smoked: (onset 14yo, 1/2-1ppd x 44yrs, 30+pyh - quit 11/13/24) e-Cigarette/Vaping Use: Never Used Second Hand Smoke Exposure: Yes Substance Use Type: Marijuana and Caffiene service: No Current occupational status: employed 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, 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 Current occupational exposures/hazards: No Cognitive needs: No Hearing needs: No Vision needs: No Review of Systems Const Reports as per HPI ENT Reports as per HPI Card Reports as per HPI Resp Reports as per HPI GI Reports as per HPI Reports as per HPI Physical Exam Vital Signs: Last Vital Signs Pulse 103 H 02/23/25 14:06 BP 112/69 02/23/25 13:22 Pulse Ox 96 02/23/25 13:22 Oxygen Delivery Method Room Air 02/23/25 13:22 BMI result Body Mass Index 26.3 Const General: healthy appearing, no acute distress and well developed Nutritional Appearance: well nourished Orientation/consciousness: patient oriented x3 HEENT Head: Yes normal to inspection, Yes normocephalic and Yes atraumatic Face and sinus: Yes normal facial exam Eyes General: appearance normal, both eyes and all related structures Neck Neck: Yes normal visual inspection Resp Effort & Inspection: normal respiratory effort, able to speak in complete sentences, no tracheal deviation and symmetric chest movement Auscultation: clear to auscultation bilaterally Cardio Jugular venous distension: no JVD Rate: regular rate and tachycardic Rhythm: regular rhythm Heart sounds: S1 normal heart sound present, S2 normal heart sound present, no gallops and no murmurs GI Inspection: Yes normal to inspection and No distended Palpation (GI): Soft to palpation, not firm, Tenderness to palpation present (GI) in the epigastrum and in the RUQ and No hepatosplenomegaly present Auscultation: Hypoactive bowel sounds present Neuro General: patient oriented x3 Gait exam (Neuro): Normal gait present Psych Appearance: grossly normal Mental Status: mental status grossly normal Speech and movement: Normal speech and movement present Affect: normal affect Attitude: cooperative Thought process: Normal thought process present Thought content: Normal thought content present Insight: Good insight present (Psych) Judgement: Good judgement present (Psych) Results Reviewed Results Reviewed: Date of Service: 01/31/25 Procedure(s): CT abdomen pelvis w IV con Accession Number(s): [id number] cc: Chapito Jara PA-C~ Report Number: [id number]: Total DLP = 391.00 mGy-cm EXAMINATION: CT ABDOMEN AND PELVIS WITH CONTRAST CLINICAL INFORMATION: Right upper quadrant abdominal pain. COMPARISON: No prior. Abdomen US 11/15/2024. HIDA scan 11/16/2024. TECHNIQUE: Multidetector volumetric images were obtained from the superior aspect of the liver through the pubic symphysis following administration 85 mL of Omnipaque 350 intravenous contrast. Sagittal and coronal reformatted images were obtained on the technologist's workstation. Oral contrast: No This CT examination was performed using dose optimization techniques as appropriate, variously including the following: *Automated exposure control *Adjustment of mA and/or kV according to patient size (this includes techniques or standardized protocols for targeted exams where dose is matched to indication/reason for exam; i.e. extremities or head) *Use of iterative reconstruction technique FINDINGS: LUNG BASES: Mild scarring in the medial right middle lobe. Lung bases otherwise demonstrate minimal dependent atelectasis and linear scarring bilaterally. Thickening of the distal esophagus with a small type I hiatus hernia suspected. Findings could relate to esophagitis. LIVER, GALLBLADDER, AND BILIARY TREE: The liver is normal in size, shape, and attenuation. No focal hepatic lesion or biliary ductal dilatation is present. Gallbladder demonstrates tiny calcified gallstone within the fundus. Gallbladder is otherwise normal without wall thickening or pericholecystic fluid or inflammation. PANCREAS: Unremarkable. SPLEEN: Unremarkable. ADRENAL GLANDS: Unremarkable. KIDNEYS AND URETERS: The kidneys are normal in size, shape, and attenuation. No hydronephrosis, hydroureter, or calculi seen. No perinephric stranding. BLADDER: Unremarkable. GASTROINTESTINAL TRACT: Thickening of the distal esophagus with type I hiatus hernia. Stomach is somewhat decompressed but otherwise image normally. Duodenal sweep is normal. Small bowel is normal in course and caliber without wall thickening or inflammation. Normal appendix. Colon is normal in course and caliber without wall thickening or inflammation. Mild muscularis hypertrophy within the sigmoid. ABDOMINAL WALL: No significant hernia is appreciated. LYMPH NODES: Normal. VASCULAR: Moderate atheromatous calcification of the aorta and iliac vessels without aneurysm present. PELVIC VISCERA: The prostate and seminal vesicles are unremarkable. OSSEOUS STRUCTURES: No suspicious lytic or blastic bone lesion. Mild degenerative changes of the spine most significant at L5-S1. CT/CT abdomen pelvis w IV con IMPRESSION: 1. No acute findings in the abdomen or pelvis. No evidence of gallbladder wall thickening or inflammation. There is a tiny calcified gallstone in the fundus. 2. There is wall thickening of the distal esophagus with a small type I hiatus hernia. Reflux/esophagitis is a consideration. 3. Additional ancillary findings as discussed in the body of the report. Electronically signed by: Rubin Slaughter MD 01/31/2025 04:11 PM EDT ------ Date of Service: 11/15/24 Procedure(s): US abdomen limited Accession Number(s): [id number] cc: Chapito Jara PA-C; Muriel Quintana PA-C~ CLINICAL HISTORY: ?acute cholecystitis US GALLBLADDER Comparison: None Findings: The common bile duct measures 2.2 mm. No gallbladder stones or sludge. Gallbladder wall measures 3.1 mm. No pericholecystic fluid. There is a positive sonographic Bain sign. IMPRESSION: 1. Positive sonographic Bain sign with borderline thickened gallbladder wall. No evidence for cholelithiasis. The possibility of acalculous cholecystitis is included in the differential. 2. No common bile ductal dilatation. This document has been electronically signed by: Justine Hernández DO on 11/15/2024 18:17:36 Assessment & Plan Assessment & Plan (1) Right upper quadrant abdominal pain: Code(s): R10.11 - Right upper quadrant pain Category: Surgical Plan: Reviewed CT from 01/31/25 with findings of tiny calcified gallstone in the fundus, possible reflux and esophagitis and mild muscularis thicken of sigmoid. Remaining GT tract wihout abnormal findings. From a GI standpoint with will proceed with endoscopy as below. Will obtain screening labs to rule out inflammatory process or celiac. Not sure if size of gallstone can explain his pain so encouraged to discuss findings during upcoming General surgery follow up scheduled for next Thursday. (2) Acid reflux: Code(s): K21.9 - Gastro-esophageal reflux disease without esophagitis Category: Medical Qualifiers: Esophagitis presence: esophagitis presence not specified Qualified Code(s): K21.9 - Gastro-esophageal reflux disease without esophagitis Plan: Reviewed CT findings as above Additional Tests: Upper endoscopy to further assess esophageal inflammation and hiatal hernia. Medications: Start omeprazole 20 mg daily, Tums as needed. Encouraged to take omeprazole as prescribed, taken at least 30-60 minutes before a meal. Education on GERD prevention : -Advised against heavy meals; encouraged small, frequent meals instead of large ones. - Instructed to remain upright for 2?3 hours after eating. - Advised to avoid late-night meals, spicy foods, caffeine, alcohol, known dietary triggers, and tight-fitting clothing. - Emphasis placed on gradual implementation of lifestyle changes to improve adherence and symptom control. (3) Colon cancer screening: Code(s): Z12.11 - Encounter for screening for malignant neoplasm of colon Category: Medical Plan: Last colonoscopy 10+ years ago completed through outside facility, records unavailable at time of visit. Although, with suggestive reports of polyp removal. Medications: Prescriptions for laxative tablets and Miralax sent to pharmacy; instructions for Gatorade purchase and clear liquid diet given. Patient educated on procedure preparation, including avoiding certain foods and ensuring clear liquid intake. Advised on necessity for ride post-procedure due to sedation. Plan Previously established with Cardiology, deemed as low cardiac risk. Follow-up after double or sooner if needed Time: I spent a total of 60 minutes on the date of encounter which includes: Preparing to see the patient (reviewed previous documentation, test results and medical history) Performing a medically appropriate exam and/or evaluation Ordering medications, tests, and procedures Documenting clinical information in the health record Orders: Orders Transglutaminase IgA Today R10.11 - Right upper quadrant pain Comprehensive Met. Panel Today R10.11 - Right upper quadrant pain Calprotectin, Fecal Today R10.11 - Right upper quadrant pain C Reactive Protein Today R10.11 - Right upper quadrant pain Medications: New omeprazole Take one tablet daily. Best taken 30 minutes before meal 20 mg PO DAILY 90 caps 1RF polyethylene glycol 3350 (Miralax) per colonoscopy prep instructions 238 grams PO ONCE 238 grams 0RF bisacodyl Take four tablets once for 1 day per colonoscopy instructions 5 mg PO ONCE 1 day 4 tabs 0RF Discontinued triamcinolone acetonide 0.025% Discontinued Reason: No Longer Medically Relevant 1 appl topical BID 60 mL 1RF R21 - Rash and other nonspecific skin eruption prednisone Discontinued Reason: No Longer Medically Relevant 50 mg PO TID 1 day 3 tabs 0RF T78.40XA - Allergy, unspecified, initial encounter Coding Level of Care Code Established Pt Est Pt Level 5 (49980) Patient Type Established Diagnoses Right upper quadrant abdominal pain R10.11 Gastroesophageal reflux disease, unspecified whether esophagitis present K21.9 Esophagitis presence: esophagitis presence not specified Colon cancer screening Z12.11
[2025-02-23 14:06] VITALS: PULSE 103
== END 2025-02-23 14:12 | disposition home or self-care (01) ==
LOC: HO.HGI 13:03
PROVIDERS: PCP Physician Assistant; Visit Provider Nurse Practitioner Family
DX: R10.11 Right upper quadrant pain (principal); K21.9 Gastro-esophageal reflux disease without esophagitis; R19.7 Diarrhea, unspecified
CPT/HCPCS: 99215; 99417

== ENCOUNTER 2025-02-28 08:24 | Outpatient (REF) | payer OTHER, SELFPAY ==
[2025-02-28 09:36] LABS: Alanine Aminotransferase 38 U/L (0-40); Albumin Level 4.1 g/dL (3.5-5.0); Alkaline Phosphatase 95 U/L (39-117); Anion Gap 12 (12-20); Aspartate Amino Transferase 27 U/L (5-37); Bilirubin Total 0.4 mg/dL (0.0-1.0); Blood Urea Nitrogen 14 mg/dL (9-16); C Reactive Protein 0.41 mg/dL (< or = 0.50); Calcium 9.5 mg/dL (8.4-10.2); Carbon Dioxide 28 mmol/L (22-29); Chloride 107 mmol/L (96-108); Estimated Glomerular Filt Rate > 60; Glucose Random 108 mg/dL (60-115); Sodium 143 mmol/L (135-145); Total Protein 6.7 g/dL (6.5-8.0)
[2025-03-01 16:33] LABS: Transglutaminase IgA <1.0 U/mL
[2025-03-05 17:03] LABS: Calprotectin, Fecal 13 mcg/g
== END 2025-02-28 08:25 | disposition home or self-care (01) ==
LOC: HO.LAB 08:24
PROVIDERS: PCP Physician Assistant; Visit Provider Nurse Practitioner Family
DX: R10.11 Right upper quadrant pain (principal)
CPT/HCPCS: 36415; 80053; 83993; 86140; 86364

== ENCOUNTER 2025-02-28 11:17 | Outpatient (AMB) | payer OTHER, SELFPAY ==
--- NOTE | 2025-02-28 11:20 | MHC.OFFVIS ---
Vital Signs 02/28/25 11:25 Height 5 ft 10 in Weight 187 lb BMI 26.8 BP 137/85 Blood Pressure Location Rt brachial Position Sitting Pulse 93 Intake Visit Reasons: 1MTH FUV Pain/gallbladder Intake Note: Patient here for 1m follow up RUQ pain. Was seen by GI/ Yessi Rachel ORTHOTIC/PROSTHETIC PRACTITIONER and is awaiting Colonoscopy screening. Patient c/o: constant RUQ pain. Abdomen pelvis CT: 01-31-2025. Of note: HX: VAT's rt upper lobectomy~ healing well. Manager Market Intelligence Required: No Accompanied by: spouse Coby Allergies amoxicillin Allergy (Severe, Verified 02/28/25 11:26) Anaphylaxis Penicillins [PENICILLINS] Allergy (Severe, Verified 02/28/25 11:26) Anaphylaxis IV dye Adverse Reaction (Severe, Uncoded 02/28/25 11:26) Anaphylaxis HPI HPI 1MTH FUV Pain/gallbladder: Details: Patient reports he is been feeling improved since his last visit. He denies taking PPI, has been taking OTC Tums, which has been working well for him. He also endorses making dietary changes which seems to have been helping him as well. He does report some intermittent right upper quadrant pain, but reports it has improved. He reports some pain when swallowing, especially if he takes large bites. He reports he is following with GI, last seen 02/23/2025. He is waiting for them to schedule for upper endoscopy and colonoscopy which will be done at the same visit. He states he has been passing bowel movements without issue, at baseline for him. Denies blood in his stool. His diet is returning towards baseline, trying to eat smaller meals. Patient feels as if he is ready to return to work [facility] Medical History (Updated 02/23/25 @ 15:32 by Yessi Rachel, HAZMAT CDL A DRIVER) Acid reflux Rash and nonspecific skin eruption Stress at home No natural teeth Lung cancer Arthritis [place] (hard of hearing) Hx of syncope (2011) Asthma Pneumothorax SLAC (scapholunate advanced collapse) wrist History of adenomatous polyp of colon Nicotine dependence, cigarettes, uncomplicated Surgical History History of lobectomy of lung Hx of colonoscopy History of carpal tunnel release of both wrists Hx of chest tube placement (11/14/24) History of lung biopsy (11/14/24) Right upper lobe pulmonary nodule History of left knee surgery (~1989) Family History (Updated 02/23/25 @ 13:58 by Yessi Rachel CNP) Mother Heart attack, Onset Age: 28 Stroke Father Renal cancer Maternal Grandfather Pancreatic cancer Social History Household Members: Spouse Household Members Other:: daughter, 4 granddaughters Housing: House Are you a primary resident care associate to a significant other at home: No Do you presently have visiting nurse or other home services: No Alcohol intake: current Alcohol intake frequency: holidays/special occasions only Comment: COUNTS CORRECT Patient Tobacco Use Status: Former Tobacco user Tobacco use type: Cigarette Cigarette Packs Per Day: 1 Cigarettes Per Day: 20.0 Years Smoked: (onset 14yo, 1/2-1ppd x 44yrs, 30+pyh - quit 11/13/24) e-Cigarette/Vaping Use: Never Used Second Hand Smoke Exposure: Yes Substance Use Type: Marijuana and Caffiene service: No Current occupational status: employed 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, 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 Current occupational exposures/hazards: No Cognitive needs: No Hearing needs: No Vision needs: No Review of Systems Const All systems reviewed & are unremarkable except as noted in HPI and below Card Denies chest pain Physical Exam Vital Signs: Last Vital Signs Pulse 93 02/28/25 11:25 BP 137/85 02/28/25 11:25 BMI result Body Mass Index 26.8 Const General: comfortable and no acute distress Orientation/consciousness: patient oriented x3 Resp Effort & Inspection: normal respiratory effort and able to speak in complete sentences GI Inspection: No Abdominal wall edema and No distended Palpation (GI): Soft to palpation, not firm, Tenderness to palpation present (GI) in the RUQ; Bain's sign negative, no guarding and not rigid Neuro General: patient oriented x3 Assessment & Plan Assessment & Plan (1) Right upper quadrant abdominal pain: Code(s): R10.11 - Right upper quadrant pain Category: Surgical Plan 59-year-old male presenting to the office for follow-up regarding right upper quadrant pain, GERD. Patient denies trialling PPI that was prescribed at last visit, states he has been using Tums and Rolaids which have been improving his symptoms however they are not completely resolved. Continues to have intermittent stabbing right upper quadrant pain. This is not related to foods or after meals. The patient has made dietary changes as well which he thinks has improved some of his symptoms. On exam patient continues to have right upper quadrant pain to palpation, negative Bain's sign He was seen by the in-house table top tile setter on 02/23/2025 for further workup of this issue. They are planning EGD and colonoscopy however this has not been scheduled yet. Further intervention from our standpoint likely depends on the findings of these procedures. I instructed the patient to reach out to our office to schedule an appointment once he has a date for colonoscopy and EGD, I would like to see him after to follow-up and determine our plan of action. In the meantime I recommended continuing with his dietary changes, Tums. I did recommend that he begin using the PPI that was prescribed at last visit. Patient okay to return to work, recommended slowly increasing workload as tolerated. Patient can follow up sooner with new or worsening symptoms, or any additional concerns as needed. Coding Level of Care Code Est Pt Level 3 (05914) Diagnoses Right upper quadrant abdominal pain R10.11 Time Spent (min) 30
[2025-02-28 11:25] VITALS: BP 137/85; PULSE 93; BMI 26.8
== END 2025-02-28 11:59 | disposition home or self-care (01) ==
LOC: HO.HGS 11:18
PROVIDERS: PCP Physician Assistant
DX: R10.11 Right upper quadrant pain (principal)
CPT/HCPCS: 99213

== ENCOUNTER 2025-03-22 14:48 | Outpatient (AMB) | payer OTHER, SELFPAY ==
[2025-03-22 14:51] VITALS: BP 104/80; PULSE 113; TEMP 36.3; O2SAT 95; BMI 26.7
--- NOTE | 2025-03-22 14:51 | A.OFFPC_ITS ---
Vital Signs 3 03/22/25 14:51 Height 5 ft 10 in Weight 186 lb BMI 26.7 BP 104/80 Blood Pressure Location Lt brachial Position Sitting Pulse 113 H Pulse Source Pulse Oximeter Temp 97.3 F Temp Source Temporal Artery Scan Pulse Oximetry (%) 95 Oxygen Delivery Method Room Air Intake Visit Reasons: Annual physical - see comments Program Professional Required: No Accompanied by: Self / Same As Patient Allergies amoxicillin Allergy (Severe, Verified 03/22/25 15:16) Anaphylaxis Penicillins (PENICILLINS) Allergy (Severe, Verified 03/22/25 15:16) Anaphylaxis IV dye Adverse Reaction (Severe, Uncoded 03/22/25 15:16) Anaphylaxis Medication List - Last Reconciled 03/22/25 by Chapito Jara PA-C acetaminophen 500 mg PO Q6H PRN 30 days albuterol sulfate 90 mcg/actuation (Ventolin HFA) 2 puffs inhalation Q4-6H 30 days bisacodyl 5 mg PO ONCE 1 day diphenhydramine HCl 50 mg PO ONCE 1 day hydrocodone-acetaminophen 5-325 mg 1 tab PO Q8H PRN 5 days nicotine (Nicoderm CQ) 1 patch transdermal DAILY omeprazole 20 mg PO DAILY omeprazole 40 mg PO BID polyethylene glycol 3350 (Miralax) 238 grams PO ONCE tizanidine 2 mg PO Q8H 7 days Tobacco use date assessed: 12/30/24 Dental Screening Dental Screen Date: 12/30/24 HPI Annual physical - see comments 2 HPI0 Details Blaine is a 60 year-old male here today for annual physical. Patient has a past medical history significant for tobacco dependency, bilateral wrist and hand arthritis, carpal tunnel syndrome. .. Concern--> Blaine has a small hiatal hernia and esophagitis, with symptoms of reflux and esophageal thickening noted on imaging. The patient has been experiencing abdominal pain, which he describes as radiating from the front to the back, particularly when coughing. Most of his pain is located in the right upper abdominal quadrant. He has undergone testing such as a CT of the abdomen and HIDA scan though did not show gallbladder dysfunction. Does have a tiny calculus in the gallbladder. .. Hyperlipidemia: He reports he has stopped using simvastatin 20 mg. Will recheck lipid panel to ensure stable total cholesterol and LDL. Unfortunately has started smoking again. . Lung cancer: Recently had a right lung resection due to positive findings lung cancer. Since the surgery, he reports a decline in respiratory function, despite cessation of smoking and other inhaled substances. He uses THC gummies and a liquid tincture for pain management and relaxation. .. Bilateral hand and wrist arthritis: He is already underwent carpal tunnel release surgery though continues to have numbness, hand weakness and bilateral wrist pain. He reports his wrist pain and weakness affects his hands and limits his ability to perform daily tasks. 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 .. Former smoker : He reports he has completely quit smoking since November of 2024. Colon cancer screening: awaiting colonoscopy interested in new screening- does have family history of GI malignancy Vaccines: Declines covid, UTD with tdap , Declines COVID and Shingles vaccine PFSH Medical History (Updated 03/22/25 @ 15:30 by Chapito Jara PA-C) Acid reflux Rash and nonspecific skin eruption Stress at home No natural teeth Lung cancer Arthritis [place] (hard of hearing) Hx of syncope (2011) Asthma Pneumothorax SLAC (scapholunate advanced collapse) wrist History of adenomatous polyp of colon Nicotine dependence, cigarettes, uncomplicated Surgical History History of lobectomy of lung Hx of colonoscopy History of carpal tunnel release of both wrists Hx of chest tube placement (11/14/24) History of lung biopsy (11/14/24) Right upper lobe pulmonary nodule History of left knee surgery (~1989) Family History Mother Heart attack, Onset Age: 28 Stroke Father Renal cancer Maternal Grandfather Pancreatic cancer Social History Household Members: Spouse Household Members Other:: daughter, 4 granddaughters Housing: House Are you a primary animal care provider to a significant other at home: No Do you presently have visiting nurse or other home services: No Alcohol intake: current Alcohol intake frequency: holidays/special occasions only Comment: COUNTS CORRECT Patient Tobacco Use Status: Former Tobacco user Tobacco use type: Cigarette Cigarette Packs Per Day: 1 Cigarettes Per Day: 20.0 Years Smoked: (onset 14yo, 1/2-1ppd x 44yrs, 30+pyh - quit 11/13/24) e-Cigarette/Vaping Use: Never Used Second Hand Smoke Exposure: Yes Substance Use Type: Marijuana and Caffiene service: No Current occupational status: employed 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 Jourdan Tellez, Lorri Trammell, Ricardo Hernandez and colleagues, with an educational grazyna from [employer]. Review of Systems Const Denies body aches, Denies chills, Denies excessive sweating, Denies fatigue, Denies fever(s) and Denies headache(s) Eyes Denies blurry vision ENT Denies dysphagia, Denies vertigo, Denies dizziness, Denies headache(s), Denies hearing loss and Denies tinnitus Card Denies chest pain, Denies chest pain with activity, Denies syncope, Denies irregular heart rhythm and Denies dyspnea Resp Denies chest congestion, Denies cough, Denies hemoptysis, Denies dyspnea and Denies wheezing GI Denies abdominal pain, Denies melena, Denies hematochezia, Denies coffee ground emesis, Denies dysphagia, Denies diarrhea, Denies nausea and Denies vomiting Denies difficulty urinating, Denies dysuria, Denies urinary frequency, Denies urinary hesitancy and Denies urinary urgency Musc Denies arthralgias, Denies limited range of motion, Denies muscle cramps and Denies muscle weakness Skin/Breast Denies rash and Denies skin ulcer Neuro Denies Abnormal speech present, Denies confusion, Denies vertigo, Denies dizziness, Denies syncope, Denies headache(s), Denies memory loss and Denies seizure-like activity Psych Denies anxiety, Denies confusion, Denies depression, Denies memory loss, Denies panic attacks and Denies paranoia Endo Denies excessive sweating, Denies fatigue, Denies flushing, Denies polydipsia and Denies polyuria Aller/Immun Denies wheezing Physical exam (Primary Care) Vital Signs: Last Vital Signs Temp 97.3 F 03/22/25 14:51 Pulse 113 H 03/22/25 14:51 BP 104/80 03/22/25 14:51 Pulse Ox 95 03/22/25 14:51 Oxygen Delivery Method Room Air 03/22/25 14:51 BMI result Body Mass Index 26.7 Tobacco/Smoking Status: Tobacco use Status Tobacco use date assessed 12/30/24 03/22/25 14:51 Patient Tobacco Use Status Former Tobacco user 03/22/25 14:51 Tobacco use type Cigarette 03/22/25 14:51 e-Cigarette/Vaping Use Never Used 03/22/25 14:51 Thrive Assessment: Date of Thrive Assessment Date Thrive assessed 12/20/24 03/22/25 14:51 Const General: cooperative, comfortable, no acute distress, alert and awake; No confusion Orientation/consciousness: oriented to person, oriented to place, patient oriented x3 and No confusion HENMT Head: Yes normocephalic Ears: external ears normal and TM's normal bilaterally Face and sinus: No sinus tenderness Mouth: Normal oral and palatal mucosa present and tongue normal Teeth and gingiva: dentition normal and gingiva normal Throat: Yes posterior oropharynx normal, Yes tonsils normal and Yes uvula midline Eyes Conjunctivae: conjunctivae normal Sclerae: sclerae normal Pupils: Equal, round and reactive pupils present EOM: EOMs intact bilaterally Direct Ophthalmoscopy: No no photophobia Neck Neck: Yes no lymphadenopathy, No tender and Yes no JVD Thyroid: Thyroid normal Carotids: no bruits Chest Chest palpation & inspection: no tenderness Resp Effort & Inspection: normal respiratory effort, no audible wheezes, not labored and no stridor Auscultation: no crackles, no rales, no rhonchi and no wheezes Cardio Jugular venous distension: no JVD Rate: regular rate, not bradycardic and not tachycardic Rhythm: regular rhythm Bruits: no carotid bruits Peripheral pulses: Peripheral pulses 2+ throughout GI Inspection: Yes normal to inspection, No abdominal wall ecchymosis and No visible herniation Palpation (GI): Soft to palpation, nontender, no guarding, not rigid and No hepatosplenomegaly present Auscultation: normoactive bowel sounds Abdomen image: 2 1. VERY TENDER TO PALPATION IN THE AREA OUTLINED General: Yes no CVA tenderness Back/Spine/Pelvis Back: no CVA tenderness and No back tenderness Cervical Spine: cervical ROM normal Thoracic/Lumbar Spine: thoracic and lumbar spine normal to inspection, straight leg raise negative bilaterally, No thoraco-lumbar ROM limited and No lumbar spinal tenderness Skin Lesions: no lesions Rashes: no rashes Wounds: no wounds Neuro General: oriented to person, oriented to place, patient oriented x3, CN's II-XI intact bilaterally and No confusion Cranial nerves: Yes Equal, round and reactive pupils present and Yes Normal accommodation reflex present Cognition (Neuro): normal cognition Speech: No Abnormal speech present Gait exam (Neuro): Normal gait present Motor exam (neuro): 5/5 motor strength present throughout Extrem Right upper extremity: full ROM; no cyanosis Left upper extremity: full ROM; no cyanosis Right lower extremity: no edema Left lower extremity: no edema Psych Appearance: grossly normal Mental Status: mental status grossly normal Affect: normal affect Attitude: cooperative Thought process: Normal thought process present Coding Level of Care Code Est Pt Prev Care 40-64y(31704) Diagnoses Annual physical exam Z00.00 Gastroesophageal reflux disease, unspecified whether esophagitis present K21.9 Esophagitis presence: esophagitis presence not specified Hiatal hernia K44.9 Primary osteoarthritis of both hands M19.041; M19.042 Laterality: bilateral Osteoarthritis type: primary Right upper quadrant abdominal pain R10.11 Assessment & Plan Assessment & Plan (1) Annual physical exam: Code(s): Z00.00 - Encounter for general adult medical examination without abnormal findings Category: Medical Plan: As per HPI (2) Acid reflux: Code(s): K21.9 - Gastro-esophageal reflux disease without esophagitis Category: Medical Qualifiers: Esophagitis presence: esophagitis presence not specified Qualified Code(s): K21.9 - Gastro-esophageal reflux disease without esophagitis Plan: Patient is awaiting appointment for upper endoscopy due to his GERD symptoms and right upper quadrant abdominal pain. Has a extensive workup so far for his right upper quadrant pain including HIDA scanning and abdominal CT. He does have positive findings of esophagitis and a hiatal hernia. Also was found to have a tiny gallbladder stone. (3) Hiatal hernia: Code(s): K44.9 - Diaphragmatic hernia without obstruction or gangrene Category: Medical Plan: As above (4) Osteoarthritis, hand: Code(s): M19.049 - Primary osteoarthritis, unspecified hand Category: Medical Qualifiers: Laterality: bilateral Osteoarthritis type: primary Qualified Code(s): M19.041 - Primary osteoarthritis, right hand; M19.042 - Primary osteoarthritis, left hand Plan: The patient experiences arthritis in his hands, affecting his ability to perform tasks at work. He is advised to manage symptoms with pain relief measures and to consider reducing physical strain at work. (5) Right upper quadrant abdominal pain: Code(s): R10.11 - Right upper quadrant pain Category: Medical Plan: As above at this time is unclear etiology to patient's abdominal pain, he is awaiting to hear back from Gastroenterology for further workup including colonoscopy and endoscopy Orders: Referrals 2 Orthopedics Referral M19.031 - Primary osteoarthritis, right wrist, M19.032 - Primary osteoarthritis, left wrist
== END 2025-03-22 15:57 | disposition home or self-care (01) ==
LOC: HO.HMCH 14:49
PROVIDERS: PCP Physician Assistant; Visit Provider Physician Assistant
DX: Z00.00 Encounter for general adult medical examination without abnormal findings (principal); K21.9 Gastro-esophageal reflux disease without esophagitis; K44.9 Diaphragmatic hernia without obstruction or gangrene; M19.041 Primary osteoarthritis, right hand; M19.042 Primary osteoarthritis, left hand; R10.11 Right upper quadrant pain

== ENCOUNTER → 2025-03-22 14:48 | Outpatient (BNVA) | payer OTHER, SELFPAY | PROVIDERS: PCP Physician Assistant; Visit Provider Physician Assistant | DX: Z13.89 Encounter for screening for other disorder (principal) ==

== ENCOUNTER 2025-04-28 10:14 | Day surgery (SDC) | payer OTHER, SELFPAY ==
[2025-04-28 10:39] VITALS: BP 119/84; PULSE 92; RESP 16; TEMP 36.8; O2SAT 96; BMI 24.9
[2025-04-28] MEDS: Albuterol Sulfate (0.083%) 2.5 MG/3 ML VIAL.NEB INHALE (10:52)
[2025-04-28] MEDS: Lactated Ringers 1,000 ML 50 ML IVCONT (10:55)
--- NOTE | 2025-04-28 11:08 | MHC.SHP ---
Pre-Procedural Eval Section A - 24 Hr Update-Section A only Date of Service: 04/28/25 The patient is an INPATIENT: No The patient has been examined within 24 hours of the surgical procedure. The History & Physical has been completed within 30 days and I have reviewed it.: No Section B - Complete if H&P > 30 days Chief Complaint: gerd, dysphagia, surveillance for colon polyps Relevant Family History (Specify if Yes): No Relevant Social History: Tobacco Use (Former smoker) Present Medications: see Short Stay Collaborative assessment Medical History: Significant History (Acid reflux Rash and nonspecific skin eruption Stress at home No natural teeth Lung cancer Arthritis [place] (hard of hearing) Hx of syncope (2011) Asthma Pneumothorax SLAC (scapholunate advanced collapse) wrist History of adenomatous polyp of colon Nicotine dependence, cigarettes, uncomplicated) History of Previous Operations: Relevant previous surgery/procedure and date(s) (History of lobectomy of lung Hx of colonoscopy History of carpal tunnel release of both wrists Hx of chest tube placement (11/14/24) History of lung biopsy (11/14/24) Right upper lobe pulmonary nodule History of left knee surgery (~1989)) Allergies: Allergies Allergy/AdvReac Type Severity Reaction Status Date / Time amoxicillin Allergy Severe Anaphylaxis Verified 04/28/25 10:33 Penicillins (PENICILLINS) Allergy Severe Anaphylaxis Verified 04/28/25 10:33 IV dye AdvReac Severe Anaphylaxis Uncoded 03/22/25 15:16 Review of Systems Sugical H&P ROS: Negative: Constitution, Cardiovascular and Respiratory and Yes, Specify: Gastrointestinal (GERD, dysphagia) Exam Surgical H&P Exam: Normal: Heart, Normal: Lungs, Normal: Extremities and Normal: Abdomen Plan Diagnosis/Plan: Unchanged I have reviewed the history and physical and performed a pertinent physical examination on my patient. No changes have occurred unless specified. Time Spent With Patient Time: Total time managing care of this patient today ____ minutes.
--- NOTE | 2025-04-28 11:44 | P.CONAN_ITS ---
HPI - Anesthesia Eval Consult details Narrative: for EGD and colonoscopy PMFSH Active Problems Active Problems: All Active Problems Hiatal hernia (Acute) Allergic reaction (Acute) Biliary colic symptom (Acute) Status post lobectomy of lung (Acute) Right upper quadrant abdominal pain (Acute) Acalculous cholecystitis (Acute) Right upper quadrant abdominal pain (Acute) Status post lobectomy of lung (Acute) S/P lobectomy of lung (Acute) Chronic bronchitis (Acute) Malignant neoplasm of right upper lobe of lung (Acute) Tinea unguium (Acute) SNHL (sensorineural hearing loss) (Acute) Basal cell carcinoma, face (Acute) MDD (major depressive disorder), recurrent episode, moderate (Acute) Asthma (Acute) Osteoarthritis, hand (Acute) Strain of flexor muscle, fascia and tendon of right ring finger at forearm level, sequela (Acute) HLD (hyperlipidemia) (Acute) Carpal tunnel syndrome on both sides (Acute) Osteoarthritis of wrists, bilateral (Acute) Right wrist pain (Acute) Left wrist pain (Acute) Annual physical exam (Acute) Chronic diarrhea (Acute) Acid reflux (Acute) Rash and nonspecific skin eruption (Acute) Nicotine dependence, cigarettes, uncomplicated (Acute) Past Medical History Medical History (Updated 04/28/25 @ 10:54 by Maia Mccray RN) COPD (chronic obstructive pulmonary disease) Acid reflux Rash and nonspecific skin eruption Stress at home No natural teeth Lung cancer Arthritis [place] (hard of hearing) Hx of syncope (2011) Asthma Pneumothorax SLAC (scapholunate advanced collapse) wrist History of adenomatous polyp of colon Nicotine dependence, cigarettes, uncomplicated Family History Family History Mother Heart attack, Onset Age: 28 Stroke Father Renal cancer Maternal Grandfather Pancreatic cancer Family history of problems with anesthesia: No Surgical History Surgical History (Updated 04/28/25 @ 10:33 by Maia Mccray RN) Hx of umbilical hernia repair History of lobectomy of lung Hx of colonoscopy History of carpal tunnel release of both wrists Hx of chest tube placement (11/14/24) History of lung biopsy (11/14/24) Right upper lobe pulmonary nodule History of left knee surgery (~1989) History of Problems with Anesthesia: No Social History Social History Household Members: Spouse Household Members Other:: daughter, 4 granddaughters Housing: House Are you a primary urgent care to a significant other at home: No Do you presently have visiting nurse or other home services: No Alcohol intake: current Alcohol intake frequency: former alcohol drinker Comment: COUNTS CORRECT Patient Tobacco Use Status: Former Tobacco user Tobacco use type: Cigarette Cigarette Packs Per Day: 1 Cigarettes Per Day: 20.0 Years Smoked: (onset 14yo, 1/2-1ppd x 44yrs, 30+pyh - quit 11/13/24) e-Cigarette/Vaping Use: Never Used Second Hand Smoke Exposure: Yes Substance Use Type: Marijuana and Caffiene Substance Use Type Other:: former edibles Are you DNR?: No Advance Directives: No Advance Directives Information Provided: Yes service: No Current occupational status: employed 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, 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 Current occupational exposures/hazards: No Cognitive needs: No Hearing needs: No Vision needs: No Meds Allergies Allergy/AdvReac Type Severity Reaction Status Date / Time amoxicillin Allergy Severe Anaphylaxis Verified 04/28/25 10:33 Penicillins (PENICILLINS) Allergy Severe Anaphylaxis Verified 04/28/25 10:33 IV dye AdvReac Severe Anaphylaxis Uncoded 03/22/25 15:16 Active Medications: Current Medications Lactated Ringer's (Lr) 1,000 mls @ 50 mls/hr IVCONT .Q20H SARAH Last Admin: 04/28/25 10:55 Dose: 50 mls/hr Home Medications ?Medication ?Instructions ?Recorded ?Confirmed ?Last Taken ?Type Tums PO PRN Heartburn 04/28/25 U nknown History Exam Height,Weight and Vital Signs: Height 5 ft 10 in Weight 78.8 kg Last Vital Signs Temp 98.2 F 04/28/25 10:39 Pulse 92 04/28/25 10:39 Resp 16 04/28/25 10:39 BP 119/84 04/28/25 10:39 Pulse Ox 96 04/28/25 10:39 O2 Del Method Room Air 04/28/25 10:39 Airway Mallampati Class: II TM Dist: >3cm Neck ROM: Full Denture: Upper and Lower Heart: ok Lungs: COPD, lung cancer. SpO2 96% on room air. Normal exp phase, no wheeze. Assessment and Plan Assessment Anesthesia Assessment: Anesthesia Plan Discussed and Chart Reviewed Final Anesthetic Review Family History of Problems with Anesthesia: No History of Problems with Anesthesia: No NPO: Yes ASA Class: III Final Preanesthetic Review: No Changes in Pt Med Stat, Meds/Allgs Chart Reviewed, Consent Obtained/Reviewed and Anes Risks/Benef Reviewed Patient Risk: High Procedure Risk: Intermediate Anesthetic Plan Anesthetic Plan: Agree w/ Assess. and Plan and TIVA Disposition: Standard PACU
--- NOTE | 2025-04-28 12:08 | P.OPN-COLO_ITS ---
Colonoscopy Operative Note Operative Note Date of Service: 04/28/25 Narrative: FLEXIBLE TRANSORAL UPPER GASTROINTESTINAL ENDOSCOPY WITH BIOPSIES AND COLONOSCOPY TILL CECUM WITH SNARE POLYPECTOMY Pre-op diagnosis: Surveillance for colon polyps, GERD Post-op diagnosis: Esophagitis, hiatal hernia, esophageal nodule, Gastritis, duodenal nodule Colon Polyps, Diverticulosis, hemorrhoids Endoscopist:? Louise Ayala MD Anesthesia:?MAC UPPER ENDOSCOPY Consent: Indications for the procedure and potential complications of bleeding, perforation, reaction to medications and missed diagnosis were discussed with the patient and informed consent was obtained. Instrument: Olympus GIF H 190 mid size upper endoscope Monitoring: Vital signs and clinical assessment, continuous EKG monitoring, Pulse oximetry, Carbon Dioxide monitoring and blood pressure monitoring were done throughout the procedure. Procedure: The patient was placed in the left lateral decubitis position and pre-procedure medications were administered and a bite block was placed. The endoscope was inserted into the mouth and advanced under direct vision to the third part of duodenum. A careful inspection was made as the upper endoscope was withdrawn including a retroflexed examination of the proximal stomach; Findings and interventions are described below. Findings: Larynx: Normal Esophagus: GE junction at 38 cms, hiatal hernia 38 to 42 cms. A 1.5 cms benign appearing nodule at the GE junction - biopsied. Grade B esophagitis. Stomach: Moderate diffuse gastric erythema - biopsies were obtained from the gastric body and antrum. Grade 4 flap valve on retroflexed examination of the cardia. Duodenum: A 10-12 mm benign appearing nodule in the apex of the bulb and normal descending duodenum Biopsies were obtained from descending duodenum to check for celiac sprue Intervention: Biopsies as noted above COLONOSCOPY PROCEDURE NOTE Instrument: Olympus CF H 190 L variable stiffness adult colonoscope Monitoring: Vital signs and clinical assessment, intermittent blood pressure monitoring, continuous EKG monitoring, Pulse oximetry and Carbon Dioxide monitoring were done throughout the procedure. Please see anesthesia flowsheet. Colon withdrawl time was 20 minutes. Procedure: The patient was placed in the left lateral decubitis position and pre-procedure medications were administered. After a digital rectal examination of the ano-rectum, the video colonoscope was inserted into the rectum and advanced through the colon to the cecum. The colonoscope was slowly withdrawn in a retrograde panoramic fashion and the colon mucosa was carefully examined including a retroflexed view of the rectum. Findings and interventions are described below. Procedure Difficulty: without difficulty Findings: Terminal Ileum: Not evaluated Cecum: Normal Ascending Colon: Normal Transverse Colon: Normal Descending Colon: Two 10-12 mm sessile polyps - removed with a hot snare. Moderate diverticulosis Sigmoid Colon: Two 10 mm sessile polyps - removed with a hot snare. Moderate diverticulosis Rectum: Normal Ano-rectum: Small internal hemorrhoids Colon preparation: Good after some irrigation. [place] Bowel Preparation Scale Right colon; 2 Transverse colon: 2 Left colon; 2 (0 = Unprepared colon segment with mucosa not seen due to solid stool that cannot be cleared. 1 = Portion of mucosa of the colon segment seen, but other areas of the colon segment not well seen due to staining, residual stool and/or opaque liquid. 2 = Minor amount of residual staining, small fragments of stool and/or opaque liquid, but mucosa of colon segment seen well. 3 = Entire mucosa of colon segment seen well with no residual staining, small f ragments of stool or opaque liquid) Impression and Post Procedure Diagnosis: Endoscopy Findings: ESOPHAGUS: Hiatal hernia, benign appearing nodule at the GE junction STOMACH: Diffuse gastritis DUODENUM: Benign-appearing duodenal nodule, small bowel biopsies were obtained to check for celiac sprue. Colonoscopy Findings: Four medium sized polyps were removed Moderate diverticulosis seen in the left colon Small hemorrhoids on retroflexed exam. Plan: Pt has a FU appointment on 06/02/25 with Yessi Metcalf NP Repeat Colonoscopy in 3-5 years if polyps are adenomatous and due to history of colon polyps. A summary of above findings and relevant handouts were given to the patient. BIOPSIES SHOWED: A. Small bowel, biopsy: Duodenal mucosa within normal limits. B. 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 C. Stomach, antrum, biopsy: Antral-type mucosa within normal limits; no Helicobacter organisms seen. D. Stomach, body, biopsy: Small fragments of oxyntic mucosa within normal limits. E. EG junction, nodule, biopsy: - [place] esophagus with background mild chronic inactive inflammation. - No dysplasia seen. - Active esophagitis (maximum eosinophil count 1 per high powered field). F. Colon, descending, polypectomy: Sessile serrated lesion/polyp; negative for cytologic dysplasia. G. Colon, sigmoid, polypectomies: Fragments of tubular adenomata; negative for high-grade dysplasia or carcinoma. Comment: Diagnostic morphologic features of celiac disease are not seen. Letter sent to the patient with biopsy results. Patient placed on the procedure recall list for repeat EGD in 1 year (follow-up of esophageal nodule with Barretts metaplasia) and repeat colonoscopy in 3 years.
[2025-04-28 12:44] VITALS: BP 105/69; PULSE 107; RESP 22; TEMP 36.1; O2SAT 94
[2025-04-28 12:59] VITALS: BP 118/77; PULSE 99; RESP 20; TEMP 36.2; O2SAT 97
== END 2025-04-28 13:25 | disposition home or self-care (01) ==
PROVIDERS: PCP Physician Assistant; Visit Provider Internal Medicine Gastroenterology
PROC: (CPT 45385; principal; 2025-04-28 12:00)
DX: Z12.11 Encounter for screening for malignant neoplasm of colon (principal); D12.4 Benign neoplasm of descending colon; D12.5 Benign neoplasm of sigmoid colon; K57.30 Diverticulosis of large intestine without perforation or abscess without bleeding; K64.8 Other hemorrhoids; Z86.0101 Personal history of adenomatous and serrated colon polyps; K21.9 Gastro-esophageal reflux disease without esophagitis; K22.70 Barrett's esophagus without dysplasia; K22.81 Esophageal polyp; K31.7 Polyp of stomach and duodenum; K20.90 Esophagitis, unspecified without bleeding; K29.60 Other gastritis without bleeding; K29.80 Duodenitis without bleeding; K44.9 Diaphragmatic hernia without obstruction or gangrene; R10.11 Right upper quadrant pain; E78.5 Hyperlipidemia, unspecified; J45.909 Unspecified asthma, uncomplicated; Z87.891 Personal history of nicotine dependence; Z85.118 Personal history of other malignant neoplasm of bronchus and lung
CPT/HCPCS: 45385; 43239; 88305; 88313; 88342; J2003; J2704

== ENCOUNTER → 2025-04-28 10:14 | Outpatient (BNV) | payer OTHER, SELFPAY | PROVIDERS: PCP Physician Assistant; Visit Provider Internal Medicine Gastroenterology | DX: Z12.11 Encounter for screening for malignant neoplasm of colon (principal); D12.4 Benign neoplasm of descending colon; D12.5 Benign neoplasm of sigmoid colon; K57.90 Diverticulosis of intestine, part unspecified, without perforation or abscess without bleeding; K64.8 Other hemorrhoids; K21.00 Gastro-esophageal reflux disease with esophagitis, without bleeding; K22.81 Esophageal polyp; K29.70 Gastritis, unspecified, without bleeding; K31.7 Polyp of stomach and duodenum | CPT/HCPCS: 43239; 45385 ==

== ENCOUNTER 2025-06-02 11:01 | Outpatient (AMB) | payer OTHER, SELFPAY ==
[2025-06-02 11:10] VITALS: BP 98/78; PULSE 92; O2SAT 96; BMI 27.0
--- NOTE | 2025-06-02 11:10 | A.OFFVIS_ITS ---
Vital Signs 06/02/25 11:10 Height 5 ft 10 in Weight 188 lb BMI 27.0 BP 98/78 Blood Pressure Location Lt brachial Position Sitting Pulse 92 Pulse Oximetry (%) 96 Oxygen Delivery Method Room Air Intake Visit Reasons: S/O DOUBLE Jamie Intake Note: Patient follow up for GERD, EGD/Colonoscopy results. Patient cc: nauseas, chronic abdominal pain with bloating, GERD with a lot of flame on his throat, swallowing problems with solid and liquid, and daily diarrhea. 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 Follow-up after upper endoscopy (EGD) and colonoscopy performed on 04-28-2025. The patient continues to experience gastroesophageal reflux, though improved with omeprazole 20 mg once daily. He denies missing doses and takes the medication as directed on an empty stomach, 30 minutes before food. He reports ongoing intermittent burning in the chest, a sensation of ?something stuck? in the epigastric region, and difficulty swallowing both solids and some liquids, which has persisted for the past 2?3 months. He also experiences regurgitation, particularly when bending over, accompanied by acidic or food-like taste. Diarrhea remains chronic, described as frequent, urgent, and occasionally incontinent. The patient has been adherent to a high-fiber diet but denies improvement. He has noted no recent blood in stools and reports no associated abdominal pain with bowel movements, though there is urgency and occasional accidents. He continues to bueno emotional distress over health concerns, amplified by his history of lung cancer. The patient has intermittent abdominal pain in the right abdominal quadrant radiating towards his groin, exacerbated by positional changes. He reports a lesion near his buttocks that intermittently drains and causes discomfort. There are no new hospitalizations or significant acute events since the last visit. 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 COPD (chronic obstructive pulmonary disease) Acid reflux Rash and nonspecific skin eruption Stress at home No natural teeth Lung cancer Arthritis [place] (hard of hearing) Hx of syncope (2011) Asthma Pneumothorax SLAC (scapholunate advanced collapse) wrist History of adenomatous polyp of colon Nicotine dependence, cigarettes, uncomplicated Surgical History (Updated 05/08/25 @ 10:51 by Nannette Fair) History of esophagogastroduodenoscopy (EGD) Hx of umbilical hernia repair History of lobectomy of lung Hx of colonoscopy History of carpal tunnel release of both wrists Hx of chest tube placement (11/14/24) History of lung biopsy (11/14/24) Right upper lobe pulmonary nodule History of left knee surgery (~1989) Family History Mother Heart attack, Onset Age: 28 Stroke Father Renal cancer Maternal Grandfather Pancreatic cancer Social History Household Members: Spouse Household Members Other:: daughter, 4 granddaughters Housing: House Are you a primary child care leader to a significant other at home: No Do you presently have visiting nurse or other home services: No Alcohol intake: current Alcohol intake frequency: former alcohol drinker Comment: COUNTS CORRECT Patient Tobacco Use Status: Former Tobacco user Tobacco use type: Cigarette Cigarette Packs Per Day: 1 Cigarettes Per Day: 20.0 Years Smoked: (onset 14yo, 1/2-1ppd x 43yrs, 30+pyh - quit 11/13/24) e-Cigarette/Vaping Use: Never Used Second Hand Smoke Exposure: Yes Substance Use Type: Marijuana and Caffiene service: No Current occupational status: employed 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, 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 Current occupational exposures/hazards: No Cognitive needs: No Hearing needs: No Vision needs: No Review of Systems Const Reports as per HPI ENT Reports as per HPI Card Reports as per HPI Resp Reports as per HPI GI Reports as per HPI Reports as per HPI Physical Exam Vital Signs: Last Vital Signs Pulse 92 06/02/25 11:10 BP 98/78 06/02/25 11:10 Pulse Ox 96 06/02/25 11:10 Oxygen Delivery Method Room Air 06/02/25 11:10 BMI result Body Mass Index 27.0 Const General: healthy appearing, no acute distress and well developed Nutritional Appearance: average body habitus Orientation/consciousness: patient oriented x3 HEENT Head: Yes normal to inspection, Yes normocephalic and Yes atraumatic Face and sinus: Yes normal facial exam Eyes General: appearance normal, both eyes and all related structures Neck Neck: Yes normal visual inspection Resp Effort & Inspection: normal respiratory effort, able to speak in complete sente nces, no tracheal deviation and symmetric chest movement Auscultation: clear to auscultation bilaterally Cardio Jugular venous distension: no JVD Rate: regular rate Rhythm: regular rhythm Heart sounds: S1 normal heart sound present, S2 normal heart sound present, no gallops and no murmurs GI Other: left cleft: hard liner tract + distal small hard nodule w/ scant ss drainage Inspection: Yes normal to inspection, No distended and Yes obesity Palpation (GI): Soft to palpation, not firm, nontender and No hepatosplenomegaly present Auscultation: normoactive bowel sounds Rectal Exam - Male: Yes normal sphincter tone, No Rectal prolapse, No Excoriation present (GI), No fecal impaction, No Anal fissure(s) present, No mass and Yes other Neuro General: patient oriented x3 Gait exam (Neuro): Normal gait present Psych Appearance: grossly normal Mental Status: mental status grossly normal Speech and movement: Normal speech and movement present Affect: normal affect Attitude: cooperative Thought process: Normal thought process present Thought content: Normal thought content present Insight: Good insight present (Psych) Judgement: Good judgement present (Psych) Results Reviewed Results Reviewed: Operative Note Date of Service: 04/28/25 Narrative: FLEXIBLE TRANSORAL UPPER GASTROINTESTINAL ENDOSCOPY WITH BIOPSIES AND COLONOSCOPY TILL CECUM WITH SNARE POLYPECTOMY Pre-op diagnosis: Surveillance for colon polyps, GERD Post-op diagnosis:Esophagitis, hiatal hernia, esophageal nodule, Gastritis, duodenal nodule Colon Polyps, Diverticulosis, hemorrhoids Endoscopist: Louise Ayala MD Anesthesia: [facility] UPPER ENDOSCOPY Procedure: The patient was placed in the left lateral decubitis position and pre-procedure medications were administered and a bite block was placed. The endoscope was inserted into the mouth and advanced under direct vision to the third part of duodenum. A careful inspection was made as the upper endoscope was withdrawn including a retroflexed examination of the proximal stomach; Findings and interventions are described below. Findings: Larynx: Normal Esophagus: GE junction at 38 cms, hiatal hernia 38 to 42 cms. A 1.5 cms benign appearing nodule at the GE junction - biopsied. Grade B esophagitis. Stomach: Moderate diffuse gastric erythema - biopsies were obtained from the gastric body and antrum. Grade 4 flap valve on retroflexed examination of the cardia. Duodenum: A 10-12 mm benign appearing nodule in the apex of the bulb and normal descending duodenum Biopsies were obtained from descending duodenum to check for celiac sprue Intervention: Biopsies as noted above COLONOSCOPY PROCEDURE NOTE Procedure: The patient was placed in the left lateral decubitis position and pre-procedure medications were administered. After a digital rectal examination of the ano-rectum, the video colonoscope was inserted into the rectum and advanced through the colon to the cecum. The colonoscope was slowly withdrawn in a retrograde panoramic fashion and the colon mucosa was carefully examined including a retroflexed view of the rectum. Findings and interventions are described below. Procedure Difficulty: without difficulty Findings: Terminal Ileum: Not evaluated Cecum: Normal Ascending Colon: Normal Transverse Colon: Normal Descending Colon: Two 10-12 mm sessile polyps - removed with a hot snare. Moderate diverticulosis Sigmoid Colon: Two 10 mm sessile polyps - removed with a hot snare. Moderate diverticulosis Rectum: Normal Ano-rectum: Small internal hemorrhoids Colon preparation: Good after some irrigation. [place] Bowel Preparation Scale Right colon; 2 Transverse colon: 2 Left colon; 2 Impression and Post Procedure Diagnosis: Endoscopy Findings: ESOPHAGUS: Hiatal hernia, benign appearing nodule at the GE junction STOMACH: Diffuse gastritis DUODENUM: Benign-appearing duodenal nodule, small bowel biopsies were obtained to check for celiac sprue. Colonoscopy Findings: Four medium sized polyps were removed Moderate diverticulosis seen in the left colon Small hemorrhoids on retroflexed exam. Plan: Pt has a FU appointment on 06/02/25 with Yessi Metcalf NP Repeat Colonoscopy in 3-5 years if polyps are adenomatous and due to history of colon polyps. A summary of above findings and relevant handouts were given to the patient. PATHOLOGY: Collected: 04/28/25 Location: [facility] Received: 04/28/25 Diagnosis A. Small bowel, biopsy: Duodenal mucosa within normal limits. B. 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 C. Stomach, antrum, biopsy: Antral-type mucosa within normal limits; no Helicobacter organisms seen. D. Stomach, body, biopsy: Small fragments of oxyntic mucosa within normal limits. E. EG junction, nodule, biopsy: - Arteaga esophagus with background mild chronic inactive inflammation. - No dysplasia seen. - Active esophagitis (maximum eosinophil count 1 per high powered field). F. Colon, descending, polypectomy: Sessile serrated lesion/polyp; negative for cytologic dysplasia. G. Colon, sigmoid, polypectomies: Fragments of tubular adenomata; negative for high-grade dysplasia or carcinoma. Comment: Diagnostic morphologic features of celiac disease are not seen. Clinical History Pre-Op Dx: GERD, dysphagia, surveillance for colon polyps Post-Op Dx: Duodenal nodule, esophageal nodule, hiatal hernia, esophagitis, gastritis, colon polyps, diverticulosis, hemorrhoids Assessment & Plan Assessment & Plan (1) Acid reflux: Comment: 04/28/25 EGD -Arteaga esophagus, Duodenal nodule, esophageal nodule, hiatal hernia, esophagitis, gastritis. Recommendations for repeat in one year Code(s): K21.9 - Gastro-esophageal reflux disease without esophagitis Category: Medical Qualifiers: Esophagitis presence: with esophagitis Esophagitis bleeding: without hemorrhage Qualified Code(s): K21.00 - Gastro-esophageal reflux disease with esophagitis, without bleeding Plan: With Arteaga's Esophagus. Symptoms are improving but residual burning, regurgitation, and dysphagia persist. Due to breakthrough symptoms, increase omeprazole dosage. Medications: Increase omeprazole to 20 mg BID. Nursing Program Director regarding adherence and proper timing with meals. Lifestyle Recommendations: Avoid alcohol consumption entirely. Continue avoiding known reflux triggers (e.g., caffeine, acidic/spicy foods). Testing/Procedures: -Schedule a barium swallow study to investigate possible structural abnormalities (e.g., stricture, hiatal hernia) contributing to dysphagia. -repeat EGD in one year (04/2026) Follow-Up Plan: Reassess reflux and swallowing symptoms in three months. (2) Diarrhea: Comment: 04/28/25 colonoscopy complete with good prep after irrigation- Two 10-12 mm sessile serrated lesion/polyp (Descending Colon), Two 10 mm tubular adenomata (Sigmoid Colon), internal hemorrhoids. Per guidelines repeat in 3 years. Code(s): R19.7 - Diarrhea, unspecified Category: Medical Qualifiers: Diarrhea type: unspecified type Qualified Code(s): R19.7 - Diarrhea, unspecified Plan: Stable but persistent with urgency, occasional incontinence, and no significant response to increased fiber intake. Reviewed colonoscopy, no attributable findings noted. Testing: Stool sample to evaluate for malabsorption or infectious pathogens. Additional blood work ordered. Medications: Recommend trial of Imodium 2 mg PRN, titrate up to 16 mg/day based on symptom control. Patient advised against routine daily intake without further guidance. Lifestyle Recommendations: Continue high-fiber diet and maintain hydration (~84 oz water daily). Follow-Up Plan: Reassess in three months after stool results and Imodium trial. (3) Acalculous cholecystitis: Code(s): K81.9 - Cholecystitis, unspecified Category: Medical Plan: Symptomatic with intermittent right-sided pain radiating to the groin. Referrals: Established with general surgery. Escorted patient to department to schedule a follow up to revisit for continued discussion of potential cholecystectomy. (4) Perianal abscess: Code(s): K61.0 - Anal abscess Category: Medical Plan: Draining lesion with associated tenderness. Testing/Procedures: Include assessment of the lesion in w/l to surgical pr ovider. Plan Follow-up in 3 months or sooner as needed Time: I spent a total of 60 minutes on the date of encounter which includes: Preparing to see the patient (reviewed previous documentation, test results and medical history) Performing a medically appropriate exam and/or evaluation Ordering medications, tests, and procedures Documenting clinical information in the health record Orders: Orders Vitamin E Today R19.7 - Diarrhea, unspecified Vitamin D 1,25 dihydroxy Today R19.7 - Diarrhea, unspecified Ova and Parasite Today R19.7 - Diarrhea, unspecified [place] barium swallow Today R13.10 - Dysphagia, unspecified Vitamin K1 Today R19.7 - Diarrhea, unspecified Vitamin A Today R19.7 - Diarrhea, unspecified Fecal Fat Qualitative Today R19.7 - Diarrhea, unspecified Coding Level of Care Code Established Pt Est Pt Level 5 (36769) Patient Type Established Diagnoses Gastroesophageal reflux disease with esophagitis without hemorrhage K21.00 Esophagitis presence: with esophagitis Esophagitis bleeding: without hemorrhage Diarrhea, unspecified type R19.7 Diarrhea type: unspecified type Acalculous cholecystitis K81.9 Perianal abscess K61.0
== END 2025-06-02 12:02 | disposition home or self-care (01) ==
LOC: HO.HGI 11:02
PROVIDERS: PCP Physician Assistant; Visit Provider Nurse Practitioner Family
DX: K21.00 Gastro-esophageal reflux disease with esophagitis, without bleeding (principal); R19.7 Diarrhea, unspecified; K81.9 Cholecystitis, unspecified; K61.0 Anal abscess
CPT/HCPCS: 99215

== ENCOUNTER 2025-06-29 14:49 | Outpatient (AMB) | payer OTHER, SELFPAY ==
[2025-06-29 14:52] VITALS: BP 140/90; PULSE 103; TEMP 36.4; O2SAT 96; BMI 28.3
--- NOTE | 2025-06-29 14:52 | MHC.PC.OV ---
Vital Signs 06/29/25 14:52 Height 5 ft 10 in Weight 197 lb 6 oz BMI 28.3 BP 140/90 H Blood Pressure Location Lt brachial Position Sitting Pulse 103 H Pulse Source Pulse Oximeter Temp 97.5 F Temp Source Temporal Artery Scan Pulse Oximetry (%) 96 Oxygen Delivery Method Room Air Intake Visit Reasons: 3 mnth f/u - see comments Allergies amoxicillin Allergy (Severe, Verified 06/29/25 15:06) Anaphylaxis Penicillins (PENICILLINS) Allergy (Severe, Verified 06/29/25 15:06) Anaphylaxis IV dye Adverse Reaction (Severe, Uncoded 06/29/25 15:06) Anaphylaxis Medication List - Last Reconciled 06/29/25 by Chapito Jara PA-C acetaminophen 500 mg PO Q6H PRN 30 days albuterol sulfate 90 mcg/actuation (Ventolin HFA) 2 puffs inhalation Q4-6H 30 days hydrocodone-acetaminophen 5-325 mg 1 tab PO Q8H PRN 5 days omeprazole 20 mg PO BID 60 days tizanidine 2 mg PO Q8H 7 days [Tums PO PRN] Tobacco use date assessed: 06/29/25 Dental Screening Dental Screen Date: 06/29/25 Did you have a dental visit in the last 12 months?: No Did you have a dental problem in the last 6 months where you did not have access to dental care?: No Was dental information given to patient?: Patient declined HPI 3 mnth f/u - see comments HPI Details Blaine is a 60 year-old male here today for follow-up visit Patient has a past medical history significant for tobacco dependency, bilateral wrist and hand arthritis, carpal tunnel syndrome. .. Concern--> Blaine has a small hiatal hernia and esophagitis, with symptoms of reflux and esophageal thickening noted on imaging. The patient has been experiencing abdominal pain, which he describes as radiating from the front to the back, particularly when coughing. Most of his pain is located in the right upper abdominal quadrant. He has undergone testing such as a CT of the abdomen and HIDA scan though did not show gallbladder dysfunction. Does have a tiny calculus in the gallbladder. Has recently followed up with Gastroenterology and will be sent for barium swallow test in further stool tests. Concern--> ? Asthma versus COPD. Was a smoker for many many years. He continually has a mild wheeze particularly during physical activity, and has not yet seen a latent print examiner despite recommendations from nurses during recent procedures. He has a history of smoking but has since quit, and currently uses albuterol as a rescue inhaler. .. Hyperlipidemia: Has a history of hyperlipidemia, did stop simvastatin quite some time ago due to side effects. Will recheck his lipid panel to ensure stable . Lung cancer: Recently had a right lung resection due to positive findings lung cancer. Since the surgery, he reports a decline in respiratory function, despite cessation of smoking and other inhaled substances. He uses THC gummies and a liquid tincture for pain management and relaxation. .. Bilateral hand and wrist arthritis: He is already underwent carpal tunnel release surgery though continues to have numbness, hand weakness and bilateral wrist pain. He reports his wrist pain and weakness affects his hands and limits his ability to perform daily tasks. 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 .. Former smoker : Has a history of pulmonary nodule with removal by Dr. Golden. He reports he has completely quit smoking since November of 2024 [facility] Medical History (Updated 07/03/25 @ 07:21 by Chapito Jara PA-C) Perianal abscess Dysphagia Diarrhea Tubular adenoma of colon [place] esophagus determined by biopsy COPD (chronic obstructive pulmonary disease) Acid reflux Rash and nonspecific skin eruption Stress at home No natural teeth Lung cancer Arthritis [place] (hard of hearing) Hx of syncope (2011) Asthma Pneumothorax SLAC (scapholunate advanced collapse) wrist History of adenomatous polyp of colon Nicotine dependence, cigarettes, uncomplicated Surgical History History of esophagogastroduodenoscopy (EGD) Hx of umbilical hernia repair History of lobectomy of lung Hx of colonoscopy History of carpal tunnel release of both wrists Hx of chest tube placement (11/14/24) History of lung biopsy (11/14/24) Right upper lobe pulmonary nodule History of left knee surgery (~1989) Family History Mother Heart attack, Onset Age: 28 Stroke Father Renal cancer Maternal Grandfather Pancreatic cancer Social History Household Members: Spouse Household Members Other:: daughter, 4 granddaughters Housing: House Are you a primary adult daycare coordinator to a significant other at home: No Do you presently have visiting nurse or other home services: No Alcohol intake: current Alcohol intake frequency: former alcohol drinker Comment: COUNTS CORRECT Patient Tobacco Use Status: Former Tobacco user Tobacco use type: Cigarette Cigarette Packs Per Day: 1 Cigarettes Per Day: 20.0 Years Smoked: (onset 14yo, 1/2-1ppd x 44yrs, 30+pyh - quit 11/13/24) e-Cigarette/Vaping Use: Never Used Second Hand Smoke Exposure: Yes Substance Use Type: Marijuana and Caffiene service: No Current occupational status: employed 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 1. Little interest or pleasure in doing things: not at all 2. Feeling down, depressed, or hopeless: not at all 3. Trouble falling or staying asleep, or sleeping too much: not at all 4. Feeling tired or having little energy: not at all 5. Poor appetite or overeating: not at all 6. Feeling bad about yourself - or that you are a failure or have let yourself or your family down: not at all 7. Trouble concentrating on things, such as reading the newspaper or watching television: not at all 8. Moving or speaking so slowly that other people could have noticed. Or the opposite - being so fidgety or restless that you have been moving around a lot more than usual: not at all 9. Thoughts that you would be better off or of hurting yourself in some way: not at all Total score: 0 Depression Screening Interpretation: Negative Depression Screening Done: Yes Source: Developed by Drs. Jourdan Tellez, Lorri Trammell, Ricardo Hernandez and colleagues, with an educational grazyna from [employer]. Thrive Questionnaire Date Thrive assessed: 12/20/24 I am a: Patient What is your living situation today?: I have a steady place to live Within the past 12 months, did the food you bought not last and you didn't have the money to get more?: Never true Within the past 12 months, did you worry whether your food would run out before you got money to buy more?: Never true Do you have trouble paying for medicines?: No Do you have trouble getting transportation to medical appointments?: No Do you have trouble paying your heating and electricity bill?: No Do you have trouble taking care of your child, family member or friend?: No Do you have trouble with day-to-day activities such as bathing, preparing meals, shopping, managing finances, etc.?: No Are you currently unemployed and looking for a job?: No Are you interested in more education?: No Please select the resources that you would like help with: None THRIVE Score: 0 AUDIT C Alcohol Use Questionnaire (AUDIT-C) 1. How often do you have a drink containing alcohol?: Monthly or less 2. How many drinks containing alcohol do you have on a typical day when you are drinking?: 1 or 2 3. How often do you have six or more drinks on one occasion?: Never Total Score: 1 KRISTIN-7 AMB Questionnaire KRISTIN-7 Date KRISTIN - 7 assessed: 12/30/24 Feeling nervous, anxious, or on edge: 0 = Not at all Not being able to stop or control worryin = Not at all Worrying too much about different things: 0 = Not at all Trouble relaxin = Not at all Being so restless that it is hard to sit still: 0 = Not at all Becoming easily annoyed or irritable: 0 = Not at all Feeling afraid as if something awful might happen: 0 = Not at all Total KRISTIN-7 score (0-4 normal; 5-9 mild; 10-14 moderate; 15-21 severe): 0 Source: Developed by Drs. Jourdan Tellez, Lorri Trammell, Ricardo Hernandez and colleagues, with an educational grazyna from [employer]. Review of Systems Const Denies headache(s) Eyes Denies loss of vision ENT Denies vertigo, Denies dizziness, Denies headache(s) and Denies sore throat Card Denies chest pain, Denies leg edema and Denies lightheadedness Resp Reports cough, Denies hemoptysis and Reports wheezing GI Denies abdominal pain, Denies melena, Denies constipation, Denies diarrhea and Denies vomiting Denies dysuria, Denies urinary frequency and Denies urinary urgency Musc Details: + bilateral hand and wrist pain Denies arthralgias, Reports joint swelling, Denies numbness and Denies tingling Neuro Denies Abnormal speech present, Denies behavioral changes, Denies vertigo, Denies dizziness, Denies headache(s), Denies loss of vision, Denies memory loss, Denies numbness and Denies tingling Psych Denies anxiety, Denies behavioral changes, Denies depression, Denies memory loss and Denies panic attacks Abhilash/Lymph Denies easy bleeding and Denies easy bruising Aller/Immun Reports wheezing Physical exam (Primary Care) Vital Signs: Last Vital Signs Temp 97.5 F 06/29/25 14:52 Pulse 103 H 06/29/25 14:52 BP 140/90 H 06/29/25 14:52 Pulse Ox 96 06/29/25 14:52 Oxygen Delivery Method Room Air 06/29/25 14:52 BMI result Body Mass Index 28.3 Tobacco/Smoking Status: Tobacco use Status Tobacco use date assessed 06/29/25 06/29/25 15:00 Patient Tobacco Use Status Former Tobacco user 06/29/25 15:00 Tobacco use type Cigarette 06/29/25 15:00 e-Cigarette/Vaping Use Never Used 06/29/25 15:00 PHQ-9: PHQ-9 Score PHQ-9: Total score 0 06/29/25 15:07 Depression Screening Interpretation: Negative Thrive Assessment: Date of Thrive Assessment Date Thrive assessed 12/20/24 06/29/25 15:00 Const General: healthy appearing, no acute distress, alert and awake Nutritional Appearance: well nourished Orientation/consciousness: oriented to person, oriented to place and oriented to time HENMT Ears: TM's normal bilaterally General nose exam: Normal nasal mucous membranes and turbinates present Eyes Conjunctivae: conjunctivae normal Sclerae: sclerae normal Pupils: Equal, round and reactive pupils present Neck Neck: Yes no lymphadenopathy and Yes no JVD Thyroid: Thyroid normal Carotids: no bruits Resp Effort & Inspection: normal respiratory effort and not tachypneic Auscultation: no crackles, no rales, no rhonchi and no wheezes Cardio Rate: regular rate Rhythm: regular rhythm Heart sounds: no murmurs and normal S1 and S2 GI Palpation (GI): Soft to palpation, nontender, no hepatomegaly and no splenomegaly Auscultation: normal bowel sounds Skin General skin exam: no rashes or lesions noted and dry skin Neuro General: oriented to person, oriented to place and oriented to time Cranial nerves: Yes Equal, round and reactive pupils present Speech: No Abnormal speech present Gait exam (Neuro): Normal gait present Motor exam (neuro): no tremor noted Extrem Right upper extremity: full ROM Left upper extremity: full ROM Right lower extremity: full ROM; no edema Left lower extremity: full ROM; no edema Psych Mental Status: mental status grossly normal Speech and movement: Normal speech and movement present Affect: normal affect Attitude: cooperative Thought process: Normal thought process present Coding Level of Care Code Est Pt Level 4 (40817) Diagnoses Gastroesophageal reflux disease with esophagitis without hemorrhage K21.00 Esophagitis bleeding: without hemorrhage Esophagitis presence: with esophagitis Simple chronic bronchitis J41.0 COPD type: chronic bronchitis Chronic bronchitis type: simple Hiatal hernia K44.9 Primary osteoarthritis of both hands M19.041; M19.042 Laterality: bilateral Osteoarthritis type: primary Assessment & Plan Assessment & Plan (1) Acid reflux: Comment: 04/28/25 EGD -[place] esophagus, Duodenal nodule, esophageal nodule, hiatal hernia, esophagitis, gastritis. Recommendations for repeat in one year Code(s): K21.9 - Gastro-esophageal reflux disease without esophagitis Category: Medical Qualifiers: Esophagitis bleeding: without hemorrhage Esophagitis presence: with esophagitis Qualified Code(s): K21.00 - Gastro-esophageal reflux disease with esophagitis, without bleeding Plan: Patient is awaiting appointment for upper endoscopy due to his GERD symptoms and right upper quadrant abdominal pain. Has a extensive workup so far for his right upper quadrant pain including HIDA scanning and abdominal CT. He does have positive findings of esophagitis and a hiatal hernia. Also was found to have a tiny gallbladder stone. (2) COPD (chronic obstructive pulmonary disease): Code(s): J44.9 - Chronic obstructive pulmonary disease, unspecified Category: Medical Qualifiers: COPD type: chronic bronchitis Chronic bronchitis type: simple Qualified Code(s): J41.0 - Simple chronic bronchitis Plan: We are suspecting COPD due to his smoking history The patient will be referred to a latent print examiner for further evaluation of wheezing, with potential pulmonary function tests to be conducted. A maintenance inhaler will be trialed to manage wheezing and dyspnea, with instructions to rinse the mouth after use to prevent oral thrush. (3) Hiatal hernia: Code(s): K44.9 - Diaphragmatic hernia without obstruction or gangrene Category: Medical Plan: As above (4) Osteoarthritis, hand: Code(s): M19.049 - Primary osteoarthritis, unspecified hand Category: Medical Qualifiers: Laterality: bilateral Osteoarthritis type: primary Qualified Code(s): M19.041 - Primary osteoarthritis, right hand; M19.042 - Primary osteoarthritis, left hand Plan: Has follow up with orthopedic hand surgeon Shilpa for further assessment of his bilateral hand and wrist arthritis. The patient experiences arthritis in his hands, affecting his ability to perform tasks at work. He is advised to manage symptoms with pain relief measures and to consider reducing physical strain at work. Orders: Orders Complete Blood Count no Diff 06/29/25 E78.2 - Mixed hyperlipidemia Comprehensive [place]. Panel Fast 06/29/25 E78.2 - Mixed hyperlipidemia Lipid Panel 06/29/25 E78.2 - Mixed hyperlipidemia Referrals Pulmonology Referral J45.20 - Mild intermittent asthma, uncomplicated Medications: New budesonide-formoterol 160-4.5 mcg/actuation 1 puff inhalation BID 10.2 grams 1RF 4 weeks J45.20 - Mild intermittent asthma, uncomplicated
== END 2025-06-29 15:38 | disposition home or self-care (01) ==
LOC: HO.HMCH 14:50
PROVIDERS: PCP Physician Assistant; Visit Provider Physician Assistant
DX: K21.00 Gastro-esophageal reflux disease with esophagitis, without bleeding (principal); J41.0 Simple chronic bronchitis; K44.9 Diaphragmatic hernia without obstruction or gangrene; M19.041 Primary osteoarthritis, right hand; M19.042 Primary osteoarthritis, left hand

== ENCOUNTER 2025-07-14 10:19 | Outpatient (AMB) | payer OTHER, SELFPAY ==
--- NOTE | 2025-07-14 10:34 | MHC.OFFVIS ---
Vital Signs 07/14/25 10:41 Height 5 ft 10 in Weight 194 lb BMI 27.8 BP 153/80 H Blood Pressure Location Lt brachial Position Sitting Pulse 104 H Intake Visit Reasons: Gallbladder problems, gluteal abscess Intake Note: Patient of Dr Golden is seen in office for gallbladder problems and a gluteal abscess. 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 Accompanied by: Self / Same As Patient Allergies amoxicillin Allergy (Severe, Verified 07/14/25 10:45) Anaphylaxis Penicillins (PENICILLINS) Allergy (Severe, Verified 07/14/25 10:45) Anaphylaxis IV dye Adverse Reaction (Severe, Uncoded 07/14/25 10:45) Anaphylaxis Medication List - Last Reconciled 07/18/25 by Blaine Garcia MD acetaminophen 500 mg PO Q6H PRN 30 days albuterol sulfate 90 mcg/actuation (Ventolin HFA) 2 puffs inhalation Q4-6H 30 days budesonide-formoterol 160-4.5 mcg/actuation 1 puff inhalation BID 4 weeks hydrocodone-acetaminophen 5-325 mg 1 tab PO Q8H PRN 5 days omeprazole 20 mg PO BID 60 days tizanidine 2 mg PO Q8H 7 days [Tums PO PRN] HPI Comments Details: 60-year-old male patient presenting with complaints of abdominal pain located in the right upper quadrant with episodes of nausea, vomiting, and diarrhea with every meal. He was previously evaluated by Dr. Golden and identified as having gallstones in the gallbladder. He underwent EGD and colonoscopy on 04/28/[address] Ayala. He is currently also reporting pain and occasional discharge from a darrel anal abscess and another cyst located in the posterior neck which occasionally produces foul-smelling whitish discharge. He presents today to discuss possible cholecystectomy and further management of the perirectal/perianal cyst. [facility] Medical History Perianal abscess Dysphagia Diarrhea Tubular adenoma of colon [place] esophagus determined by biopsy COPD (chronic obstructive pulmonary disease) Acid reflux Rash and nonspecific skin eruption Stress at home No natural teeth Lung cancer Arthritis [place] (hard of hearing) Hx of syncope (2011) Asthma Pneumothorax SLAC (scapholunate advanced collapse) wrist History of adenomatous polyp of colon Nicotine dependence, cigarettes, uncomplicated Surgical History History of esophagogastroduodenoscopy (EGD) Hx of umbilical hernia repair History of lobectomy of lung Hx of colonoscopy History of carpal tunnel release of both wrists Hx of chest tube placement (11/14/24) History of lung biopsy (11/14/24) Right upper lobe pulmonary nodule History of left knee surgery (~1989) Family History Mother Heart attack, Onset Age: 28 Stroke Father Renal cancer Maternal Grandfather Pancreatic cancer Social History Household Members: Spouse Household Members Other:: daughter, 4 granddaughters Housing: House Are you a primary care administrative tech to a significant other at home: No Do you presently have visiting nurse or other home services: No Alcohol intake: current Alcohol intake frequency: former alcohol drinker Comment: COUNTS CORRECT Patient Tobacco Use Status: Former Tobacco user Tobacco use type: Cigarette Cigarette Packs Per Day: 1 Cigarettes Per Day: 20.0 Years Smoked: (onset 14yo, 1/2-1ppd x 44yrs, 30+pyh - quit 11/13/24) e-Cigarette/Vaping Use: Never Used Second Hand Smoke Exposure: Yes Substance Use Type: Marijuana and Caffiene service: No Current occupational status: employed 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, 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 Current occupational exposures/hazards: No Cognitive needs: No Hearing needs: No Vision needs: No Review of Systems Const All systems reviewed & are unremarkable except as noted in HPI and below Physical Exam Vital Signs: Last Vital Signs Pulse 104 H 07/14/25 10:41 BP 153/80 H 07/14/25 10:41 BMI result Body Mass Index 27.8 Const General: cooperative and no acute distress Nutritional Appearance: well nourished Orientation/consciousness: patient oriented x3 Limitations: no limitations HEENT Head: Yes normocephalic and Yes atraumatic Ears: hearing grossly normal bilaterally Resp Effort & Inspection: normal respiratory effort, no audible wheezes, no cough and no respiratory distress Cardio Jugular venous distension: no JVD GI Inspection: Yes normal to inspection Palpation (GI): Soft to palpation, Tenderness to palpation present (GI) in the RUQ; Bain's sign negative and with no rebound tenderness, no guarding, not rigid and No hepatosplenomegaly present Percussion: Yes normal to percussion Auscultation: normal bowel sounds Rectal Exam - Male: Yes deferred Skin Other: Warm, dry, no rash Neuro General: patient oriented x3 Extrem General: Yes no clubbing, cyanosis or edema Assessment & Plan Assessment & Plan (1) Biliary colic symptom: Code(s): K80.50 - Calculus of bile duct without cholangitis or cholecystitis without obstruction Category: Surgical Plan 60-year-old male patient presenting with complaints of right upper quadrant abdominal pain, nausea and vomiting found to have a dilated gallbladder with stones. Symptoms seem to be made worse with eating. He also reports a perianal cyst which occasionally feels and drains. Currently the drain she has stopped. We discussed laparoscopic or possible open cholecystectomy edges initial step given the severity of his symptoms. After discussion of the procedure, risks, and alternatives, he consents to a laparoscopic or possible open cholecystectomy. He will be scheduled as a short-stay surgery. Coding Level of Care Code Est Pt Level 4 (22650) Diagnoses Biliary colic symptom K80.50
[2025-07-14 10:41] VITALS: BP 153/80; PULSE 104; BMI 27.8
== END 2025-07-14 11:09 | disposition home or self-care (01) ==
LOC: HO.HGS 10:20
PROVIDERS: PCP Physician Assistant; Visit Provider Surgery
DX: K80.50 Calculus of bile duct without cholangitis or cholecystitis without obstruction (principal)
CPT/HCPCS: 99214

== ENCOUNTER 2025-07-19 10:19 | Outpatient (AMB) | payer OTHER, SELFPAY ==
--- NOTE | 2025-07-19 10:23 | MHC.OFFVIS ---
Vital Signs 07/19/25 10:26 Height 5 ft 10 in Weight 197 lb BMI 28.3 BP 128/67 Blood Pressure Location Lt brachial Position Sitting Pulse 120 H Pulse Source Pulse Oximeter Pulse Oximetry (%) 96 Oxygen Delivery Method Room Air Intake Visit Reasons: HX of Asthma - Hx Lung Ca pre -op clearance Allergies amoxicillin Allergy (Severe, Verified 07/19/25 10:27) Anaphylaxis Penicillins (PENICILLINS) Allergy (Severe, Verified 07/19/25 10:27) Anaphylaxis IV dye Adverse Reaction (Severe, Uncoded 07/14/25 10:45) Anaphylaxis HPI HPI HX of Asthma - Hx Lung Ca pre -op clearance: Details: 60-year-old gentleman, recent 40+ pack-year smoker, 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 Patient currently using Symbicort and albuterol MDI with suboptimal control of his dyspnea on exertion symptoms. He denies recent exacerbations. He is planned for cholecystectomy. [facility] Medical History Perianal abscess Dysphagia Diarrhea Tubular adenoma of colon [place] esophagus determined by biopsy COPD (chronic obstructive pulmonary disease) Acid reflux Rash and nonspecific skin eruption Stress at home No natural teeth Lung cancer Arthritis [place] (hard of hearing) Hx of syncope (2011) Asthma Pneumothorax SLAC (scapholunate advanced collapse) wrist History of adenomatous polyp of colon Nicotine dependence, cigarettes, uncomplicated Surgical History History of esophagogastroduodenoscopy (EGD) Hx of umbilical hernia repair History of lobectomy of lung Hx of colonoscopy History of carpal tunnel release of both wrists Hx of chest tube placement (11/14/24) History of lung biopsy (11/14/24) Right upper lobe pulmonary nodule History of left knee surgery (~1989) Family History Mother Heart attack, Onset Age: 28 Stroke Father Renal cancer Maternal Grandfather Pancreatic cancer Social History Household Members: Spouse Household Members Other:: daughter, 4 granddaughters Housing: House Are you a primary direct care worker to a significant other at home: No Do you presently have visiting nurse or other home services: No Alcohol intake: current Alcohol intake frequency: former alcohol drinker Comment: COUNTS CORRECT Patient Tobacco Use Status: Former Tobacco user Tobacco use type: Cigarette Cigarette Packs Per Day: 1 Cigarettes Per Day: 20.0 Years Smoked: (onset 14yo, 1/2-1ppd x 44yrs, 30+pyh - quit 11/13/24) e-Cigarette/Vaping Use: Never Used Second Hand Smoke Exposure: Yes Substance Use Type: Marijuana and Caffiene service: No Current occupational status: employed 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, 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 Current occupational exposures/hazards: No Cognitive needs: No Hearing needs: No Vision needs: No Review of Systems Const Denies daytime sleepiness, Denies excessive sweating, Denies fatigue, Denies fever(s), Denies lethargy, Denies malaise, Denies night sweats, Denies snoring and Denies weight loss Eyes Denies blurry vision and Denies itchy eyes ENT Denies nasal congestion, Denies post nasal drip, Denies sinus pain, Denies sinus pressure and Denies other ( Thrush) Card Denies chest pain, Denies pedal edema, Denies dyspnea, Reports dyspnea on exertion, Denies orthopnea and Denies paroxysmal nocturnal dyspnea Resp Denies cough, Denies hemoptysis, Denies excessive phlegm production, Denies dyspnea, Reports dyspnea on exertion, Denies snoring and Reports wheezing GI Denies abdominal pain and Denies heartburn Musc Denies myalgias, Denies arthralgias and Denies joint swelling Skin/Breast Denies rash Neuro Denies memory loss and Denies seizure-like activity Psych Denies abnormal sleep pattern, Denies anxiety and Denies memory loss Endo Denies excessive sweating, Denies fatigue and Denies heat intolerance Abhilash/Lymph Denies easy bruising Aller/Immun Denies itchy eyes, Denies seasonal rhinorrhea and Reports wheezing Physical Exam Vital Signs: Last Vital Signs Pulse 120 H 07/19/25 10:26 BP 128/67 07/19/25 10:26 Pulse Ox 96 07/19/25 10:26 Oxygen Delivery Method Room Air 07/19/25 10:26 BMI result Body Mass Index 28.3 Const General: no acute distress and alert Nutritional Appearance: not obese Orientation/consciousness: Other orientation findings ( oriented) HEENT Head: Yes atraumatic Eyes General: appearance normal, both eyes and all related structures Sclerae: sclerae normal EOM: EOMs intact bilaterally Neck Neck: Yes supple Lymphatic: no lymphadenopathy noted Resp Effort & Inspection: normal respiratory effort and no use of accessory muscles Auscultation: clear to auscultation bilaterally Cardio Rate: regular rate Rhythm: regular rhythm Heart sounds: no gallops, no murmurs and no rubs Skin General skin exam: other ( warm) Extrem General: No clubbing, No cyanosis and No edema Assessment & Plan Assessment & Plan (1) COPD (chronic obstructive pulmonary disease): Code(s): J44.9 - Chronic obstructive pulmonary disease, unspecified Category: Medical Qualifiers: COPD type: chronic bronchitis Chronic bronchitis type: simple Qualified Code(s): J41.0 - Simple chronic bronchitis Plan: Suboptimal control on Symbicort, will switch to Trelegy. Continue albuterol MDI. Will obtain full PFT. (2) Status post lobectomy of lung: Code(s): Z90.2 - Acquired absence of lung [part of] Category: Medical Plan: Right upper lobe adenocarcinoma status post right upper lobectomy. Will obtain CT chest for further follow-up (3) Preop pulmonary/respiratory exam: Code(s): Z01.811 - Encounter for preprocedural respiratory examination Category: Medical Plan: At this time patient is at low risk for pulmonary perioperative complications for the proposed cholecystectomy under general anesthesia. Orders: Orders PFT pulmonary function test Today J41.0 - Simple chronic bronchitis CT chest wo IV con Today Z90.2 - Acquired absence of lung [part of] Medications: New timsqxvbuxp-orxfxncxf-[id number] 200-62.5-25 mcg (Trelegy Ellipta) 1 inh inhalation DAILY 1 ea 6RF Z90.2 - Acquired absence of lung [part of] Discontinued budesonide-formoterol 160-4.5 mcg/actuation Discontinued Reason: Doctor's Order 1 puff inhalation BID 4 weeks 10.2 grams 1RF J45.20 - Mild intermittent asthma, uncomplicated Coding Level of Care Code New Pt Level 4 (63926) Diagnoses Simple chronic bronchitis J41.0 COPD type: chronic bronchitis Chronic bronchitis type: simple Status post lobectomy of lung Z90.2 Preop pulmonary/respiratory exam Z01.811
[2025-07-19 10:26] VITALS: BP 128/67; PULSE 120; O2SAT 96; BMI 28.3
== END 2025-07-19 10:51 | disposition home or self-care (01) ==
LOC: HO.HPS 10:19
PROVIDERS: PCP Physician Assistant; Visit Provider Internal Medicine Pulmonary Disease
DX: J41.0 Simple chronic bronchitis (principal); Z90.2 Acquired absence of lung [part of]; Z01.811 Encounter for preprocedural respiratory examination
CPT/HCPCS: 94060; 94727; 94729; 99204

== ENCOUNTER 2025-07-19 10:57 | Outpatient (REF) | payer OTHER, SELFPAY ==
--- NOTE | 2025-07-19 11:07 | PFT_ITS ---
Flows: FEV1: 81 % of predicted at 2.66 L FVC: 99 % of predicted at 4.16 L FEV1/FVC: 64 % Bronchodilator response: Absent Volumes: Total lung capacity: 97 % of predicted at 6.31 L Residual volume: 108 % of predicted at 2.14 L Slow vital capacity: 90 % of predicted at 4.16 L Expiratory reserve volume: 96 % of predicted at 1.11 L Diffusion capacity: Normal Impression: Mild obstructive ventilatory defect with no bronchodilator response. MTDD
[2025-07-19 11:51] VITALS: PULSE 109
== END 2025-07-19 10:58 | disposition home or self-care (01) ==
LOC: HO.RESP 10:57
PROVIDERS: PCP Physician Assistant; Visit Provider Internal Medicine Pulmonary Disease
DX: J41.0 Simple chronic bronchitis (principal); R91.8 Other nonspecific abnormal finding of lung field; Z87.891 Personal history of nicotine dependence
CPT/HCPCS: 94060; 94640; 94727; 94729

== ENCOUNTER 2025-07-27 05:41 | Day surgery (SDC) | payer OTHER, SELFPAY ==
[2025-07-25 08:59] VITALS: BMI 27.8
--- NOTE | 2025-07-25 10:41 | HO.ANESPROP2 ---
Documented by User: Nicolle Chisholm NP 07/25/25 10:59 HPI - Anesthesia Eval Consult details Narrative: 60yo M for Cholecystectomy Laparoscopic,possible open Pulmo optimized. Follows [facility] [place] pulmo for 40+ pack-year smoker (quit 11/2024), status post right upper lobectomy in December of 2024 for adenocarcinoma, asthma/COPD. Last office visit 07/2025 - maintenance inhaler switched to Trelegy. T/C to patient for update on control of symptoms. Reports mild improvement in symptoms - still with some PORRAS, chronic productive cough (white phlegm). Instructed BID albuterol until DOS and plan for prn preop nebulizer. Cardiac optimized prior to lobectomy. Full w/u test results as below. PMFSH Active Problems Active Problems: All Active Problems Preop pulmonary/respiratory exam (Acute) COPD (chronic obstructive pulmonary disease) (Acute) Perianal abscess (Acute) Dysphagia (Acute) Diarrhea (Acute) Tubular adenoma of colon (Acute) [place] esophagus determined by biopsy (Acute) Erosive esophagitis (Acute) Hiatal hernia (Acute) Allergic reaction (Acute) Biliary colic symptom (Acute) Status post lobectomy of lung (Acute) Right upper quadrant abdominal pain (Acute) Acalculous cholecystitis (Acute) Right upper quadrant abdominal pain (Acute) Status post lobectomy of lung (Acute) S/P lobectomy of lung (Acute) Malignant neoplasm of right upper lobe of lung (Acute) Tinea unguium (Acute) SNHL (sensorineural hearing loss) (Acute) Basal cell carcinoma, face (Acute) MDD (major depressive disorder), recurrent episode, moderate (Acute) Asthma (Acute) Osteoarthritis, hand (Acute) Strain of flexor muscle, fascia and tendon of right ring finger at forearm level, sequela (Acute) HLD (hyperlipidemia) (Acute) Carpal tunnel syndrome on both sides (Acute) Osteoarthritis of wrists, bilateral (Acute) Right wrist pain (Acute) Left wrist pain (Acute) Annual physical exam (Acute) Chronic diarrhea (Acute) Acid reflux (Acute) Rash and nonspecific skin eruption (Acute) Nicotine dependence, cigarettes, uncomplicated (Acute) Past Medical History Medical History Perianal abscess Dysphagia Diarrhea Tubular adenoma of colon [place] esophagus determined by biopsy COPD (chronic obstructive pulmonary disease) Acid reflux Rash and nonspecific skin eruption Stress at home No natural teeth Lung cancer Arthritis [place] (hard of hearing) Hx of syncope (2011) Asthma Pneumothorax SLAC (scapholunate advanced collapse) wrist History of adenomatous polyp of colon Nicotine dependence, cigarettes, uncomplicated Family History Family History Mother Heart attack, Onset Age: 28 Stroke Father Renal cancer Maternal Grandfather Pancreatic cancer Family history of problems with anesthesia: No Surgical History Surgical History History of esophagogastroduodenoscopy (EGD) Hx of umbilical hernia repair History of lobectomy of lung Hx of colonoscopy History of carpal tunnel release of both wrists Hx of chest tube placement (11/14/24) History of lung biopsy (11/14/24) Right upper lobe pulmonary nodule History of left knee surgery (~1989) History of Problems with Anesthesia: No Social History Social History Household Members: Spouse Household Members Other:: daughter, 4 granddaughters Housing: House Are you a primary career services coordinator to a significant other at home: No Do you presently have visiting nurse or other home services: No Alcohol intake: current Alcohol intake frequency: does not drink Comment: COUNTS CORRECT Patient Tobacco Use Status: Former Tobacco user Tobacco use type: Cigarette Cigarette Packs Per Day: 1 Cigarettes Per Day: 20.0 Years Smoked: (onset 14yo, 1/2-1ppd x 44yrs, 30+pyh - quit 11/13/24) e-Cigarette/Vaping Use: Never Used Second Hand Smoke Exposure: Yes Substance Use Type: Marijuana and Caffiene Substance Use Type Other:: gummies Are you DNR?: No Advance Directives: No Advance Directives Information Provided: Yes service: No Current occupational status: employed 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, 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0 Chloride 107 Carbon Dioxide 28 BUN 14 Creatinine 0.95 Narrative Narrative: Per 09/2024 cardiac eval EKG 09/2024 Details: EKG with underlying sinus rhythm at 83/Min; cannot exclude old septal infarct but could be from body habitus; normal ME and corrected QT. Cardiac catheterization from 2009 shows normal coronary arteries and no obstructive lesions. Normal LV systolic function/normal filling pressures. Thought to be false positive stress test. In the exercise stress test from 2022, he was able to exercise for 9 minutes and 19 seconds on Sandeep protocol; reached 10.5 Mets; 85% of max predicted heart rate; no angina; normal blood pressure response; no EKG evidence of ischemia. Overall appears that he did quite well. In the recent echocardiogram, LVEF 55-60% without any wall motion abnormalities. In the previous study, there were some wall motion abnormalities described but could be possibly artifactual. However, in the coronary CTA, there is no overt CAD. Proximal LAD with minimal stenosis at less than 15% and otherwise unremarkable. In the carotid Dopplers, minimal stenosis bilateral. Abdominal ultrasound negative for aortic aneurysm. Assessment and Plan Assessment Anesthesia Assessment: Chart Reviewed Final Anesthetic Review Family History of Problems with Anesthesia: No History of Problems with Anesthesia: No Documented by User: Jay Jay Ibarra MD 07/27/25 07:16 [facility] Past Medical History Medical History Perianal abscess Dysphagia Diarrhea Tubular adenoma of colon [place] esophagus determined by biopsy COPD (chronic obstructive pulmonary disease) Acid reflux Rash and nonspecific skin eruption Stress at home No natural teeth Lung cancer Arthritis [place] (hard of hearing) Hx of syncope (2011) Asthma Pneumothorax SLAC (scapholunate advanced collapse) wrist History of adenomatous polyp of colon Nicotine dependence, cigarettes, uncomplicated Family History Family History Mother Heart attack, Onset Age: 28 Stroke Father Renal cancer Maternal Grandfather Pancreatic cancer Surgical History Surgical History History of esophagogastroduodenoscopy (EGD) Hx of umbilical hernia repair History of lobectomy of lung Hx of colonoscopy History of carpal tunnel release of both wrists Hx of chest tube placement (11/14/24) History of lung biopsy (11/14/24) Right upper lobe pulmonary nodule History of left knee surgery (~1989) Social History Social History Household Members: Spouse Household Members Other:: daughter, 4 granddaughters Housing: House Are you a primary career services coordinator to a significant other at home: No Do you presently have visiting nurse or other home services: No Alcohol intake: current Alcohol intake frequency: does not drink Comment: COUNTS CORRECT Patient Tobacco Use Status: Former Tobacco user Tobacco use type: Cigarette Cigarette Packs Per Day: 1 Cigarettes Per Day: 20.0 Years Smoked: (onset 14yo, 1/2-1ppd x 44yrs, 30+pyh - quit 11/13/24) e-Cigarette/Vaping Use: Never Used Second Hand Smoke Exposure: Yes Substance Use Type: Marijuana and Caffiene Substance Use Type Other:: gummies Are you DNR?: No Advance Directives: No Advance Directives Information Provided: Yes service: No Current occupational status: employed 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, 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 Current occupational exposures/hazards: No Cognitive needs: No Hearing needs: No Vision needs: No Meds Allergies Allergy/AdvReac Type Severity Reaction Status Date / Time amoxicillin Allergy Severe Anaphylaxis Verified 07/19/25 10:27 Penicillins (PENICILLINS) Allergy Severe Anaphylaxis Verified 07/19/25 10:27 IV dye AdvReac Severe Anaphylaxis Uncoded 07/14/25 10:45 Exam Exam Date and Time: 07/27/2025 Airway Mallampati Class: III TM Dist: >3cm Neck ROM: Full Denture: Upper and Lower Heart: rrr Lungs: ctab wheezes partially cleared with coughing Assessment and Plan Assessment Anesthesia Assessment: Anesthesia Plan Discussed Final Anesthetic Review NPO: Yes ASA Class: III Final Preanesthetic Review: No Changes in Pt Med Stat, Meds/Allgs Chart Reviewed, Consent Obtained/Reviewed and Anes Risks/Benef Reviewed Patient Risk: Intermediate Procedure Risk: Low Anesthetic Plan Anesthetic Plan: GA Disposition: Standard PACU
[2025-07-27] VITALS (11 sets, daily range): BP systolic 125–166; BP diastolic 62–94; PULSE 69–90; RESP 9–20; TEMP 36.1–36.8; O2SAT 90–99; BMI 27.4
[2025-07-27] MEDS: Albuterol Sulfate (0.083%) 2.5 MG/3 ML VIAL.NEB INHALE (06:05)
[2025-07-27] MEDS: Lactated Ringers 1,000 ML 100 ML IVCONT (06:05)
--- NOTE | 2025-07-27 07:25 | MHC.SHP ---
Pre-Procedural Eval Section A - 24 Hr Update-Section A only Date of Service: 07/27/25 The patient is an INPATIENT: No Changes since office visit: Yes Patient answered all questions; No Cold of Flu in the past 2 weeks, No New Medical Problems and No Changes in Medication The patient has been examined within 24 hours of the surgical procedure. The History & Physical has been completed within 30 days and I have reviewed it.: Yes Section B - Complete if H&P > 30 days Chief Complaint: Calculus of bile duct without cholangitis or jean Allergies: Allergies Allergy/AdvReac Type Severity Reaction Status Date / Time amoxicillin Allergy Severe Anaphylaxis Verified 07/19/25 10:27 Penicillins (PENICILLINS) Allergy Severe Anaphylaxis Verified 07/19/25 10:27 IV dye AdvReac Severe Anaphylaxis Uncoded 07/14/25 10:45 Plan Diagnosis/Plan: Unchanged I have reviewed the history and physical and performed a pertinent physical examination on my patient. No changes have occurred unless specified. Time Spent With Patient Time: Total time managing care of this patient today ____ minutes.
--- NOTE | 2025-07-27 09:11 | W.PM.OPN ---
Operative Note Operative Note Date of Service: 07/27/25 Narrative: Preoperative diagnosis: Biliary colic, gallstones Postoperative diagnosis: Same Procedure: Laparoscopic cholecystectomy Surgeon: Blaine Garcia MD Food Critic: Muriel Quintana PA-C; Russ Meraz PA-C Anesthesia: General endotracheal Indications for procedure: 60-year-old male patient presenting with repeated episodes of right upper quadrant and epigastric abdominal pain associated with meals including nausea and vomiting. He presents today for elective laparoscopic or possible open cholecystectomy. Operative findings: Evidence of chronic cholecystitis with adhesions to the surrounding gallbladder Specimen: gallbladder Estimated blood loss: 10 mL Complications: None Procedure details: Patient was brought to the OR and placed in a supine position. After administering general anesthesia the patient's abdomen was prepped with ChloraPrep and draped in a sterile fashion. A surgical time-out was called the consent confirmed. Patient received preoperative antibiotics and Venodyne boots were in place. Local anesthesia consisting of 0.5% Sensorcaine without epinephrine was infiltrated in a periumbilical region. A 5 mm incision was made above the umbilicus in a transverse fashion. The Veress needle was then inserted while elevating abdominal cavity with towel clips. After positive drop test the abdomen was insufflated to a pressure of 15 mm of mercury. The Veress needle was then removed and a 5 mm trocar inserted. The camera was inserted in the abdomen explored. A 12 mm trocar was then placed in the epigastrium. Two 5 mm trocars placed in the right upper quadrant by the assistant service manager. The patient was placed in reverse Trendelenburg positioning and rotated to the left. The gallbladder was grasped with the fundus and retracted cephalad by the assistant service manager. The infundibulum was then grasped and retracted away from the liver bed, also by the assistant service manager. The Dolphin dissected was then used by the surgeon to dissect the peritoneum off the infundibulum to reveal the junction with the cystic duct. Cystic artery was noted slightly medial and posterior to the cystic duct. After obtaining a critical view the cystic duct was doubly clipped and divided. The cystic artery was then doubly clipped and divided. The gallbladder was then dissected off the liver bed using electrocautery with an L hook. Hemostasis was assured all times using the electrocautery. When the gallbladder is completely dissected off the liver bed was placed in an Endo-Catch bag and brought out through the epigastric incision. The gallbladder was sent to pathology for further examination. The abdomen was then re-examined. The liver bed was irrigated and suctioned dry. No bleeding or bile leak could be identified. Surgicel was applied to the liver edge to assure hemostasis. CO2 was then evacuated and all trocars removed. Fascia was closed at the epigastric incision using a [id number] 0 Polysorb suture. Skin was closed in all incisions using a subcuticular 4 0 Polysorb suture by both the surgeon and assistant service manager. Sterile dressings consisting of Steri-Strips, 2 x 2 gauze, and Tegaderm were then applied. The patient tolerated the procedure well. Sponge instrument and needle counts reported as correct. The patient was transferred to PACU in stable condition.
--- NOTE | 2025-07-27 11:59 | PC.NURSE ---
PATIENT PALE AND DROWSY. PATIENT REPORTED NAUSEA WHEN ARRIVING AT DISCHARGE AREA. SOME CLEAR SPIT OUT, MINIMAL AMOUNT.
--- NOTE | 2025-07-27 12:54 | PC.NURSE ---
PATIENT HAS BEEN SITTING/LOUNGING IN THE DISCHARGE AREA FOR OVER 30 MINUTES. PATIENT STATED FEELING A LITTLE BETTER. THE ANESTHESIOLOGIST CAME OUT TO ASSESS PATIENT, 97% RA, HR 63, 120/78, LUNGS CLEAR PER ANESTHESIOLOGIST. PATIENT GIVEN THE GO A HEAD TO BE DISCHARGED HOME. PATIENT DID VOMIT UP SOME CRACKERS/GINGERALE HE HAD JUST EATEN. ANESTHESIA PLACED ANOTHER ANTI EMETIC ORDER. PATIENT'S RECALLED AND GIVEN DISCHARGE INSTRUCTIONS OVER THE PHONE BY MARLEY ZHU.
--- NOTE | 2025-07-27 13:09 | PC.NURSE ---
IM Phenergan administered to L deltoid. Pt report improvement in nausea. No additional episode of emesis. Pt resting in chair until arrives for discharge.
== END 2025-07-27 13:31 | disposition home or self-care (01) ==
PROVIDERS: PCP Physician Assistant; Visit Provider Surgery
PROC: 0FT44ZZ Resection of Gallbladder, Percutaneous Endoscopic Approach (ICD-10-PCS; CPT 47562; principal; 2025-07-27 07:30)
DX: K80.12 Calculus of gallbladder with acute and chronic cholecystitis without obstruction (principal); K82.8 Other specified diseases of gallbladder; R11.2 Nausea with vomiting, unspecified; L02.31 Cutaneous abscess of buttock; K22.70 Barrett's esophagus without dysplasia; J41.0 Simple chronic bronchitis; J45.20 Mild intermittent asthma, uncomplicated; C34.90 Malignant neoplasm of unspecified part of unspecified bronchus or lung; Z90.2 Acquired absence of lung [part of]; Z79.51 Long term (current) use of inhaled steroids; Z79.899 Other long term (current) drug therapy; Z88.0 Allergy status to penicillin; Z88.1 Allergy status to other antibiotic agents; Z91.041 Radiographic dye allergy status; Z87.891 Personal history of nicotine dependence; Z98.890 Other specified postprocedural states
CPT/HCPCS: 47562; 88304; J0131; J0330; J1171; J1836; J1885; J2003; J2250; J2405; J2550; J2704; J3010

== ENCOUNTER → 2025-07-27 05:41 | Outpatient (BNV) | payer OTHER, SELFPAY | PROVIDERS: PCP Physician Assistant; Visit Provider Surgery | DX: K80.44 Calculus of bile duct with chronic cholecystitis without obstruction (principal) | CPT/HCPCS: 47562 ==

== ENCOUNTER 2025-08-03 09:47 | Outpatient (AMB) | payer OTHER, SELFPAY ==
--- NOTE | 2025-08-03 09:59 | A.OFFVIS_ITS ---
Vital Signs 08/03/25 10:05 Height 5 ft 10 in Weight 194 lb BMI 27.8 BP 134/72 Blood Pressure Location Lt brachial Position Sitting Pulse 72 Intake Visit Reasons: s/p lap jean poss open Intake Note: Patient here s/p Laparoscopic cholecystectomy. Patient c/o: sore at incision site. Steri strips fell off. Taking rx pain med as needed. Reports normal BM. Surgery (): 07-27-2025 [employer] Required: No Accompanied by: Self / Same As Patient Allergies amoxicillin Allergy (Severe, Verified 08/03/25 10:07) Anaphylaxis Penicillins (PENICILLINS) Allergy (Severe, Verified 08/03/25 10:07) Anaphylaxis IV dye Adverse Reaction (Severe, Uncoded 08/03/25 10:07) Anaphylaxis HPI HPI s/p lap jean poss open: Details: Mr. Benitez is a 60 year old male who presents for a wound check and follow up. He underwent a laparoscopic cholecystectomy on 07/27/[address] Garcia for biliary colic. He tolerated the procedure well. He reports doing fairly well after the surgery. He still has some incisional soreness but significantly improved. He is tolerating a solid diet and moving his bowels normally. He does continued reflux symptoms as well as sensation of food being stuck in his throat and regurgitation. He is followed by GI and was prescribed omeprazole for his symptoms previously and he reports he has been taking this. He was found to have hiatal hernia as well as esophagitis and gastritis on his upper endoscopy and barium swallow was ordered which has not been performed yet. He has a follow up in September. He has stopped smoking cigarettes and drinking alcohol. [facility] Medical History Perianal abscess Dysphagia Diarrhea Tubular adenoma of colon [place] esophagus determined by biopsy COPD (chronic obstructive pulmonary disease) Acid reflux Rash and nonspecific skin eruption Stress at home No natural teeth Lung cancer Arthritis [place] (hard of hearing) Hx of syncope (2011) Asthma Pneumothorax SLAC (scapholunate advanced collapse) wrist History of adenomatous polyp of colon Nicotine dependence, cigarettes, uncomplicated Surgical History (Updated 08/07/25 @ 13:11 by Muriel Quintana PA-C) S/P laparoscopic cholecystectomy (07/27/25) History of esophagogastroduodenoscopy (EGD) Hx of umbilical hernia repair History of lobectomy of lung Hx of colonoscopy History of carpal tunnel release of both wrists Hx of chest tube placement (11/14/24) History of lung biopsy (11/14/24) Right upper lobe pulmonary nodule History of left knee surgery (~1989) Family History Mother Heart attack, Onset Age: 28 Stroke Father Renal cancer Maternal Grandfather Pancreatic cancer Social History Household Members: Spouse Household Members Other:: daughter, 4 granddaughters Housing: House Are you a primary care transitions nurse to a significant other at home: No Do you presently have visiting nurse or other home services: No Alcohol intake: current Alcohol intake frequency: does not drink Comment: COUNTS CORRECT Patient Tobacco Use Status: Former Tobacco user Tobacco use type: Cigarette Cigarette Packs Per Day: 1 Cigarettes Per Day: 20.0 Years Smoked: (onset 14yo, 1/2-1ppd x 43yrs, 30+pyh - quit 11/13/24) e-Cigarette/Vaping Use: Never Used Second Hand Smoke Exposure: Yes Substance Use Type: Marijuana and Caffiene service: No Current occupational status: employed 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, 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 Current occupational exposures/hazards: No Cognitive needs: No Hearing needs: No Vision needs: No Review of Systems Const All systems reviewed & are unremarkable except as noted in HPI and below Physical Exam Vital Signs: Last Vital Signs Pulse 72 08/03/25 10:05 BP 134/72 08/03/25 10:05 BMI result Body Mass Index 27.8 Const General: comfortable, no acute distress and alert Orientation/consciousness: patient oriented x3 Resp Effort & Inspection: normal respiratory effort GI Other: protuberant abdomen incisions well healed, no erythema or edema, mild tenderness soft, nondistended Palpation (GI): no guarding Percussion: Yes normal to percussion Skin General skin exam: no rashes or lesions noted Neuro General: patient oriented x3 and moves all extremities Assessment & Plan Assessment & Plan (1) Hiatal hernia: Code(s): K44.9 - Diaphragmatic hernia without obstruction or gangrene Category: Medical (2) S/P laparoscopic cholecystectomy: Onset Date: 07/27/25 Comment: Laparoscopic cholecystectomy Blaine Young Code(s): Z90.49 - Acquired absence of other specified parts of digestive tract Category: Surgical Plan 60 year old male who underwent laparoscopic cholecystectomy on 07/27/25 for biliary colic. He tolerated the procedure well. He is doing well from a surgical standpoint and his abdomen is benign with clean incisions without evidence of infection. He was instructed on continuing heavy lifting restrictions for another 2 weeks. He understands and agrees with the plan. He was found to have a hiatal hernia on endoscopy this April which appears to be very symptomatic, only minimally improved on his PPI therapy. He has yet to receive a call from radiology scheduling his barium swallow and he was instructed to call to have this scheduled. He has a follow up with gastroenterology in September. We discussed getting his further imaging scheduled and seeing GI again, and if he continues with severe symptoms, recommended follow back up with general surgery with Dr. Marshall to discuss possible repair of his hiatal hernia. He is in agreement with this plan. He will reach back out after his follow up, or return sooner if he develops concerns. Coding Level of Care Code Est Pt Level 3 (61694) Diagnoses Hiatal hernia K44.9 S/P laparoscopic cholecystectomy Z90.49
[2025-08-03 10:05] VITALS: BP 134/72; PULSE 72; BMI 27.8
== END 2025-08-03 10:31 | disposition home or self-care (01) ==
LOC: HO.HGS 09:48
PROVIDERS: PCP Physician Assistant; Visit Provider Physician Assistant Surgical
DX: K44.9 Diaphragmatic hernia without obstruction or gangrene (principal); Z90.49 Acquired absence of other specified parts of digestive tract
CPT/HCPCS: 99024

== ENCOUNTER 2025-08-11 08:38 | Outpatient (AMB) | payer OTHER, SELFPAY ==
[2025-08-11 08:40] VITALS: BP 132/80; PULSE 113; TEMP 36.3; O2SAT 94; BMI 28.1
--- NOTE | 2025-08-11 08:40 | MHC.PC.OV ---
Vital Signs 08/11/25 08:40 Height 5 ft 10 in Weight 196 lb 2 oz BMI 28.1 BP 132/80 Blood Pressure Location Lt brachial Position Sitting Pulse 113 H Pulse Source Pulse Oximeter Temp 97.3 F Temp Source Temporal Artery Scan Pulse Oximetry (%) 94 Oxygen Delivery Method Room Air Intake Visit Reasons: FOLLOW UP FOR HEADACHES Allergies amoxicillin Allergy (Severe, Verified 08/11/25 08:43) Anaphylaxis Penicillins (PENICILLINS) Allergy (Severe, Verified 08/11/25 08:43) Anaphylaxis IV dye Adverse Reaction (Severe, Uncoded 08/11/25 08:43) Anaphylaxis Tobacco use date assessed: 08/11/25 Dental Screening Dental Screen Date: 08/11/25 Did you have a dental visit in the last 12 months?: No Did you have a dental problem in the last 6 months where you did not have access to dental care?: No Was dental information given to patient?: No HPI HPI Comments History of Present Illness Details Patient is a 60-year-old male with history of COPD, esophagitis, GERD, lung cancer S s/p lobectomy and history of basal cell carcinoma of face and back s/p resection who presents today with complaints of headache. Reports history of headache as a youth. Reports increased frequency of headaches over the last 2 weeks, in the front of the head, throbbing like, 7/10 intensity. Headaches not associated with nausea, vomiting or photo and light sensitivity. Denies vision changes, jaw claudication. Reports intermittent feeling of numbness in his entire left arm may occur twice a week that resolved spontaneously. Otherwise denies any tingling or weaknesses. Denies weight loss, actually reports weight gain. Uses aspirin as needed for headaches which help temporarily. Also reports starting newly on Trelegy inhaler that he uses once daily, and increased use for albuterol as needed - use it daily. Reports shortness of breath upon exertion, associated with wheezing. Reports nighttime awakenings more than once a week with cough. States he has done PFTs recently, pending results. [facility] Medical History Perianal abscess Dysphagia Diarrhea Tubular adenoma of colon [place] esophagus determined by biopsy COPD (chronic obstructive pulmonary disease) Acid reflux Rash and nonspecific skin eruption Stress at home No natural teeth Lung cancer Arthritis [place] (hard of hearing) Hx of syncope (2011) Asthma Pneumothorax SLAC (scapholunate advanced collapse) wrist History of adenomatous polyp of colon Nicotine dependence, cigarettes, uncomplicated Surgical History S/P laparoscopic cholecystectomy (07/27/25) History of esophagogastroduodenoscopy (EGD) Hx of umbilical hernia repair History of lobectomy of lung Hx of colonoscopy History of carpal tunnel release of both wrists Hx of chest tube placement (11/14/24) History of lung biopsy (11/14/24) Right upper lobe pulmonary nodule History of left knee surgery (~1989) Family History Mother Heart attack, Onset Age: 28 Stroke Father Renal cancer Maternal Grandfather Pancreatic cancer Social History Household Members: Spouse Household Members Other:: daughter, 4 granddaughters Housing: House Are you a primary child care supervisor to a significant other at home: No Do you presently have visiting nurse or other home services: No Alcohol intake: current Alcohol intake frequency: does not drink Comment: COUNTS CORRECT Patient Tobacco Use Status: Former Tobacco user Tobacco use type: Cigarette Cigarette Packs Per Day: 1 Cigarettes Per Day: 20.0 Years Smoked: (onset 14yo, 1/2-1ppd x 44yrs, 30+pyh - quit 11/13/24) e-Cigarette/Vaping Use: Never Used Second Hand Smoke Exposure: Yes Substance Use Type: Marijuana and Caffiene service: No Current occupational status: employed 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 1. Little interest or pleasure in doing things: not at all 2. Feeling down, depressed, or hopeless: not at all 3. Trouble falling or staying asleep, or sleeping too much: not at all 4. Feeling tired or having little energy: not at all 5. Poor appetite or overeating: not at all 6. Feeling bad about yourself - or that you are a failure or have let yourself or your family down: not at all 7. Trouble concentrating on things, such as reading the newspaper or watching television: not at all 8. Moving or speaking so slowly that other people could have noticed. Or the opposite - being so fidgety or restless that you have been moving around a lot more than usual: not at all 9. Thoughts that you would be better off or of hurting yourself in some way: not at all Total score: 0 Depression Screening Interpretation: Negative Depression Screening Done: Yes Source: Developed by Drs. Jourdan Tellez, Lorri Trammell, Ricardo Hernandez and colleagues, with an educational grazyna from [employer]. Thrive Questionnaire Date Thrive assessed: 12/20/24 I am a: Patient What is your living situation today?: I have a steady place to live Within the past 12 months, did the food you bought not last and you didn't have the money to get more?: Never true Within the past 12 months, did you worry whether your food would run out before you got money to buy more?: Never true Do you have trouble paying for medicines?: No Do you have trouble getting transportation to medical appointments?: No Do you have trouble paying your heating and electricity bill?: No Do you have trouble taking care of your child, family member or friend?: No Do you have trouble with day-to-day activities such as bathing, preparing meals, shopping, managing finances, etc.?: No Are you currently unemployed and looking for a job?: No Are you interested in more education?: No Please select the resources that you would like help with: None THRIVE Score: 0 AUDIT C Alcohol Use Questionnaire (AUDIT-C) 1. How often do you have a drink containing alcohol?: Monthly or less 2. How many drinks containing alcohol do you have on a typical day when you are drinking?: 1 or 2 3. How often do you have six or more drinks on one occasion?: Never Total Score: 1 KRISTIN-7 AMB Questionnaire KRISTIN-7 Date KRISTIN - 7 assessed: 12/30/24 Feeling nervous, anxious, or on edge: 0 = Not at all Not being able to stop or control worryin = Not at all Worrying too much about different things: 0 = Not at all Trouble relaxin = Not at all Being so restless that it is hard to sit still: 0 = Not at all Becoming easily annoyed or irritable: 0 = Not at all Feeling afraid as if something awful might happen: 0 = Not at all Total KRISTIN-7 score (0-4 normal; 5-9 mild; 10-14 moderate; 15-21 severe): 0 Source: Developed by Drs. Jourdan Tellez, Lorri rTammell, Ricardo Hernandez and colleagues, with an educational grazyna from [employer]. Physical exam (Primary Care) Vital Signs: Last Vital Signs Temp 97.3 F 08/11/25 08:40 Pulse 113 H 08/11/25 08:40 BP 132/80 08/11/25 08:40 Pulse Ox 94 08/11/25 08:40 Oxygen Delivery Method Room Air 08/11/25 08:40 General: Well-appearing, alert, oriented ?3, in no acute distress. HEENT: Normocephalic, atraumatic, PERRLA, EOMI, no scleral icterus Cardiovascular: RRR, S1-S2 appreciated, no murmurs, rubs or gallops. Respiratory: Diffuse mild wheezing appreciated upon auscultation, no rales or rhonchi. Abdomen: Soft, nontender, nondistended. Normoactive bowel sounds. Neurologic: Alert and oriented X3, cranial nerves II?XII grossly intact, sensation and strength intact in bilateral lower and upper extremities. BMI result Body Mass Index 28.1 Tobacco/Smoking Status: Tobacco use Status Tobacco use date assessed 08/11/25 08/11/25 08:44 Patient Tobacco Use Status Former Tobacco user 08/11/25 08:44 Tobacco use type Cigarette 08/11/25 08:44 e-Cigarette/Vaping Use Never Used 08/11/25 08:44 PHQ-9: PHQ-9 Score PHQ-9: Total score 0 08/11/25 08:44 Depression Screening Interpretation: Negative Thrive Assessment: Date of Thrive Assessment Date Thrive assessed 12/20/24 08/11/25 08:44 Coding Level of Care Code Est Pt Level 4 (57231) Diagnoses Nonintractable headache, unspecified chronicity pattern, unspecified headache type R51.9 Headache type: unspecified Headache chronicity pattern: unspecified pattern Intractability: not intractable Exacerbation of asthma, unspecified asthma severity, unspecified whether persistent J45.901 Asthma severity: unspecified severity Asthma persistence: unspecified Assessment & Plan Assessment & Plan (1) Headache: Code(s): R51.9 - Headache, unspecified Qualifiers: Headache type: unspecified Headache chronicity pattern: unspecified pattern Intractability: not intractable Qualified Code(s): R51.9 - Headache, unspecified Plan: Patient reports increased frequency of headache over the last 2 weeks. Reports intermittent feeling of numbness in his entire left arm about twice a week that resolved spontaneously. Otherwise denies any nausea, vomiting, photo or light sensitivity, vision changes or jaw claudication. Denies tingling or weaknesses. Denies weight loss. Uses aspirin as needed for headache. Patient has a personal history of lung cancer and basal cell carcinoma. In addition to strong family history of cancers in his dad, aunt, grandparents. Plan -obtain CT head to further evaluate -may use ibuprofen 400 mg q.8 hours p.r.n. headaches. Avoid concurrent use of other NSAIDs. Take with food and plenty of water -follow up in 3 weeks (2) Asthma exacerbation: Code(s): J45.901 - Unspecified asthma with (acute) exacerbation Qualifiers: Asthma severity: unspecified severity Asthma persistence: unspecified Qualified Code(s): J45.901 - Unspecified asthma with (acute) exacerbation Plan: Patient recently started on Trelegy daily, Currently reports using albuterol daily in addition to shortness of breath with exertion and wheezing. Reports nighttime awakenings more than once a week with cough. Physical exam is remarkable for diffuse mild wheezing upon auscultation. His symptoms are likely secondary to asthma exacerbation. Reports he had completed PFTs recently, pending results. Plan - prednisone 40 mg daily for 5 days. - continue to use Trelegy daily - continue to use albuterol as needed Orders: Orders CT head/brain wo IV con Today R51.9 - Headache, unspecified Medications: New prednisone 40 mg (2 x 20 mg) PO DAILY 10 tabs 0RF asthma exacerbation 5 days
== END 2025-08-11 09:32 | disposition home or self-care (01) ==
LOC: HO.HMCH 08:39
PROVIDERS: PCP Physician Assistant; Visit Provider Student in an Organized Health Care Education/Training Program
DX: R51.9 Headache, unspecified (principal); J45.901 Unspecified asthma with (acute) exacerbation

== ENCOUNTER 2025-09-02 07:43 | Outpatient (REF) | payer OTHER, SELFPAY ==
--- NOTE | ~2025-09-02 | CT_ITS ---
CLINICAL HISTORY: Z90.2 - Acquired absence of lung [part of] CT chest without contrast Comparison: CR/SR - XR CHEST 1V - 12/26/24 07:[address]/SR - CT CHEST TUBE PLACEMENT - 11/14/24 13:10 EST Findings: The heart is normal size. No thyroid lesion identified. No significant atherosclerotic disease of the coronary arteries. A few subcentimeter lymph nodes are present within the mediastinum. Postsurgical changes noted on the right. No suspicious lung lesion. No pneumothorax or effusion. Minimal airway thickening. No acute osseous finding. The liver appears enlarged and low in attenuation Impression: Postsurgical changes on the right. No suspicious lung lesion. No residual pneumothorax This document has been electronically signed by: Ron Monge MD on 09/04/2025 10:56:47
[2025-09-02 09:58] LABS: Hematocrit 46.3 % (42.0-52.0); Hemoglobin 15.2 g/dl (14.0-18.0); Mean Corpuscular HGB Conc 32.8 g/dl (31.0-36.0); Mean Corpuscular Hemoglobin 29.4 pg (27.0-33.0); Mean Corpuscular Volume 89.6 fL (80.0-98.0); NRBC Abs Auto 0.000 X10*3/uL (0.0-0.012); NRBC Pct Auto 0.0 /100WBC (0.0-0.2); Platelet Count 209 X10*3/uL (160-400); Red Blood Count 5.17 X10*6/uL (4.60-5.80); White Blood Count 7.0 X10*3/uL (4.8-10.8)
[2025-09-02 10:43] LABS: Alanine Aminotransferase 152 U/L (0-40); Albumin Level 4.2 g/dL (3.5-5.0); Alkaline Phosphatase 102 U/L (39-117); Anion Gap 13 (12-20); Aspartate Amino Transferase 72 U/L (5-37); Blood Urea Nitrogen 17 mg/dL (9-16); Calcium 9.2 mg/dL (8.4-10.2); Carbon Dioxide 26 mmol/L (22-29); Chloride 103 mmol/L (96-108); Cholesterol 227 mg/dL (<200); Estimated Glomerular Filt Rate > 60; HDL Cholesterol 39 mg/dL (>40); Potassium 4.6 mmol/L (3.3-5.1); Sodium 137 mmol/L (135-145); Total Protein 6.8 g/dL (6.5-8.0); Triglycerides 511 mg/dL (<150)
[2025-09-06 21:53] LABS: VITAMIN D (1,25 OH) D3 20 pg/mL; Vit D (1,25-Dihydroxy) Total 20 pg/mL (18-72); Vitamin D (1,25 OH) D2 <8 pg/mL
== END 2025-09-02 07:44 | disposition home or self-care (01) ==
LOC: HO.CT 07:43
PROVIDERS: Nurse Practitioner Family; PCP Physician Assistant; Visit Provider Internal Medicine Pulmonary Disease
DX: E78.2 Mixed hyperlipidemia (principal); R19.7 Diarrhea, unspecified; Z13.21 Encounter for screening for nutritional disorder; Z90.2 Acquired absence of lung [part of]
CPT/HCPCS: 36415; 71250; 80053; 80061; 82652; 84446; 84590; 84597; 85027

== ENCOUNTER → 2025-09-02 07:46 | Outpatient (BNV) | payer OTHER, SELFPAY | PROVIDERS: PCP Physician Assistant; Visit Provider Radiology Vascular & Interventional Radiology | DX: Z90.2 Acquired absence of lung [part of] (principal) | CPT/HCPCS: 71250 ==

== ENCOUNTER 2025-09-08 12:29 | Outpatient (AMB) | payer OTHER, SELFPAY ==
[2025-09-08 12:37] VITALS: BP 136/96; PULSE 116; BMI 29.1
--- NOTE | 2025-09-08 12:37 | A.OFFVIS_ITS ---
Vital Signs 09/08/25 12:37 Height 5 ft 10 in Weight 203 lb BMI 29.1 BP 136/96 H Blood Pressure Location Lt brachial Position Sitting Pulse 116 H Intake Visit Reasons: 3 months follow up diarrhea/dysphagia Intake Note: Patient 3 months follow up for diarrhea/dysphagia, no lab or fecal results. Patient cc: vomiting at sleep time, abdominal bloating, diarrhea and swalowing difficulties on and off. Director Of Global Talent Required: No Accompanied by: Self / Same As Patient Allergies amoxicillin Allergy (Severe, Verified 09/08/25 12:37) Anaphylaxis Penicillins (PENICILLINS) Allergy (Severe, Verified 09/08/25 12:37) Anaphylaxis IV dye Adverse Reaction (Severe, Uncoded 08/11/25 08:43) Anaphylaxis HPI HPI 3 months follow up diarrhea/dysphagia: Details: Patient is a 59-year-old male with PMH of asthma, nicotine dependence dependence, arthritis, hyperlipidemia and hx of lung cancer. 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 Pt continues to experience daily reflux sx w/ regurgitation of food, especially after evening meals; enforcing appropriate eating habits (eg, no meals close to bedtime, no junk food/fried foods). Omeprazole taken only once daily despite prior instruction to increase to BID; pt reports variable sx relief and ongoing dysphagia and intermittent sensation of food sticking. Notable voice changes past few days, white sputum expectorated; wonders if related to inhaler use. No new nicotine use. Reports stable weight (~200 lbs). Diarrhea is chronic and unchanged; denies recent improvement despite dietary modification and cholecystectomy (07-27-2025). Noted intermittent rectal bleeding, rare fevers (temp not measured). 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 No hospitalizations since prior visit. 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 COPD (chronic obstructive pulmonary disease) Acid reflux Rash and nonspecific skin eruption Stress at home No natural teeth Lung cancer Arthritis [place] (hard of hearing) Hx of syncope (2011) Asthma Pneumothorax SLAC (scapholunate advanced collapse) wrist History of adenomatous polyp of colon Nicotine dependence, cigarettes, uncomplicated Surgical History S/P laparoscopic cholecystectomy (07/27/25) History of esophagogastroduodenoscopy (EGD) Hx of umbilical hernia repair History of lobectomy of lung Hx of colonoscopy History of carpal tunnel release of both wrists Hx of chest tube placement (11/14/24) History of lung biopsy (11/14/24) Right upper lobe pulmonary nodule History of left knee surgery (~1989) Family History Mother Heart attack, Onset Age: 28 Stroke Father Renal cancer Maternal Grandfather Pancreatic cancer Social History Household Members: Spouse Household Members Other:: daughter, 4 granddaughters Housing: House Are you a primary career coach to a significant other at home: No Do you presently have visiting nurse or other home services: No Alcohol intake: current Alcohol intake frequency: does not drink Comment: COUNTS CORRECT Patient Tobacco Use Status: Former Tobacco user Tobacco use type: Cigarette Cigarette Packs Per Day: 1 Cigarettes Per Day: 20.0 Years Smoked: (onset 14yo, 1/2-1ppd x 44yrs, 30+pyh - quit 11/13/24) e-Cigarette/Vaping Use: Never Used Second Hand Smoke Exposure: Yes Substance Use Type: Marijuana and Caffiene service: No Current occupational status: employed 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, 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 Current occupational exposures/hazards: No Cognitive needs: No Hearing needs: No Vision needs: No Review of Systems Const Reports as per HPI ENT Reports as per HPI Card Reports as per HPI Resp Reports as per HPI GI Reports as per HPI Reports as per HPI Physical Exam Vital Signs: Last Vital Signs Pulse 116 H 09/08/25 12:37 BP 136/96 H 09/08/25 12:37 BMI result Body Mass Index 29.1 Const General: healthy appearing, no acute distress and well developed Nutritional Appearance: average body habitus Orientation/consciousness: patient oriented x3 HEENT Head: Yes normal to inspection, Yes normocephalic and Yes atraumatic Face and sinus: Yes normal facial exam Eyes General: appearance normal, both eyes and all related structures Neck Neck: Yes normal visual inspection Resp Effort & Inspection: normal respiratory effort, able to speak in complete sentences, no tracheal deviation and symmetric chest movement Cardio Jugular venous distension: no JVD GI Inspection: Yes normal to inspection (no bruising/obvious deformity) and Yes obesity Neuro General: patient oriented x3 Gait exam (Neuro): Normal gait present Psych Appearance: grossly normal Mental Status: mental status grossly normal Speech and movement: Normal speech and movement present Affect: normal affect Attitude: cooperative Thought process: Normal thought process present Thought content: Normal thought content present Insight: Good insight present (Psych) Judgement: Good judgement present (Psych) Assessment & Plan Assessment & Plan (1) Diarrhea: Comment: 04/28/25 colonoscopy complete with good prep after irrigation- Two 10-12 mm sessile serrated lesion/polyp (Descending Colon), Two 10 mm tubular adenomata (Sigmoid Colon), internal hemorrhoids. Per guidelines repeat in 3 years. Code(s): R19.7 - Diarrhea, unspecified Category: Medical Qualifiers: Diarrhea type: unspecified type Qualified Code(s): R19.7 - Diarrhea, unspecified Plan: Ongoing sx despite cholecystectomy, dietary mod, stool testing pending. Additional Testing: Stool cx, C. diff, O&P, workup for steatorrhea/malabsorption, Medications: OTC probiotic discussed for symptomatic relief; no Rx changes yet. Lifestyle Recommendations: Continue dietary modifications, monitor for ongoing bleeding, maintain hydration. Referrals / Coordination: Consider GI if workup non-diagnostic; PCP to address liver abn. Follow-Up Plan: Review stool/blood labs and barium study next visit; monitor stool frequency, color, and presence of blood. (2) Acid reflux: Comment: 04/28/25 EGD -Arteaga esophagus, Duodenal nodule, esophageal nodule, hiatal hernia, esophagitis, gastritis. Recommendations for repeat in one year Code(s): K21.9 - Gastro-esophageal reflux disease without esophagitis Category: Medical Qualifiers: Esophagitis presence: with esophagitis Esophagitis bleeding: without hemorrhage Qualified Code(s): K21.00 - Gastro-esophageal reflux disease with esophagitis, without bleeding Plan: Incomplete PPI adherence (QD vs. BID), ongoing regurgitation, continued dysphagia despite lifestyle mod. Additional Testing: Barium swallow 10-13-2025 to eval etiology of dysphagia/food stasis. Medications: Reinforce omeprazole 20 mg PO BID (am/pm); educate re: strict adherence. Pt is purchasing OTC for cost savings. Lifestyle Recommendations: Continue avoidance of trigger foods, no meals <3h before HS, maintain high fluid intake; pt instructed, helping reinforce. Discussed avoidance of overeating, fried/junk foods, alcohol/tobacco. Referrals / Coordination: Gen surg to be kept in loop re: possible hiatal hernia repair pending barium results. Follow-Up Plan: FU after barium swallow and stool test results, appt to be scheduled as soon as possible after 10-13-2025; reassess sx, labs, adherence. (3) Elevated LFTs: Code(s): R79.89 - Other specified abnormal findings of blood chemistry Category: Medical Plan: Elevated ALT X 3.8. 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 Additional Testing: None indicated unless worsening. Medications: PRN NSAIDs if tolerated, monitor for increased pain. Lifestyle Recommendations: Avoid heavy lifting until improved. Referrals / Coordination: None. Follow-Up Plan: Monitor for spontaneous resolution; return if worsening. (5) Feared complaint without diagnosis: Code(s): Z71.1 - Person with feared health complaint in whom no diagnosis is made Category: Medical Plan: Pharyngeal/Respiratory Sx (Voice Change, White Sputum). Recent onset, likely inhaler-related; candidiasis not evident on exam. - Additional Testing: None at present; discuss further w/ PCP for evaluation. - Medications: Continue inhaler as prescribed; reinforce rinsing mouth. - Lifestyle Recommendations: Continue mouth care; monitor for persistent cough/SOB. - Referrals / Coordination: PCP appt scheduled today to address concerns. - Follow-Up Plan: Reassess next GI visit if not resolved. Plan Follow-up after barium swallow or sooner as needed Time: I spent a total of 20 minutes on the date of encounter which includes: Preparing to see the patient (reviewed previous documentation, test results and medical history) Performing a medically appropriate exam and/or evaluation Ordering medications, tests, and procedures Documenting clinical information in the health record Orders: Orders CDiff Gene PCR Today R19.7 - Diarrhea, unspecified Prothrombin Time INR Today R79.89 - Other specified abnormal findings of blood chemistry Hepatitis A,B,C Profile Today R79.89 - Other specified abnormal findings of blood chemistry PABLO Reflex Titer and Pattern Today R79.89 - Other specified abnormal findings of blood chemistry Mitochondrial Antibody Today R79.89 - Other specified abnormal findings of blood chemistry Ferritin Today R79.89 - Other specified abnormal findings of blood chemistry Hepatitis A IgG Today R79.89 - Other specified abnormal findings of blood chemistry GI Panel Today R19.7 - Diarrhea, unspecified Lipase Today R79.89 - Other specified abnormal findings of blood chemistry HIV Ab/Ag Today R79.89 - Other specified abnormal findings of blood chemistry Coding Level of Care Code Established Pt Est Pt Level 3 (16066) Patient Type Established Diagnoses Diarrhea, unspecified type R19.7 Diarrhea type: unspecified type Gastroesophageal reflux disease with esophagitis without hemorrhage K21.00 Esophagitis presence: with esophagitis Esophagitis bleeding: without hemorrhage Elevated LFTs R79.89 LUQ pain R10.12 Feared complaint without diagnosis Z71.1
== END 2025-09-08 13:16 | disposition home or self-care (01) ==
LOC: HO.HGI 12:30
PROVIDERS: PCP Physician Assistant; Visit Provider Nurse Practitioner Family
DX: R19.7 Diarrhea, unspecified (principal); K21.00 Gastro-esophageal reflux disease with esophagitis, without bleeding; R79.89 Other specified abnormal findings of blood chemistry; R10.12 Left upper quadrant pain; Z71.1 Person with feared health complaint in whom no diagnosis is made
CPT/HCPCS: 99213

== ENCOUNTER 2025-09-08 15:19 | Outpatient (AMB) | payer OTHER, SELFPAY ==
[2025-09-08 16:01] VITALS: BP 116/70; PULSE 94; RESP 18; O2SAT 94; BMI 29.6
--- NOTE | 2025-09-08 16:01 | MHC.PC.OV ---
Vital Signs 09/08/25 16:01 Height 5 ft 10 in Weight 206 lb 4 oz BMI 29.6 BP 116/70 Blood Pressure Location Lt brachial Position Sitting Respiration 18 Pulse 94 Pulse Source Pulse Oximeter Temp Source Temporal Artery Scan Pulse Oximetry (%) 94 Oxygen Delivery Method Room Air Intake Visit Reasons: 3 week f/u Mail Teller Required: No Accompanied by: Self / Same As Patient Allergies amoxicillin Allergy (Severe, Verified 09/08/25 16:01) Anaphylaxis Penicillins (PENICILLINS) Allergy (Severe, Verified 09/08/25 16:01) Anaphylaxis IV dye Adverse Reaction (Severe, Uncoded 08/11/25 08:43) Anaphylaxis Medication List - Last Reconciled 09/08/25 by Lennie Ramos MD acetaminophen 500 mg PO Q6H PRN 30 days albuterol sulfate 90 mcg/actuation (Ventolin HFA) 2 puffs inhalation Q4-6H 30 days fluticasone propionate 50 mcg/actuation 1 spray intranasal DAILY 5 days mqltqkphfhs-[id number]-[id number] 200-62.5-25 mcg (Trelegy Ellipta) 1 inh inhalation DAILY hydrocodone-acetaminophen 5-325 mg 1 tab PO Q8H PRN 5 days omeprazole 20 mg PO BID 60 days oxycodone 5 mg PO Q6H PRN Tobacco use date assessed: 09/08/25 Dental Screening Dental Screen Date: 09/08/25 Did you have a dental visit in the last 12 months?: No Did you have a dental problem in the last 6 months where you did not have access to dental care?: No Was dental information given to patient?: No HPI HPI Comments History of Present Illness Details Patient is on 60-year-old male presenting for follow up on headaches. Patient was last seen 08/11/2025 for worsening headaches, given his personal history of lung cancer and basal cell carcinoma, a CT head was ordered. Recommended ibuprofen to use as needed for headaches at that time. Today, patient states he is scheduled for the CT head in October 2025. Reports that his headaches are the same, did not worsen or improve. Occurs every 3 days, have not changed in character or frequency, throbbing sensation on the left side of his forehead which persist until he takes a medication. Denies any associated nausea, vomiting, photophobia, phonophobia, vision problems or jaw pain. Ibuprofen has been effective in providing relief, and he also notices that using his Trelegy inhaler uses the headache. The patient reports a history of snoring, morning fatigue, and daytime sleepiness. He recalls waking up gasping for air on a couple of occasions, for which he used his albuterol inhaler, and his has also observed him stop breathing during sleep. He has a history of lung cancer s/p lobectomy and has since quit smoking. His current medications include Trelegy, albuterol as needed, omeprazole 20 mg twice daily, and oxycodone used rarely. He has a history of GERD and Arteaga's esophagus. For the past few months, he has had trouble swallowing, and for the past couple of weeks, he has experienced an irritated, itchy throat that is relieved by drinking hot fluids. denies drinking alcohol. 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 COPD (chronic obstructive pulmonary disease) Acid reflux Rash and nonspecific skin eruption Stress at home No natural teeth Lung cancer Arthritis [place] (hard of hearing) Hx of syncope (2011) Asthma Pneumothorax SLAC (scapholunate advanced collapse) wrist History of adenomatous polyp of colon Nicotine dependence, cigarettes, uncomplicated Surgical History S/P laparoscopic cholecystectomy (07/27/25) History of esophagogastroduodenoscopy (EGD) Hx of umbilical hernia repair History of lobectomy of lung Hx of colonoscopy History of carpal tunnel release of both wrists Hx of chest tube placement (11/14/24) History of lung biopsy (11/14/24) Right upper lobe pulmonary nodule History of left knee surgery (~1989) Family History Mother Heart attack, Onset Age: 28 Stroke Father Renal cancer Maternal Grandfather Pancreatic cancer Social History Household Members: Spouse Household Members Other:: daughter, 4 granddaughters Housing: House Are you a primary career orientation teacher to a significant other at home: No Do you presently have visiting nurse or other home services: No Alcohol intake: current Alcohol intake frequency: does not drink Comment: COUNTS CORRECT Patient Tobacco Use Status: Former Tobacco user Tobacco use type: Cigarette Cigarette Packs Per Day: 1 Cigarettes Per Day: 20.0 Years Smoked: (onset 14yo, 1/2-1ppd x 44yrs, 30+pyh - quit 11/13/24) e-Cigarette/Vaping Use: Never Used Second Hand Smoke Exposure: Yes Substance Use Type: Marijuana and Caffiene service: No Current occupational status: employed 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 1. Little interest or pleasure in doing things: not at all 2. Feeling down, depressed, or hopeless: not at all 3. Trouble falling or staying asleep, or sleeping too much: several days 4. Feeling tired or having little energy: several days 5. Poor appetite or overeating: not at all 6. Feeling bad about yourself - or that you are a failure or have let yourself or your family down: not at all 7. Trouble concentrating on things, such as reading the newspaper or watching television: several days 8. Moving or speaking so slowly that other people could have noticed. Or the opposite - being so fidgety or restless that you have been moving around a lot more than usual: several days 9. Thoughts that you would be better off or of hurting yourself in some way: several days Total score: 5 Source: Developed by Drs. Jourdan Tellez, Lorri Trammell, Ricardo Hernandez and colleagues, with an educational grazyna from [employer]. Thrive Questionnaire Date Thrive assessed: 09/08/25 I am a: Patient What is your living situation today?: I have a steady place to live Within the past 12 months, did the food you bought not last and you didn't have the money to get more?: I choose not to answer this question Within the past 12 months, did you worry whether your food would run out before you got money to buy more?: I choose not to answer this question Do you have trouble paying for medicines?: I choose not to answer this question Do you have trouble getting transportation to medical appointments?: I choose not to answer this question Do you have trouble paying your heating and electricity bill?: I choose not to answer this question Do you have trouble taking care of your child, family member or friend?: I choose not to answer this question Do you have trouble with day-to-day activities such as bathing, preparing meals, shopping, managing finances, etc.?: I choose not to answer this question Are you currently unemployed and looking for a job?: I choose not to answer this question Are you interested in more education?: I choose not to answer this question THRIVE Score: 0 KRISTIN-7 AMB Questionnaire KRISTIN-7 Date KRISTIN - 7 assessed: 12/30/24 Source: Developed by Drs. Jourdan Tellez, Lorri Trammell, Ricardo Hernandez and colleagues, with an educational grazyna from [employer]. Physical exam (Primary Care) Vital Signs: Last Vital Signs Pulse 94 09/08/25 16:01 Resp 18 09/08/25 16:01 BP 116/70 09/08/25 16:01 Pulse Ox 94 09/08/25 16:01 Oxygen Delivery Method Room Air 09/08/25 16:01 General: Well-appearing, alert, oriented ?3, in no acute distress. HEENT: Normocephalic, atraumatic, PERRLA, EOMI, no scleral icterus. External ears normal, tympanic membranes intact bilaterally, no erythema or effusion. Nares patent, normal mucosa pink, no discharge. No oral thrush. Mild posterior oropharyngeal erythema. Cardiovascular: RRR, S1-S2 appreciated, no murmurs, rubs or gallops. Respiratory: Lungs clear to auscultation bilaterally, no wheezes, rales or rhonchi. Neurologic: Alert and oriented X3, cranial nerves II?XII grossly intact, sensation and strength intact in bilateral lower and upper extremities. BMI result Body Mass Index 29.6 Tobacco/Smoking Status: Tobacco use Status Tobacco use date assessed 09/08/25 09/08/25 16:02 Patient Tobacco Use Status Former Tobacco user 09/08/25 16:02 Tobacco use type Cigarette 09/08/25 16:02 e-Cigarette/Vaping Use Never Used 09/08/25 16:02 PHQ-9: PHQ-9 Score PHQ-9: Total score 5 09/08/25 16:18 Thrive Assessment: Date of Thrive Assessment Date Thrive assessed 09/08/25 09/08/25 16:02 Coding Level of Care Code Est Pt Level 4 (49659) Diagnoses Nonintractable headache, unspecified chronicity pattern, unspecified headache type R51.9 Headache type: unspecified Headache chronicity pattern: unspecified pattern Intractability: not intractable Dysphagia, unspecified type R13.10 Dysphagia type: unspecified Snoring R06.83 Itching sensation of throat R09.89 Assessment & Plan Assessment & Plan (1) Headache: Code(s): R51.9 - Headache, unspecified Qualifiers: Headache type: unspecified Headache chronicity pattern: unspecified pattern Intractability: not intractable Qualified Code(s): R51.9 - Headache, unspecified Plan: Patient was last seen 08/11/2025 for worsening headaches, given his personal history of lung cancer and basal cell carcinoma, a CT head was ordered. Recommended ibuprofen to use as needed for headaches at that time. Today, Reports that his headaches are the same, did not worsen or improve. Occurs every 3 days, have not changed in character or frequency, throbbing sensation on the left side of his forehead which persist until he takes a medication. Denies any associated nausea, vomiting, photophobia, phonophobia, vision problems or jaw pain. Ibuprofen has been effective in providing relief, and he also notices that using his Trelegy inhaler uses the headache. Head CT scan scheduled on 10/18/2025. Plan: - proceed with CT scan as scheduled - may continue to use ibuprofen 400 mg q.8 hours as needed for headaches - patient advised to go to the emergency department for any severe headache, weakness, numbness, tingling or changes in vision. - patient has a follow up appointment with his PCP on 10/04/2025. (2) Dysphagia: Code(s): R13.10 - Dysphagia, unspecified Category: Medical Qualifiers: Dysphagia type: unspecified Qualified Code(s): R13.10 - Dysphagia, unspecified Plan: Patient reports history of dysphagia for the past few months. He has a known underlying GERD and Arteaga esophagus. He follows with Gastroenterology whom he has seen earlier today. Continue on omeprazole twenty mg b.i.d.. 04/28/25 EGD -Arteaga esophagus, Duodenal nodule, esophageal nodule, hiatal hernia, esophagitis, gastritis. Recommendations for repeat in one year He has barium swallow test scheduled on 10/13/2025 to further evaluate dysphagia. (3) Snoring: Code(s): R06.83 - Snoring Plan: Patient reports symptoms of snoring, associated with morning fatigue and witnessed apneic episodes during sleep by his partner. Will refer to sleep Medicine for further evaluation. (4) Itching sensation of throat: Code(s): R09.89 - Other specified symptoms and signs involving the circulatory and respiratory systems Plan: Patient reports a new itchy throat for the past two weeks, which may be allergic in nature. A trial of Flonase nasal sprays recommended for five days, then as needed. Orders: Referrals Sleep Medicine Referral R06.83 - Snoring Medications: New fluticasone propionate 50 mcg/actuation administer into each nostril 1 spray intranasal DAILY 16 grams 0RF 5 days
== END 2025-09-08 16:57 | disposition home or self-care (01) ==
LOC: HO.HMCH 15:20
PROVIDERS: PCP Physician Assistant; Visit Provider Student in an Organized Health Care Education/Training Program
DX: R51.9 Headache, unspecified (principal); R13.10 Dysphagia, unspecified; R06.83 Snoring; R09.89 Other specified symptoms and signs involving the circulatory and respiratory systems

== ENCOUNTER 2025-10-04 13:45 | Outpatient (AMB) | payer OTHER, SELFPAY ==
[2025-10-04 13:48] VITALS: BP 140/82; PULSE 124; TEMP 36.4; O2SAT 95; BMI 29.7
--- NOTE | 2025-10-04 13:48 | MHC.PC.OV ---
Vital Signs 10/04/25 13:48 Height 5 ft 10 in Weight 207 lb 2 oz BMI 29.7 BP 140/82 H Blood Pressure Location Lt brachial Position Sitting Pulse 124 H Pulse Source Pulse Oximeter Temp 97.5 F Temp Source Temporal Artery Scan Pulse Oximetry (%) 95 Oxygen Delivery Method Room Air Intake Visit Reasons: f/u Asthma Allergies amoxicillin Allergy (Severe, Verified 10/06/25 14:12) Anaphylaxis Penicillins (PENICILLINS) Allergy (Severe, Verified 10/06/25 14:12) Anaphylaxis IV dye Adverse Reaction (Severe, Uncoded 10/06/25 14:12) Anaphylaxis Medication List - Last Reconciled 10/04/25 by Chapito Jara PA-C acetaminophen 500 mg PO Q6H PRN 30 days albuterol sulfate 90 mcg/actuation (Ventolin HFA) 2 puffs inhalation Q4-6H 30 days fluticasone propionate 50 mcg/actuation 1 spray intranasal DAILY 5 days tksjjthfezo-aeftsgdnr-ymdrvomo 200-62.5-25 mcg (Trelegy Ellipta) 1 inh inhalation DAILY omeprazole 20 mg PO BID 60 days oxycodone 5 mg PO Q6H PRN Tobacco use date assessed: 10/04/25 Dental Screening Dental Screen Date: 10/04/25 Did you have a dental visit in the last 12 months?: No Did you have a dental problem in the last 6 months where you did not have access to dental care?: No Was dental information given to patient?: No HPI f/u Asthma HPI Details Patient is a 60-year-old male here today for a follow up visit. Patient has a past medical history significant for COPD, lung carcinoma, Arteaga's esophagus and hyperlipidemia, major depressive. Patient reporting abdominal bloating, vomiting, and right-sided abdominal pain. He reports significant abdominal bloating and has experienced a notable weight gain from approximately 190-196 lbs to 207 lbs, which is concentrated in his abdomen and has resulted in an increase in his pant size from 32 to 36. He denies any swelling in his feet. He complains of emesis, stating that he may vomit hours after eating, such as eating at 6:00 p.m. and then vomiting around 10:30 or 11:00 p.m. He notes that even light pressure on his abdomen can cause regurgitation. He has a swallow study scheduled for next Thursday to evaluate these symptoms. He reports normal bowel function. His past medical history is significant for a prior cholecystectomy, and he currently experiences pain in the right upper quadrant over one of the incision sites, which he describes as sharp pain upon pressure. Recent lab results showed elevated liver enzymes, which were discussed with him by other providers. He reports a family history of an uncle who required a liver transplant. An ultrasound of the liver is scheduled for November 03. The patient also reports dyspnea on exertion, such as when carrying groceries, and when bending over, which limits his ability to tie his shoes. He has an appointment with a art museum aide this coming Thursday. Additionally, he complains of frequent headaches, for which a head scan is scheduled, and bilateral hand pain. In terms of past history, he mentions a history of bone cancer with lesions on his back, knee, and lung. He has successfully quit smoking and reports minimal alcohol consumption. His diet is closely managed by his , and he maintains good hydration, drinking several bottles of water daily. . 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 COPD (chronic obstructive pulmonary disease) Acid reflux Rash and nonspecific skin eruption Stress at home No natural teeth Lung cancer Arthritis [place] (hard of hearing) Hx of syncope (2011) Asthma Pneumothorax SLAC (scapholunate advanced collapse) wrist History of adenomatous polyp of colon Nicotine dependence, cigarettes, uncomplicated Surgical History S/P laparoscopic cholecystectomy (07/27/25) History of esophagogastroduodenoscopy (EGD) Hx of umbilical hernia repair History of lobectomy of lung Hx of colonoscopy History of carpal tunnel release of both wrists Hx of chest tube placement (11/14/24) History of lung biopsy (11/14/24) Right upper lobe pulmonary nodule History of left knee surgery (~1989) Family History Mother Heart attack, Onset Age: 28 Stroke Father Renal cancer Maternal Grandfather Pancreatic cancer Social History Household Members: Spouse Household Members Other:: daughter, 4 granddaughters Housing: House Are you a primary childcare worker to a significant other at home: No Do you presently have visiting nurse or other home services: No Alcohol intake: current Alcohol intake frequency: does not drink Comment: COUNTS CORRECT Patient Tobacco Use Status: Former Tobacco user Tobacco use type: Cigarette Cigarette Packs Per Day: 1 Cigarettes Per Day: 20.0 Years Smoked: (onset 14yo, 1/2-1ppd x 43yrs, 30+pyh - quit 11/13/24) e-Cigarette/Vaping Use: Never Used Second Hand Smoke Exposure: Yes Substance Use Type: Marijuana and Caffiene service: No Current occupational status: employed 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 1. Little interest or pleasure in doing things: not at all 2. Feeling down, depressed, or hopeless: not at all 3. Trouble falling or staying asleep, or sleeping too much: several days 4. Feeling tired or having little energy: several days 5. Poor appetite or overeating: not at all 6. Feeling bad about yourself - or that you are a failure or have let yourself or your family down: not at all 7. Trouble concentrating on things, such as reading the newspaper or watching television: several days 8. Moving or speaking so slowly that other people could have noticed. Or the opposite - being so fidgety or restless that you have been moving around a lot more than usual: several days 9. Thoughts that you would be better off or of hurting yourself in some way: several days Total score: 5 Depression Screening Interpretation: Negative Depression Screening Done: Yes [id number] - PHQ-9 Billing: Patient declined-do not bill Source: Developed by Drs. Jourdan Tellez, Lorri Trammell, Ricardo Hernandez and colleagues, with an educational grazyna from [employer]. Thrive Questionnaire Date Thrive assessed: 09/08/25 I am a: Patient What is your living situation today?: I have a steady place to live Within the past 12 months, did the food you bought not last and you didn't have the money to get more?: I choose not to answer this question Within the past 12 months, did you worry whether your food would run out before you got money to buy more?: I choose not to answer this question Do you have trouble paying for medicines?: I choose not to answer this question Do you have trouble getting transportation to medical appointments?: I choose not to answer this question Do you have trouble paying your heating and electricity bill?: I choose not to answer this question Do you have trouble taking care of your child, family member or friend?: I choose not to answer this question Do you have trouble with day-to-day activities such as bathing, preparing meals, shopping, managing finances, etc.?: I choose not to answer this question Are you currently unemployed and looking for a job?: I choose not to answer this question Are you interested in more education?: I choose not to answer this question THRIVE Score: 0 AUDIT C Alcohol Use Questionnaire (AUDIT-C) 1. How often do you have a drink containing alcohol?: Monthly or less 2. How many drinks containing alcohol do you have on a typical day when you are drinking?: 1 or 2 3. How often do you have six or more drinks on one occasion?: Never Total Score: 1 KRISTIN-7 AMB Questionnaire KRISTIN-7 Date KRISTIN - 7 assessed: 12/30/24 Feeling nervous, anxious, or on edge: 0 = Not at all Not being able to stop or control worryin = Not at all Worrying too much about different things: 0 = Not at all Trouble relaxin = Not at all Being so restless that it is hard to sit still: 0 = Not at all Becoming easily annoyed or irritable: 0 = Not at all Feeling afraid as if something awful might happen: 0 = Not at all Total KRISTIN-7 score (0-4 normal; 5-9 mild; 10-14 moderate; 15-21 severe): 0 Source: Developed by Drs. Jourdan Tellez, Lorri Trammell, Ricardo Hernandez and colleagues, with an educational grazyna from [employer]. Review of Systems Const Denies headache(s) Eyes Denies loss of vision ENT Denies vertigo, Denies dizziness, Denies headache(s) and Denies sore throat Card Denies chest pain, Denies leg edema and Denies lightheadedness Resp Denies cough, Denies hemoptysis and Denies wheezing GI Denies abdominal pain, Denies melena, Denies constipation, Denies diarrhea and Denies vomiting Denies dysuria, Denies urinary frequency and Denies urinary urgency Musc Denies arthralgias, Denies joint swelling, Denies numbness and Denies tingling Neuro Denies Abnormal speech present, Denies behavioral changes, Denies vertigo, Denies dizziness, Denies headache(s), Denies loss of vision, Denies memory loss, Denies numbness and Denies tingling Psych Denies anxiety, Denies behavioral changes, Denies depression, Denies memory loss and Denies panic attacks Abhilash/Lymph Denies easy bleeding and Denies easy bruising Aller/Immun Denies wheezing Physical exam (Primary Care) Vital Signs: Last Vital Signs Temp 97.5 F 10/04/25 13:48 Pulse 124 H 10/04/25 13:48 BP 140/82 H 10/04/25 13:48 Pulse Ox 95 10/04/25 13:48 Oxygen Delivery Method Room Air 10/04/25 13:48 BMI result Body Mass Index 29.7 Tobacco/Smoking Status: Tobacco use Status Tobacco use date assessed 10/04/25 10/04/25 13:54 Patient Tobacco Use Status Former Tobacco user 10/04/25 13:54 Tobacco use type Cigarette 10/04/25 13:54 e-Cigarette/Vaping Use Never Used 10/04/25 13:54 PHQ-9: PHQ-9 Score PHQ-9: Total score 5 10/04/25 14:41 Depression Screening Interpretation: Negative Thrive Assessment: Date of Thrive Assessment Date Thrive assessed 09/08/25 10/04/25 13:54 Const General: healthy appearing, no acute distress, alert and awake Nutritional Appearance: well nourished Orientation/consciousness: oriented to person, oriented to place and oriented to time HENMT Ears: TM's normal bilaterally General nose exam: Normal nasal mucous membranes and turbinates present Eyes Conjunctivae: conjunctivae normal Sclerae: sclerae normal Pupils: Equal, round and reactive pupils present Neck Neck: Yes no lymphadenopathy and Yes no JVD Thyroid: Thyroid normal Carotids: no bruits Resp Effort & Inspection: normal respiratory effort and not tachypneic Auscultation: no crackles, no rales, no rhonchi and no wheezes Cardio Rate: regular rate Rhythm: regular rhythm Heart sounds: no murmurs and normal S1 and S2 GI Other: ABDOMEN SLIGHTLY DISTENDED Palpation (GI): Soft to palpation, nontender, no hepatomegaly and no splenomegaly Auscultation: normal bowel sounds Skin General skin exam: no rashes or lesions noted and dry skin Neuro General: oriented to person, oriented to place and oriented to time Cranial nerves: Yes Equal, round and reactive pupils present Speech: No Abnormal speech present Gait exam (Neuro): Normal gait present Motor exam (neuro): no tremor noted Extrem Right upper extremity: full ROM Left upper extremity: full ROM Right lower extremity: full ROM; no edema Left lower extremity: full ROM; no edema Psych Mental Status: mental status grossly normal Speech and movement: Normal speech and movement present Affect: normal affect Attitude: cooperative Thought process: Normal thought process present Coding Level of Care Code Est Pt Level 4 (53284) Diagnoses Abdominal bloating R14.0 Simple chronic bronchitis J41.0 COPD type: chronic bronchitis Chronic bronchitis type: simple Assessment & Plan Assessment & Plan (1) Abdominal bloating: Code(s): R14.0 - Abdominal distension (gaseous) Category: Medical Plan: For evaluation of the patient's abdominal distension, weight gain, and elevated liver enzymes, a CT of the abdomen will be ordered to assess for potential pathology, including ascites. This will supplement the already scheduled liver ultrasound on November 03. The patient is encouraged to complete the pending comprehensive labs and stool panel ordered by his hoist mechanic. (2) COPD (chronic obstructive pulmonary disease): Code(s): J44.9 - Chronic obstructive pulmonary disease, unspecified Category: Medical Qualifiers: COPD type: chronic bronchitis Chronic bronchitis type: simple Qualified Code(s): J41.0 - Simple chronic bronchitis Plan: Patient has completely quit smoking, has followed by pulmonology and continues on a maintenance inhaler Trelegy. He does use his Ventolin inhaler from time to time. He does report having some shortness of breath particularly when bending over to tie his shoes. He attributes his shortness of breath to his abdominal bloating as he has gained a lot of abdominal weight. Orders: Orders CT abdomen wo IV con 12/31/25 R14.0 - Abdominal distension (gaseous) Medications: New furosemide (Lasix) 20 mg PO DAILY 14 tabs 0RF 14 days R14.0 - Abdominal distension (gaseous) Discontinued oxycodone Partial Fill upon patient request. Discontinued Reason: Doctor's Order 5 mg PO Q6H PRN 15 tabs 0RF pain (scale score 7-10)
== END 2025-10-04 14:41 | disposition home or self-care (01) ==
LOC: HO.HMCH 13:46
PROVIDERS: PCP Physician Assistant; Visit Provider Physician Assistant
DX: R14.0 Abdominal distension (gaseous) (principal); J41.0 Simple chronic bronchitis